=== PATIENT | female | born 1955 | race Caucasian/White ===

== ENCOUNTER 2021-02-28 12:42 | Inpatient (IN) | payer MEDICARE, BC ==
--- NOTE | 2021-02-28 13:29 | ED ---
SOB HPI - General Chief Complaint: Shortness of Breath Stated Complaint: SHAYNA, fever Time Seen by Provider: 02/28/21 13:02 Source: patient Mode of arrival: ambulatory Limitations: no limitations - History of Present Illness Initial Comments: Patient is a 66-year-old female with past medical history of TIA, recent diagnosis of vasculitis who presents to the emergency department with reported shortness of breath and cough. Patient states that she has been under the care of a snowmobile mechanic in [place] for vasculitis. Had a biopsy and was placed on prednisone and dapsone. She has been taking medications as directed and is tapering down her dose of prednisone. As of 4 days ago the patient began having cough and congestion. She did berry picker Mucinex however it is not helping her symptoms. She is vaccinated against Covid in May and June of this year. Denies any close contacts. Does admit to chest wall pain from coughing. No previous history of pulmonary or cardiac issues. No fevers. Patient does arrive and is febrile. Oxygenation is 88%. No other alleviating, precipitating or modifying factors - Related Data Home Medications Medication Instructions Recorded Confirmed Dapsone 100 mg PO BID 02/28/21 02/28/21 Esomeprazole Magnesium [NexIUM 20 mg PO DAILY 02/28/21 02/28/21 24Hr] Pseudoephedrine HCl [Sudafed 12 120 mg PO Q12HR PRN 02/28/21 02/28/21 Hour] guaiFENesin [Mucinex] 600 mg PO Q12H 02/28/21 02/28/21 predniSONE [Deltasone] See Taper PO BID 02/28/21 02/28/21 Allergies Allergy/AdvReac Type Severity Reaction Status Date / Time No Known Allergies Allergy Verified 02/28/21 14:14 Review of Systems ROS Statement: Those systems with pertinent positive or pertinent negative responses have been documented in the HPI. ROS Other: All systems not noted in ROS Statement are negative. Past Medical History Past Medical History: CVA/TIA Additional Past Medical History / Comment(s): RECENT HX OF + OCCULT TEST PER PCP. ALSO HAD AN ABNORMAL PAP WHICH SHOWED VAGINAL POLYP-HAD D & C. CVA RT CEREBELLUM REGION 2000, vasculitis History of Any Multi-Drug Resistant Organisms: None Reported Past Surgical History: Cholecystectomy, Heart Catheterization, Joint Replac ement, Orthopedic Surgery Additional Past Surgical History / Comment(s): D & C WITH VAGINAL POLYPECTOMY. CRYOTHERAPY. RT KNEE SCOPE. L. SHOULDER SURGERY. BILAT TKA Past Anesthesia/Blood Transfusion Reactions: Motion Sickness, Postoperative Nausea & Vomiting (PONV) Additional Past Anesthesia/Blood Transfusion Reaction / Comment(s): HAD TOTAL BLOOD TRANSFUSION AFTER DELIVERY OF BABY , DEVELOPED INFECTION AND WAS HEMORRHAGING AND WENT INTO SHOCK AT HOME. WAS IN ICU FOR 1 WEEK Past Psychological History: No Psychological Hx Reported Smoking Status: Never smoker Past Alcohol Use History: None Reported Past Drug Use History: None Reported - Past Family History Sister(s) Family Medical History: Cancer Father Family Medical History: Myocardial Infarction (NM) Additional Family Medical History / Comment(s): from Heart Attack Mother Family Medical History: Dementia, Myocardial Infarction (NM) Additional Family Medical History / Comment(s): from Heart Attack General Exam Limitations: no limitations General appearance: alert, in no apparent distress Head exam: Present: atraumatic, normocephalic, normal inspection Eye exam: Present: normal appearance, PERRL, EOMI. Absent: scleral icterus, conjunctival injection, periorbital swelling ENT exam: Present: normal exam, mucous membranes moist Neck exam: Present: normal inspection. Absent: tenderness, meningismus, l ymphadenopathy Respiratory exam: Present: normal lung sounds bilaterally, other (Tachypnea). Absent: respiratory distress, wheezes, rales, rhonchi, stridor Cardiovascular Exam: Present: normal rhythm, tachycardia, normal heart sounds. Absent: systolic murmur, diastolic murmur, rubs, gallop, clicks GI/Abdominal exam: Present: soft, normal bowel sounds. Absent: distended, tenderness, guarding, rebound, rigid Extremities exam: Present: normal inspection, full ROM, normal capillary refill. Absent: tenderness, pedal edema, joint swelling, calf tenderness Back exam: Present: normal inspection Neurological exam: Present: alert, oriented X3, CN II-XII intact Psychiatric exam: Present: normal affect, normal mood Skin exam: Present: warm, dry, intact, normal color. Absent: rash Course Vital Signs 02/28/21 02/28/21 02/28/21 12:52 14:00 14:33 Temperature 101.1 F H 98.7 F Pulse Rate 103 H 89 Respiratory 18 21 Rate Blood Pressure 118/66 133/78 O2 Sat by Pulse 88 L 92 L Oximetry 02/28/21 02/28/21 02/28/21 15:00 16:00 17:00 Temperature Pulse Rate 92 100 90 Respiratory 21 15 18 Rate Blood Pressure 140/77 133/73 123/72 O2 Sat by Pulse 92 L 93 L Oximetry 02/28/21 18:00 Temperature 98.9 F Pulse Rate 89 Respiratory 22 Rate Blood Pressure 104/73 O2 Sat by Pulse 93 L Oximetry Medical Decision Making - Medical Decision Making Upon arrival patient is placed in room 6. She is febrile, tachycardic and hypoxic. She does require 6 L oxygen to maintain saturations are 92%. She is given a dose of Tylenol for fever control. Labs were conducted and reviewed. D-dimer slightly elevated at 0.76. Sodium low at 129. Covid is detected. The patient was given a liter bolus of normal saline. Due to her hypoxia recom mended admission. Spoke with Dr. Sinha who agreed to admit the patient. Pulm will be consulted - Lab Data Result diagrams: 03/15/21 07:28 03/15/21 07:28 Lab Results 02/28/21 02/28/21 02/28/21 Range/Units 13:39 13:39 13:45 WBC 12.5 H (3.8-10.6) k/uL RBC 4.43 (3.80-5.40) m/uL Hgb 14.2 (11.4-16.0) gm/dL Hct 41.8 (34.0-46.0) % MCV 94.3 (80.0-100.0) fL MCH 32.0 (25.0-35.0) pg MCHC 33.9 (31.0-37.0) g/dL RDW 12.5 (11.5-15.5) % Plt Count 188 (150-450) k/uL MPV 6.6 Neutrophils % 93 % Lymphocytes % 3 % Monocytes % 3 % Eosinophils % 0 % Basophils % 0 % Neutrophils # 11.6 H (1.3-7.7) k/uL Lymphocytes # 0.4 L (1.0-4.8) k/uL Monocytes # 0.4 (0-1.0) k/uL Eosinophils # 0.0 (0-0.7) k/uL Basophils # 0.0 (0-0.2) k/uL PT (9.0-12.0) sec INR (<1.2) APTT (22.0-30.0) sec D-Dimer (<0.60) mg/L FEU Sodium (137-145) mmol/L Potassium (3.5-5.1) mmol/L Chloride (98-107) mmol/L Carbon Dioxide (22-30) mmol/L Anion Gap mmol/L BUN (7-17) mg/dL Creatinine (0.52-1.04) mg/dL Est GFR (CKD-EPI)AfAm (>60 ml/min/1.73 sqM) Est GFR (CKD-EPI)NonAf (>60 ml/min/1.73 sqM) Glucose (74-99) mg/dL Plasma Lactic Acid Jose Alfredo (0.7-2.0) mmol/L Calcium (8.4-10.2) mg/dL Total Bilirubin (0.2-1.3) mg/dL AST (14-36) U/L ALT (4-34) U/L Alkaline Phosphatase (38-126) U/L Troponin I (0.000-0.034) ng/mL NT-Pro-B Natriuret Pep pg/mL Total Protein (6.3-8.2) g/dL Albumin (3.5-5.0) g/dL Urine Color Yellow Urine Appearance Clear (Clear) Urine pH 5.5 (5.0-8.0) Ur Specific [place] 1.027 (1.001-1.035) Urine Protein Trace H (Negative) Urine Glucose (UA) 1+ H (Negative) Urine Ketones Negative (Negative) Urine Blood Moderate H (Negative) Urine Nitrite Negative (Negative) Urine Bilirubin Negative (Negative) Urine Urobilinogen <2.0 (<2.0) mg/dL Ur Leukocyte Esterase Negative (Negative) Urine RBC 4 (0-5) /hpf Urine WBC 4 (0-5) /hpf Ur Squamous Epith Cells 1 (0-4) /hpf Urine Mucus Moderate H (None) /hpf Coronavirus (PCR) Detected A (Not Detectd) 02/28/21 02/28/21 02/28/21 Range/Units 13:45 13:45 13:45 WBC (3.8-10.6) k/uL RBC (3.80-5.40) m/uL Hgb (11.4-16.0) gm/dL Hct (34.0-46.0) % MCV (80.0-100.0) fL MCH (25.0-35.0) pg MCHC (31.0-37.0) g/dL RDW (11.5-15.5) % Plt Count (150-450) k/uL MPV Neutrophils % % Lymphocytes % % Monocytes % % Eosinophils % % Basophils % % Neutrophils # (1.3-7.7) k/uL Lymphocytes # (1.0-4.8) k/uL Monocytes # (0-1.0) k/uL Eosinophils # (0-0.7) k/uL Basophils # (0-0.2) k/uL PT 10.2 (9.0-12.0) sec INR 0.9 (<1.2) APTT 21.5 L (22.0-30.0) sec D-Dimer 0.76 H (<0.60) mg/L FEU Sodium 129 L (137-145) mmol/L Potassium 4.1 (3.5-5.1) mmol/L Chloride 98 (98-107) mmol/L Carbon Dioxide 25 (22-30) mmol/L Anion Gap 6 mmol/L BUN 16 (7-17) mg/dL Creatinine 0.72 (0.52-1.04) mg/dL Est GFR (CKD-EPI)AfAm >90 (>60 ml/min/1.73 sqM) Est GFR (CKD-EPI)NonAf 87 (>60 ml/min/1.73 sqM) Glucose 128 H (74-99) mg/dL Plasma Lactic Acid Jose Alfredo 1.3 (0.7-2.0) mmol/L Calcium 8.6 (8.4-10.2) mg/dL Total Bilirubin 1.1 (0.2-1.3) mg/dL AST 34 (14-36) U/L ALT 61 H (4-34) U/L Alkaline Phosphatase 63 (38-126) U/L Troponin I (0.000-0.034) ng/mL NT-Pro-B Natriuret Pep pg/mL Total Protein 6.4 (6.3-8.2) g/dL Albumin 3.2 L (3.5-5.0) g/dL Urine Color Urine Appearance (Clear) Urine pH (5.0-8.0) Ur Specific [place] (1.001-1.035) Urine Protein (Negative) Urine Glucose (UA) (Negative) Urine Ketones (Negative) Urine Blood (Negative) Urine Nitrite (Negative) Urine Bilirubin (Negative) Urine Urobilinogen (<2.0) mg/dL Ur Leukocyte Esterase (Negative) Urine RBC (0-5) /hpf Urine WBC (0-5) /hpf Ur Squamous Epith Cells (0-4) /hpf Urine Mucus (None) /hpf Coronavirus (PCR) (Not Detectd) 02/28/21 02/28/21 Range/Units 13:45 13:45 WBC (3.8-10.6) k/uL RBC (3.80-5.40) m/uL Hgb (11.4-16.0) gm/dL Hct (34.0-46.0) % MCV (80.0-100.0) fL MCH (25.0-35.0) pg MCHC (31.0-37.0) g/dL RDW (11.5-15.5) % Plt Count (150-450) k/uL MPV Neutrophils % % Lymphocytes % % Monocytes % % Eosinophils % % Basophils % % Neutrophils # (1.3-7.7) k/uL Lymphocytes # (1.0-4.8) k/uL Monocytes # (0-1.0) k/uL Eosinophils # (0-0.7) k/uL Basophils # (0-0.2) k/uL PT (9.0-12.0) sec INR (<1.2) APTT (22.0-30.0) sec D-Dimer (<0.60) mg/L FEU Sodium (137-145) mmol/L Potassium (3.5-5.1) mmol/L Chloride (98-107) mmol/L Carbon Dioxide (22-30) mmol/L Anion Gap mmol/L BUN (7-17) mg/dL Creatinine (0.52-1.04) mg/dL Est GFR (CKD-EPI)AfAm (>60 ml/min/1.73 sqM) Est GFR (CKD-EPI)NonAf (>60 ml/min/1.73 sqM) Glucose (74-99) mg/dL Plasma Lactic Acid Jose Alfredo (0.7-2.0) mmol/L Calcium (8.4-10.2) mg/dL Total Bilirubin (0.2-1.3) mg/dL AST (14-36) U/L ALT (4-34) U/L Alkaline Phosphatase (38-126) U/L Troponin I <0.012 (0.000-0.034) ng/mL NT-Pro-B Natriuret Pep 70 pg/mL Total Protein (6.3-8.2) g/dL Albumin (3.5-5.0) g/dL Urine Color Urine Appearance (Clear) Urine pH (5.0-8.0) Ur Specific [place] (1.001-1.035) Urine Protein (Negative) Urine Glucose (UA) (Negative) Urine Ketones (Negative) Urine Blood (Negative) Urine Nitrite (Negative) Urine Bilirubin (Negative) Urine Urobilinogen (<2.0) mg/dL Ur Leukocyte Esterase (Negative) Urine RBC (0-5) /hpf Urine WBC (0-5) /hpf Ur Squamous Epith Cells (0-4) /hpf Urine Mucus (None) /hpf Coronavirus (PCR) (Not Detectd) - EKG Data EKG Comments: EKG demonstrates a sinus tachycardia with a ventricular rate of 101. FL interval 128. QRS 72. QTC of 412. No acute ST segment elevations or depressions Disposition Clinical Impression: Hypoxia, COVID, Hyponatremia Disposition: ADMITTED IP TO THIS HOSP Condition: Serious Is patient prescribed a controlled substance at d/c from ED?: No Decision to Admit Reason: Admit from EC Decision Date: 02/28/21 Decision Time: 15:41
[2021-02-28] MEDS ORDERED: ACETAMINOPHEN TAB 500 MG TAB PO STA (13:36)
[2021-02-28] MEDS ORDERED: SODIUM CHLORIDE 0.9% 1,000 ML IV ONE (13:37)
[2021-02-28 14:07] LABS: Basophils % (A) 0 %; Eosinophils % (A) 0 %; HCT 41.8 % (34.0-46.0); HGB 14.2 gm/dL (11.4-16.0); Lymphocytes # (A) 0.4 k/uL (1.0-4.8); Lymphocytes % (A) 3 %; MCHC 33.9 g/dL (31.0-37.0); MCV 94.3 fL (80.0-100.0); Mean Platelet Volume 6.6; Monocytes # (A) 0.4 k/uL (0-1.0); Monocytes % (A) 3 %; Neutrophils # (A) 11.6 k/uL (1.3-7.7); Neutrophils % (A) 93 %; Platelet Count 188 k/uL (150-450); RBC 4.43 m/uL (3.80-5.40); RDW 12.5 % (11.5-15.5); WBC 12.5 k/uL (3.8-10.6)
[2021-02-28 14:15] LABS: ALT 61 U/L (4-34); AST 34 U/L (14-36); African American GFR (CKD) >90 (>60 ml/min/1.73 sqM); Albumin 3.2 g/dL (3.5-5.0); Alkaline Phosphatase 63 U/L (38-126); Anion Gap 6 mmol/L; Blood Urea Nitrogen 16 mg/dL (7-17); Calcium 8.6 mg/dL (8.4-10.2); Carbon Dioxide 25 mmol/L (22-30); Chloride 98 mmol/L (98-107); Glucose 128 mg/dL (74-99); Non-African American GFR(CKD) 87 (>60 ml/min/1.73 sqM); Potassium 4.1 mmol/L (3.5-5.1); Sodium 129 mmol/L (137-145); Total Bilirubin 1.1 mg/dL (0.2-1.3); Total Protein 6.4 g/dL (6.3-8.2)
--- NOTE | 2021-02-28 14:30 | XR ---
EXAMINATION TYPE: XR chest 1V portable DATE OF EXAM: 02/28/2021 COMPARISON: NONE HISTORY: Shortness of breath TECHNIQUE: Single frontal view of the chest is obtained. FINDINGS: Airspace disease is present likely in the left lower lobe. Lung volumes are low, right hem idiaphragm is elevated, patient is rotated. No evident pneumothorax. Interstitium mildly increased. N o definite pleural effusion. Cardiac mediastinal silhouette within normal limits. IMPRESSION: Correlate for pneumonia, expiratory rotated exam. Mild interstitial prominence suspected in the right upper lobe. Follow-up PA and lateral chest x-ray recommended.
[2021-02-28 14:45] LABS: INR 0.9 (<1.2); Partial Thromboplastin Time 21.5 sec (22.0-30.0); Prothrombin Time 10.2 sec (9.0-12.0)
[2021-02-28] MEDS ORDERED: IBUPROFEN 400 MG TAB PO PRN (15:42)
[2021-02-28] MEDS ORDERED: ACETAMINOPHEN TAB 325 MG TAB PO PRN (15:42)
[2021-02-28] MEDS ORDERED: NALOXONE 0.4 MG/ML 1 ML VIAL IV PRN ×2 (15:42→16:44)
--- NOTE | 2021-02-28 16:43 | P.CNPUL ---
History of Present Illness Consult date: 02/28/21 Reason for consult: dyspnea, pneumonia History of present illness: this is a pleasant 66-year-old female patient who was brought into the emergency department today because of increased shortness of breath and dizziness and weakness and cough. Her condition is getting progressively getting worse approximately a week ago. Note that the patient came in and she tested positive for COVID 19 by PCR. Meanwhile,This is a patient was ordered to receive the vaccination and she has taken 2 shots of Moderna in in May and June 2020. She has not taken it was safe shock.. Note that during the course of the past 6 weeks, the patient developed a rash which was a nonpalpable purpuric patches involving the lower extremities. 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 Based on this, the patient was started on steroids. Initially she was given 10 mg of prednisone and beginning of still January 2021. Later on, she was increased up to 60 mg of prednisone and subsequent she was dropped down to 40 mg and recently she was down to 20 mg. At the same time, she was started on dapsone. Her leukocytoclastic lesions and the purpura improved significantly in the lower extremities and there were almost recovering. Meanwhile, the patient got infected with Covid19. No nausea. No vomiting. No abdominal pain. No altered mentation. 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 She is a nonsmoker. No lung disease. No history of any cardiac disease. Review of Systems Constitutional: Reports fatigue, Reports fever, Denies chills Eyes: denies as per HPI, denies blurred vision, denies bulging eye, denies decreased vision, denies diplopia, denies discharge, denies dry eye, denies irritation, denies itching, denies pain, denies photophobia, denies loss of peripheral vision, denies loss of vision, denies tunnel vision/blind spots Ears: deny: decreased hearing, ear discharge, earache, tinnitus Ears, nose, mouth and throat: Reports as per HPI Breasts: absent: as per HPI, change in shape, gynecomastia, masses, nipple discharge, pain, skin changes, swelling Cardiovascular: Reports decreased exercise tolerance, Reports dyspnea on exertion Respiratory: Reports cough, Reports dyspnea Gastrointestinal: Reports as per HPI Genitourinary: Reports as per HPI Menstruation: Reports as per HPI Musculoskeletal: Reports as per HPI Musculoskeletal: absent: ankle pain, ankle stiffness, ankle swelling Integumentary: Reports as per HPI, Reports pruritus, Reports rash Neurological: Reports as per HPI Psychiatric: Reports as per HPI Endocrine: Reports as per HPI Hematologic/Lymphatic: Reports as per HPI Allergic/Immunologic: Reports as per HPI Past Medical History Past Medical History: CVA/TIA Additional Past Medical History / Comment(s): RECENT HX OF + OCCULT TEST PER PCP. ALSO HAD AN ABNORMAL PAP WHICH SHOWED VAGINAL POLYP-HAD D & C. CVA RT CEREBELLUM REGION 2000, vasculitis History of Any Multi-Drug Resistant Organisms: None Reported Past Surgical History: Cholecystectomy, Heart Catheterization, Joint Replacement, Orthopedic Surgery Additional Past Surgical History / Comment(s): D & C WITH VAGINAL POLYPECTOMY. CRYOTHERAPY. RT KNEE SCOPE. L. SHOULDER SURGERY. BILAT TKA Past Anesthesia/Blood Transfusion Reactions: Motion Sickness, Postoperative Nausea & Vomiting (PONV) Additional Past Anesthesia/Blood Transfusion Reaction / Comment(s): HAD TOTAL BLOOD TRANSFUSION AFTER DELIVERY OF BABY , DEVELOPED INFECTION AND WAS HEMORRHAGING AND WENT INTO SHOCK AT HOME. WAS IN ICU FOR 1 WEEK Past Psychological History: No Psychological Hx Reported Smoking Status: Never smoker Past Alcohol Use History: None Reported Past Drug Use History: None Reported - Past Family History Sister(s) Family Medical History: Cancer Medications and Allergies Home Medications Medication Instructions Recorded Confirmed Type Dapsone 100 mg PO BID 02/28/21 02/28/21 History Esomeprazole Magnesium [NexIUM 20 mg PO DAILY 02/28/21 02/28/21 History 24Hr] Pseudoephedrine HCl [Sudafed 12 120 mg PO Q12HR PRN 02/28/21 02/28/21 History Hour] guaiFENesin [Mucinex] 600 mg PO Q12H 02/28/21 02/28/21 History predniSONE [Deltasone] See Taper PO BID 02/28/21 02/28/21 History Allergies Allergy/AdvReac Type Severity Reaction Status Date / Time No Known Allergies Allergy Verified 02/28/21 14:14 Physical Exam Vitals: Vital Signs Temp Pulse Resp BP Pulse Ox 02/28/21 15:00 92 21 140/77 92 L 02/28/21 14:33 98.7 F 02/28/21 14:00 89 21 133/78 92 L 02/28/21 12:52 101.1 F H 103 H 18 118/66 88 L Intake and Output 02/28/21 02/28/21 02/28/21 06:59 14:59 22:59 Other: Weight 106.594 kg Gen. appearance the patient is calm and comfortable and her breathing is nonlabored and currently she is on 6 L of oxygen by nasal cannula Head exam was generally normal. There was no scleral icterus or corneal arcus. M ucous membranes were moist. Neck was supple and without jugular venous distension, thyromegaly, or carotid bruits. Carotids were easily palpable bilaterally. There was no adenopathy. Lungs sounds are diminished in the patient's crackles in the mid and lower lung mckenna bilaterally Cardiac exam revealed the PMI to be normally situated and sized. The rhythm was regular and no extrasystoles were noted during several minutes of auscultation. The first and second heart sounds were normal and physiologic splitting of the second heart sound was noted. There were no murmurs, rubs, clicks, or gallops. Abdominal exam revealed normal bowel sounds. The abdomen was soft, non-tender, and without masses, organomegaly, or appreciable enlargement of the abdominal aorta. Examination of the extremities revealed easily palpable radial, femoral and pedal pulses. There was no cyanosis, clubbing or edema. Skin the patient has purpuric rash involving lower eczematous bilaterally. This is related to vasculitis. Neurologically, the patient is awake and alert and the patient does not have any focal neurological deficit. Cranial nerves are essentially intact. Results - Laboratory Findings CBC and BMP: 02/28/21 13:45 02/28/21 13:45 PT/INR, D-dimer PT 10.2 sec (9.0-12.0) 02/28/21 13:45 INR 0.9 (<1.2) 02/28/21 13:45 D-Dimer 0.76 mg/L FEU (<0.60) H 02/28/21 13:45 Abnormal lab findings: Abnormal Labs 02/28/21 02/28/21 02/28/21 13:39 13:45 13:45 WBC 12.5 H Neutrophils # 11.6 H Lymphocytes # 0.4 L APTT 21.5 L D-Dimer 0.76 H Sodium Glucose ALT Albumin Coronavirus (PCR) Detected A 02/28/21 13:45 WBC Neutrophils # Lymphocytes # APTT D-Dimer Sodium 129 L Glucose 128 H ALT 61 H Albumin 3.2 L Coronavirus (PCR) - Diagnostic Findings Chest x-ray: image reviewed Assessment and Plan Plan: 1 acute COVID 19 related pneumonia with bilateral pulmonary infiltrates and secondary hypoxic respiratory failure. The patient is a vaccinated individual and she took her medicines are in a vaccination back in May and June 2020. She has no clear exposure. She has been symptomatic for less than a week. She presented worsening shortness of breath and hypoxemia and the patient is currently on 6 L of oxygen by nasal cannula. 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 and the vicente carreno remains on a combination of prednisone and dapsone on outpatient basis and she was seeing significant improvement in his skin lesions 4 history of cerebellar CVA 5 history of abnormal Pap smear 6 osteoarthritis Plan Admit this patient to the hospital and titrate the oxygen flow to maintain a saturation above 90%, currently on 6 L Stop the prednisone and put the patient on Decadron 6 mg IV every 12 hours May continue dapsone that she was taking for leukocytoclastic vasculitis and the patient will be kept on 200 mg by mouth daily Will initiate Remdesivir per protocol We'll make sure pharmacy identifies any interaction between the different drugs that she is taking special that she is going to be continued on dapsone Lovenox 40 mg subcu for DVT prophylaxis Check pro calcitonin level Check LDH CRP and D dimers Monitor skin lesions Check ELIANA, p-ANCA, c-ANCA The patient was admitted to the hospital. Chest x-ray was reviewed. We'll continue to follow her progress.
[2021-02-28] MEDS: PANTOPRAZOLE 40 MG/10 ML VIAL IVP SCH (17:07)
[2021-02-28] MEDS: ENOXAPARIN 40 MG/0.4 ML SYRINGE SQ SCH (17:07)
[2021-02-28] MEDS ORDERED: REMDESIVIR 200 MG in SODIUM CHLORIDE 0.9% 250 ML IVPB ONE (18:00)
[2021-02-28 18:07] LABS: C Reactive Protein 21.9 mg/dL (<1.0)
[2021-02-28] MEDS: guaiFENesin 600 MG TABLET.ER PO SCH (18:30)
[2021-02-28] MEDS: DEXAMETHASONE SOD PHOSPHATE 10 MG/ML 1 ML VIAL IVP SCH (21:00)
[2021-02-28] MEDS ORDERED: methylPREDNISolone SOD SUCCI 40 MG/ML 1 ML VIAL IV SCH (21:00)
[2021-02-28] MEDS: DAPSONE 25 MG TAB PO SCH ×2 (21:00→21:03)
[2021-02-28 21:46] LABS: Appearance,Urine Clear (Clear); Bilirubin,Urine Negative (Negative); Blood,Urine Moderate (Negative); Color,Urine Yellow; Glucose,Urine (UA) 1+ (Negative); Ketones,Urine Negative (Negative); Leukocyte Esterase,Urine Negative (Negative); Mucus,Urine Moderate /hpf; Nitrite,Urine Negative (Negative); PH, Urine 5.5 (5.0-8.0); Protein,Urine Trace (Negative); RBC,Urine 4 /hpf (0-5); Specific Gravity,Urine 1.027 (1.001-1.035); Squamous Epithelial Cell,Urine 1 /hpf (0-4); Urobilinogen,Urine <2.0 mg/dL (<2.0); WBC,Urine 4 /hpf (0-5)
[2021-03-01] MEDS: ALBUTEROL HFA INHALER INHALATION PRN ×2 (07:25→20:46)
[2021-03-01] MEDS ORDERED: PANTOPRAZOLE 40 MG TABLET PO SCH (07:30)
[2021-03-01] MEDS: DAPSONE 25 MG TAB PO SCH ×2 (08:01→20:46)
[2021-03-01] MEDS: DEXAMETHASONE SOD PHOSPHATE 10 MG/ML 1 ML VIAL IVP SCH ×2 (08:01→20:46)
[2021-03-01] MEDS: PANTOPRAZOLE 40 MG/10 ML VIAL IVP SCH (08:01)
[2021-03-01] MEDS: guaiFENesin 600 MG TABLET.ER PO SCH ×2 (08:02→17:01)
[2021-03-01 09:52] LABS: African American GFR (CKD) >90 (>60 ml/min/1.73 sqM); Anion Gap 6 mmol/L; Basophils % (A) 0 %; Blood Urea Nitrogen 14 mg/dL (7-17); Calcium 8.7 mg/dL (8.4-10.2); Carbon Dioxide 26 mmol/L (22-30); Chloride 103 mmol/L (98-107); Eosinophils % (A) 0 %; Glucose 127 mg/dL (74-99); HCT 38.8 % (34.0-46.0); HGB 13.1 gm/dL (11.4-16.0); Lymphocytes # (A) 0.3 k/uL (1.0-4.8); Lymphocytes % (A) 3 %; MCH 31.9 pg (25.0-35.0); MCHC 33.9 g/dL (31.0-37.0); Mean Platelet Volume 6.9; Monocytes # (A) 0.2 k/uL (0-1.0); Monocytes % (A) 2 %; Neutrophils # (A) 9.6 k/uL (1.3-7.7); Neutrophils % (A) 94 %; Non-African American GFR(CKD) >90 (>60 ml/min/1.73 sqM); Platelet Count 174 k/uL (150-450); Potassium 4.9 mmol/L (3.5-5.1); RBC 4.13 m/uL (3.80-5.40); RDW 13.1 % (11.5-15.5); Sodium 135 mmol/L (137-145); WBC 10.3 k/uL (3.8-10.6)
--- NOTE | 2021-03-01 10:17 | P.HPIM ---
History of Present Illness H&P Date: 02/28/21 Chief Complaint: sob 66-year-old female with past medical history of TIA, recent diagnosis of leukocytoclastic vasculitis causing skin rash who [facility] with worsening shortness of breath and cough over the past 3-4 days. Patient states that she has been under the care of a manager appointment in [place] for vasculitis. She first had skin rash in January, had skin biopsy which showed leukocytoclastic vasculitis. After that she was placed on prednisone and dapsone. She initially took 60 mg of prednisone but currently she is on only 40 mg. Patient states that she's been coughing up dark clots and purulent phlegm. Also had pleuritic chest pain. She was vaccinated against Covid in May of this year. Has not received booster shot yet. Denies any sick contacts. No previous history of pulmonary or cardiac issues. No fevers. In the emergency department she had a fever of 101, O2 saturations were in the 80s, she is currently requiring 6 L of oxygen to keep her sats above 90. EKG showed sinus tachycardia. Chest x-ray showed left lower lobe infiltrate. Labs were significant for WBC 12.5, lymphocytes LOW, d-dimer 0.75, sodium 129. Rashard carreno was admitted to medicine for further evaluation and management. Review of Systems Complete review of system performed, pertinent positives per HPI , otherwise negative Past Medical History Past Medical History: CVA/TIA Additional Past Medical History / Comment(s): RECENT HX OF + OCCULT TEST PER PCP. ALSO HAD AN ABNORMAL PAP WHICH SHOWED VAGINAL POLYP-HAD D & C. CVA RT CEREBELLUM REGION 2000, vasculitis History of Any Multi-Drug Resistant Organisms: None Reported Past Surgical History: Cholecystectomy, Heart Catheterization, Joint Replacement, Orthopedic Surgery Additional Past Surgical History / Comment(s): D & C WITH VAGINAL POLYPECTOMY. CRYOTHERAPY. RT KNEE SCOPE. L. SHOULDER SURGERY. BILAT TKA Past Anesthesia/Blood Transfusion Reactions: Motion Sickness, Postoperative Nausea & Vomiting (PONV) Additional Past Anesthesia/Blood Transfusion Reaction / Comment(s): HAD TOTAL BLOOD TRANSFUSION AFTER DELIVERY OF BABY , DEVELOPED INFECTION AND WAS HEMORRHAGING AND WENT INTO SHOCK AT HOME. WAS IN ICU FOR 1 WEEK Past Psychological History: No Psychological Hx Reported Smoking Status: Never smoker Past Alcohol Use History: None Reported Past Drug Use History: None Reported - Past Family History Sister(s) Family Medical History: Cancer Father Family Medical History: Myocardial Infarction ([place]) Additional Family Medical History / Comment(s): from Heart Attack Mother Family Medical History: Dementia, Myocardial Infarction ([place]) Additional Family Medical History / Comment(s): from Heart Attack Medications and Allergies Home Medications Medication Instructions Recorded Confirmed Type Dapsone 100 mg PO BID 02/28/21 02/28/21 History Esomeprazole Magnesium [NexIUM 20 mg PO DAILY 02/28/21 02/28/21 History 24Hr] Pseudoephedrine HCl [Sudafed 12 120 mg PO Q12HR PRN 02/28/21 02/28/21 History Hour] guaiFENesin [Mucinex] 600 mg PO Q12H 02/28/21 02/28/21 History predniSONE [Deltasone] See Taper PO BID 02/28/21 02/28/21 History Allergies Allergy/AdvReac Type Severity Reaction Status Date / Time No Known Allergies Allergy Verified 02/28/21 14:14 Physical Exam Vitals: Vital Signs Temp Pulse Resp BP Pulse Ox 02/28/21 15:00 92 21 140/77 92 L 02/28/21 14:33 98.7 F 02/28/21 14:00 89 21 133/78 92 L 02/28/21 12:52 101.1 F H 103 H 18 118/66 88 L Intake and Output 02/28/21 02/28/21 02/28/21 06:59 14:59 22:59 Other: Weight 106.594 kg Constitutional: No acute distress, conversant, pleasant Eyes:Anicteric sclerae, moist conjunctiva, no lid-lag, PERRLA, ENMT: Oropharynx clear, no erythema, exudates Neck: Supple, FROM, no masses, or JVD, No carotid bruits, No thyromegaly Lungs: Clear to auscultation, Clear to percussion, Normal respiratory effort, no accessory muscle use Cardiovascular: Heart regular in rate and rhythm, No murmurs, gallops, or rubs, No peripheral edema Abdominal: Soft, Nontender, no guarding, rebound or rigidity, Normoactive bowel sounds, No hepatomegaly, No splenomegaly, No palpable mass Skin: Normal temperature, tone, texture, turgor, no induration, No subcutaneous nodules, No rash, lesions, No ulcers Extremities: No digital cyanosis, No clubbing, Pedal pulses intact and symmetrical, Radial pulses intact and symmetrical, No calf tenderness Psychiatric: Alert and oriented to person, place and time, appropriate affect, intact judgement Neuro: Muscles Strength 5/5 in all 4 extremities, Sensation to light touch grossly present throughout, Cranial nerves II-XII grossly intact, no focal sensory deficits Results CBC & Chem 7: 03/01/21 06:59 03/01/21 06:59 Labs: Abnormal Lab Results - Last 24 Hours (Table) 02/28/21 02/28/21 02/28/21 Range/Units 13:39 13:45 13:45 WBC 12.5 H (3.8-10.6) k/uL Neutrophils # 11.6 H (1.3-7.7) k/uL Lymphocytes # 0.4 L (1.0-4.8) k/uL APTT 21.5 L (22.0-30.0) sec D-Dimer 0.76 H (<0.60) mg/L FEU Sodium (137-145) mmol/L Glucose (74-99) mg/dL ALT (4-34) U/L Albumin (3.5-5.0) g/dL Coronavirus (PCR) Detected A (Not Detectd) 02/28/21 Range/Units 13:45 WBC (3.8-10.6) k/uL Neutrophils # (1.3-7.7) k/uL Lymphocytes # (1.0-4.8) k/uL APTT (22.0-30.0) sec D-Dimer (<0.60) mg/L FEU Sodium 129 L (137-145) mmol/L Glucose 128 H (74-99) mg/dL ALT 61 H (4-34) U/L Albumin 3.2 L (3.5-5.0) g/dL Coronavirus (PCR) (Not Detectd) Assessment and Plan Plan: Acute hypoxemic respiratory failure secondary to COVID-19 pneumonia O2 supplement to keep saturation above 92%, she is currently on 6 L Start remdisivir Start Decadron 6 mg IV twice a day. Pulmonary consultation History of leukocytoclastic vasculitis Continue dapsone Chronic Osteoarthritis Stable DVT prophylaxis Lovenox subcu Admit to inpatient, expected length of stay more than 2 minutes
[2021-03-01 14:14] LABS: C-ANCA <1:20 Titer (<1:20)
--- NOTE | 2021-03-01 14:40 | P.PN ---
Subjective Progress Note Date: 03/01/21 Principal diagnosis: sob Patient symptomatically feeling much better however she continues to require 6 L of oxygen. No significant shortness of breath or chest pain currently. No fevers or chills. Objective - Vital Signs Vital signs: Vital Signs Temp 98.2 F 03/01/21 09:32 Pulse 85 03/01/21 09:32 Resp 18 03/01/21 09:32 BP 153/73 03/01/21 09:32 Pulse Ox 92 L 03/01/21 09:32 Intake & Output 02/28/21 03/01/21 03/01/21 18:59 06:59 18:59 Weight 106.594 kg 106.594 kg Other: Voiding Method Toilet Toilet # Voids 2 - Exam Constitutional: No acute distress, conversant, pleasant Eyes:Anicteric sclerae, moist conjunctiva, no lid-lag, PERRLA, ENMT: Oropharynx clear, no erythema, exudates Neck: Supple, FROM, no masses, or JVD, No carotid bruits, No thyromegaly Lungs: Clear to auscultation, Clear to percussion, Normal respiratory effort, no accessory muscle use Cardiovascular: Heart regular in rate and rhythm, No murmurs, gallops, or rubs, No peripheral edema Abdominal: Soft, Nontender, no guarding, rebound or rigidity, Normoactive bowel sounds, No hepatomegaly, No splenomegaly, No palpable mass Skin: Normal temperature, tone, texture, turgor, no induration, No subcutaneous nodules, No rash, lesions, No ulcers Extremities: No digital cyanosis, No clubbing, Pedal pulses intact and symmetrical, Radial pulses intact and symmetrical, No calf tenderness Psychiatric: Alert and oriented to person, place and time, appropriate affect, intact judgement Neuro: Muscles Strength 5/5 in all 4 extremities, Sensation to light touch grossly present throughout, Cranial nerves II-XII grossly intact, no focal sensory deficits - Labs CBC & Chem 7: 03/01/21 06:59 03/01/21 06:59 Labs: Abnormal Lab Results - Last 24 Hours (Table) 02/28/21 02/28/21 02/28/21 Range/Units 13:39 13:45 17:19 Neutrophils # (1.3-7.7) k/uL Lymphocytes # (1.0-4.8) k/uL APTT 21.5 L (22.0-30.0) sec D-Dimer 0.76 H 0.66 H (<0.60) mg/L FEU Sodium (137-145) mmol/L Glucose (74-99) mg/dL Lactate Dehydrogenase (313-618) U/L C-Reactive Protein (<1.0) mg/dL Procalcitonin (0.02-0.09) ng/mL Urine Protein Trace H (Negative) Urine Glucose (UA) 1+ H (Negative) Urine Blood Moderate H (Negative) Urine Mucus Moderate H (None) /hpf 02/28/21 02/28/21 03/01/21 Range/Units 17:19 17:19 06:59 Neutrophils # 9.6 H (1.3-7.7) k/uL Lymphocytes # 0.3 L (1.0-4.8) k/uL APTT (22.0-30.0) sec D-Dimer (<0.60) mg/L FEU Sodium (137-145) mmol/L Glucose (74-99) mg/dL Lactate Dehydrogenase 637 H (313-618) U/L C-Reactive Protein 21.9 H (<1.0) mg/dL Procalcitonin 0.16 H (0.02-0.09) ng/mL Urine Protein (Negative) Urine Glucose (UA) (Negative) Urine Blood (Negative) Urine Mucus (None) /hpf 03/01/21 Range/Units 06:59 Neutrophils # (1.3-7.7) k/uL Lymphocytes # (1.0-4.8) k/uL APTT (22.0-30.0) sec D-Dimer (<0.60) mg/L FEU Sodium 135 L (137-145) mmol/L Glucose 127 H (74-99) mg/dL Lactate Dehydrogenase (313-618) U/L C-Reactive Protein (<1.0) mg/dL Procalcitonin (0.02-0.09) ng/mL Urine Protein (Negative) Urine Glucose (UA) (Negative) Urine Blood (Negative) Urine Mucus (None) /hpf Assessment and Plan Plan: Acute hypoxemic respiratory failure secondary to COVID-19 pneumonia O2 supplement to keep saturation above 92%, she is currently on 6 L Continue remdisivir Continue Decadron 6 mg IV twice a day. Pulmonary following History of leukocytoclastic vasculitis Continue dapsone Chronic Osteoarthritis Stable DVT prophylaxis Lovenox subcu
--- NOTE | 2021-03-01 15:46 | P.PN ---
Subjective Progress Note Date: 03/01/21 this is a pleasant 66-year-old female patient who was brought into the emergency department today because of increased shortness of breath and dizziness and weakness and cough. Her condition is getting progressively getting worse approximately a week ago. Note that the patient came in and she tested positive for COVID 19 by PCR. Meanwhile,This is a patient was ordered to receive the vaccination and she has taken 2 shots of Moderna in in May and June 2020. She has not taken it was safe shock.. Note that during the course of the past 6 weeks, the patient developed a rash which was a nonpalpable purpuric patches involving the lower extremities. 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 Based on this, the patient was started on steroids. Initially she was given 10 mg of prednisone and beginning of still January 2021. Later on, she was increased up to 60 mg of prednisone and subsequent she was dropped down to 40 mg and recently she was down to 20 mg. At the same time, she was started on dapsone. Her leukocytoclastic lesions and the purpura improved significantly in the lower extremities and there were almost recovering. Meanwhile, the patient got infected with Covid19. No nausea. No vomiting. No abdominal pain. No altered mentation. 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 She is a nonsmoker. No lung disease. No history of any cardiac disease. On today's evaluation of 03/01/2021, the patient is feeling better. She is less short of breath compared to yesterday. For now, have the patient on a combination of treatment including Decadron 6 mg IV every 12 hours and she is also on Remdesivir day #2. She is also on dapsone that she takes for her le ukocytoclastic vasculitis. No significant worsening of her rash. She is walking around the room. She was on 6 L of oxygen by nasal cannula and currently she is on 6 L fill. The blood work shows a white cell count of 10.3 with hemoglobin 15.1. Her d-dimer is at 0.66. Rest of the blood work shows an LDH level of 637, CRP of 21, LFTs are normal, electrolytes are normal, UA is normal, pro calcitonin level is at 0.16 which is essentially low at this point in time. No new complaints otherwise for now. Tolerating her diet. Objective - Vital Signs Vital signs: Vital Signs Temp 98.5 F 03/01/21 13:03 Pulse 92 03/01/21 13:03 Resp 18 03/01/21 13:03 BP 118/68 03/01/21 13:03 Pulse Ox 90 L 03/01/21 13:03 Intake & Output 02/28/21 03/01/21 03/01/21 18:59 06:59 18:59 Weight 106.594 kg 106.594 kg Other: Voiding Method Toilet Toilet # Voids 2 - Exam Gen. appearance the patient is calm and comfortable and her breathing is nonlabored and currently she is on 6 L of oxygen by nasal cannula Head exam was generally normal. There was no scleral icterus or corneal arcus. Mucous membranes were moist. Neck was supple and without jugular venous distension, thyromegaly, or carotid bruits. Carotids were easily palpable bilaterally. There was no adenopathy. Lungs sounds are diminished in the patient's crackles in the mid and lower lung mckenna bilaterally Cardiac exam revealed the PMI to be normally situated and sized. The rhythm was regular and no extrasystoles were noted during several minutes of auscultation. The first and second heart sounds were normal and physiologic splitting of the second heart sound was noted. There were no murmurs, rubs, clicks, or gallops. Abdominal exam revealed normal bowel sounds. The abdomen was soft, non-tender, and without masses, organomegaly, or appreciable enlargement of the abdominal aorta. Examination of the extremities revealed easily palpable radial, femoral and pedal pulses. There was no cyanosis, clubbing or edema. Skin the patient has purpuric rash involving lower eczematous bilaterally. This is related to vasculitis. Neurologically, the patient is awake and alert and the patient does not have any focal neurological deficit. Cranial nerves are essentially intact. - Labs CBC & Chem 7: 03/01/21 06:59 03/01/21 06:59 Labs: Abnormal Lab Results - Last 24 Hours (Table) 02/28/21 02/28/21 02/28/21 Range/Units 13:39 17:19 17:19 Neutrophils # (1.3-7.7) k/uL Lymphocytes # (1.0-4.8) k/uL D-Dimer 0.66 H (<0.60) mg/L FEU Sodium (137-145) mmol/L Glucose (74-99) mg/dL Lactate Dehydrogenase 637 H (313-618) U/L C-Reactive Protein 21.9 H (<1.0) mg/dL Procalcitonin (0.02-0.09) ng/mL Urine Protein Trace H (Negative) Urine Glucose (UA) 1+ H (Negative) Urine Blood Moderate H (Negative) Urine Mucus Moderate H (None) /hpf 02/28/21 03/01/21 03/01/21 Range/Units 17:19 06:59 06:59 Neutrophils # 9.6 H (1.3-7.7) k/uL Lymphocytes # 0.3 L (1.0-4.8) k/uL D-Dimer (<0.60) mg/L FEU Sodium 135 L (137-145) mmol/L Glucose 127 H (74-99) mg/dL Lactate Dehydrogenase (313-618) U/L C-Reactive Protein (<1.0) mg/dL Procalcitonin 0.16 H (0.02-0.09) ng/mL Urine Protein (Negative) Urine Glucose (UA) (Negative) Urine Blood (Negative) Urine Mucus (None) /hpf Assessment and Plan Plan: 1 acute COVID 19 related pneumonia with bilateral pulmonary infiltrates and secondary hypoxic respiratory failure. The patient is a vaccinated individual and she took her medicines are in a vaccination back in May and June 2020. She has no clear exposure. She has been symptomatic for less than a week. She presented worsening shortness of breath and hypoxemia and the patient is currently on 6 L of oxygen by nasal cannula. 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 and the patient remains on a combination of prednisone and dapsone on outpatient basis and she was seeing significant improvement in his skin lesions 4 history of cerebellar CVA 5 history of abnormal Pap smear 6 osteoarthritis Plan Condition is stable for now and the patient continues to be a 6l by nasal cannula Continue Decadron 6 mg IV every 12 hours Provide the patient incentive spirometer May continue dapsone that she was taking for leukocytoclastic vasculitis and the patient will be kept on 200 mg by mouth daily Remdesivir per protocol and the patient is on day #2 of treatment We'll make sure pharmacy identifies any interaction between the different drugs that she is taking special that she is going to be continued on dapsone Lovenox 40 mg subcu for DVT prophylaxis Check pro calcitonin level, levels are low Check LDH CRP and D dimers, levels are low Monitor skin lesions Check ELIANA, p-ANCA, c-ANCA, pending We'll continue to follow her progress.
[2021-03-01] MEDS: REMDESIVIR 100 MG in SODIUM CHLORIDE 0.9% 250 ML IVPB SCH (17:01)
[2021-03-01] MEDS: ENOXAPARIN 40 MG/0.4 ML SYRINGE SQ SCH (17:01)
[2021-03-02] MEDS: guaiFENesin 600 MG TABLET.ER PO SCH ×2 (06:08→17:19)
[2021-03-02] MEDS: DAPSONE 25 MG TAB PO SCH ×2 (07:53→21:46)
[2021-03-02] MEDS: PANTOPRAZOLE 40 MG TABLET PO SCH (07:53)
[2021-03-02] MEDS: DEXAMETHASONE SOD PHOSPHATE 10 MG/ML 1 ML VIAL IVP SCH ×2 (07:54→21:46)
[2021-03-02] MEDS: ALBUTEROL HFA INHALER INHALATION PRN ×2 (08:57→16:37)
[2021-03-02 09:44] LABS: African American GFR (CKD) >90 (>60 ml/min/1.73 sqM); Anion Gap 8 mmol/L; Blood Urea Nitrogen 20 mg/dL (7-17); Calcium 8.8 mg/dL (8.4-10.2); Carbon Dioxide 24 mmol/L (22-30); Chloride 105 mmol/L (98-107); Glucose 176 mg/dL (74-99); Magnesium 2.2 mg/dL (1.6-2.3); Non-African American GFR(CKD) 89 (>60 ml/min/1.73 sqM); Phosphorus 4.4 mg/dL (2.5-4.5); Potassium 4.1 mmol/L (3.5-5.1); Sodium 137 mmol/L (137-145)
--- NOTE | 2021-03-02 13:06 | P.PN ---
Subjective Progress Note Date: 03/02/21 Principal diagnosis: sob Oxygen requirements went up last night to 15 L from 6. She is not feeling short of breath. No cough or pain. She had a bad night's sleep due to oxygen requirement going higher. No fevers or chills. Objective - Vital Signs Vital signs: Vital Signs Temp 97.8 F 03/02/21 10:00 Pulse 77 03/02/21 10:00 Resp 23 03/02/21 10:00 BP 111/71 03/02/21 10:00 Pulse Ox 90 L 03/02/21 10:00 Intake & Output 03/01/21 03/02/21 03/02/21 18:59 06:59 18:59 Intake Total 1000 Balance 1000 Intake: Oral 1000 Other: Voiding Method Toilet Toilet # Voids 1 - Exam Constitutional: No acute distress, conversant, pleasant Eyes:Anicteric sclerae, moist conjunctiva, no lid-lag, PERRLA, ENMT: Oropharynx clear, no erythema, exudates Neck: Supple, FROM, no masses, or JVD, No carotid bruits, No thyromegaly Lungs: Clear to auscultation, Clear to percussion, Normal respiratory effort, no accessory muscle use Cardiovascular: Heart regular in rate and rhythm, No murmurs, gallops, or rubs, No peripheral edema Abdominal: Soft, Nontender, no guarding, rebound or rigidity, Normoactive bowel sounds, No hepatomegaly, No splenomegaly, No palpable mass Skin: Normal temperature, tone, texture, turgor, no induration, No subcutaneous nodules, No rash, lesions, No ulcers Extremities: No digital cyanosis, No clubbing, Pedal pulses intact and symmetrical, Radial pulses intact and symmetrical, No calf tenderness Psychiatric: Alert and oriented to person, place and time, appropriate affect, intact judgement Neuro: Muscles Strength 5/5 in all 4 extremities, Sensation to light touch grossly present throughout, Cranial nerves II-XII grossly intact, no focal sensory deficits - Labs CBC & Chem 7: 03/01/21 06:59 03/02/21 08:44 Labs: Abnormal Lab Results - Last 24 Hours (Table) 03/02/21 Range/Units 08:44 BUN 20 H (7-17) mg/dL Glucose 176 H (74-99) mg/dL Assessment and Plan Plan: Acute hypoxemic respiratory failure secondary to COVID-19 pneumonia O2 supplement to keep saturation above 92%, she is currently on 15 L HFNC Continue remdisivir Continue Decadron 6 mg IV twice a day. Pulmonary following History of leukocytoclastic vasculitis Continue dapsone Chronic Osteoarthritis Stable DVT prophylaxis Lovenox subcu
--- NOTE | 2021-03-02 15:03 | P.PN ---
Subjective Progress Note Date: 03/02/21 this is a pleasant 66-year-old female patient who was brought into the emergency department today because of increased shortness of breath and dizziness and weakness and cough. Her condition is getting progressively getting worse approximately a week ago. Note that the patient came in and she tested positive for COVID 19 by PCR. Meanwhile,This is a patient was ordered to receive the vaccination and she has taken 2 shots of Moderna in in May and June 2020. She has not taken it was safe shock.. Note that during the course of the past 6 weeks, the patient developed a rash which was a nonpalpable purpuric patches involving the lower extremities. 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 Based on this, the patient was started on steroids. Initially she was given 10 mg of prednisone and beginning of still January 2021. Later on, she was increased up to 60 mg of prednisone and subsequent she was dropped down to 40 mg and recently she was down to 20 mg. At the same time, she was started on dapsone. Her leukocytoclastic lesions and the purpura improved significantly in the lower extremities and there were almost recovering. Meanwhile, the patient got infected with Covid19. No nausea. No vomiting. No abdominal pain. No altered mentation. 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 She is a nonsmoker. No lung disease. No history of any cardiac disease. On today's evaluation of 03/01/2021, the patient is feeling better. She is less short of breath compared to yesterday. For now, have the patient on a combination of treatment including Decadron 6 mg IV every 12 hours and she is also on Remdesivir day #2. She is also on dapsone that she takes for her le ukocytoclastic vasculitis. No significant worsening of her rash. She is walking around the room. She was on 6 L of oxygen by nasal cannula and currently she is on 6 L fill. The blood work shows a white cell count of 10.3 with hemoglobin 15.1. Her d-dimer is at 0.66. Rest of the blood work shows an LDH level of 637, CRP of 21, LFTs are normal, electrolytes are normal, UA is normal, pro calcitonin level is at 0.16 which is essentially low at this point in time. No new complaints otherwise for now. Tolerating her diet. on 03/02/2021, the patient is being seen for a follow-up. As mentioned earlier, the patient was Hospital as for: 90 related pneumonia. 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 For that reason, I put the patient on high-dose Decadron 6 mg every 12 hours and she is currently on of the severe day #3. She received a dose today. D-dimer is at 0.66. Inflammatory markers from earlier showed a LDH level of 637 with a CRP of 21.9. Her pro-calcitonin level was 0.16. Nevertheless, this patient had some decompensation in her oxygenation and currently still 15 L of oxygen by nasal cannula. Her current pulse ox is around 90%. She feels well and she denies having any further worsening of shortness of breath. No altered mentation. No other complaints otherwise for now. Blood work was reviewed. Electrolytes all within normal limits. normal renal function. Blood sugar is slightly elevated because of the use of Decadron. Objective - Vital Signs Vital signs: Vital Signs Temp 97.8 F 03/02/21 10:00 Pulse 77 03/02/21 10:00 Resp 23 03/02/21 10:00 BP 111/71 03/02/21 10:00 Pulse Ox 90 L 03/02/21 10:00 Intake & Output 03/01/21 03/02/21 03/02/21 18:59 06:59 18:59 Intake Total 1000 Balance 1000 Intake: Oral 1000 Other: Voiding Method Toilet Toilet # Voids 1 - Exam Gen. appearance the patient is calm and comfortable and her breathing is nonlabored and currently she is on 15 L of oxygen by nasal cannula Head exam was generally normal. There was no scleral icterus or corneal arcus. Mucous membranes were moist. Neck was supple and without jugular venous distension, thyromegaly, or carotid bruits. Carotids were easily palpable bilaterally. There was no adenopathy. Lungs sounds are diminished in the patient's crackles in the mid and lower lung mckenna bilaterally Cardiac exam revealed the PMI to be normally situated and sized. The rhythm was regular and no extrasystoles were noted during several minutes of auscultation. The first and second heart sounds were normal and physiologic splitting of the second heart sound was noted. There were no murmurs, rubs, clicks, or gallops. Abdominal exam revealed normal bowel sounds. The abdomen was soft, non-tender, and without masses, organomegaly, or appreciable enlargement of the abdominal aorta. Examination of the extremities revealed easily palpable radial, femoral and pedal pulses. There was no cyanosis, clubbing or edema. Skin the patient has purpuric rash involving lower eczematous bilaterally. This is related to vasculitis. Neurologically, the patient is awake and alert and the patient does not have any focal neurological deficit. Cranial nerves are essentially intact. - Labs CBC & Chem 7: 03/01/21 06:59 03/02/21 08:44 Labs: Abnormal Lab Results - Last 24 Hours (Table) 03/02/21 Range/Units 08:44 BUN 20 H (7-17) mg/dL Glucose 176 H (74-99) mg/dL Assessment and Plan Plan: 1 acute COVID 19 related pneumonia with bilateral pulmonary infiltrates and secondary hypoxic respiratory failure. The patient is a vaccinated individual and she took her medicines are in a vaccination back in May and June 2020. She has no clear exposure. She has been symptomatic for less than a week. She presented worsening shortness of breath and hypoxemia and the patient is currently on as of oxygen by nasal cannula. The patient was earlier on 6 L and she decompensated and she is currently up to 15 L. Current pulse ox 90% patient wasn't very closely. Monitor markers of mildly elevated only. She also is on a combination of high-dose Decadron and Remdesivir day #3. She remains on Lovenox. 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 The patient implementing markers in a.m. Continue high-dose Decadron 6 mg IV every 12 hours Condition is stable for now and the patient continues to be a 15 by nasal cannula Continue Decadron 6 mg IV every 12 hours Provide the patient incentive spirometer May continue dapsone that she was taking for leukocytoclastic vasculitis and the patient will be kept on 200 mg by mouth daily Remdesivir per protocol and the patient is on day #3 of treatment Lovenox 40 mg subcu for DVT prophylaxis Check pro calcitonin level, levels are low Check LDH CRP and D dimers, levels are low Monitor skin lesions Check ELIANA, p-ANCA, c-ANCA, are negative We'll continue to follow her progress.
[2021-03-02] MEDS: REMDESIVIR 100 MG in SODIUM CHLORIDE 0.9% 250 ML IVPB SCH (17:19)
[2021-03-02] MEDS: ENOXAPARIN 40 MG/0.4 ML SYRINGE SQ SCH (17:19)
[2021-03-02] MEDS: ACETAMINOPHEN TAB 325 MG TAB PO PRN (21:50)
[2021-03-03] MEDS: guaiFENesin 600 MG TABLET.ER PO SCH ×2 (06:01→16:54)
[2021-03-03] MEDS: PANTOPRAZOLE 40 MG TABLET PO SCH (08:45)
[2021-03-03] MEDS: DAPSONE 25 MG TAB PO SCH ×2 (08:45→21:42)
[2021-03-03] MEDS: DEXAMETHASONE SOD PHOSPHATE 10 MG/ML 1 ML VIAL IVP SCH ×2 (08:45→21:42)
[2021-03-03] MEDS: ALBUTEROL HFA INHALER INHALATION PRN (09:40)
--- NOTE | 2021-03-03 13:57 | P.PN ---
Subjective Progress Note Date: 03/03/21 this is a pleasant 66-year-old female patient who was brought into the emergency department today because of increased shortness of breath and dizziness and weakness and cough. Her condition is getting progressively getting worse approximately a week ago. Note that the patient came in and she tested positive for COVID 19 by PCR. Meanwhile,This is a patient was ordered to receive the vaccination and she has taken 2 shots of Moderna in in May and June 2020. She has not taken it was safe shock.. Note that during the course of the past 6 weeks, the patient developed a rash which was a nonpalpable purpuric patches involving the lower extremities. 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 Based on this, the patient was started on steroids. Initially she was given 10 mg of prednisone and beginning of still January 2021. Later on, she was increased up to 60 mg of prednisone and subsequent she was dropped down to 40 mg and recently she was down to 20 mg. At the same time, she was started on dapsone. Her leukocytoclastic lesions and the purpura improved significantly in the lower extremities and there were almost recovering. Meanwhile, the patient got infected with Covid19. No nausea. No vomiting. No abdominal pain. No altered mentation. 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 She is a nonsmoker. No lung disease. No history of any cardiac disease. On today's evaluation of 03/01/2021, the patient is feeling better. She is less short of breath compared to yesterday. For now, have the patient on a combination of treatment including Decadron 6 mg IV every 12 hours and she is also on Remdesivir day #2. She is also on dapsone that she takes for her le ukocytoclastic vasculitis. No significant worsening of her rash. She is walking around the room. She was on 6 L of oxygen by nasal cannula and currently she is on 6 L fill. The blood work shows a white cell count of 10.3 with hemoglobin 15.1. Her d-dimer is at 0.66. Rest of the blood work shows an LDH level of 637, CRP of 21, LFTs are normal, electrolytes are normal, UA is normal, pro calcitonin level is at 0.16 which is essentially low at this point in time. No new complaints otherwise for now. Tolerating her diet. on 03/02/2021, the patient is being seen for a follow-up. As mentioned earlier, the patient was Hospital as for: 90 related pneumonia. 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 For that reason, I put the patient on high-dose Decadron 6 mg every 12 hours and she is currently on of the severe day #3. She received a dose today. D-dimer is at 0.66. Inflammatory markers from earlier showed a LDH level of 637 with a CRP of 21.9. Her pro-calcitonin level was 0.16. Nevertheless, this patient had some decompensation in her oxygenation and currently still 15 L of oxygen by nasal cannula. Her current pulse ox is around 90%. She feels well and she denies having any further worsening of shortness of breath. No altered mentation. No other complaints otherwise for now. Blood work was reviewed. Electrolytes all within normal limits. normal renal function. Blood sugar is slightly elevated because of the use of Decadron. 03/03/2021, the patient is still on oxygen and she is on 15 L. Essentially the same as yesterday. No worsening shortness of breath. She does have a cough. She is dry cough. No significant sputum production. No chest pain. No pleurisy. No hemoptysis. The patient remains on Decadron 6 mg IV every 12 hours. The patient is also on Lovenox 40 mg subcu for DVT prophylaxis. The patient was advised to 10.3 from 2 days ago. On today's labs, the electrodes are all stable and within normal limits. Note that her LDH level was 637, CRP, Pro-Calcitonin Level Was 0.16.she has also noticed some improvement in the leukocytoclastic vasculitic lesions in her lower extremities bilaterally. There is a positive response to Decadron. Objective - Vital Signs Vital signs: Vital Signs Temp 97.7 F 03/03/21 09:03 Pulse 82 03/03/21 09:03 Resp 18 03/03/21 09:03 BP 121/72 03/03/21 09:03 Pulse Ox 89 L 03/03/21 09:03 Intake & Output 03/02/21 03/03/21 03/03/21 18:59 06:59 18:59 Intake Total 250 Balance 250 Intake: Intake, IV Titration 250 Amount Remdesivir 100 mg In 250 Sodium Chloride 0.9% 250 ml @ 250 mls/hr IVPB Q24H [facility] Rx#:[id number] Other: Voiding Method Toilet # Voids 2 3 - Exam Gen. appearance the patient is calm and comfortable and her breathing is nonlabored and currently she is on 15 L of oxygen by nasal cannula Head exam was generally normal. There was no scleral icterus or corneal arcus. Mucous membranes were moist. Neck was supple and without jugular venous distension, thyromegaly, or carotid bruits. Carotids were easily palpable bilaterally. There was no adenopathy. Lungs sounds are diminished in the patient's crackles in the mid and lower lung mckenna bilaterally Cardiac exam revealed the PMI to be normally situated and sized. The rhythm was regular and no extrasystoles were noted during several minutes of auscultation. The first and second heart sounds were normal and physiologic splitting of the second heart sound was noted. There were no murmurs, rubs, clicks, or gallops. Abdominal exam revealed normal bowel sounds. The abdomen was soft, non-tender, and without masses, organomegaly, or appreciable enlargement of the abdominal aorta. Examination of the extremities revealed easily palpable radial, femoral and pedal pulses. There was no cyanosis, clubbing or edema. Skin the patient has purpuric rash involving lower eczematous bilaterally. This is related to vasculitis. Neurologically, the patient is awake and alert and the patient does not have any focal neurological deficit. Cranial nerves are essentially intact. - Labs CBC & Chem 7: 03/01/21 06:59 03/02/21 08:44 Assessment and Plan Plan: 1 acute COVID 19 related pneumonia with bilateral pulmonary infiltrates and secondary hypoxic respiratory failure. The patient is a vaccinated individual and she took her medicines are in a vaccination back in May and June 2020. She has no clear exposure. She has been symptomatic for less than a week. She presented worsening shortness of breath and hypoxemia and the patient is currently on as of oxygen by nasal cannula. The patient is currently up to 15 L. Current pulse ox 90% patient wasn't very closely. Monitor markers of mildly elevated only. She also is on a combination of high-dose Decadron and Rem desivir day #4. She remains on Lovenox. condition is stable compared to yesterday. 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 and the patient remains on a combination of prednisone and dapsone on outpatient basis and she was seeing significant improvement in his skin lesions 4 history of cerebellar CVA 5 history of abnormal Pap smear 6 osteoarthritis Plan the patient's condition is stable and the patient is currently on 15 L of oxygen by nasal cannula and this is essentially unchanged compared to yesterday Continue Decadron at the same dose of 63 g IV every 12 hours and continue Remdesivir day #4 May continue dapsone that she was taking for leukocytoclastic vasculitis and the patient will be kept on 200 mg by mouth daily Remdesivir per protocol and the patient is on day #4 of treatment Lovenox 40 mg subcu for DVT prophylaxis Check pro calcitonin level, levels are low Check LDH CRP and D dimers, levels are low Monitor skin lesions Check ELIANA, p-ANCA, c-ANCA, are negative We'll continue to follow her progress.
--- NOTE | 2021-03-03 14:09 | P.PN ---
Subjective Progress Note Date: 03/03/21 Patient seen and examined at bedside. Patient continues to be on high flow oxygen. Denies chest pain, fever, or chills. Patient has a persistent cough. Patient does not have any concerns despite her shortness of breath. Objective - Vital Signs Vital signs: Vital Signs Temp 97.7 F 03/03/21 09:03 Pulse 82 03/03/21 09:03 Resp 18 03/03/21 09:03 BP 121/72 03/03/21 09:03 Pulse Ox 89 L 03/03/21 09:03 Intake & Output 03/02/21 03/03/21 03/03/21 18:59 06:59 18:59 Intake Total 250 Balance 250 Intake: Intake, IV Titration 250 Amount Remdesivir 100 mg In 250 Sodium Chloride 0.9% 250 ml @ 250 mls/hr IVPB Q24H [facility] Rx#:[id number] Other: Voiding Method Toilet # Voids 2 3 - Exam General: [non toxic], [no distress], [appears at stated age] Derm: [warm], [dry] Head: [atraumatic], [normocephalic], [symmetric] Eyes: [EOMI], [no lid lag], [anicteric sclera] Mouth: [no lip lesion], [mucus membranes moist] Cardiovascular: [S1S2 reg], [no murmur], [positive posterior tibial pulse bilateral], Lungs: [CTA bilateral], [no rhonchi, no rales] , [no accessory muscle use] Abdominal: [soft], [ nontender to palpation], [no guarding], [no appreciable organomegaly] Ext: [no gross muscle atrophy], [no edema], [no contractures] Neuro: [ CN II-XI grossly intact], [no focal neuro deficits] Psych: [Alert], [oriented], [appropriate affect] - Labs CBC & Chem 7: 03/01/21 06:59 03/02/21 08:44 Assessment and Plan Assessment: Acute hypoxemic respiratory failure secondary to COVID-19 pneumonia O2 supplement to keep saturation above 92%, she is currently on 15 L HFNC Continue remdisivir Continue Decadron 6 mg IV twice a day. Pulmonary following History of leukocytoclastic vasculitis Continue dapsone Chronic Osteoarthritis Stable DVT prophylaxis Lovenox subcu
[2021-03-03] MEDS: REMDESIVIR 100 MG in SODIUM CHLORIDE 0.9% 250 ML IVPB SCH (16:53)
[2021-03-03] MEDS: ENOXAPARIN 40 MG/0.4 ML SYRINGE SQ SCH (16:53)
[2021-03-04] MEDS: guaiFENesin 600 MG TABLET.ER PO SCH ×2 (05:45→17:21)
[2021-03-04] MEDS: DEXAMETHASONE SOD PHOSPHATE 10 MG/ML 1 ML VIAL IVP SCH ×2 (07:53→21:35)
[2021-03-04] MEDS: PANTOPRAZOLE 40 MG TABLET PO SCH (07:53)
[2021-03-04] MEDS: DAPSONE 25 MG TAB PO SCH ×2 (07:53→21:36)
--- NOTE | 2021-03-04 08:16 | XR ---
EXAMINATION TYPE: XR chest 1V DATE OF EXAM: 03/04/2021 COMPARISON: 02/28/2021 INDICATION: Atypical pneumonia TECHNIQUE: Single frontal view of the chest is obtained. FINDINGS: The heart size is normal. The pulmonary vasculature is normal. Patchy infiltrates are present bilaterally. Findings are nonspecific but worsening over the interval. Correlate for atypical pneumonia. IMPRESSION: 1. Worsening patchy bilateral lung infiltrates compatible with atypical pneumonia. Continued follow-u p is recommended.
[2021-03-04 09:50] LABS: Basophils % (A) 0 %; Eosinophils % (A) 0 %; HCT 41.4 % (34.0-46.0); Lymphocytes # (A) 0.5 k/uL (1.0-4.8); Lymphocytes % (A) 6 %; MCH 31.8 pg (25.0-35.0); MCHC 33.7 g/dL (31.0-37.0); MCV 94.4 fL (80.0-100.0); Mean Platelet Volume 6.8; Monocytes # (A) 0.3 k/uL (0-1.0); Monocytes % (A) 3 %; Neutrophils # (A) 8.6 k/uL (1.3-7.7); Neutrophils % (A) 91 %; Platelet Count 272 k/uL (150-450); RBC 4.39 m/uL (3.80-5.40); RDW 13.3 % (11.5-15.5); WBC 9.4 k/uL (3.8-10.6)
[2021-03-04] MEDS: ALBUTEROL HFA INHALER INHALATION PRN ×3 (09:53→19:58)
[2021-03-04 10:12] LABS: AST 39 U/L (14-36); African American GFR (CKD) >90 (>60 ml/min/1.73 sqM); Albumin 3.1 g/dL (3.5-5.0); Alkaline Phosphatase 62 U/L (38-126); Anion Gap 8 mmol/L; Blood Urea Nitrogen 20 mg/dL (7-17); Calcium 8.6 mg/dL (8.4-10.2); Carbon Dioxide 25 mmol/L (22-30); Chloride 102 mmol/L (98-107); Globulin 3.2 g/dL; Glucose 152 mg/dL (74-99); LDH 1102 U/L (313-618); Non-African American GFR(CKD) 81 (>60 ml/min/1.73 sqM); Potassium 3.7 mmol/L (3.5-5.1); Sodium 135 mmol/L (137-145); Total Protein 6.3 g/dL (6.3-8.2)
[2021-03-04 10:15] LABS: ALT 49 U/L (4-34)
--- NOTE | 2021-03-04 12:06 | P.PN ---
Subjective Progress Note Date: 03/04/21 this is a pleasant 66-year-old female patient who was brought into the emergency department today because of increased shortness of breath and dizziness and weakness and cough. Her condition is getting progressively getting worse approximately a week ago. Note that the patient came in and she tested positive for COVID 19 by PCR. Meanwhile,This is a patient was ordered to receive the vaccination and she has taken 2 shots of Moderna in in May and June 2020. She has not taken it was safe shock.. Note that during the course of the past 6 weeks, the patient developed a rash which was a nonpalpable purpuric patches involving the lower extremities. 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 Based on this, the patient was started on steroids. Initially she was given 10 mg of prednisone and beginning of still January 2021. Later on, she was increased up to 60 mg of prednisone and subsequent she was dropped down to 40 mg and recently she was down to 20 mg. At the same time, she was started on dapsone. Her leukocytoclastic lesions and the purpura improved significantly in the lower extremities and there were almost recovering. Meanwhile, the patient got infected with Covid19. No nausea. No vomiting. No abdominal pain. No altered mentation. 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 She is a nonsmoker. No lung disease. No history of any cardiac disease. On today's evaluation of 03/01/2021, the patient is feeling better. She is less short of breath compared to yesterday. For now, have the patient on a combination of treatment including Decadron 6 mg IV every 12 hours and she is also on Remdesivir day #2. She is also on dapsone that she takes for her le ukocytoclastic vasculitis. No significant worsening of her rash. She is walking around the room. She was on 6 L of oxygen by nasal cannula and currently she is on 6 L fill. The blood work shows a white cell count of 10.3 with hemoglobin 15.1. Her d-dimer is at 0.66. Rest of the blood work shows an LDH level of 637, CRP of 21, LFTs are normal, electrolytes are normal, UA is normal, pro calcitonin level is at 0.16 which is essentially low at this point in time. No new complaints otherwise for now. Tolerating her diet. on 03/02/2021, the patient is being seen for a follow-up. As mentioned earlier, the patient was Hospital as for: 90 related pneumonia. 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 For that reason, I put the patient on high-dose Decadron 6 mg every 12 hours and she is currently on of the severe day #3. She received a dose today. D-dimer is at 0.66. Inflammatory markers from earlier showed a LDH level of 637 with a CRP of 21.9. Her pro-calcitonin level was 0.16. Nevertheless, this patient had some decompensation in her oxygenation and currently still 15 L of oxygen by nasal cannula. Her current pulse ox is around 90%. She feels well and she denies having any further worsening of shortness of breath. No altered mentation. No other complaints otherwise for now. Blood work was reviewed. Electrolytes all within normal limits. normal renal function. Blood sugar is slightly elevated because of the use of Decadron. 03/03/2021, the patient is still on oxygen and she is on 15 L. Essentially the same as yesterday. No worsening shortness of breath. She does have a cough. She is dry cough. No significant sputum production. No chest pain. No pleurisy. No hemoptysis. The patient remains on Decadron 6 mg IV every 12 hours. The patient is also on Lovenox 40 mg subcu for DVT prophylaxis. The patient was advised to 10.3 from 2 days ago. On today's labs, the electrodes are all stable and within normal limits. Note that her LDH level was 637, CRP, Pro-Calcitonin Level Was 0.16.she has also noticed some improvement in the leukocytoclastic vasculitic lesions in her lower extremities bilaterally. There is a positive response to Decadron. On 03/04/2021, the patient remains on high flow oxygen at 15 L. The patient has had a repeat chest x-ray in the findings are essentially stable and the patient is stable bilateral pulmonary infiltrates perihilar extending to the lung peripheries. In terms of her oxygenation, it has been stable since yesterday. D-dimer is at 1.15, her LDH level is elevated at 1102 and a CRP level is down to 6 and as such we have a mixed picture on the inflammatory markers. The patient is currently on Decadron and she is receiving 6 mg IV every 12 hours. She is also on Remdesivir and she is completing day #5. She will complete her regimen today. She is also on anticoagulation with Lovenox 40 mg subcu every 24 hours. When he 1 Objective - Vital Signs Vital signs: Vital Signs Temp 97.4 F L 03/04/21 09:52 Pulse 77 03/04/21 09:52 Resp 18 03/04/21 09:52 BP 126/73 03/04/21 09:52 Pulse Ox 90 L 03/04/21 09:52 Intake & Output 03/03/21 03/04/21 03/04/21 18:59 06:59 18:59 Intake Total 500 250 Balance 500 250 Intake: Intake, IV Titration 500 250 Amount Remdesivir 100 mg In 500 250 Sodium Chloride 0.9% 250 ml @ 250 mls/hr IVPB Q24H [facility] Rx#:[id number] Other: # Voids 3 - Exam Gen. appearance the patient is calm and comfortable and her breathing is nonlabored and currently she is on 15 L of oxygen by nasal cannula Head exam was generally normal. There was no scleral icterus or corneal arcus. Mucous membranes were moist. Neck was supple and without jugular venous distension, thyromegaly, or carotid bruits. Carotids were easily palpable bilaterally. There was no adenopathy. Lungs sounds are diminished in the patient's crackles in the mid and lower lung mckenna bilaterally Cardiac exam revealed the PMI to be normally situated and sized. The rhythm was regular and no extrasystoles were noted during several minutes of auscultation. The first and second heart sounds were normal and physiologic splitting of the second heart sound was noted. There were no murmurs, rubs, clicks, or gallops. Abdominal exam revealed normal bowel sounds. The abdomen was soft, non-tender, and without masses, organomegaly, or appreciable enlargement of the abdominal aorta. Examination of the extremities revealed easily palpable radial, femoral and pedal pulses. There was no cyanosis, clubbing or edema. Skin the patient has purpuric rash involving lower eczematous bilaterally. This is related to vasculitis. Neurologically, the patient is awake and alert and the patient does not have any focal neurological deficit. Cranial nerves are essentially intact. - Labs CBC & Chem 7: 03/04/21 08:59 03/04/21 08:59 Labs: Abnormal Lab Results - Last 24 Hours (Table) 03/04/21 03/04/21 03/04/21 Range/Units 08:59 08:59 08:59 Neutrophils # 8.6 H (1.3-7.7) k/uL Lymphocytes # 0.5 L (1.0-4.8) k/uL D-Dimer 1.15 H (<0.60) mg/L FEU Sodium 135 L (137-145) mmol/L BUN 20 H (7-17) mg/dL Glucose 152 H (74-99) mg/dL AST 39 H (14-36) U/L ALT 49 H (4-34) U/L Lactate Dehydrogenase 1102 H (313-618) U/L C-Reactive Protein 6.0 H (<1.0) mg/dL Albumin 3.1 L (3.5-5.0) g/dL Assessment and Plan Plan: 1 acute COVID 19 related pneumonia with bilateral pulmonary infiltrates and secondary hypoxic respiratory failure. The patient is a vaccinated individual and she took her medicines are in a vaccination back in May and June 2020. She has no clear exposure. She has been symptomatic for less than a week. She presented worsening shortness of breath and hypoxemia and the patient is currently on as of oxygen by nasal cannula. The patient is currently up to 15 L. over the past 24 hours, she has been kept on 15 L nasal cannula. He is being monitored very closely. Chest x-ray findings are stable.. Monitor markers of mildly elevated only. She also is on a combination of high-dose Decadron and Remdesivir day #5. She remains on Lovenox. condition is stable compared to yesterday. 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 and the patient remains on a combination of prednisone and dapsone on outpatient basis and she was seeing significant improvement in his skin lesions 4 history of cerebellar CVA 5 history of abnormal Pap smear 6 osteoarthritis Plan But oxygenation and chest x-ray findings Slightly elevated LDH with diminishing CRP, a mixed picture Keep the patient on oxygen at 15 L of oxygen by nasal cannula and this is essentially unchanged compared to yesterday Continue Decadron at the same dose of 63 g IV every 12 hours and continue Remdesivir day #5 May continue dapsone that she was taking for leukocytoclastic vasculitis and the patient will be kept on 200 mg by mouth daily Lovenox 40 mg subcu for DVT prophylaxis Check pro calcitonin level, levels are low Check LDH CRP and D dimers, levels are low Monitor skin lesions Check ELIANA, p-ANCA, c-ANCA, are negative We'll continue to follow her progress.
--- NOTE | 2021-03-04 14:12 | P.PN ---
Subjective Patient seen and examined. Patient sitting up in chair comfortably. Patient continues to be on high flow oxygen. Denies chest pain, fever, or chills. Patient has a persistent cough. Patient does not have any concerns despite her shortness of breath. Objective - Vital Signs Vital signs: Vital Signs Temp 97.4 F L 03/04/21 09:52 Pulse 77 03/04/21 09:52 Resp 18 03/04/21 09:52 BP 126/73 03/04/21 09:52 Pulse Ox 90 L 03/04/21 09:52 Intake & Output 03/03/21 03/04/21 03/04/21 18:59 06:59 18:59 Intake Total 500 250 Balance 500 250 Intake: Intake, IV Titration 500 250 Amount Remdesivir 100 mg In 500 250 Sodium Chloride 0.9% 250 ml @ 250 mls/hr IVPB Q24H [facility] Rx#:[id number] Other: # Voids 3 - Exam General: [non toxic], [no distress], [appears at stated age] Derm: [warm], [dry] Head: [atraumatic], [normocephalic], [symmetric] Eyes: [EOMI], [no lid lag], [anicteric sclera] Mouth: [no lip lesion], [mucus membranes moist] Cardiovascular: [S1S2 reg], [no murmur], [positive posterior tibial pulse bilateral], Lungs: [Diminished bilaterally], [no rhonchi, no rales] , [no accessory muscle use] Abdominal: [soft], [ nontender to palpation], [no guarding], [no appreciable organomegaly] Ext: [no gross muscle atrophy], [no edema], [no contractures] Neuro: [ CN II-XI grossly intact], [no focal neuro deficits] Psych: [Alert], [oriented], [appropriate affect] - Labs CBC & Chem 7: 03/04/21 08:59 03/04/21 08:59 Labs: Abnormal Lab Results - Last 24 Hours (Table) 03/04/21 03/04/21 03/04/21 Range/Units 08:59 08:59 08:59 Neutrophils # 8.6 H (1.3-7.7) k/uL Lymphocytes # 0.5 L (1.0-4.8) k/uL D-Dimer 1.15 H (<0.60) mg/L FEU Sodium 135 L (137-145) mmol/L BUN 20 H (7-17) mg/dL Glucose 152 H (74-99) mg/dL AST 39 H (14-36) U/L ALT 49 H (4-34) U/L Lactate Dehydrogenase 1102 H (313-618) U/L C-Reactive Protein 6.0 H (<1.0) mg/dL Albumin 3.1 L (3.5-5.0) g/dL Assessment and Plan Assessment: Acute hypoxemic respiratory failure secondary to COVID-19 pneumonia O2 supplement to keep saturation above 90%, she is currently on 15 L HFNC Continue remdisivir Continue Decadron 6 mg IV twice a day. Pulmonary following History of leukocytoclastic vasculitis Continue dapsone Chronic Osteoarthritis Stable DVT prophylaxis Lovenox subcu
[2021-03-04] MEDS: ENOXAPARIN 40 MG/0.4 ML SYRINGE SQ SCH (17:21)
[2021-03-04] MEDS: REMDESIVIR 100 MG in SODIUM CHLORIDE 0.9% 250 ML IVPB SCH (17:21)
[2021-03-05] MEDS: guaiFENesin 600 MG TABLET.ER PO SCH ×2 (05:32→18:07)
[2021-03-05] MEDS: DEXAMETHASONE SOD PHOSPHATE 10 MG/ML 1 ML VIAL IVP SCH ×2 (08:31→20:13)
[2021-03-05] MEDS: PANTOPRAZOLE 40 MG TABLET PO SCH (08:31)
[2021-03-05 08:56] LABS: ALT 49 U/L (4-34); AST 33 U/L (14-36); African American GFR (CKD) >90 (>60 ml/min/1.73 sqM); Albumin 2.9 g/dL (3.5-5.0); Alkaline Phosphatase 57 U/L (38-126); Anion Gap 5 mmol/L; Blood Urea Nitrogen 19 mg/dL (7-17); C Reactive Protein 4.5 mg/dL (<1.0); Calcium 8.5 mg/dL (8.4-10.2); Carbon Dioxide 29 mmol/L (22-30); Chloride 103 mmol/L (98-107); Glucose 152 mg/dL (74-99); LDH 1061 U/L (313-618); Non-African American GFR(CKD) 80 (>60 ml/min/1.73 sqM); Potassium 4.5 mmol/L (3.5-5.1); Sodium 137 mmol/L (137-145); Total Bilirubin 1.1 mg/dL (0.2-1.3); Total Protein 5.9 g/dL (6.3-8.2)
[2021-03-05] MEDS: ALBUTEROL HFA INHALER INHALATION PRN ×2 (09:32→21:12)
[2021-03-05 11:03] LABS: HCT 38.7 % (37.2-46.3); HGB 12.7 g/dL (12.0-15.0); MCH 31.1 pg (27.0-32.0); MCHC 32.8 g/dL (32.0-37.0); MCV 94.6 fL (80.0-97.0); Mean Platelet Volume 8.6 fL (9.5-12.2); Platelet Count 177 X 10*3/uL (140-440); RBC 4.09 X 10*6/uL (4.10-5.20); RDW 12.7 % (11.5-14.5); WBC 7.11 X 10*3/uL (4.50-10.00)
[2021-03-05] MEDS: DAPSONE 25 MG TAB PO SCH ×2 (11:22→20:13)
[2021-03-05 15:46] LABS: Basophils # (M) 0 X 10*3/uL (0.00-0.10); Eosinophils # (M) 0 X 10*3/uL (0.04-0.35); Lymphocytes # (M) 0.21 X 10*3/uL (0.90-5.00); Metamyelocytes % 1 % (0-0); Monocytes # (M) 0.14 X 10*3/uL (0.20-1.00); Myelocytes % 3 % (0-0); Neutrophils % (M) 90 %; Promyelocytes % 1 % (0-0)
--- NOTE | 2021-03-05 17:19 | P.PN ---
Subjective Progress Note Date: 03/05/21 Principal diagnosis: Dyspnea, hypoxia On 03/05/2021 patient is seen in follow-up on medical surgical floor. She is resting comfortably in bed, states she is breathing better, she still on high flow oxygen at 15 L, her pulse ox is 90%. Afebrile, hemodynamically she stable, no acute distress, yesterday his chest x-ray has been reviewed showing worsening patchy bilateral lung infiltrates compatible with atypical pneumonia. Today's labs have been reviewed, white blood cell count is 7.11, hemoglobin is 12.7, d- dimer was 0.9, improving, electrolytes are within normal limits B1 is 19 creatinine 0.77, LDH today is slightly improved and is down to 1061, and CRP is 4.5. Patient's c-ANCA and p-ANCA levels were within normal limits. Calcitonin level was negative at 0.16, currently continues on Decadron 6 mg twice daily, Lovenox 40 mg daily, and dapsone 100 mg twice daily. Objective - Vital Signs Vital signs: Vital Signs Temp 98.5 F 03/05/21 14:39 Pulse 82 03/05/21 14:39 Resp 18 03/05/21 14:39 BP 130/65 03/05/21 14:39 Pulse Ox 90 L 03/05/21 14:39 Intake & Output 03/04/21 03/05/21 03/05/21 18:59 06:59 18:59 Intake Total 250 Balance 250 Intake: Intake, IV Titration 250 Amount Remdesivir 100 mg In 250 Sodium Chloride 0.9% 250 ml @ 250 mls/hr IVPB Q24H [facility] Rx#:[id number] Other: Voiding Method Bedside Commode # Voids 2 3 - Exam GENERAL EXAM: Alert, very pleasant, 66-year-old white female, resting in bed, currently on 15 L of oxygen pulse ox of 90% comfortable in no apparent distress. HEAD: Normocephalic/atraumatic. EYES: Normal reaction of pupils, equal size. Conjunctiva pink, sclera white. NOSE: Clear with pink turbinates. THROAT: No erythema or exudates. NECK: No masses, no JVD, no thyroid enlargement, no adenopathy. CHEST: No chest wall deformity. Symmetrical expansion. LUNGS: Equal air entry with bibasilar crackles CVS: Regular rate and rhythm, normal S1 and S2, no gallops, no murmurs, no rubs ABDOMEN: Soft, nontender. No hepatosplenomegaly, normal bowel sounds, no guarding or rigidity. EXTREMITIES: No clubbing, no edema, no cyanosis, 2+ pulses and upper and lower extremities. MUSCULOSKELETAL: Muscle strength and tone normal. SPINE: No scoliosis or deformity SKIN: No rashes CENTRAL NERVOUS SYSTEM: Alert and oriented -3. No focal deficits, tone is normal in all 4 extremities. PSYCHIATRIC: Alert and oriented -3. Appropriate affect. Intact judgment and insight. - Labs CBC & Chem 7: 03/05/21 08:10 03/05/21 08:10 Labs: Abnormal Lab Results - Last 24 Hours (Table) 03/05/21 03/05/21 03/05/21 Range/Units 08:10 08:10 08:10 RBC 4.09 L (4.10-5.20) X 10*6/uL MPV 8.6 L (9.5-12.2) fL Absolute Nucleated RBC 0.02 H (0.00-0.00) X 10*3/uL Metamyelocytes % 1 H (0-0) % Myelocytes % 3 H (0-0) % Promyelocytes % 1 H (0-0) % Lymphocytes # (Manual) 0.21 L (0.90-5.00) X 10*3/uL Monocytes # (Manual) 0.14 L (0.20-1.00) X 10*3/uL Eosinophils # (Manual) 0 L (0.04-0.35) X 10*3/uL NRBC/100 WBC Diff 0.3 H (0.0-0.0) /100 WBCS D-Dimer 0.90 H (<0.60) mg/L FEU BUN 19 H (7-17) mg/dL Glucose 152 H (74-99) mg/dL ALT 49 H (4-34) U/L Lactate Dehydrogenase 1061 H (313-618) U/L C-Reactive Protein 4.5 H (<1.0) mg/dL Total Protein 5.9 L (6.3-8.2) g/dL Albumin 2.9 L (3.5-5.0) g/dL Assessment and Plan Plan: Assessment: #1. Acute COVID-19 related pneumonia with bilateral pulmonary infiltrates secondary dyspnea. Patient is vaccinated individual and completed her vaccination back in May and June 2020. Patient presented with less than a week with the symptoms, she has completed a course of Remdesivir, currently remains on Decadron 6 mg twice daily, and dapsone 100 mg twice daily #2. Acute hypoxic respiratory failure secondary to the above. #3. History of leukocytoclastic vasculitis, confirmed by skin biopsy and patient is on a combination of prednisone and dapsone on an outpatient basis and patient has been seen significant improvement in her skin lesions #4. History of cerebellar CVA #5. History of abnormal Pap smear #6. Osteoarthritis Plan: Continue current medical treatment Continue current dose Decadron, Lovenox Still continues to require high flow oxygen, but denies worsening dyspnea Today's labs have been noted, inflammatory markers slightly improved, pro- calcitonin level is negative p-ANCA and c-ANCa levels are negative We'll continue to follow her progress I performed a history & physical examination of the patient and discussed their management with my nurse practitioner, Adalgisa Esparza. I reviewed the nurse practitioner's note and agree with the documented findings and plan of care. Lung sounds are positive for bibasilar crackles throughout the lung mckenna. The findings and the impression was discussed with the patient. I attest to the documentation by the nurse practitioner. Time with Patient: Less than 30
--- NOTE | 2021-03-05 17:53 | P.PN ---
Subjective Progress Note Date: 03/05/21 Hospital course: Patient is a very pleasant 66-year-old femalewith a past medical history of TIA and vasculitis. She presented to the emergency department on 02/28/21 with a chief complaint of shortness of breath and cough. Patient was Found to be hypoxic 88% on room air, tachycardic with heart rate of 103 bpm, and febrile with elevated temp of 101.1F. .Covid 19 PCR resulted positive and patient was diagnosed with Covid 19 pneumonia. X-ray correlating with pneumonia. EKG revealed sinus tachycardia at 101 bpm with no noted T-wave or ST abnormalities. patient was admitted under our services with consultation to pulmonary. Physical exam: Patient seen and fully evaluated at the bedside this morning. She reports feeling slightly short of breath, but states her sinus congestion has cleared up and she is starting to breathe and feel a little better.she denies having any headache, lightheadedness, dizziness, chest pain, or palpitations, or experiencing any numbness/tingling/weakness in her extremities. Morning labs revealing slightly improving inflammatory markers with d-dimer 0.90, LDH 1061, and CRP of 4.5. Vital signs reviewed and stable. General: Nontoxic, no distress and appears stated age. Derm: Skin warm and dry, normal coloration for ethnicity. Head: Atraumatic, normocephalic and symmetric. Eyes: EOMs intact, no lid lag, and anicteric sclera Mouth: no lip lesions, mucus membranes moist Cardiovascular: regular rate and rhythm with normal S1S2, no murmur, positive posterior tibial pulses bilaterally, and cap refill < 2 seconds. Lungs: Respirations even, regular, and unlabored on 15 L high flow nasal cannula with SpO2 of 92%. Lungs with bilateral lower lobe crackles. No rhonchi, wheezes, or rales and no accessory muscle usage. Abdominal: soft, nontender to palpation, no guarding, no appreciable organomegaly Ext: ROM intact. No gross muscle atrophy, no edema, no contractures Neuro: Speech clear, face symmetrical and CN II-XII grossly intact with no noted focal neuro deficits Psych: Alert and oriented to person, place, time, and situation. Appropriate and pleasant affect. Assessment and Plan of Care: Acute respiratory failure with hypoxia secondary to COVID 19 pneumonia in vaccinated individual. -Oxygenation to be administered and titrated as needed to maintain SPO2 equal to or greater than 90% -Telemetry monitoring. -Continue trending inflammatory markers -Encourage Incentive Spirometry 10-15x hourly while awake -Steroids: Decadron 6 mg q 12 hours -Continue vitamin C, Vitamin D, and Zinc. -Pulmonology following, appreciate further recommendations. -DVT prophylaxis with Lovenox. -Strict Droplet plus Contact precautions -Pt completed course of Remdesivir History of leukocytoclastic vasculitis -Continue Dapsone 100 mg twice daily CODE STATUS: full code DVT prophylaxis: Lovenox Discussed with: patient and RN Anticipated discharge date: clinical course to determine Anticipated discharge place: home A total of 45 minutes was spent on the care of this complex patient more than 50% of the time was spent in counseling and care coordination. Objective - Vital Signs Vital signs: Vital Signs Temp 98.2 F 03/05/21 06:00 Pulse 74 03/05/21 06:00 Resp 20 03/05/21 06:00 BP 111/55 03/05/21 06:00 Pulse Ox 92 L 03/05/21 06:00 Intake & Output 03/04/21 03/05/21 03/05/21 18:59 06:59 18:59 Intake Total 250 Balance 250 Intake: Intake, IV Titration 250 Amount Remdesivir 100 mg In 250 Sodium Chloride 0.9% 250 ml @ 250 mls/hr IVPB Q24H [facility] Rx#:[id number] Other: # Voids 2 - Labs CBC & Chem 7: 03/05/21 08:10 03/05/21 08:10 Labs: Abnormal Lab Results - Last 24 Hours (Table) 03/04/21 03/04/21 03/04/21 Range/Units 08:59 08:59 08:59 Neutrophils # 8.6 H (1.3-7.7) k/uL Lymphocytes # 0.5 L (1.0-4.8) k/uL D-Dimer 1.15 H (<0.60) mg/L FEU Sodium 135 L (137-145) mmol/L BUN 20 H (7-17) mg/dL Glucose 152 H (74-99) mg/dL AST 39 H (14-36) U/L ALT 49 H (4-34) U/L Lactate Dehydrogenase 1102 H (313-618) U/L C-Reactive Protein 6.0 H (<1.0) mg/dL Albumin 3.1 L (3.5-5.0) g/dL
[2021-03-05] MEDS: FLUTICASONE 50MCG/SPRAY NASAL 16GM EA NOSTRIL PRN (18:07)
[2021-03-05] MEDS: ENOXAPARIN 40 MG/0.4 ML SYRINGE SQ SCH (18:07)
[2021-03-05] MEDS: ACETAMINOPHEN TAB 325 MG TAB PO PRN (20:12)
[2021-03-06] MEDS: guaiFENesin 600 MG TABLET.ER PO SCH ×2 (05:23→16:13)
[2021-03-06] MEDS: CHOLECALCIFEROL 25 MCG (1000 IU) TABLET PO SCH (08:01)
[2021-03-06] MEDS: ASCORBIC ACID 500 MG TAB PO SCH (08:01)
[2021-03-06] MEDS: DAPSONE 25 MG TAB PO SCH ×2 (08:01→20:34)
[2021-03-06] MEDS: DEXAMETHASONE SOD PHOSPHATE 10 MG/ML 1 ML VIAL IVP SCH ×2 (08:01→20:34)
[2021-03-06] MEDS: ZINC SULFATE 220 MG CAP PO SCH (08:01)
[2021-03-06] MEDS: PANTOPRAZOLE 40 MG TABLET PO SCH (08:01)
[2021-03-06] MEDS: ALBUTEROL HFA INHALER INHALATION PRN (09:18)
--- NOTE | 2021-03-06 10:55 | US ---
EXAMINATION TYPE: US venous doppler duplex LE DATE OF EXAM: 03/06/2021 9:35 AM COMPARISON: NONE CLINICAL HISTORY: elevated d-dimer. SIDE PERFORMED: Bilateral TECHNIQUE: The lower extremity deep venous system is examined utilizing real time linear array sonog breanne with graded compression, doppler sonography and color-flow sonography. VESSELS IMAGED: Common Femoral Vein Deep Femoral Vein Greater Saphenous Vein * Femoral Vein Popliteal Vein Small Saphenous Vein * Proximal Calf Veins (* superficial vessels) Right Leg: Negative for DVT Left Leg: Negative for DVT IMPRESSION: Grayscale, color doppler, spectral doppler imaging performed of the deep veins of the lo wer extremities. There is normal flow, compressibility, vascular waveforms.
--- NOTE | 2021-03-06 11:32 | P.PN ---
Subjective Progress Note Date: 03/06/21 Principal diagnosis: Dyspnea, hypoxia On 03/05/2021 patient is seen in follow-up on medical surgical floor. She is resting comfortably in bed, states she is breathing better, she still on high flow oxygen at 15 L, her pulse ox is 90%. Afebrile, hemodynamically she stable, no acute distress, yesterday his chest x-ray has been reviewed showing worsening patchy bilateral lung infiltrates compatible with atypical pneumonia. Today's labs have been reviewed, white blood cell count is 7.11, hemoglobin is 12.7, d- dimer was 0.9, improving, electrolytes are within normal limits B1 is 19 creatinine 0.77, LDH today is slightly improved and is down to 1061, and CRP is 4.5. Patient's c-ANCA and p-ANCA levels were within normal limits. Calcitonin level was negative at 0.16, currently continues on Decadron 6 mg twice daily, Lovenox 40 mg daily, and dapsone 100 mg twice daily. On 03/06/2021 patient seen in follow-up on medical surgical floor. Patient is awake and alert, she is up in the recliner, she states overall she is feeling much better, coughing less, her appetite is improving. She still requiring high flow oxygen at 15 L and her pulse ox ranges between 87-90%, she does desat with exertion. States she feels more energetic, she has been trying to stay active, she's had no fever or chills, vital signs have been stable. Today's labs are still pending, yesterday's d-dimer of 0.90, we will obtain lower extremity Dopplers, pro-calcitonin level was negative, her c-ANCA and p-ANCA titers were low, progesterone level was low, patient currently remains on Decadron 6 mg twice daily, she is on Mucinex, she is on albuterol inhaler, and she is on COVID-19 vitamins. Lovenox at 40 mg every 24 hours. Objective - Vital Signs Vital signs: Vital Signs Temp 97.6 F 03/06/21 10:00 Pulse 74 03/06/21 10:00 Resp 20 03/06/21 10:00 BP 102/64 03/06/21 10:00 Pulse Ox 90 L 03/06/21 10:00 Intake & Output 1103/06/21 03/06/21 18:59 06:59 18:59 Intake Total 140 Balance 140 Intake: Oral 140 Other: Voiding Method Bedside Commode Bedside Commode # Voids 3 2 2 - Exam GENERAL EXAM: Alert, very pleasant, 66-year-old white female, resting in bed, currently on 15 L of oxygen pulse ox of 90% comfortable in no apparent distress. HEAD: Normocephalic/atraumatic. EYES: Normal reaction of pupils, equal size. Conjunctiva pink, sclera white. NOSE: Clear with pink turbinates. THROAT: No erythema or exudates. NECK: No masses, no JVD, no thyroid enlargement, no adenopathy. CHEST: No chest wall deformity. Symmetrical expansion. LUNGS: Equal air entry with bibasilar crackles CVS: Regular rate and rhythm, normal S1 and S2, no gallops, no murmurs, no rubs ABDOMEN: Soft, nontender. No hepatosplenomegaly, normal bowel sounds, no guarding or rigidity. EXTREMITIES: No clubbing, no edema, no cyanosis, 2+ pulses and upper and lower extremities. MUSCULOSKELETAL: Muscle strength and tone normal. SPINE: No scoliosis or deformity SKIN: No rashes CENTRAL NERVOUS SYSTEM: Alert and oriented -3. No focal deficits, tone is normal in all 4 extremities. PSYCHIATRIC: Alert and oriented -3. Appropriate affect. Intact judgment and insight. - Labs CBC & Chem 7: 03/05/21 08:10 03/05/21 08:10 Labs: Abnormal Lab Results - Last 24 Hours (Table) 03/05/21 Range/Units 08:10 Metamyelocytes % 1 H (0-0) % Myelocytes % 3 H (0-0) % Promyelocytes % 1 H (0-0) % Lymphocytes # (Manual) 0.21 L (0.90-5.00) X 10*3/uL Monocytes # (Manual) 0.14 L (0.20-1.00) X 10*3/uL Eosinophils # (Manual) 0 L (0.04-0.35) X 10*3/uL Assessment and Plan Plan: Assessment: #1. Acute COVID-19 related pneumonia with bilateral pulmonary infiltrates secondary dyspnea. Patient is vaccinated individual and completed her vaccination back in May and June 2020. Patient presented with less than a week with the symptoms, she has completed a course of Remdesivir, currently remains on Decadron 6 mg twice daily, and dapsone 100 mg twice daily #2. Acute hypoxic respiratory failure secondary to the above. #3. History of leukocytoclastic vasculitis, confirmed by skin biopsy and patient is on a combination of prednisone and dapsone on an outpatient basis and patient has been seen significant improvement in her skin lesions #4. History of cerebellar CVA #5. History of abnormal Pap smear #6. Osteoarthritis Plan: Continue current medical treatment Continue current dose Decadron, patient is on 6 mg twice daily Continue dapsone, continue current dose Lovenox Still requiring high flow oxygen but clinically reports feeling better, breathing easier We'll obtain lower extremity Dopplers, may consider CTA chest to rule out possibility of PE Follow inflammatory markers and d-dimer tomorrow We'll continue to follow her progress I performed a history & physical examination of the patient and discussed their management with my nurse practitioner, Adalgisa Esparza. I reviewed the nurse practitioner's note and agree with the documented findings and plan of care. Lung sounds are positive for bibasilar crackles throughout the lung mckenna. The findings and the impression was discussed with the patient. I attest to the documentation by the nurse practitioner. Time with Patient: Less than 30
--- NOTE | 2021-03-06 13:44 | CT ---
EXAMINATION TYPE: CT chest angio for PE DATE OF EXAM: 03/06/2021 COMPARISON: None HISTORY: SOB, covid positive CT DLP: 633 mGycm Automated exposure control for dose reduction was used. CONTRAST: CT Chest for pulmonary embolism performed with with IV Contrast, patient injected with 100 mL of Isov ue 370. FINDINGS: LUNGS: Diffuse by lateral groundglass infiltrates. No pleural effusion or pneumothorax. MEDIASTINUM: There is satisfactory enhancement of the pulmonary artery and its branches, there is no CT evidence for pulmonary embolism. There are no greater than 1 cm hilar or mediastinal lymph nodes. No pericardial effusion is seen. OTHER: Hypertrophic and degenerative change of the spine. Surgical clips in the gallbladder fossa. IMPRESSION: 1. Diffuse bilateral groundglass infiltrate correlate for multifocal pneumonia or ARDS. 2. No diagnostic evidence of pulmonary embolus.
[2021-03-06 14:04] VITALS: BMI 43.0
[2021-03-06] MEDS: BARICITINIB 2 MG TABLET PO SCH (16:13)
[2021-03-06] MEDS: ENOXAPARIN 40 MG/0.4 ML SYRINGE SQ SCH (16:13)
[2021-03-06] MEDS: ACETAMINOPHEN TAB 325 MG TAB PO PRN (16:16)
--- NOTE | 2021-03-06 17:52 | P.PN ---
Subjective Progress Note Date: 03/06/21 Hospital course: Patient is a very pleasant 66-year-old femalewith a past medical history of TIA and vasculitis. She presented to the emergency department on 02/28/21 with a chief complaint of shortness of breath and cough. Patient was Found to be hypoxic 88% on room air, tachycardic with heart rate of 103 bpm, and febrile with elevated temp of 101.1F. .Covid 19 PCR resulted positive and patient was diagnosed with Covid 19 pneumonia. X-ray correlating with pneumonia. EKG revealed sinus tachycardia at 101 bpm with no noted T-wave or ST abnormalities. patient was admitted under our services with consultation to pulmonary. Patient being treated with high-dose oxygen, steroids, vitamin C, vitamin D, zinc, and completed course of Remdesivir. Chest CTA negative for PE but did reveal diffuse bilateral groundglass opacities correlating for multifocal pneumonia or ARDS. Dopplers bilateral lower extremities negative for DVT. Physical exam: Patient seen and fully evaluated at the bedside this morning. She is on 15 L high flow nasal cannula along with 15 L nonrebreather at time of assessment with SpO2 of 90%. Patient reports overall she is feeling better but has had increased oxygenation needs. Chest CTA negative for PE but did reveal diffuse bilateral groundglass opacities correlating for multifocal pneumonia or ARDS. Dopplers bilateral lower extremities negative for DVT. Inflammatory markers con tinue to show slight improvement with d-dimer 0.90, LDH 1061, and CRP of 4.5. Patient continues to deny having any headache, lightheadedness, dizziness, chest pain, palpitations, nausea, or experiencing any numbness/tingling/weakness in her extremities. Vital signs reviewed and stable. General: Nontoxic, no distress and appears stated age. Derm: Skin warm and dry, normal coloration for ethnicity. Head: Atraumatic, normocephalic and symmetric. Eyes: EOMs intact, no lid lag, and anicteric sclera Mouth: no lip lesions, mucus membranes moist Cardiovascular: regular rate and rhythm with normal S1S2, no murmur, positive posterior tibial pulses bilaterally, and cap refill < 2 seconds. Lungs: Respirations even, regular, and unlabored on 15 L high flow nasal cannula with SpO2 of 92%. Lungs with bilateral lower lobe crackles. No rhonchi, wheezes, or rales and no accessory muscle usage. Abdominal: soft, nontender to palpation, no guarding, no appreciable organomegaly Ext: ROM intact. No gross muscle atrophy, no edema, no contractures Neuro: Speech clear, face symmetrical and CN II-XII grossly intact with no noted focal neuro deficits Psych: Alert and oriented to person, place, time, and situation. Appropriate and pleasant affect. Assessment and Plan of Care: Acute respiratory failure with hypoxia secondary to COVID 19 pneumonia in vaccinated individual. -Oxygenation to be administered and titrated as needed to maintain SPO2 equal to or greater than 90% -Telemetry monitoring. -Continue trending inflammatory markers -Encourage Incentive Spirometry 10-15x hourly while awake -Steroids: Decadron 6 mg q 12 hours -Continue vitamin C, Vitamin D, and Zinc. -Pulmonology following, appreciate further recommendations. -DVT prophylaxis with Lovenox. -Strict Droplet plus Contact precautions -Pt completed course of Remdesivir History of leukocytoclastic vasculitis -Continue Dapsone 100 mg twice daily CODE STATUS: full code DVT prophylaxis: Lovenox Discussed with: patient and RN Anticipated discharge date: clinical course to determine Anticipated discharge place: home A total of 45 minutes was spent on the care of this complex patient more than 50% of the time was spent in counseling and care coordination. Objective - Vital Signs Vital signs: Vital Signs Temp 97.7 F 03/06/21 14:00 Pulse 76 03/06/21 14:00 Resp 20 03/06/21 14:00 BP 105/66 03/06/21 14:00 Pulse Ox 89 L 03/06/21 14:00 Intake & Output 03/05/21 03/06/21 03/06/21 18:59 06:59 18:59 Intake Total 140 Balance 140 Weight 106.594 kg Intake: Oral 140 Other: Voiding Method Bedside Commode Bedside Commode # Voids 3 2 2 - Labs CBC & Chem 7: 03/05/21 08:10 03/05/21 08:10
[2021-03-07] MEDS: guaiFENesin 600 MG TABLET.ER PO SCH ×2 (05:52→17:03)
[2021-03-07] MEDS: DEXAMETHASONE SOD PHOSPHATE 10 MG/ML 1 ML VIAL IVP SCH ×2 (07:59→21:09)
[2021-03-07] MEDS: PANTOPRAZOLE 40 MG TABLET PO SCH (08:36)
[2021-03-07] MEDS: ZINC SULFATE 220 MG CAP PO SCH (08:36)
[2021-03-07] MEDS: BARICITINIB 2 MG TABLET PO SCH (08:36)
[2021-03-07] MEDS: DAPSONE 25 MG TAB PO SCH ×2 (08:36→21:47)
[2021-03-07] MEDS: ASCORBIC ACID 500 MG TAB PO SCH (08:37)
[2021-03-07] MEDS: CHOLECALCIFEROL 25 MCG (1000 IU) TABLET PO SCH (08:37)
[2021-03-07] MEDS: ALBUTEROL HFA INHALER INHALATION PRN ×2 (08:47→16:34)
[2021-03-07 09:49] LABS: African American GFR (CKD) 87.8 (60.0-200.0); Anion Gap 11.1 mmol/L (4.00-12.00); Calcium 8.3 mg/dL (8.7-10.3); Carbon Dioxide 24.9 mmol/L (21.6-31.8); Non-African American GFR(CKD) 75.8 (60.0-200.0); Potassium 3.9 mmol/L (3.5-5.5)
--- NOTE | 2021-03-07 13:09 | P.PN ---
Subjective Progress Note Date: 03/07/21 Hospital course: Patient is a very pleasant 66-year-old femalewith a past medical history of TIA and vasculitis. She presented to the emergency department on 02/28/21 with a chief complaint of shortness of breath and cough. Patient was Found to be hypoxic 88% on room air, tachycardic with heart rate of 103 bpm, and febrile with elevated temp of 101.1F. .Covid 19 PCR resulted positive and patient was diagnosed with Covid 19 pneumonia. X-ray correlating with pneumonia. EKG revealed sinus tachycardia at 101 bpm with no noted T-wave or ST abnormalities. patient was admitted under our services with consultation to pulmonary. Patient being treated with high-dose oxygen, steroids, vitamin C, vitamin D, zinc, and completed course of Remdesivir. Chest CTA negative for PE but did reveal diffuse bilateral groundglass opacities correlating for multifocal pneumonia or ARDS. Dopplers bilateral lower extremities negative for DVT. Physical exam: Patient seen and fully evaluated at the bedside this morning. She remains on 15 L high flow nasal cannula along with 15 L nonrebreather at time of assessment with SpO2 of 90%. Patient reports that she is feeling better and feels much more energetic this morning. Morning labs reviewed. D-dimer 0.94. Patient remains on Decadron 6 mg IVP every 12 hours, vitamin C, vitamin D, and zinc. She continues to deny having any headache, lightheadedness, dizziness, chest pa in, palpitations, or experiencing any numbness/tingling/weakness in her extremities. Patient reports she has had a good appetite, denies any nausea or vomiting. Pt does report that she has been coughing up of excess phlegm today. Vital signs reviewed and stable. General: Nontoxic, no distress and appears stated age. Derm: Skin warm and dry, normal coloration for ethnicity. Head: Atraumatic, normocephalic and symmetric. Eyes: EOMs intact, no lid lag, and anicteric sclera Mouth: no lip lesions, mucus membranes moist Cardiovascular: regular rate and rhythm with normal S1S2, no murmur, positive posterior tibial pulses bilaterally, and cap refill < 2 seconds. Lungs: Respirations even, regular, and unlabored on 15 L high flow nasal cannula with SpO2 of 92%. Lungs with bilateral lower lobe crackles. No rhonchi, wheezes, or rales and no accessory muscle usage. Abdominal: soft, nontender to palpation, no guarding, no appreciable organomegaly Ext: ROM intact. No gross muscle atrophy, no edema, no contractures Neuro: Speech clear, face symmetrical and CN II-XII grossly intact with no noted focal neuro deficits Psych: Alert and oriented to person, place, time, and situation. Appropriate and pleasant affect. Assessment and Plan of Care: Acute respiratory failure with hypoxia secondary to COVID 19 pneumonia in vacc inated individual. -Oxygenation to be administered and titrated as needed to maintain SPO2 equal to or greater than 90% -Telemetry monitoring. -Continue trending inflammatory markers -Encourage Incentive Spirometry 10-15x hourly while awake -Steroids: Decadron 6 mg q 12 hours, day 8 of steroids -Continue vitamin C, Vitamin D, and Zinc. -Pulmonology following, appreciate further recommendations. -DVT prophylaxis with Lovenox. -Strict Droplet plus Contact precautions -Pt completed course of Remdesivir History of leukocytoclastic vasculitis -Continue Dapsone 100 mg twice daily CODE STATUS: full code DVT prophylaxis: Lovenox Discussed with: patient and RN Anticipated discharge date: clinical course to determine Anticipated discharge place: home A total of 45 minutes was spent on the care of this complex patient more than 50% of the time was spent in counseling and care coordination. Objective - Vital Signs Vital signs: Vital Signs Temp 97.5 F L 03/07/21 06:00 Pulse 66 03/07/21 06:00 Resp 20 03/07/21 06:00 BP 95/52 03/07/21 06:00 Pulse Ox 90 L 03/07/21 06:00 Intake & Output 03/06/21 03/07/21 03/07/21 18:59 06:59 18:59 Intake Total 160 Balance 160 Weight 106.594 kg Intake: Oral 160 Other: Voiding Method Toilet # Voids 3 2 # Bowel Movements 1 - Labs CBC & Chem 7: 03/05/21 08:10 03/07/21 06:30 Labs: Abnormal Lab Results - Last 24 Hours (Table) 03/07/21 Range/Units 06:30 D-Dimer 0.94 H (<0.60) mg/L FEU
[2021-03-07 13:11] LABS: C Reactive Protein 1.8 mg/dL (0.00-0.80)
--- NOTE | 2021-03-07 13:11 | P.PN ---
Subjective Progress Note Date: 03/07/21 Principal diagnosis: Dyspnea, hypoxia On 03/05/2021 patient is seen in follow-up on medical surgical floor. She is resting comfortably in bed, states she is breathing better, she still on high flow oxygen at 15 L, her pulse ox is 90%. Afebrile, hemodynamically she stable, no acute distress, yesterday his chest x-ray has been reviewed showing worsening patchy bilateral lung infiltrates compatible with atypical pneumonia. Today's labs have been reviewed, white blood cell count is 7.11, hemoglobin is 12.7, d- dimer was 0.9, improving, electrolytes are within normal limits B1 is 19 creatinine 0.77, LDH today is slightly improved and is down to 1061, and CRP is 4.5. Patient's c-ANCA and p-ANCA levels were within normal limits. Calcitonin level was negative at 0.16, currently continues on Decadron 6 mg twice daily, Lovenox 40 mg daily, and dapsone 100 mg twice daily. On 03/06/2021 patient seen in follow-up on medical surgical floor. Patient is awake and alert, she is up in the recliner, she states overall she is feeling much better, coughing less, her appetite is improving. She still requiring high flow oxygen at 15 L and her pulse ox ranges between 87-90%, she does desat with exertion. States she feels more energetic, she has been trying to stay active, she's had no fever or chills, vital signs have been stable. Today's labs are still pending, yesterday's d-dimer of 0.90, we will obtain lower extremity Dopplers, pro-calcitonin level was negative, her c-ANCA and p-ANCA titers were low, progesterone level was low, patient currently remains on Decadron 6 mg twice daily, she is on Mucinex, she is on albuterol inhaler, and she is on COVID-19 vitamins. Lovenox at 40 mg every 24 hours. On 03/07/2021 patient seen in follow-up on medical surgical floor. Today she is on 15 L per high flow nasal cannula, and 100% nonrebreather mask, her pulse ox is 90%. When she denies any worsening dyspnea, she is breathing quite comfortably, she's been active, get not to the bathroom, tolerating activity very well although she does desaturate with activity she does not feel dyspneic, no chest pain, lung sounds reveal bibasilar crackles, no rhonchi or wheezing, no fever or chills, vital signs have been stable. CTA chest showed no evidence of pulmonary embolism and lower extremity Dopplers were negative for DVT. Today's d-dimer is 0.94, electrolytes and renal profile within normal limits, pro- calcitonin level was negative at 0.05, inflammatory markers were improving on yesterday's labs. Follow up Labs are pending for today. Objective - Vital Signs Vital signs: Vital Signs Temp 97.8 F 03/07/21 10:00 Pulse 82 03/07/21 10:00 Resp 20 03/07/21 10:00 BP 105/65 03/07/21 10:00 Pulse Ox 90 L 03/07/21 10:00 Intake & Output 03/06/21 03/07/21 03/07/21 18:59 06:59 18:59 Intake Total 160 Balance 160 Weight 106.594 kg Intake: Oral 160 Other: Voiding Method Toilet # Voids 3 3 # Bowel Movements 1 - Exam GENERAL EXAM: Alert, very pleasant, 66-year-old white female, resting in bed, currently on 15 L of oxygen per high flow nasal cannula and 100% nonrebreather mask with pulse ox of 90% comfortable in no apparent distress. HEAD: Normocephalic/atraumatic. EYES: Normal reaction of pupils, equal size. Conjunctiva pink, sclera white. NOSE: Clear with pink turbinates. THROAT: No erythema or exudates. NECK: No masses, no JVD, no thyroid enlargement, no adenopathy. CHEST: No chest wall deformity. Symmetrical expansion. LUNGS: Equal air entry with bibasilar crackles CVS: Regular rate and rhythm, normal S1 and S2, no gallops, no murmurs, no rubs ABDOMEN: Soft, nontender. No hepatosplenomegaly, normal bowel sounds, no guarding or rigidity. EXTREMITIES: No clubbing, no edema, no cyanosis, 2+ pulses and upper and lower extremities. MUSCULOSKELETAL: Muscle strength and tone normal. SPINE: No scoliosis or deformity SKIN: No rashes CENTRAL NERVOUS SYSTEM: Alert and oriented -3. No focal deficits, tone is normal in all 4 extremities. PSYCHIATRIC: Alert and oriented -3. Appropriate affect. Intact judgment and insight. - Labs CBC & Chem 7: 03/05/21 08:10 03/07/21 06:30 Labs: Abnormal Lab Results - Last 24 Hours (Table) 03/07/21 03/07/21 Range/Units 06:30 06:30 D-Dimer 0.94 H (<0.60) mg/L FEU BUN/Creatinine Ratio 25.00 H (12.00-20.00) Ratio Glucose 127 H (70-110) mg/dL Calcium 8.3 L (8.7-10.3) mg/dL Assessment and Plan Plan: Assessment: #1. Acute COVID-19 related pneumonia with bilateral pulmonary infiltrates seco ndary dyspnea. Patient is vaccinated individual and completed her vaccination back in May and June 2020. Patient presented with less than a week with the symptoms, she has completed a course of Remdesivir, currently remains on Decadron 6 mg twice daily, and dapsone 100 mg twice daily. Started on Baricitinib on 03/06/2021 #2. Acute hypoxic respiratory failure secondary to the above, progressive, today on 15 l/min, and 100% NRB #3. History of leukocytoclastic vasculitis, confirmed by skin biopsy and patient is on a combination of prednisone and dapsone on an outpatient basis and patient has been seen significant improvement in her skin lesions #4. History of cerebellar CVA #5. History of abnormal Pap smear #6. Osteoarthritis Plan: Continue Baricitinib, today is day 2 of treatment Continue current medical treatment Continue current dose Decadron, patient is on 6 mg twice daily Continue dapsone, continue current dose Lovenox CTA chest negative for PE and lower extremities negative for DVT Obtain follow-up labs tomorrow, follow up inflammatory markers Continue to follow her clinical course I performed a history & physical examination of the patient and discussed their management with my nurse practitioner, Adalgisa Esparza. I reviewed the nurse practitioner's note and agree with the documented findings and plan of care. Lung sounds are positive for bibasilar crackles throughout the lung mckenna. The findings and the impression was discussed with the patient. I attest to the documentation by the nurse practitioner. Time with Patient: Less than 30
[2021-03-07] MEDS: ENOXAPARIN 40 MG/0.4 ML SYRINGE SQ SCH (17:03)
[2021-03-08] MEDS: guaiFENesin 600 MG TABLET.ER PO SCH ×2 (06:05→16:49)
[2021-03-08 07:52] LABS: ALT 68 U/L (4-34); AST 40 U/L (14-36); African American GFR (CKD) >90 (>60 ml/min/1.73 sqM); Alkaline Phosphatase 57 U/L (38-126); Anion Gap 5 mmol/L; Blood Urea Nitrogen 20 mg/dL (7-17); Calcium 8.6 mg/dL (8.4-10.2); Carbon Dioxide 25 mmol/L (22-30); Chloride 106 mmol/L (98-107); Glucose 123 mg/dL (74-99); Non-African American GFR(CKD) 89 (>60 ml/min/1.73 sqM); Sodium 136 mmol/L (137-145); Total Bilirubin 1.5 mg/dL (0.2-1.3)
[2021-03-08] MEDS: CHOLECALCIFEROL 25 MCG (1000 IU) TABLET PO SCH (07:52)
[2021-03-08] MEDS: DAPSONE 25 MG TAB PO SCH ×2 (07:52→21:43)
[2021-03-08] MEDS: ZINC SULFATE 220 MG CAP PO SCH (07:52)
[2021-03-08] MEDS: BARICITINIB 2 MG TABLET PO SCH (07:52)
[2021-03-08] MEDS: DEXAMETHASONE SOD PHOSPHATE 10 MG/ML 1 ML VIAL IVP SCH ×2 (07:53→21:44)
[2021-03-08] MEDS: ASCORBIC ACID 500 MG TAB PO SCH (07:53)
[2021-03-08] MEDS: PANTOPRAZOLE 40 MG TABLET PO SCH (07:53)
[2021-03-08] MEDS: ALBUTEROL HFA INHALER INHALATION PRN ×3 (09:24→21:17)
[2021-03-08 09:45] LABS: Basophils % (A) 0 %; Eosinophils % (A) 0 %; HCT 39.4 % (34.0-46.0); HGB 13.1 gm/dL (11.4-16.0); Lymphocytes # (A) 0.6 k/uL (1.0-4.8); Lymphocytes % (A) 8 %; MCH 31.6 pg (25.0-35.0); MCHC 33.2 g/dL (31.0-37.0); Mean Platelet Volume 7.4; Monocytes # (A) 0.2 k/uL (0-1.0); Monocytes % (A) 3 %; Neutrophils # (A) 6.9 k/uL (1.3-7.7); Neutrophils % (A) 89 %; Platelet Count 212 k/uL (150-450); RBC 4.15 m/uL (3.80-5.40); RDW 13.7 % (11.5-15.5); WBC 7.8 k/uL (3.8-10.6)
[2021-03-08 10:00] LABS: C Reactive Protein 1.7 mg/dL (<1.0)
[2021-03-08] MEDS ORDERED: SODIUM CHLORIDE 0.65% NASAL SPRAY 44 ML BTL NASAL PRN (10:35)
--- NOTE | 2021-03-08 13:59 | P.PN ---
Subjective Progress Note Date: 03/08/21 Principal diagnosis: Dyspnea, hypoxia On 03/05/2021 patient is seen in follow-up on medical surgical floor. She is resting comfortably in bed, states she is breathing better, she still on high flow oxygen at 15 L, her pulse ox is 90%. Afebrile, hemodynamically she stable, no acute distress, yesterday his chest x-ray has been reviewed showing worsening patchy bilateral lung infiltrates compatible with atypical pneumonia. Today's labs have been reviewed, white blood cell count is 7.11, hemoglobin is 12.7, d- dimer was 0.9, improving, electrolytes are within normal limits B1 is 19 creatinine 0.77, LDH today is slightly improved and is down to 1061, and CRP is 4.5. Patient's c-ANCA and p-ANCA levels were within normal limits. Calcitonin level was negative at 0.16, currently continues on Decadron 6 mg twice daily, Lovenox 40 mg daily, and dapsone 100 mg twice daily. On 03/06/2021 patient seen in follow-up on medical surgical floor. Patient is awake and alert, she is up in the recliner, she states overall she is feeling much better, coughing less, her appetite is improving. She still requiring high flow oxygen at 15 L and her pulse ox ranges between 87-90%, she does desat with exertion. States she feels more energetic, she has been trying to stay active, she's had no fever or chills, vital signs have been stable. Today's labs are still pending, yesterday's d-dimer of 0.90, we will obtain lower extremity Dopplers, pro-calcitonin level was negative, her c-ANCA and p-ANCA titers were low, progesterone level was low, patient currently remains on Decadron 6 mg twice daily, she is on Mucinex, she is on albuterol inhaler, and she is on COVID-19 vitamins. Lovenox at 40 mg every 24 hours. On 03/07/2021 patient seen in follow-up on medical surgical floor. Today she is on 15 L per high flow nasal cannula, and 100% nonrebreather mask, her pulse ox is 90%. When she denies any worsening dyspnea, she is breathing quite comfortably, she's been active, get not to the bathroom, tolerating activity very well although she does desaturate with activity she does not feel dyspneic, no chest pain, lung sounds reveal bibasilar crackles, no rhonchi or wheezing, no fever or chills, vital signs have been stable. CTA chest showed no evidence of pulmonary embolism and lower extremity Dopplers were negative for DVT. Today's d-dimer is 0.94, electrolytes and renal profile within normal limits, pro- calcitonin level was negative at 0.05, inflammatory markers were improving on yesterday's labs. Follow up Labs are pending for today. On 03/08/2021 patient seen in follow-up on medical surgical floor. She still on 15 L of oxygen per high flow nasal cannula, she is not wearing a nonrebreather mask most of the time, her pulse ox is 88-91%, clinically she states she is breathing quite comfortably, no dyspnea, no tachypnea, no use of accessory muscles of breathing, she is afebrile, hemodynamically she appears stable she has no specific complaints other than dryness of nasal passages. Mild cough, no phlegm production, appetite is fair, no nausea vomiting or diarrhea. Objective - Vital Signs Vital signs: Vital Signs Temp 97.8 F 03/08/21 10:00 Pulse 79 03/08/21 10:00 Resp 20 03/08/21 10:00 BP 162/66 03/08/21 10:00 Pulse Ox 88 L 03/08/21 10:00 Intake & Output 03/07/21 03/08/21 03/08/21 18:59 06:59 18:59 Intake Total 160 Balance 160 Intake: Oral 160 Other: Voiding Method Toilet # Voids 3 3 - Exam GENERAL EXAM: Alert, very pleasant, 66-year-old white female, resting in bed, currently on 15 L of oxygen per high flow nasal cannula 88-91% comfortable in no apparent distress. HEAD: Normocephalic/atraumatic. EYES: Normal reaction of pupils, equal size. Conjunctiva pink, sclera white. NOSE: Clear with pink turbinates. THROAT: No erythema or exudates. NECK: No masses, no JVD, no thyroid enlargement, no adenopathy. CHEST: No chest wall deformity. Symmetrical expansion. LUNGS: Equal air entry with bibasilar crackles CVS: Regular rate and rhythm, normal S1 and S2, no gallops, no murmurs, no rubs ABDOMEN: Soft, nontender. No hepatosplenomegaly, normal bowel sounds, no guarding or rigidity. EXTREMITIES: No clubbing, no edema, no cyanosis, 2+ pulses and upper and lower extremities. MUSCULOSKELETAL: Muscle strength and tone normal. SPINE: No scoliosis or deformity SKIN: No rashes CENTRAL NERVOUS SYSTEM: Alert and oriented -3. No focal deficits, tone is normal in all 4 extremities. PSYCHIATRIC: Alert and oriented -3. Appropriate affect. Intact judgment and insight. - Labs CBC & Chem 7: 03/08/21 06:57 03/08/21 06:57 Labs: Abnormal Lab Results - Last 24 Hours (Table) 03/08/21 03/08/21 03/08/21 Range/Units 06:57 06:57 06:57 Lymphocytes # 0.6 L (1.0-4.8) k/uL D-Dimer (<0.60) mg/L FEU Sodium 136 L (137-145) mmol/L BUN 20 H (7-17) mg/dL Glucose 123 H (74-99) mg/dL Total Bilirubin 1.5 H (0.2-1.3) mg/dL AST 40 H (14-36) U/L ALT 68 H (4-34) U/L Lactate Dehydrogenase 1386 H (313-618) U/L C-Reactive Protein 1.7 H (<1.0) mg/dL Total Protein 6.0 L (6.3-8.2) g/dL Albumin 3.0 L (3.5-5.0) g/dL 03/08/21 Range/Units 06:57 Lymphocytes # (1.0-4.8) k/uL D-Dimer 0.97 H (<0.60) mg/L FEU Sodium (137-145) mmol/L BUN (7-17) mg/dL Glucose (74-99) mg/dL Total Bilirubin (0.2-1.3) mg/dL AST (14-36) U/L ALT (4-34) U/L Lactate Dehydrogenase (313-618) U/L C-Reactive Protein (<1.0) mg/dL Total Protein (6.3-8.2) g/dL Albumin (3.5-5.0) g/dL Assessment and Plan Plan: Assessment: #1. Acute COVID-19 related pneumonia with bilateral pulmonary infiltrates secondary dyspnea. Patient is vaccinated individual and completed her vaccination back in May and June 2020. Patient presented with less than a week with the symptoms, she has completed a course of Remdesivir, currently remains on Decadron 6 mg twice daily, and dapsone 100 mg twice daily. Started on Baricitinib on 03/06/2021 #2. Acute hypoxic respiratory failure secondary to the above, progressive, today on 15 l/min, and 100% NRB #3. History of leukocytoclastic vasculitis, confirmed by skin biopsy and patient is on a combination of prednisone and dapsone on an outpatient basis and patient has been seen significant improvement in her skin lesions #4. History of cerebellar CVA #5. History of abnormal Pap smear #6. Osteoarthritis Plan: Continue Baricitinib, today is day 3 of treatment Continue current dose Decadron, patient is on 6 mg twice daily Continue dapsone, continue current dose Lovenox Breathing comfortably, denies any specific complaints We'll offer [place] spray for nasal congestion and dryness Continue following her clinical course, Follow-up inflammatory markers and d-dimer tomorrow I performed a history & physical examination of the patient and discussed their management with my nurse practitioner, Adalgisa Esparza. I reviewed the nurse practitioner's note and agree with the documented findings and plan of care. Lung sounds are positive for bibasilar crackles throughout the lung mckenna. The findings and the impression was discussed with the patient. I attest to the documentation by the nurse practitioner. Time with Patient: Less than 30
--- NOTE | 2021-03-08 15:00 | P.PN ---
Subjective Progress Note Date: 03/08/21 Hospital course: Patient is a very pleasant 66-year-old femalewith a past medical history of TIA and vasculitis. She presented to the emergency department on 02/28/21 with a chief complaint of shortness of breath and cough. Patient was Found to be hypoxic 88% on room air, tachycardic with heart rate of 103 bpm, and febrile with elevated temp of 101.1F. .Covid 19 PCR resulted positive and patient was diagnosed with Covid 19 pneumonia. X-ray correlating with pneumonia. EKG revealed sinus tachycardia at 101 bpm with no noted T-wave or ST abnormalities. patient was admitted under our services with consultation to pulmonary. Patient being treated with high-dose oxygen, steroids, vitamin C, vitamin D, zinc, and completed course of Remdesivir. Chest CTA negative for PE but did reveal diffuse bilateral groundglass opacities correlating for multifocal pneumonia or ARDS. Dopplers bilateral lower extremities negative for DVT. Physical exam: Patient seen and fully evaluated at the bedside this morning. She remains on 15 L high flow nasal cannula with SpO2 of 90%. Patient reports that she is "feeling great." Morning labs reviewed. d-dimer 0.97, total bili of 1.5, AST 40, ALP 68, LDH 1386, and CRP of 1.7. Patient remains on Decadron 6 mg IVP every 12 hours, vitamin C, vitamin D, and zinc. She states mild shortness of breath and productive cough but otherwise continues to deny having any headache, ligh theadedness, dizziness, chest pain, palpitations,abdominal pain, nausea, vomiting, or experiencing any numbness/tingling/weakness in her extremities. Vital signs reviewed and stable. General: Nontoxic, no distress and appears stated age. Derm: Skin warm and dry, normal coloration for ethnicity. Head: Atraumatic, normocephalic and symmetric. Eyes: EOMs intact, no lid lag, and anicteric sclera Mouth: no lip lesions, mucus membranes moist Cardiovascular: regular rate and rhythm with normal S1S2, no murmur, positive posterior tibial pulses bilaterally, and cap refill < 2 seconds. Lungs: Respirations even, regular, and unlabored on 15 L high flow nasal cannula with SpO2 of 92%. Lungs with bilateral lower lobe crackles. No rhonchi, wheezes, or rales and no accessory muscle usage. Abdominal: soft, nontender to palpation, no guarding, no appreciable organomegaly Ext: ROM intact. No gross muscle atrophy, no edema, no contractures Neuro: Speech clear, face symmetrical and CN II-XII grossly intact with no noted focal neuro deficits Psych: Alert and oriented to person, place, time, and situation. Appropriate and pleasant affect. Assessment and Plan of Care: Acute respiratory failure with hypoxia secondary to COVID 19 pneumonia in vaccinated individual. -Oxygenation to be administered and titrated as needed to maintain SPO2 equal to or greater than 90% -Telemetry monitoring. -Continue trending inflammatory markers -Encourage Incentive Spirometry 10-15x hourly while awake -Steroids: Decadron 6 mg q 12 hours, day 8 of steroids -Continue vitamin C, Vitamin D, and Zinc. -Pulmonology started patient on Baricitinib 03/06/21 -Pulmonology following, appreciate further recommendations. -DVT prophylaxis with Lovenox. -Strict Droplet plus Contact precautions -Pt completed course of Remdesivir History of leukocytoclastic vasculitis -Continue Dapsone 100 mg twice daily CODE STATUS: full code DVT prophylaxis: Lovenox Discussed with: patient and RN Anticipated discharge date: clinical course to determine Anticipated discharge place: home A total of 45 minutes was spent on the care of this complex patient more than 50% of the time was spent in counseling and care coordination. Objective - Vital Signs Vital signs: Vital Signs Temp 97.8 F 03/08/21 05:52 Pulse 74 03/08/21 05:52 Resp 17 03/08/21 05:52 BP 115/71 03/08/21 05:52 Pulse Ox 89 L 03/08/21 05:52 Intake & Output 03/07/21 03/08/21 03/08/21 18:59 06:59 18:59 Intake Total 160 Balance 160 Intake: Oral 160 Other: Voiding Method Toilet # Voids 3 3 - Labs CBC & Chem 7: 03/08/21 06:57 03/08/21 06:57 Labs: Abnormal Lab Results - Last 24 Hours (Table) 03/07/21 Range/Units 06:30 BUN/Creatinine Ratio 25.00 H (12.00-20.00) Ratio Glucose 127 H (70-110) mg/dL Calcium 8.3 L (8.7-10.3) mg/dL Lactate Dehydrogenase 481 H (120-246) U/L C-Reactive Protein 1.80 H (0.00-0.80) mg/dL
[2021-03-08] MEDS: ENOXAPARIN 40 MG/0.4 ML SYRINGE SQ SCH (16:49)
[2021-03-09] MEDS: guaiFENesin 600 MG TABLET.ER PO SCH ×2 (06:18→17:00)
[2021-03-09 06:47] LABS: Basophils % (A) 0 %; Eosinophils % (A) 0 %; HCT 38.2 % (34.0-46.0); HGB 12.6 gm/dL (11.4-16.0); Lymphocytes # (A) 0.5 k/uL (1.0-4.8); Lymphocytes % (A) 6 %; MCH 31.9 pg (25.0-35.0); MCV 96.8 fL (80.0-100.0); Mean Platelet Volume 6.9; Monocytes # (A) 0.2 k/uL (0-1.0); Monocytes % (A) 3 %; Neutrophils # (A) 8.2 k/uL (1.3-7.7); Neutrophils % (A) 91 %; Platelet Count 197 k/uL (150-450); RBC 3.95 m/uL (3.80-5.40); RDW 13.4 % (11.5-15.5)
[2021-03-09 07:06] LABS: Potassium 4.1 mmol/L (3.5-5.1)
[2021-03-09 07:07] LABS: ALT 71 U/L (4-34); AST 38 U/L (14-36); African American GFR (CKD) >90 (>60 ml/min/1.73 sqM); Alkaline Phosphatase 56 U/L (38-126); Anion Gap 3 mmol/L; Blood Urea Nitrogen 21 mg/dL (7-17); C Reactive Protein 1.3 mg/dL (<1.0); Calcium 8.4 mg/dL (8.4-10.2); Carbon Dioxide 26 mmol/L (22-30); Chloride 104 mmol/L (98-107); Globulin 2.9 g/dL; Glucose 139 mg/dL (74-99); LDH 1314 U/L (313-618); Non-African American GFR(CKD) >90 (>60 ml/min/1.73 sqM); Sodium 133 mmol/L (137-145); Total Bilirubin 1.4 mg/dL (0.2-1.3); Total Protein 5.9 g/dL (6.3-8.2)
[2021-03-09] MEDS: DAPSONE 25 MG TAB PO SCH ×2 (08:38→21:32)
[2021-03-09] MEDS: BARICITINIB 2 MG TABLET PO SCH (08:38)
[2021-03-09] MEDS: PANTOPRAZOLE 40 MG TABLET PO SCH (08:38)
[2021-03-09] MEDS: CHOLECALCIFEROL 25 MCG (1000 IU) TABLET PO SCH (08:38)
[2021-03-09] MEDS: ASCORBIC ACID 500 MG TAB PO SCH (08:38)
[2021-03-09] MEDS: ZINC SULFATE 220 MG CAP PO SCH (08:38)
[2021-03-09] MEDS: ALBUTEROL HFA INHALER INHALATION PRN ×3 (08:51→15:48)
[2021-03-09] MEDS: DEXAMETHASONE SOD PHOSPHATE 10 MG/ML 1 ML VIAL IVP SCH ×2 (09:37→21:33)
--- NOTE | 2021-03-09 12:34 | P.PN ---
Subjective Progress Note Date: 03/09/21 Principal diagnosis: Dyspnea, hypoxia On 03/05/2021 patient is seen in follow-up on medical surgical floor. She is resting comfortably in bed, states she is breathing better, she still on high flow oxygen at 15 L, her pulse ox is 90%. Afebrile, hemodynamically she stable, no acute distress, yesterday his chest x-ray has been reviewed showing worsening patchy bilateral lung infiltrates compatible with atypical pneumonia. Today's labs have been reviewed, white blood cell count is 7.11, hemoglobin is 12.7, d- dimer was 0.9, improving, electrolytes are within normal limits B1 is 19 creatinine 0.77, LDH today is slightly improved and is down to 1061, and CRP is 4.5. Patient's c-ANCA and p-ANCA levels were within normal limits. Calcitonin level was negative at 0.16, currently continues on Decadron 6 mg twice daily, Lovenox 40 mg daily, and dapsone 100 mg twice daily. On 03/06/2021 patient seen in follow-up on medical surgical floor. Patient is awake and alert, she is up in the recliner, she states overall she is feeling much better, coughing less, her appetite is improving. She still requiring high flow oxygen at 15 L and her pulse ox ranges between 87-90%, she does desat with exertion. States she feels more energetic, she has been trying to stay active, she's had no fever or chills, vital signs have been stable. Today's labs are still pending, yesterday's d-dimer of 0.90, we will obtain lower extremity Dopplers, pro-calcitonin level was negative, her c-ANCA and p-ANCA titers were low, progesterone level was low, patient currently remains on Decadron 6 mg twice daily, she is on Mucinex, she is on albuterol inhaler, and she is on COVID-19 vitamins. Lovenox at 40 mg every 24 hours. On 03/07/2021 patient seen in follow-up on medical surgical floor. Today she is on 15 L per high flow nasal cannula, and 100% nonrebreather mask, her pulse ox is 90%. When she denies any worsening dyspnea, she is breathing quite comfortably, she's been active, get not to the bathroom, tolerating activity very well although she does desaturate with activity she does not feel dyspneic, no chest pain, lung sounds reveal bibasilar crackles, no rhonchi or wheezing, no fever or chills, vital signs have been stable. CTA chest showed no evidence of pulmonary embolism and lower extremity Dopplers were negative for DVT. Today's d-dimer is 0.94, electrolytes and renal profile within normal limits, pro- calcitonin level was negative at 0.05, inflammatory markers were improving on yesterday's labs. Follow up Labs are pending for today. On 03/08/2021 patient seen in follow-up on medical surgical floor. She still on 15 L of oxygen per high flow nasal cannula, she is not wearing a nonrebreather mask most of the time, her pulse ox is 88-91%, clinically she states she is breathing quite comfortably, no dyspnea, no tachypnea, no use of accessory muscles of breathing, she is afebrile, hemodynamically she appears stable she has no specific complaints other than dryness of nasal passages. Mild cough, no phlegm production, appetite is fair, no nausea vomiting or diarrhea. On 03/09/2021 patient seen in follow-up on medical surgical floor. She continues on 15 L per high flow nasal cannula and 100% nonrebreather mask, and her pulse ox is around 92%, she does desat with exertion, tolerates activity very well, no tachypnea, no use of accessory muscles of breathing, she is breathing comfortably, she is currently sitting up in the recliner, in no acute distress, lung sounds reveal bibasilar crackles, no rhonchi or wheezing, no complaint of chest pain, she's been afebrile overnight, she's had no acute events. She is tolerating oral intake. No nausea vomiting or diarrhea, she continues on Decadron, Baricitinib, COVID 19 vitamins, and Lovenox 40 SQ daily Objective - Vital Signs Vital signs: Vital Signs Temp 98.4 F 03/09/21 09:26 Pulse 79 03/09/21 09:26 Resp 17 03/09/21 09:26 BP 145/63 03/09/21 09:26 Pulse Ox 92 L 03/09/21 09:26 Intake & Output 11/18/21 11/19/21 11/19/21 18:59 06:59 18:59 Intake Total 240 Balance 240 Intake: Oral 240 Other: Voiding Method Toilet # Voids 3 2 - Exam GENERAL EXAM: Alert, very pleasant, 66-year-old white female, resting in bed, currently on 15 L of oxygen per high flow nasal cannula and 100% non-rebreather with 92% comfortable in no apparent distress. HEAD: Normocephalic/atraumatic. EYES: Normal reaction of pupils, equal size. Conjunctiva pink, sclera white. NOSE: Clear with pink turbinates. THROAT: No erythema or exudates. NECK: No masses, no JVD, no thyroid enlargement, no adenopathy. CHEST: No chest wall deformity. Symmetrical expansion. LUNGS: Equal air entry with bibasilar crackles CVS: Regular rate and rhythm, normal S1 and S2, no gallops, no murmurs, no rubs ABDOMEN: Soft, nontender. No hepatosplenomegaly, normal bowel sounds, no guarding or rigidity. EXTREMITIES: No clubbing, no edema, no cyanosis, 2+ pulses and upper and lower extremities. MUSCULOSKELETAL: Muscle strength and tone normal. SPINE: No scoliosis or deformity SKIN: No rashes CENTRAL NERVOUS SYSTEM: Alert and oriented -3. No focal deficits, tone is norm al in all 4 extremities. PSYCHIATRIC: Alert and oriented -3. Appropriate affect. Intact judgment and insight. - Labs CBC & Chem 7: 03/09/21 06:06 03/09/21 06:06 Labs: Abnormal Lab Results - Last 24 Hours (Table) 03/09/21 03/09/21 03/09/21 Range/Units 06:06 06:06 06:06 Neutrophils # 8.2 H (1.3-7.7) k/uL Lymphocytes # 0.5 L (1.0-4.8) k/uL D-Dimer 1.22 H (<0.60) mg/L FEU Sodium 133 L (137-145) mmol/L BUN 21 H (7-17) mg/dL Glucose 139 H (74-99) mg/dL Total Bilirubin 1.4 H (0.2-1.3) mg/dL AST 38 H (14-36) U/L ALT 71 H (4-34) U/L Lactate Dehydrogenase 1314 H (313-618) U/L C-Reactive Protein 1.3 H (<1.0) mg/dL Total Protein 5.9 L (6.3-8.2) g/dL Albumin 3.0 L (3.5-5.0) g/dL Assessment and Plan Plan: Assessment: #1. Acute COVID-19 related pneumonia with bilateral pulmonary infiltrates secondary dyspnea. Patient is vaccinated individual and completed her vaccination back in May and June 2020. Patient presented with less than a week with the symptoms, she has completed a course of Remdesivir, currently remains on Decadron 6 mg twice daily, and dapsone 100 mg twice daily. Started on Baricitinib on 03/06/2021 #2. Acute hypoxic respiratory failure secondary to the above, progressive, today on 15 l/min, and 100% NRB #3. History of leukocytoclastic vasculitis, confirmed by skin biopsy and patient is on a combination of prednisone and dapsone on an outpatient basis and patient has been seen significant improvement in her skin lesions #4. History of cerebellar CVA #5. History of abnormal Pap smear #6. Osteoarthritis Plan: Continue Baricitinib, today is day 4 of treatment Continue Decadron, patient is on 6 mg twice daily Continue dapsone, continue current dose Lovenox Still requiring high concentration of oxygen, however tolerates it very well, Continue following her clinical course, Follow-up inflammatory markers and d-dimer reviewed and seem to have trended up I performed a history & physical examination of the patient and discussed their management with my nurse practitioner, Adalgisa Esparza. I reviewed the nurse practitioner's note and agree with the documented findings and plan of care. Lung sounds are positive for bibasilar crackles throughout the lung mckenna. The findings and the impression was discussed with the patient. I attest to the documentation by the nurse practitioner. Time with Patient: Less than 30
--- NOTE | 2021-03-09 13:32 | P.PN ---
Subjective Progress Note Date: 03/09/21 Hospital course: Patient is a very pleasant 66-year-old femalewith a past medical history of TIA and vasculitis. She presented to the emergency department on 02/28/21 with a chief complaint of shortness of breath and cough. Patient was Found to be hypoxic 88% on room air, tachycardic with heart rate of 103 bpm, and febrile with elevated temp of 101.1F. .Covid 19 PCR resulted positive and patient was diagnosed with Covid 19 pneumonia. X-ray correlating with pneumonia. EKG revealed sinus tachycardia at 101 bpm with no noted T-wave or ST abnormalities. patient was admitted under our services with consultation to pulmonary. Patient being treated with high-dose oxygen, steroids, vitamin C, vitamin D, zinc, and completed course of Remdesivir. Chest CTA negative for PE but did reveal diffuse bilateral groundglass opacities correlating for multifocal pneumonia or ARDS. Dopplers bilateral lower extremities negative for DVT. Physical exam: Patient seen and fully evaluated at the bedside this morning. She remains on 15 L high flow nasal cannula along with 15 L NRB mask with SpO2 of 92%. She is currently sitting up in a recliner and states she is much more comfortable sitting there than she was in the bed. She continues to have mild shortness of breath worsening with exertion along with productive cough. She otherwise denies having any other complaints or concerns at this time including chills, diaphoresis, headache, lightheadedness, dizziness, chest pain, palpitations, nausea, vomiting, or experiencing any numbness/tingling/weakness in her extremities. Morning labs reviewed, patient with mild hyponatremia with sodium of 133 and stable liver profile with total bili of 1.4, AST of 38, and ALT of 71. Inflammatory markers show d-dimer of 1.22, LDH of 1314, and CRP of 1.3. Vital signs reviewed and stable. General: Nontoxic, no distress and appears stated age. Derm: Skin warm and dry, normal coloration for ethnicity. Head: Atraumatic, normocephalic and symmetric. Eyes: EOMs intact, no lid lag, and anicteric sclera Mouth: no lip lesions, mucus membranes moist Cardiovascular: regular rate and rhythm with normal S1S2, no murmur, positive posterior tibial pulses bilaterally, and cap refill < 2 seconds. Lungs: Respirations even, regular, and unlabored on 15 L high flow nasal cannula with SpO2 of 92%. Lungs with bilateral lower lobe crackles. No rhonchi, wheezes, or rales and no accessory muscle usage. Abdominal: soft, nontender to palpation, no guarding, no appreciable organo megaly Ext: ROM intact. No gross muscle atrophy, no edema, no contractures Neuro: Speech clear, face symmetrical and CN II-XII grossly intact with no noted focal neuro deficits Psych: Alert and oriented to person, place, time, and situation. Appropriate and pleasant affect. Assessment and Plan of Care: Acute respiratory failure with hypoxia secondary to COVID 19 pneumonia in vaccinated individual. -Oxygenation to be administered and titrated as needed to maintain SPO2 equal to or greater than 90% -Telemetry monitoring. -Continue trending inflammatory markers -Encourage Incentive Spirometry 10-15x hourly while awake -Steroids: Decadron 6 mg q 12 hours, day 9 of steroids -Continue vitamin C, Vitamin D, and Zinc. -Started patient on Baricitinib 03/06/21 -Pulmonology following, appreciate further recommendations. -DVT prophylaxis with Lovenox. -Strict Droplet plus Contact precautions -Pt completed course of Remdesivir History of leukocytoclastic vasculitis -Continue Dapsone 100 mg twice daily CODE STATUS: Full code DVT prophylaxis: Lovenox Discussed with: Patient and RN Anticipated discharge date: Clinical course to determine Anticipated discharge place: Home A total of 45 minutes was spent on the care of this complex patient more than 50% of the time was spent in counseling and care coordination. Objective - Vital Signs Vital signs: Vital Signs Temp 98.4 F 03/09/21 09:26 Pulse 79 03/09/21 09:26 Resp 17 03/09/21 09:26 BP 145/63 03/09/21 09:26 Pulse Ox 92 L 03/09/21 09:26 Intake & Output 03/08/21 03/09/21 03/09/21 18:59 06:59 18:59 Intake Total 240 Balance 240 Intake: Oral 240 Other: Voiding Method Toilet # Voids 3 2 - Labs CBC & Chem 7: 03/09/21 06:06 03/09/21 06:06 Labs: Abnormal Lab Results - Last 24 Hours (Table) 03/08/21 03/09/21 03/09/21 Range/Units 06:57 06:06 06:06 Neutrophils # 8.2 H (1.3-7.7) k/uL Lymphocytes # 0.5 L (1.0-4.8) k/uL D-Dimer (<0.60) mg/L FEU Sodium 133 L (137-145) mmol/L BUN 21 H (7-17) mg/dL Glucose 139 H (74-99) mg/dL Total Bilirubin 1.4 H (0.2-1.3) mg/dL AST 38 H (14-36) U/L ALT 71 H (4-34) U/L Lactate Dehydrogenase 1386 H 1314 H (313-618) U/L C-Reactive Protein 1.7 H 1.3 H (<1.0) mg/dL Total Protein 5.9 L (6.3-8.2) g/dL Albumin 3.0 L (3.5-5.0) g/dL 03/09/21 Range/Units 06:06 Neutrophils # (1.3-7.7) k/uL Lymphocytes # (1.0-4.8) k/uL D-Dimer 1.22 H (<0.60) mg/L FEU Sodium (137-145) mmol/L BUN (7-17) mg/dL Glucose (74-99) mg/dL Total Bilirubin (0.2-1.3) mg/dL AST (14-36) U/L ALT (4-34) U/L Lactate Dehydrogenase (313-618) U/L C-Reactive Protein (<1.0) mg/dL Total Protein (6.3-8.2) g/dL Albumin (3.5-5.0) g/dL
[2021-03-09] MEDS: ENOXAPARIN 40 MG/0.4 ML SYRINGE SQ SCH (17:00)
[2021-03-10] MEDS: guaiFENesin 600 MG TABLET.ER PO SCH ×2 (06:06→16:47)
[2021-03-10] MEDS: ALBUTEROL HFA INHALER INHALATION PRN ×3 (07:29→19:34)
[2021-03-10] MEDS: PANTOPRAZOLE 40 MG TABLET PO SCH (08:41)
[2021-03-10] MEDS: BARICITINIB 2 MG TABLET PO SCH (08:41)
[2021-03-10] MEDS: DAPSONE 25 MG TAB PO SCH ×2 (08:42→23:04)
[2021-03-10] MEDS: ASCORBIC ACID 500 MG TAB PO SCH (08:42)
[2021-03-10] MEDS: ZINC SULFATE 220 MG CAP PO SCH (08:42)
[2021-03-10] MEDS: DEXAMETHASONE SOD PHOSPHATE 10 MG/ML 1 ML VIAL IVP SCH ×2 (08:42→22:36)
[2021-03-10] MEDS: CHOLECALCIFEROL 25 MCG (1000 IU) TABLET PO SCH (08:42)
[2021-03-10 09:54] LABS: HCT 37.6 % (34.0-46.0); HGB 12.5 gm/dL (11.4-16.0); MCHC 33.1 g/dL (31.0-37.0); MCV 96.7 fL (80.0-100.0); Mean Platelet Volume 6.8; Platelet Count 199 k/uL (150-450); RBC 3.89 m/uL (3.80-5.40); RDW 13.5 % (11.5-15.5); WBC 10.6 k/uL (3.8-10.6)
[2021-03-10 10:24] LABS: ALT 69 U/L (4-34); AST 34 U/L (14-36); African American GFR (CKD) >90 (>60 ml/min/1.73 sqM); Albumin 3.1 g/dL (3.5-5.0); Albumin/Globulin Ratio 1.1; Alkaline Phosphatase 50 U/L (38-126); Anion Gap 3 mmol/L; Blood Urea Nitrogen 19 mg/dL (7-17); C Reactive Protein 0.7 mg/dL (<1.0); Calcium 8.4 mg/dL (8.4-10.2); Carbon Dioxide 28 mmol/L (22-30); Chloride 103 mmol/L (98-107); Globulin 2.8 g/dL; Glucose 135 mg/dL (74-99); LDH 1221 U/L (313-618); Magnesium 2.2 mg/dL (1.6-2.3); Non-African American GFR(CKD) 81 (>60 ml/min/1.73 sqM); Potassium 4.1 mmol/L (3.5-5.1); Sodium 134 mmol/L (137-145); Total Bilirubin 1.3 mg/dL (0.2-1.3); Total Protein 5.9 g/dL (6.3-8.2)
--- NOTE | 2021-03-10 13:24 | P.PN ---
Subjective Progress Note Date: 03/10/21 Principal diagnosis: COVID-19 pneumonia On 03/05/2021 patient is seen in follow-up on medical surgical floor. She is resting comfortably in bed, states she is breathing better, she still on high flow oxygen at 15 L, her pulse ox is 90%. Afebrile, hemodynamically she stable, no acute distress, yesterday his chest x-ray has been reviewed showing worsening patchy bilateral lung infiltrates compatible with atypical pneumonia. Today's labs have been reviewed, white blood cell count is 7.11, hemoglobin is 12.7, d- dimer was 0.9, improving, electrolytes are within normal limits B1 is 19 creatinine 0.77, LDH today is slightly improved and is down to 1061, and CRP is 4.5. Patient's c-ANCA and p-ANCA levels were within normal limits. Calcitonin level was negative at 0.16, currently continues on Decadron 6 mg twice daily, Lovenox 40 mg daily, and dapsone 100 mg twice daily. On 03/06/2021 patient seen in follow-up on medical surgical floor. Patient is awake and alert, she is up in the recliner, she states overall she is feeling much better, coughing less, her appetite is improving. She still requiring high flow oxygen at 15 L and her pulse ox ranges between 87-90%, she does desat with exertion. States she feels more energetic, she has been trying to stay active, she's had no fever or chills, vital signs have been stable. Today's labs are still pending, yesterday's d-dimer of 0.90, we will obtain lower extremity Dopplers, pro-calcitonin level was negative, her c-ANCA and p-ANCA titers were low, progesterone level was low, patient currently remains on Decadron 6 mg twice daily, she is on Mucinex, she is on albuterol inhaler, and she is on COVID-19 vitamins. Lovenox at 40 mg every 24 hours. On 03/07/2021 patient seen in follow-up on medical surgical floor. Today she is on 15 L per high flow nasal cannula, and 100% nonrebreather mask, her pulse ox is 90%. When she denies any worsening dyspnea, she is breathing quite comfortably, she's been active, get not to the bathroom, tolerating activity very well although she does desaturate with activity she does not feel dyspneic, no chest pain, lung sounds reveal bibasilar crackles, no rhonchi or wheezing, no fever or chills, vital signs have been stable. CTA chest showed no evidence of pulmonary embolism and lower extremity Dopplers were negative for DVT. Today's d-dimer is 0.94, electrolytes and renal profile within normal limits, pro- calcitonin level was negative at 0.05, inflammatory markers were improving on yesterday's labs. Follow up Labs are pending for today. On 03/08/2021 patient seen in follow-up on medical surgical floor. She still on 15 L of oxygen per high flow nasal cannula, she is not wearing a nonrebreather mask most of the time, her pulse ox is 88-91%, clinically she states she is breathing quite comfortably, no dyspnea, no tachypnea, no use of accessory muscles of breathing, she is afebrile, hemodynamically she appears stable she has no specific complaints other than dryness of nasal passages. Mild cough, no phlegm production, appetite is fair, no nausea vomiting or diarrhea. On 03/09/2021 patient seen in follow-up on medical surgical floor. She continues on 15 L per high flow nasal cannula and 100% nonrebreather mask, and her pulse ox is around 92%, she does desat with exertion, tolerates activity very well, no tachypnea, no use of accessory muscles of breathing, she is breathing comfortably, she is currently sitting up in the recliner, in no acute distress, lung sounds reveal bibasilar crackles, no rhonchi or wheezing, no complaint of chest pain, she's been afebrile overnight, she's had no acute events. She is tolerating oral intake. No nausea vomiting or diarrhea, she continues on Decadron, Baricitinib, COVID 19 vitamins, and Lovenox 40 SQ daily The patient is seen today 03/10/2021 in follow-up on the regular medical floor. She is currently sitting up in a chair at the bedside. Awake and alert in no acute distress. Still requiring 15 L high flow nasal cannula as a nonrebreather mask. O2 saturations in the 90s. No worsening shortness of breath, cough or congestion. She's been slow to progress. White count 10.6. Hemoglobin 12.5. D-dimer 1.12. Sodium 134. Potassium 4.1. Creatinine 0.76. LDH 1221. C- reactive protein 0.7. She remains on Baricitinib, Decadron, Lovenox, vitamin supplements. Objective - Vital Signs Vital signs: Vital Signs Temp 97.5 F L 03/10/21 10:00 Pulse 79 03/10/21 10:00 Resp 22 03/10/21 10:00 BP 130/82 03/10/21 10:00 Pulse Ox 92 L 03/10/21 10:00 Intake & Output 03/09/21 03/10/21 03/10/21 18:59 06:59 18:59 Intake Total 480 960 Balance 480 960 Intake: Oral 480 960 Other: Voiding Method Toilet Toilet # Voids 1 - Exam GENERAL EXAM: Alert, pleasant 66-year-old female patient and 15 L high flow nasal cannula plus a nonrebreather mask, comfortable in no apparent distress. HEAD: Normocephalic. EYES: Normal reaction of pupils, equal size. NOSE: Clear with pink turbinates. THROAT: No erythema or exudates. NECK: No masses, no JVD. CHEST: No chest wall deformity. LUNGS: Equal air entry with crackles in the bilateral bases. CVS: S1 and S2 normal with no audible murmur, regular rhythm. ABDOMEN: No hepatosplenomegaly, normal bowel sounds, no guarding or rigidity. SPINE: No scoliosis or deformity SKIN: No rashes CENTRAL NERVOUS SYSTEM: No focal deficits, tone is normal in all 4 extremities. EXTREMITIES: There is no peripheral edema. No clubbing, no cyanosis. Peripheral pulses are intact. - Labs CBC & Chem 7: 03/10/21 09:43 03/10/21 09:43 Labs: Abnormal Lab Results - Last 24 Hours (Table) 03/10/21 03/10/21 Range/Units 09:43 09:43 D-Dimer 1.12 H (<0.60) mg/L FEU Sodium 134 L (137-145) mmol/L BUN 19 H (7-17) mg/dL Glucose 135 H (74-99) mg/dL ALT 69 H (4-34) U/L Lactate Dehydrogenase 1221 H (313-618) U/L Total Protein 5.9 L (6.3-8.2) g/dL Albumin 3.1 L (3.5-5.0) g/dL Assessment and Plan Assessment: 1 Acute COVID-19 related pneumonia with bilateral pulmonary infiltrates secondary dyspnea. Patient is vaccinated individual and completed her vaccinat ion back in May and June 2020. Patient presented with less than a week with the symptoms, she has completed a course of Remdesivir, currently remains on Decadron 6 mg twice daily, and dapsone 100 mg twice daily. Started on Baricitinib on 03/06/2021 2 Acute hypoxic respiratory failure secondary to the above, progressive, today on 15 l/min, and 100% NRB 3 History of leukocytoclastic vasculitis, confirmed by skin biopsy and patient is on a combination of prednisone and dapsone on an outpatient basis and patient has been seen significant improvement in her skin lesions 4 History of cerebellar CVA 5 History of abnormal Pap smear 6 Osteoarthritis 7 Obesity Plan: The patient was seen and evaluated by Dr. Rowe Continue to titrate the FiO2 as tolerated On Baricitinib, Lovenox, Decadron Completed Remdesivir Increase her activity as tolerated Chest x-ray in the a.m. We will continue to follow I, the cosigning physician, performed a history & physical examination of the patient. Lungs sounds with scattered rhonchi bilaterally. Maintaining good O2 saturations in the 90s on 15 L high flow nasal cannula plus a nonrebreather mask. I discussed the assessment and plan of care with my nurse practitioner, Windy Miguel. I attest to the above note as dictated by her.
--- NOTE | 2021-03-10 14:07 | P.PN ---
Subjective Progress Note Date: 03/10/21 Hospital course: Patient is a very pleasant 66-year-old femalewith a past medical history of TIA and vasculitis. She presented to the emergency department on 02/28/21 with a chief complaint of shortness of breath and cough. Patient was Found to be hypoxic 88% on room air, tachycardic with heart rate of 103 bpm, and febrile with elevated temp of 101.1F. .Covid 19 PCR resulted positive and patient was diagnosed with Covid 19 pneumonia. X-ray correlating with pneumonia. EKG revealed sinus tachycardia at 101 bpm with no noted T-wave or ST abnormalities. patient was admitted under our services with consultation to pulmonary. Patient being treated with high-dose oxygen, steroids, vitamin C, vitamin D, zinc, and completed course of Remdesivir. Chest CTA negative for PE but did reveal diffuse bilateral groundglass opacities correlating for multifocal pneumonia or ARDS. Dopplers bilateral lower extremities negative for DVT. Physical exam: Patient seen and fully evaluated at the bedside this morning. She remains on 15 L high flow nasal cannula along with 15 L NRB mask with SpO2 of 90%. Upon examination, patient lying prone in bed. She reports that she continues to feel "pretty good". Patient states that she continues to have just mild shortness of breath with exertion along with a productive cough that has been unchanged. She denies having any headache, lightheadedness, dizziness, chest pain, pal pitations, or experiencing any numbness/tingling/weakness in her extremities. Patient reports that she continues to have a good appetite and continues to feel energetic. Morning labs reviewed. Inflammatory markers slowly declining with d-dimer of 1.12, LDH of 1221, and CRP of 0.7. Vital signs reviewed and stable. General: Nontoxic, no distress and appears stated age. Derm: Skin warm and dry, normal coloration for ethnicity. Head: Atraumatic, normocephalic and symmetric. Eyes: EOMs intact, no lid lag, and anicteric sclera Mouth: no lip lesions, mucus membranes moist Cardiovascular: regular rate and rhythm with normal S1S2, no murmur, positive posterior tibial pulses bilaterally, and cap refill < 2 seconds. Lungs: Respirations even, regular, and unlabored on 15 L high flow nasal cannula with SpO2 of 92%. Lungs with bilateral lower lobe crackles. No rhonchi, wheezes, or rales and no accessory muscle usage. No conversational dyspnea noted. Abdominal: soft, nontender to palpation, no guarding, no appreciable organomegaly Ext: ROM intact. No gross muscle atrophy, no edema, no contractures Neuro: Speech clear, face symmetrical and CN II-XII grossly intact with no noted focal neuro deficits Psych: Alert and oriented to person, place, time, and situation. Appropriate and pleasant affect. Assessment and Plan of Care: Acute respiratory failure with hypoxia secondary to COVID 19 pneumonia in vaccinated individual. -Oxygenation to be administered and titrated as needed to maintain SPO2 equal to or greater than 90% -Telemetry monitoring. -Continue trending inflammatory markers -Encourage Incentive Spirometry 10-15x hourly while awake -Steroids: Decadron 6 mg q 12 hours, day 9 of steroids -Continue vitamin C, Vitamin D, and Zinc. -Started patient on Baricitinib 03/06/21, day 5 of 14 -Pulmonology following, appreciate further recommendations. -DVT prophylaxis with Lovenox. -Strict Droplet plus Contact precautions -Pt completed course of Remdesivir History of leukocytoclastic vasculitis -Continue Dapsone 100 mg twice daily CODE STATUS: Full code DVT prophylaxis: Lovenox Discussed with: Patient and RN Anticipated discharge date: Clinical course to determine Anticipated discharge place: Home A total of 45 minutes was spent on the care of this complex patient more than 50% of the time was spent in counseling and care coordination. Objective - Vital Signs Vital signs: Vital Signs Temp 96.4 F L 03/10/21 06:00 Pulse 74 03/10/21 06:00 Resp 17 03/10/21 02:20 BP 119/75 03/10/21 06:00 Pulse Ox 90 L 03/10/21 06:00 Intake & Output 03/09/21 03/10/21 03/10/21 18:59 06:59 18:59 Intake Total 480 960 Balance 480 960 Intake: Oral 480 960 Other: Voiding Method Toilet # Voids 1 - Labs CBC & Chem 7: 03/10/21 09:43 03/10/21 09:43
[2021-03-10] MEDS: ENOXAPARIN 40 MG/0.4 ML SYRINGE SQ SCH (16:47)
[2021-03-11 05:55] LABS: Basophils % (A) 0 %; Eosinophils # (A) 0.1 k/uL (0-0.7); Eosinophils % (A) 1 %; HCT 37.1 % (34.0-46.0); HGB 12.3 gm/dL (11.4-16.0); Lymphocytes # (A) 0.4 k/uL (1.0-4.8); Lymphocytes % (A) 4 %; MCH 32.3 pg (25.0-35.0); MCHC 33.1 g/dL (31.0-37.0); MCV 97.8 fL (80.0-100.0); Monocytes # (A) 0.2 k/uL (0-1.0); Monocytes % (A) 2 %; Neutrophils # (A) 10.2 k/uL (1.3-7.7); Neutrophils % (A) 93 %; Platelet Count 207 k/uL (150-450); RBC 3.79 m/uL (3.80-5.40)
[2021-03-11 06:15] LABS: ALT 77 U/L (4-34); AST 36 U/L (14-36); African American GFR (CKD) >90 (>60 ml/min/1.73 sqM); Albumin 3.1 g/dL (3.5-5.0); Albumin/Globulin Ratio 1.1; Alkaline Phosphatase 54 U/L (38-126); Anion Gap 4 mmol/L; Blood Urea Nitrogen 21 mg/dL (7-17); C Reactive Protein 0.8 mg/dL (<1.0); Calcium 8.5 mg/dL (8.4-10.2); Carbon Dioxide 25 mmol/L (22-30); Chloride 105 mmol/L (98-107); Globulin 2.9 g/dL; Glucose 139 mg/dL (74-99); LDH 1415 U/L (313-618); Non-African American GFR(CKD) 88 (>60 ml/min/1.73 sqM); Sodium 134 mmol/L (137-145); Total Bilirubin 1.3 mg/dL (0.2-1.3)
[2021-03-11] MEDS: guaiFENesin 600 MG TABLET.ER PO SCH ×2 (06:21→17:35)
[2021-03-11] MEDS: ALBUTEROL HFA INHALER INHALATION PRN ×3 (07:10→19:13)
[2021-03-11] MEDS: DEXAMETHASONE SOD PHOSPHATE 10 MG/ML 1 ML VIAL IVP SCH ×2 (08:17→21:51)
[2021-03-11] MEDS: ASCORBIC ACID 500 MG TAB PO SCH (09:17)
[2021-03-11] MEDS: ZINC SULFATE 220 MG CAP PO SCH (09:18)
[2021-03-11] MEDS: PANTOPRAZOLE 40 MG TABLET PO SCH (09:18)
[2021-03-11] MEDS: CHOLECALCIFEROL 25 MCG (1000 IU) TABLET PO SCH (09:18)
[2021-03-11] MEDS: BARICITINIB 2 MG TABLET PO SCH (09:18)
[2021-03-11] MEDS: DAPSONE 25 MG TAB PO SCH ×2 (09:21→21:53)
--- NOTE | 2021-03-11 13:53 | P.PN ---
<Marquez Sam - Last Filed: 03/11/21 13:39> Subjective Progress Note Date: 03/11/21 Hospital course: Patient is a very pleasant 66-year-old femalewith a past medical history of TIA and vasculitis. She presented to the emergency department on 02/28/21 with a chief complaint of shortness of breath and cough. Patient was Found to be hypoxic 88% on room air, tachycardic with heart rate of 103 bpm, and febrile with elevated temp of 101.1F. .Covid 19 PCR resulted positive and patient was diagnosed with Covid 19 pneumonia. X-ray correlating with pneumonia. EKG revealed sinus tachycardia at 101 bpm with no noted T-wave or ST abnormalities. patient was admitted under our services with consultation to pulmonary. Patient being treated with high-dose oxygen, steroids, vitamin C, vitamin D, zinc, and completed course of Remdesivir. Chest CTA negative for PE but did reveal diffuse bilateral groundglass opacities correlating for multifocal pneumonia or ARDS. Dopplers bilateral lower extremities negative for DVT. Physical exam: Patient seen and fully evaluated at the bedside this morning. At time of assessment pt sitting upright in chair on 15 L high flow nasal cannula with SPO2 89-90%. Pt reports that she has been lying prone in bed as much as possible. She continues to report feeling well with complaints of shortness of breath with exertion and states slight improvement in her productive cough. She continues to deny having any headache, lightheadedness, dizziness, chest pain, or palpitations. Morning labs reveal d-dimer 1.27, LDH 1415, and CRP of 0.8. Patient to continue treatment with Baricitinib, Decadron, vitamin C, vitamin D, zinc, and DVT prophylaxis with Lovenox. Vital signs reviewed and stable. General: Nontoxic, no distress and appears stated age. Derm: Skin warm and dry, normal coloration for ethnicity. Head: Atraumatic, normocephalic and symmetric. Eyes: EOMs intact, no lid lag, and anicteric sclera Mouth: no lip lesions, mucus membranes moist Cardiovascular: regular rate and rhythm with normal S1S2, no murmur, positive posterior tibial pulses bilaterally, and cap refill < 2 seconds. Lungs: Respirations even, regular, and unlabored on 15 L high flow nasal cannula with SpO2 of 90%. Lungs with bilateral lower lobe crackles. No rhonchi, wheezes, or rales and no accessory muscle usage. No conversational dyspnea noted. Abdominal: soft, nontender to palpation, no guarding, no appreciable organomegaly Ext: ROM intact. No gross muscle atrophy, no edema, no contractures Neuro: Speech clear, face symmetrical and CN II-XII grossly intact with no noted focal neuro deficits Psych: Alert and oriented to person, place, time, and situation. Appropriate and pleasant affect. Assessment and Plan of Care: Acute respiratory failure with hypoxia secondary to COVID 19 pneumonia in vaccinated individual. -Oxygenation to be administered and titrated as needed to maintain SPO2 equal to or greater than 90% -Telemetry monitoring. -Continue trending inflammatory markers -Encourage Incentive Spirometry 10-15x hourly while awake -Steroids: Decadron 6 mg q 12 hours, day 10 of steroids -Continue vitamin C, Vitamin D, and Zinc. -Started patient on Baricitinib 03/06/21, day 6 of 14 -Pulmonology following, appreciate further recommendations. -DVT prophylaxis with Lovenox. -Strict Droplet plus Contact precautions -Pt completed course of Remdesivir History of leukocytoclastic vasculitis -Continue Dapsone 100 mg twice daily and continue to follow up outpatient with vascular surgery upon discharge. CODE STATUS: Full code DVT prophylaxis: Lovenox Discussed with: Patient and RN Anticipated discharge date: Clinical course to determine Anticipated discharge place: Home A total of 45 minutes was spent on the care of this complex patient more than 50% of the time was spent in counseling and care coordination. Objective - Vital Signs Vital signs: Vital Signs Temp 98.2 F 03/11/21 05:48 Pulse 75 03/11/21 05:48 Resp 17 03/11/21 01:34 BP 165/71 03/11/21 05:48 Pulse Ox 92 L 03/11/21 05:48 Intake & Output 03/10/21 03/11/21 03/11/21 18:59 06:59 18:59 Intake Total 500 980 Balance 500 980 Intake: Oral 500 980 Other: Voiding Method Toilet Toilet # Voids 1 - Labs CBC & Chem 7: 03/11/21 05:39 03/11/21 05:39 Labs: Abnormal Lab Results - Last 24 Hours (Table) 03/10/21 03/10/21 03/11/21 Range/Units 09:43 09:43 05:39 WBC 11.0 H (3.8-10.6) k/uL RBC 3.79 L (3.80-5.40) m/uL Neutrophils # 10.2 H (1.3-7.7) k/uL Lymphocytes # 0.4 L (1.0-4.8) k/uL D-Dimer 1.12 H (<0.60) mg/L FEU Sodium 134 L (137-145) mmol/L BUN 19 H (7-17) mg/dL Glucose 135 H (74-99) mg/dL ALT 69 H (4-34) U/L Lactate Dehydrogenase 1221 H (313-618) U/L Total Protein 5.9 L (6.3-8.2) g/dL Albumin 3.1 L (3.5-5.0) g/dL 03/11/21 03/11/21 Range/Units 05:39 05:39 WBC (3.8-10.6) k/uL RBC (3.80-5.40) m/uL Neutrophils # (1.3-7.7) k/uL Lymphocytes # (1.0-4.8) k/uL D-Dimer 1.27 H (<0.60) mg/L FEU Sodium 134 L (137-145) mmol/L BUN 21 H (7-17) mg/dL Glucose 139 H (74-99) mg/dL ALT 77 H (4-34) U/L Lactate Dehydrogenase 1415 H (313-618) U/L Total Protein 6.0 L (6.3-8.2) g/dL Albumin 3.1 L (3.5-5.0) g/dL <Freya Best - Last Filed: 03/11/21 17:58> Subjective I reviewed the documentation as provided by the JOANN above, who is the original author of this note. I agree with the documented assessment and plan, with the following changes: None Objective - Vital Signs Vital signs: Vital Signs Temp 98.1 F 03/11/21 14:00 Pulse 83 03/11/21 14:00 Resp 18 03/11/21 14:00 BP 103/65 03/11/21 14:00 Pulse Ox 91 L 03/11/21 14:00 Intake & Output 03/10/21 03/11/21 03/11/21 18:59 06:59 18:59 Intake Total 500 980 Balance 500 980 Intake: Oral 500 980 Other: Voiding Method Toilet Toilet Toilet # Voids 1 - Labs CBC & Chem 7: 03/11/21 05:39 03/11/21 05:39 Labs: Abnormal Lab Results - Last 24 Hours (Table) 03/11/21 03/11/21 03/11/21 Range/Units 05:39 05:39 05:39 WBC 11.0 H (3.8-10.6) k/uL RBC 3.79 L (3.80-5.40) m/uL Neutrophils # 10.2 H (1.3-7.7) k/uL Lymphocytes # 0.4 L (1.0-4.8) k/uL D-Dimer 1.27 H (<0.60) mg/L FEU Sodium 134 L (137-145) mmol/L BUN 21 H (7-17) mg/dL Glucose 139 H (74-99) mg/dL ALT 77 H (4-34) U/L Lactate Dehydrogenase 1415 H (313-618) U/L Total Protein 6.0 L (6.3-8.2) g/dL Albumin 3.1 L (3.5-5.0) g/dL
--- NOTE | 2021-03-11 15:18 | P.PN ---
Subjective Progress Note Date: 03/11/21 Principal diagnosis: COVID-19 pneumonia On 03/05/2021 patient is seen in follow-up on medical surgical floor. She is resting comfortably in bed, states she is breathing better, she still on high flow oxygen at 15 L, her pulse ox is 90%. Afebrile, hemodynamically she stable, no acute distress, yesterday his chest x-ray has been reviewed showing worsening patchy bilateral lung infiltrates compatible with atypical pneumonia. Today's labs have been reviewed, white blood cell count is 7.11, hemoglobin is 12.7, d- dimer was 0.9, improving, electrolytes are within normal limits B1 is 19 creatinine 0.77, LDH today is slightly improved and is down to 1061, and CRP is 4.5. Patient's c-ANCA and p-ANCA levels were within normal limits. Calcitonin level was negative at 0.16, currently continues on Decadron 6 mg twice daily, Lovenox 40 mg daily, and dapsone 100 mg twice daily. On 03/06/2021 patient seen in follow-up on medical surgical floor. Patient is awake and alert, she is up in the recliner, she states overall she is feeling much better, coughing less, her appetite is improving. She still requiring high flow oxygen at 15 L and her pulse ox ranges between 87-90%, she does desat with exertion. States she feels more energetic, she has been trying to stay active, she's had no fever or chills, vital signs have been stable. Today's labs are still pending, yesterday's d-dimer of 0.90, we will obtain lower extremity Dopplers, pro-calcitonin level was negative, her c-ANCA and p-ANCA titers were low, progesterone level was low, patient currently remains on Decadron 6 mg twice daily, she is on Mucinex, she is on albuterol inhaler, and she is on COVID-19 vitamins. Lovenox at 40 mg every 24 hours. On 03/07/2021 patient seen in follow-up on medical surgical floor. Today she is on 15 L per high flow nasal cannula, and 100% nonrebreather mask, her pulse ox is 90%. When she denies any worsening dyspnea, she is breathing quite comfortably, she's been active, get not to the bathroom, tolerating activity very well although she does desaturate with activity she does not feel dyspneic, no chest pain, lung sounds reveal bibasilar crackles, no rhonchi or wheezing, no fever or chills, vital signs have been stable. CTA chest showed no evidence of pulmonary embolism and lower extremity Dopplers were negative for DVT. Today's d-dimer is 0.94, electrolytes and renal profile within normal limits, pro- calcitonin level was negative at 0.05, inflammatory markers were improving on yesterday's labs. Follow up Labs are pending for today. On 03/08/2021 patient seen in follow-up on medical surgical floor. She still on 15 L of oxygen per high flow nasal cannula, she is not wearing a nonrebreather mask most of the time, her pulse ox is 88-91%, clinically she states she is breathing quite comfortably, no dyspnea, no tachypnea, no use of accessory muscles of breathing, she is afebrile, hemodynamically she appears stable she has no specific complaints other than dryness of nasal passages. Mild cough, no phlegm production, appetite is fair, no nausea vomiting or diarrhea. On 03/09/2021 patient seen in follow-up on medical surgical floor. She continues on 15 L per high flow nasal cannula and 100% nonrebreather mask, and her pulse ox is around 92%, she does desat with exertion, tolerates activity very well, no tachypnea, no use of accessory muscles of breathing, she is breathing comfortably, she is currently sitting up in the recliner, in no acute distress, lung sounds reveal bibasilar crackles, no rhonchi or wheezing, no complaint of chest pain, she's been afebrile overnight, she's had no acute events. She is tolerating oral intake. No nausea vomiting or diarrhea, she continues on Decadron, Baricitinib, COVID 19 vitamins, and Lovenox 40 SQ daily The patient is seen today 03/10/2021 in follow-up on the regular medical floor. She is currently sitting up in a chair at the bedside. Awake and alert in no acute distress. Still requiring 15 L high flow nasal cannula as a nonrebreather mask. O2 saturations in the 90s. No worsening shortness of breath, cough or congestion. She's been slow to progress. White count 10.6. Hemoglobin 12.5. D-dimer 1.12. Sodium 134. Potassium 4.1. Creatinine 0.76. LDH 1221. C- reactive protein 0.7. She remains on Baricitinib, Decadron, Lovenox, vitamin supplements. The patient is seen today 03/11/2021 in follow-up on the regular medical floor. Currently sitting up in a chair at the bedside. Awake and alert in no acute distress. She is still requiring 15 L high flow nasal cannula plus a nonrebreather mask. Without the masseter O2 saturations at 85%. She is doing about the same today compared to yesterday. No worse but not much improvement. White count 11.0. Hemoglobin 12.3. Lymphocytes 0.4. D-dimer 1.27. Sodium 134. Potassium 4.0. Creatinine 0.71. LDH 1415. C-reactive protein 0.8. She is continuing on Baricitinib, Decadron, Lovenox, vitamin supplements. Objective - Vital Signs Vital signs: Vital Signs Temp 98.3 F 03/11/21 10:00 Pulse 74 03/11/21 10:00 Resp 20 03/11/21 10:00 BP 104/67 03/11/21 10:00 Pulse Ox 92 L 03/11/21 10:00 Intake & Output 03/10/21 03/11/21 03/11/21 18:59 06:59 18:59 Intake Total 500 980 Balance 500 980 Intake: Oral 500 980 Other: Voiding Method Toilet Toilet Toilet # Voids 1 - Exam GENERAL EXAM: Alert, pleasant 66-year-old female patient and 15 L high flow nasal cannula plus a nonrebreather mask, comfortable in no apparent distress. HEAD: Normocephalic. EYES: Normal reaction of pupils, equal size. NOSE: Clear with pink turbinates. THROAT: No erythema or exudates. NECK: No masses, no JVD. CHEST: No chest wall deformity. LUNGS: Equal air entry with crackles in the bilateral bases. CVS: S1 and S2 normal with no audible murmur, regular rhythm. ABDOMEN: No hepatosplenomegaly, normal bowel sounds, no guarding or rigidity. SPINE: No scoliosis or deformity SKIN: No rashes CENTRAL NERVOUS SYSTEM: No focal deficits, tone is normal in all 4 extremities. EXTREMITIES: There is no peripheral edema. No clubbing, no cyanosis. Peripheral pulses are intact. - Labs CBC & Chem 7: 03/11/21 05:39 03/11/21 05:39 Labs: Abnormal Lab Results - Last 24 Hours (Table) 03/11/21 03/11/21 03/11/21 Range/Units 05:39 05:39 05:39 WBC 11.0 H (3.8-10.6) k/uL RBC 3.79 L (3.80-5.40) m/uL Neutrophils # 10.2 H (1.3-7.7) k/uL Lymphocytes # 0.4 L (1.0-4.8) k/uL D-Dimer 1.27 H (<0.60) mg/L FEU Sodium 134 L (137-145) mmol/L BUN 21 H (7-17) mg/dL Glucose 139 H (74-99) mg/dL ALT 77 H (4-34) U/L Lactate Dehydrogenase 1415 H (313-618) U/L Total Protein 6.0 L (6.3-8.2) g/dL Albumin 3.1 L (3.5-5.0) g/dL Assessment and Plan Assessment: 1 Acute COVID-19 related pneumonia with bilateral pulmonary infiltrates secondary dyspnea. Patient is vaccinated individual and completed her vaccination back in May and June 2020. Patient presented with less than a week with the symptoms, she has completed a course of Remdesivir, currently remains on Decadron 6 mg twice daily, and dapsone 100 mg twice daily. Started on Baricitinib on 03/06/2021 2 Acute hypoxic respiratory failure secondary to the above, progressive, today on 15 l/min, and 100% NRB 3 History of leukocytoclastic vasculitis, confirmed by skin biopsy and patient is on a combination of prednisone and dapsone on an outpatient basis and patient has been seen significant improvement in her skin lesions 4 History of cerebellar CVA 5 History of abnormal Pap smear 6 Osteoarthritis 7 Obesity Plan: The patient was seen and evaluated by Dr. Rowe Continued on 15 L high flow nasal cannula plus a nonrebreather mask Continue to titrate the FiO2 as tolerated On Baricitinib, Lovenox, Decadron Completed Remdesivir Increase her activity as tolerated Chest x-ray, inflammatory markers in the a.m. We will continue to follow I, the cosigning physician, performed a history & physical examination of the patient. Lungs sounds with scattered rhonchi bilaterally. Maintaining good O2 saturations in the 90s on 15 L high flow nasal cannula plus a nonrebreather mask. I discussed the assessment and plan of care with my nurse practitioner, Windy Miguel. I attest to the above note as dictated by her.
[2021-03-11] MEDS: ENOXAPARIN 40 MG/0.4 ML SYRINGE SQ SCH (17:35)
[2021-03-12] MEDS: guaiFENesin 600 MG TABLET.ER PO SCH ×2 (06:10→17:05)
[2021-03-12] MEDS ORDERED: CALCIUM CARBONATE 500 MG CHEWABLE PO PRN (06:20)
[2021-03-12] MEDS: CHOLECALCIFEROL 25 MCG (1000 IU) TABLET PO SCH (08:06)
[2021-03-12] MEDS: PANTOPRAZOLE 40 MG TABLET PO SCH (08:06)
[2021-03-12] MEDS: ASCORBIC ACID 500 MG TAB PO SCH (08:07)
[2021-03-12] MEDS: ZINC SULFATE 220 MG CAP PO SCH (08:07)
[2021-03-12] MEDS: DEXAMETHASONE SOD PHOSPHATE 10 MG/ML 1 ML VIAL IVP SCH ×2 (08:07→20:30)
[2021-03-12] MEDS: BARICITINIB 2 MG TABLET PO SCH (08:07)
[2021-03-12] MEDS: DAPSONE 25 MG TAB PO SCH ×2 (08:08→20:30)
[2021-03-12] MEDS: ALBUTEROL HFA INHALER INHALATION PRN ×2 (09:13→21:05)
[2021-03-12 10:51] LABS: Basophils % (A) 0 %; Eosinophils % (A) 0 %; HCT 35.2 % (34.0-46.0); HGB 11.6 gm/dL (11.4-16.0); Lymphocytes # (A) 0.3 k/uL (1.0-4.8); Lymphocytes % (A) 3 %; MCH 32.3 pg (25.0-35.0); MCHC 33.1 g/dL (31.0-37.0); MCV 97.8 fL (80.0-100.0); Mean Platelet Volume 7.1; Monocytes # (A) 0.3 k/uL (0-1.0); Monocytes % (A) 3 %; Neutrophils # (A) 10.1 k/uL (1.3-7.7); Neutrophils % (A) 93 %; Platelet Count 210 k/uL (150-450); RDW 14.4 % (11.5-15.5); WBC 10.8 k/uL (3.8-10.6)
[2021-03-12 11:15] LABS: ALT 65 U/L (4-34); AST 30 U/L (14-36); African American GFR (CKD) >90 (>60 ml/min/1.73 sqM); Albumin 3.1 g/dL (3.5-5.0); Albumin/Globulin Ratio 1.1; Alkaline Phosphatase 52 U/L (38-126); Anion Gap 5 mmol/L; Blood Urea Nitrogen 19 mg/dL (7-17); C Reactive Protein 1.7 mg/dL (<1.0); Calcium 8.6 mg/dL (8.4-10.2); Carbon Dioxide 27 mmol/L (22-30); Chloride 104 mmol/L (98-107); Globulin 2.7 g/dL; Glucose 162 mg/dL (74-99); LDH 1430 U/L (313-618); Non-African American GFR(CKD) 79 (>60 ml/min/1.73 sqM); Potassium 3.8 mmol/L (3.5-5.1); Sodium 136 mmol/L (137-145); Total Bilirubin 1.2 mg/dL (0.2-1.3); Total Protein 5.8 g/dL (6.3-8.2)
--- NOTE | 2021-03-12 12:50 | P.PN ---
<Marquez Sam - Last Filed: 03/12/21 12:39> Subjective Progress Note Date: 03/12/21 Hospital course: Patient is a very pleasant 66-year-old femalewith a past medical history of TIA and vasculitis. She presented to the emergency department on 02/28/21 with a chief complaint of shortness of breath and cough. Patient was Found to be hypoxic 88% on room air, tachycardic with heart rate of 103 bpm, and febrile with elevated temp of 101.1F. .Covid 19 PCR resulted positive and patient was diagnosed with Covid 19 pneumonia. X-ray correlating with pneumonia. EKG revealed sinus tachycardia at 101 bpm with no noted T-wave or ST abnormalities. patient was admitted under our services with consultation to pulmonary. Patient being treated with high-dose oxygen, steroids, vitamin C, vitamin D, zinc, and completed course of Remdesivir. Chest CTA negative for PE but did reveal diffuse bilateral groundglass opacities correlating for multifocal pneumonia or ARDS. Dopplers bilateral lower extremities negative for DVT. Physical exam: Patient seen and fully evaluated at the bedside this morning. Pt again sitting upright in chair on 15 L high flow nasal cannula with SPO2 88-90%. She states she had to put mask back on last night because she was having significant drops in her pulse ox down to 82% despite lying prone in bed. She reports however this morning she was able to take the mask back off and only use 15L HFNC to keep her oxygen saturations up. Pt states that she continues to feel "pretty good". Continues to report mild shortness of breath only with exertion and a productive cough. She denies shortness of breath at rest, experiencing any lightheadedness dizziness, chest pain, palpitations, or having any numbness/ting ling/weakness/swelling in her extremities. Inflammatory markers d-dimer of 1.00, LDH of 1430, and CRP of 1.7. Patient to continue treatment with Baricitinib, Decadron, vitamin C, vitamin D, zinc, and DVT prophylaxis with Lovenox. Vital signs reviewed and stable. General: Nontoxic, no distress and appears stated age. Derm: Skin warm and dry, normal coloration for ethnicity. Head: Atraumatic, normocephalic and symmetric. Eyes: EOMs intact, no lid lag, and anicteric sclera Mouth: no lip lesions, mucus membranes moist Cardiovascular: regular rate and rhythm with normal S1S2, no murmur, positive posterior tibial pulses bilaterally, and cap refill < 2 seconds. Lungs: Respirations even, regular, and unlabored on 15 L high flow nasal cannula with SpO2 of 90%. Lungs with bilateral lower lobe crackles. No rhonchi, wheezes, or rales and no accessory muscle usage. No conversational dyspnea noted. Abdominal: soft, nontender to palpation, no guarding, no appreciable organomegaly Ext: ROM intact. No gross muscle atrophy, no edema, no contractures Neuro: Speech clear, face symmetrical and CN II-XII grossly intact with no noted focal neuro deficits Psych: Alert and oriented to person, place, time, and situation. Appropriate and pleasant affect. Assessment and Plan of Care: Acute respiratory failure with hypoxia secondary to COVID 19 pneumonia in vaccinated individual. -Oxygenation to be administered and titrated as needed to maintain SPO2 equal to or greater than 90% -Telemetry monitoring. -Continue trending inflammatory markers -Encourage Incentive Spirometry 10-15x hourly while awake -Steroids: Decadron 6 mg q 12 hours, day 11 of steroids -Continue vitamin C, Vitamin D, and Zinc. -Started patient on Baricitinib 03/06/21, day 7 of 14 -Pulmonology following, appreciate further recommendations. -DVT prophylaxis with Lovenox. -Strict Droplet plus Contact precautions -Pt completed course of Remdesivir History of leukocytoclastic vasculitis -Continue Dapsone 100 mg twice daily and continue to follow up outpatient with vascular surgery upon discharge. CODE STATUS: Full code DVT prophylaxis: Lovenox Discussed with: Patient and RN Anticipated discharge date: Clinical course to determine Anticipated discharge place: Home A total of 45 minutes was spent on the care of this complex patient more than 50% of the time was spent in counseling and care coordination. Objective - Vital Signs Vital signs: Vital Signs Temp 98.5 F 03/12/21 10:00 Pulse 80 03/12/21 10:00 Resp 20 03/12/21 10:00 BP 120/74 03/12/21 10:00 Pulse Ox 91 L 03/12/21 10:00 Intake & Output 03/11/21 03/12/21 03/12/21 18:59 06:59 18:59 Intake Total 960 Balance 960 Intake: Oral 960 Other: Voiding Method Toilet Toilet # Voids 1 - Labs CBC & Chem 7: 03/12/21 10:23 03/12/21 10:23 Labs: Abnormal Lab Results - Last 24 Hours (Table) 03/12/21 03/12/21 03/12/21 Range/Units 10:23 10:23 10:23 WBC 10.8 H (3.8-10.6) k/uL RBC 3.60 L (3.80-5.40) m/uL Neutrophils # 10.1 H (1.3-7.7) k/uL Lymphocytes # 0.3 L (1.0-4.8) k/uL D-Dimer 1.00 H (<0.60) mg/L FEU Sodium 136 L (137-145) mmol/L BUN 19 H (7-17) mg/dL Glucose 162 H (74-99) mg/dL ALT 65 H (4-34) U/L Lactate Dehydrogenase 1430 H (313-618) U/L C-Reactive Protein 1.7 H (<1.0) mg/dL Total Protein 5.8 L (6.3-8.2) g/dL Albumin 3.1 L (3.5-5.0) g/dL <Ferya Best - Last Filed: 03/12/21 13:55> Subjective I reviewed the documentation as provided by the JOANN above, who is the original author of this note. I agree with the documented assessment and plan, with the following changes: None Objective - Vital Signs Vital signs: Vital Signs Temp 98.5 F 03/12/21 10:00 Pulse 80 03/12/21 10:00 Resp 20 03/12/21 10:00 BP 120/74 03/12/21 10:00 Pulse Ox 91 L 03/12/21 10:00 Intake & Output 03/11/21 03/12/21 03/12/21 18:59 06:59 18:59 Intake Total 960 Balance 960 Intake: Oral 960 Other: Voiding Method Toilet Toilet # Voids 1 - Labs CBC & Chem 7: 03/12/21 10:23 03/12/21 10:23 Labs: Abnormal Lab Results - Last 24 Hours (Table) 03/12/21 03/12/21 03/12/21 Range/Units 10:23 10:23 10:23 WBC 10.8 H (3.8-10.6) k/uL RBC 3.60 L (3.80-5.40) m/uL Neutrophils # 10.1 H (1.3-7.7) k/uL Lymphocytes # 0.3 L (1.0-4.8) k/uL D-Dimer 1.00 H (<0.60) mg/L FEU Sodium 136 L (137-145) mmol/L BUN 19 H (7-17) mg/dL Glucose 162 H (74-99) mg/dL ALT 65 H (4-34) U/L Lactate Dehydrogenase 1430 H (313-618) U/L C-Reactive Protein 1.7 H (<1.0) mg/dL Total Protein 5.8 L (6.3-8.2) g/dL Albumin 3.1 L (3.5-5.0) g/dL
--- NOTE | 2021-03-12 13:53 | P.PN ---
Subjective Progress Note Date: 03/12/21 Principal diagnosis: Dyspnea, hypoxia On 03/05/2021 patient is seen in follow-up on medical surgical floor. She is resting comfortably in bed, states she is breathing better, she still on high flow oxygen at 15 L, her pulse ox is 90%. Afebrile, hemodynamically she stable, no acute distress, yesterday his chest x-ray has been reviewed showing worsening patchy bilateral lung infiltrates compatible with atypical pneumonia. Today's labs have been reviewed, white blood cell count is 7.11, hemoglobin is 12.7, d- dimer was 0.9, improving, electrolytes are within normal limits B1 is 19 creatinine 0.77, LDH today is slightly improved and is down to 1061, and CRP is 4.5. Patient's c-ANCA and p-ANCA levels were within normal limits. Calcitonin level was negative at 0.16, currently continues on Decadron 6 mg twice daily, Lovenox 40 mg daily, and dapsone 100 mg twice daily. On 03/06/2021 patient seen in follow-up on medical surgical floor. Patient is awake and alert, she is up in the recliner, she states overall she is feeling much better, coughing less, her appetite is improving. She still requiring high flow oxygen at 15 L and her pulse ox ranges between 87-90%, she does desat with exertion. States she feels more energetic, she has been trying to stay active, she's had no fever or chills, vital signs have been stable. Today's labs are still pending, yesterday's d-dimer of 0.90, we will obtain lower extremity Dopplers, pro-calcitonin level was negative, her c-ANCA and p-ANCA titers were low, progesterone level was low, patient currently remains on Decadron 6 mg twice daily, she is on Mucinex, she is on albuterol inhaler, and she is on COVID-19 vitamins. Lovenox at 40 mg every 24 hours. On 03/07/2021 patient seen in follow-up on medical surgical floor. Today she is on 15 L per high flow nasal cannula, and 100% nonrebreather mask, her pulse ox is 90%. When she denies any worsening dyspnea, she is breathing quite comfortably, she's been active, get not to the bathroom, tolerating activity very well although she does desaturate with activity she does not feel dyspneic, no chest pain, lung sounds reveal bibasilar crackles, no rhonchi or wheezing, no fever or chills, vital signs have been stable. CTA chest showed no evidence of pulmonary embolism and lower extremity Dopplers were negative for DVT. Today's d-dimer is 0.94, electrolytes and renal profile within normal limits, pro- calcitonin level was negative at 0.05, inflammatory markers were improving on yesterday's labs. Follow up Labs are pending for today. On 03/08/2021 patient seen in follow-up on medical surgical floor. She still on 15 L of oxygen per high flow nasal cannula, she is not wearing a nonrebreather mask most of the time, her pulse ox is 88-91%, clinically she states she is breathing quite comfortably, no dyspnea, no tachypnea, no use of accessory muscles of breathing, she is afebrile, hemodynamically she appears stable she has no specific complaints other than dryness of nasal passages. Mild cough, no phlegm production, appetite is fair, no nausea vomiting or diarrhea. On 03/09/2021 patient seen in follow-up on medical surgical floor. She continues on 15 L per high flow nasal cannula and 100% nonrebreather mask, and her pulse ox is around 92%, she does desat with exertion, tolerates activity very well, no tachypnea, no use of accessory muscles of breathing, she is breathing comfortably, she is currently sitting up in the recliner, in no acute distress, lung sounds reveal bibasilar crackles, no rhonchi or wheezing, no complaint of chest pain, she's been afebrile overnight, she's had no acute events. She is tolerating oral intake. No nausea vomiting or diarrhea, she continues on Decadron, Baricitinib, COVID 19 vitamins, and Lovenox 40 SQ daily On 03/12/2001 patient seen in follow-up on medical surgical floor, she sits up in a recliner, in no acute distress, she is currently just wearing the 15 L per high flow nasal cannula, her pulse ox is 90%, occasionally she has to apply the nonrebreather mask, however she only used it once last night. She is breathing comfortably, she denies any worsening dyspnea, she remains on Baricitinib, and Decadron 6 blood gram twice daily, she is on Lovenox and multivitamins, today's labs have been reviewed, her white blood cell count is 10.8, hemoglobin is 11.6, d-dimer is slightly improved and is down to 1, electrolytes and renal profile are unremarkable, her LDH has increased and is up to 1430, and CRP is 1.7. She denies any specific complaints, she is awake and alert, oriented 3, lung sounds are clear to auscultation, no rales auscultated. She had no fever or chills, no chest discomfort. Objective - Vital Signs Vital signs: Vital Signs Temp 98.5 F 03/12/21 10:00 Pulse 80 03/12/21 10:00 Resp 20 03/12/21 10:00 BP 120/74 03/12/21 10:00 Pulse Ox 91 L 03/12/21 10:00 Intake & Output 03/11/21 03/12/21 03/12/21 18:59 06:59 18:59 Intake Total 960 Balance 960 Intake: Oral 960 Other: Voiding Method Toilet Toilet # Voids 1 - Exam GENERAL EXAM: Alert, very pleasant, 66-year-old white female, resting in bed, currently on 15 L of oxygen per high flow nasal cannula and with a pulse ox of 90% comfortable in no apparent distress. HEAD: Normocephalic/atraumatic. EYES: Normal reaction of pupils, equal size. Conjunctiva pink, sclera white. NOSE: Clear with pink turbinates. THROAT: No erythema or exudates. NECK: No masses, no JVD, no thyroid enlargement, no adenopathy. CHEST: No chest wall deformity. Symmetrical expansion. LUNGS: Equal air entry with bibasilar crackles CVS: Regular rate and rhythm, normal S1 and S2, no gallops, no murmurs, no rubs ABDOMEN: Soft, nontender. No hepatosplenomegaly, normal bowel sounds, no guarding or rigidity. EXTREMITIES: No clubbing, no edema, no cyanosis, 2+ pulses and upper and lower extremities. MUSCULOSKELETAL: Muscle strength and tone normal. SPINE: No scoliosis or deformity SKIN: No rashes CENTRAL NERVOUS SYSTEM: Alert and oriented -3. No focal deficits, tone is normal in all 4 extremities. PSYCHIATRIC: Alert and oriented -3. Appropriate affect. Intact judgment and insight. - Labs CBC & Chem 7: 03/12/21 10:23 03/12/21 10:23 Labs: Abnormal Lab Results - Last 24 Hours (Table) 03/12/21 03/12/21 03/12/21 Range/Units 10:23 10:23 10:23 WBC 10.8 H (3.8-10.6) k/uL RBC 3.60 L (3.80-5.40) m/uL Neutrophils # 10.1 H (1.3-7.7) k/uL Lymphocytes # 0.3 L (1.0-4.8) k/uL D-Dimer 1.00 H (<0.60) mg/L FEU Sodium 136 L (137-145) mmol/L BUN 19 H (7-17) mg/dL Glucose 162 H (74-99) mg/dL ALT 65 H (4-34) U/L Lactate Dehydrogenase 1430 H (313-618) U/L C-Reactive Protein 1.7 H (<1.0) mg/dL Total Protein 5.8 L (6.3-8.2) g/dL Albumin 3.1 L (3.5-5.0) g/dL Assessment and Plan Plan: Assessment: #1. Acute COVID-19 related pneumonia with bilateral pulmonary infiltrates secondary dyspnea. Patient is vaccinated individual and completed her vaccination back in May and June 2020. Patient presented with less than a week with the symptoms, she has completed a course of Remdesivir, currently remains on Decadron 6 mg twice daily, and dapsone 100 mg twice daily. Started on Baricitinib on 03/06/2021 #2. Acute hypoxic respiratory failure secondary to the above, progressive, today on 15 l/min, and 100% NRB #3. History of leukocytoclastic vasculitis, confirmed by skin biopsy and patient is on a combination of prednisone and dapsone on an outpatient basis and patient has been seen significant improvement in her skin lesions #4. History of cerebellar CVA #5. History of abnormal Pap smear #6. Osteoarthritis Plan: Patient is on 15 L high flow most of the time, not requiring additional nonrebreather mask very often Breathing fairly comfortable, Vital signs are stable Continue Baricitinib, today is day 7 of treatment Continue Decadron, patient is on 6 mg twice daily Continue dapsone, continue current dose Lovenox Follow-up chest x-ray tomorrow, Obtain follow-up inflammatory markers d-dimer Will continue to follow I performed a history & physical examination of the patient and discussed their management with my nurse practitioner, Adalgisa Esparza. I reviewed the nurse practitioner's note and agree with the documented findings and plan of care. Lung sounds are positive for bibasilar crackles throughout the lung mckenna. The findings and the impression was discussed with the patient. I attest to the documentation by the nurse practitioner. Time with Patient: Less than 30
[2021-03-12] MEDS: ENOXAPARIN 40 MG/0.4 ML SYRINGE SQ SCH (17:05)
[2021-03-13] MEDS: guaiFENesin 600 MG TABLET.ER PO SCH ×2 (05:16→17:05)
--- NOTE | 2021-03-13 07:56 | XR ---
EXAMINATION TYPE: XR chest 1V portable DATE OF EXAM: 03/13/2021 CLINICAL HISTORY: Difficulty breathing and COVID progress study. TECHNIQUE: Single AP portable upright view of the chest is obtained. COMPARISON: Chest x-ray from 9 days earlier and older studies. Chest CT 7 days ago. FINDINGS: Persistent left mid to lower lung focal opacity with additional right mid to lung opacitie s. Cardiac silhouette size stable and upper limits of normal. Osseous structures remain intact. IMPRESSION: Bilateral multifocal mid to lower lung opacities consistent with covid-19 infection, no s ignificant change from most recent x-ray.
[2021-03-13] MEDS: BARICITINIB 2 MG TABLET PO SCH (08:00)
[2021-03-13] MEDS: CHOLECALCIFEROL 25 MCG (1000 IU) TABLET PO SCH (08:00)
[2021-03-13] MEDS: ZINC SULFATE 220 MG CAP PO SCH (08:00)
[2021-03-13] MEDS: ASCORBIC ACID 500 MG TAB PO SCH (08:00)
[2021-03-13] MEDS: PANTOPRAZOLE 40 MG TABLET PO SCH (08:00)
[2021-03-13] MEDS: DEXAMETHASONE SOD PHOSPHATE 10 MG/ML 1 ML VIAL IVP SCH ×2 (08:00→21:44)
[2021-03-13] MEDS: DAPSONE 25 MG TAB PO SCH ×2 (08:01→21:44)
[2021-03-13] MEDS: ALBUTEROL HFA INHALER INHALATION PRN ×3 (08:33→22:00)
[2021-03-13 09:56] LABS: C Reactive Protein 1.1 mg/dL (0.00-0.80)
--- NOTE | 2021-03-13 14:42 | P.PN ---
Subjective Progress Note Date: 03/13/21 No new complaints. Breathing comfortably on oxygen. Inflammatory markers improving. Objective - Vital Signs Vital signs: Vital Signs Temp 97.9 F 03/13/21 10:00 Pulse 83 03/13/21 10:00 Resp 20 03/13/21 10:00 BP 101/58 03/13/21 10:00 Pulse Ox 90 L 03/13/21 10:00 Intake & Output 03/12/21 03/13/21 03/13/21 18:59 06:59 18:59 Intake Total 480 240 Balance 480 240 Intake: Oral 480 240 Other: Voiding Method Toilet Toilet # Voids 1 2 # Bowel Movements 0 - Exam Gen: awake, alert HEENT: normocephalic, atraumatic, good hearing acuity, moist mucous membranes Resp: good air exchange, breathing comfortably with no accessory muscle use CVS: good distal perfusion x 4, GI: soft, NTTP, ND : no SPT, no CVAT, meza catheter not present MSK: no pitting edema, no clubbing Neuro: non-focal, moving all extremities Psych: cooperative, euthymic mood - Labs CBC & Chem 7: 03/12/21 10:23 03/12/21 10:23 Labs: Abnormal Lab Results - Last 24 Hours (Table) 03/13/21 03/13/21 Range/Units 05:55 05:55 D-Dimer 0.98 H (<0.60) mg/L FEU Lactate Dehydrogenase 532 H (120-246) U/L C-Reactive Protein 1.10 H (0.00-0.80) mg/dL Assessment and Plan Assessment: Acute respiratory failure with hypoxia secondary to COVID 19 pneumonia in vaccinated individual. -Oxygenation to be administered and titrated as needed to maintain SPO2 equal to or greater than 90% -Telemetry monitoring. -Continue trending inflammatory markers -Encourage Incentive Spirometry 10-15x hourly while awake -Steroids: Decadron 6 mg q 12 hours, day 12 of steroids -Continue vitamin C, Vitamin D, and Zinc. -Started patient on Baricitinib 03/06/21, day8 of 14 -Pulmonology following, appreciate further recommendations. -DVT prophylaxis with Lovenox. -Strict Droplet plus Contact precautions -Pt completed course of Remdesivir History of leukocytoclastic vasculitis -Continue Dapsone 100 mg twice daily and continue to follow up outpatient with vascular surgery upon discharge. CODE STATUS: Full code DVT prophylaxis: Lovenox Anticipated discharge date: Clinical course to determine
--- NOTE | 2021-03-13 15:57 | P.PN ---
Subjective Progress Note Date: 03/13/21 Principal diagnosis: Dyspnea, hypoxia On 03/05/2021 patient is seen in follow-up on medical surgical floor. She is resting comfortably in bed, states she is breathing better, she still on high flow oxygen at 15 L, her pulse ox is 90%. Afebrile, hemodynamically she stable, no acute distress, yesterday his chest x-ray has been reviewed showing worsening patchy bilateral lung infiltrates compatible with atypical pneumonia. Today's labs have been reviewed, white blood cell count is 7.11, hemoglobin is 12.7, d- dimer was 0.9, improving, electrolytes are within normal limits B1 is 19 creatinine 0.77, LDH today is slightly improved and is down to 1061, and CRP is 4.5. Patient's c-ANCA and p-ANCA levels were within normal limits. Calcitonin level was negative at 0.16, currently continues on Decadron 6 mg twice daily, Lovenox 40 mg daily, and dapsone 100 mg twice daily. On 03/06/2021 patient seen in follow-up on medical surgical floor. Patient is awake and alert, she is up in the recliner, she states overall she is feeling much better, coughing less, her appetite is improving. She still requiring high flow oxygen at 15 L and her pulse ox ranges between 87-90%, she does desat with exertion. States she feels more energetic, she has been trying to stay active, she's had no fever or chills, vital signs have been stable. Today's labs are still pending, yesterday's d-dimer of 0.90, we will obtain lower extremity Dopplers, pro-calcitonin level was negative, her c-ANCA and p-ANCA titers were low, progesterone level was low, patient currently remains on Decadron 6 mg twice daily, she is on Mucinex, she is on albuterol inhaler, and she is on COVID-19 vitamins. Lovenox at 40 mg every 24 hours. On 03/07/2021 patient seen in follow-up on medical surgical floor. Today she is on 15 L per high flow nasal cannula, and 100% nonrebreather mask, her pulse ox is 90%. When she denies any worsening dyspnea, she is breathing quite comfortably, she's been active, get not to the bathroom, tolerating activity very well although she does desaturate with activity she does not feel dyspneic, no chest pain, lung sounds reveal bibasilar crackles, no rhonchi or wheezing, no fever or chills, vital signs have been stable. CTA chest showed no evidence of pulmonary embolism and lower extremity Dopplers were negative for DVT. Today's d-dimer is 0.94, electrolytes and renal profile within normal limits, pro- calcitonin level was negative at 0.05, inflammatory markers were improving on yesterday's labs. Follow up Labs are pending for today. On 03/08/2021 patient seen in follow-up on medical surgical floor. She still on 15 L of oxygen per high flow nasal cannula, she is not wearing a nonrebreather mask most of the time, her pulse ox is 88-91%, clinically she states she is breathing quite comfortably, no dyspnea, no tachypnea, no use of accessory muscles of breathing, she is afebrile, hemodynamically she appears stable she has no specific complaints other than dryness of nasal passages. Mild cough, no phlegm production, appetite is fair, no nausea vomiting or diarrhea. On 03/09/2021 patient seen in follow-up on medical surgical floor. She continues on 15 L per high flow nasal cannula and 100% nonrebreather mask, and her pulse ox is around 92%, she does desat with exertion, tolerates activity very well, no tachypnea, no use of accessory muscles of breathing, she is breathing comfortably, she is currently sitting up in the recliner, in no acute distress, lung sounds reveal bibasilar crackles, no rhonchi or wheezing, no complaint of chest pain, she's been afebrile overnight, she's had no acute events. She is tolerating oral intake. No nausea vomiting or diarrhea, she continues on Decadron, Baricitinib, COVID 19 vitamins, and Lovenox 40 SQ daily On 03/12/2001 patient seen in follow-up on medical surgical floor, she sits up in a recliner, in no acute distress, she is currently just wearing the 15 L per high flow nasal cannula, her pulse ox is 90%, occasionally she has to apply the nonrebreather mask, however she only used it once last night. She is breathing comfortably, she denies any worsening dyspnea, she remains on Baricitinib, and Decadron 6 blood gram twice daily, she is on Lovenox and multivitamins, today's labs have been reviewed, her white blood cell count is 10.8, hemoglobin is 11.6, d-dimer is slightly improved and is down to 1, electrolytes and renal profile are unremarkable, her LDH has increased and is up to 1430, and CRP is 1.7. She denies any specific complaints, she is awake and alert, oriented 3, lung sounds are clear to auscultation, no rales auscultated. She had no fever or chills, no chest discomfort. On 03/13/2021 patient seen in follow-up on medical surgical floor, currently on 15 L high flow nasal cannula, intermittently she has been requiring nonrebreather mask as well for episodes of desaturation and increased shortness of breath. At rest she seems fairly comfortable, does not appear to be in any acute distress, she is afebrile, hemodynamically she is stable. Chest x-ray showing bilateral multifocal mid to lower lung opacities. No significant change. Today's labs have been reviewed, d-dimer is improving and is down to 0.98, LDH is improving and is down to 532, CRP is 1.1. In terms of therapy patient remains on decadron 6 mf twice daily, Baricitinib, multivitamins, she is on prophylactic Lovenox. Tolerating oral intake, no nausea vomiting or diarrhea. Objective - Vital Signs Vital signs: Vital Signs Temp 98.0 F 03/13/21 14:00 Pulse 86 03/13/21 14:00 Resp 20 03/13/21 14:00 BP 102/66 03/13/21 14:00 Pulse Ox 91 L 03/13/21 14:00 Intake & Output 03/12/21 03/13/21 03/13/21 18:59 06:59 18:59 Intake Total 480 240 Balance 480 240 Intake: Oral 480 240 Other: Voiding Method Toilet Toilet # Voids 1 2 # Bowel Movements 0 - Exam GENERAL EXAM: Alert, very pleasant, 66-year-old white female, resting in bed, currently on 15 L of oxygen per high flow nasal cannula and with a pulse ox of 90% comfortable in no apparent distress. HEAD: Normocephalic/atraumatic. EYES: Normal reaction of pupils, equal size. Conjunctiva pink, sclera white. NOSE: Clear with pink turbinates. THROAT: No erythema or exudates. NECK: No masses, no JVD, no thyroid enlargement, no adenopathy. CHEST: No chest wall deformity. Symmetrical expansion. LUNGS: Equal air entry with bibasilar crackles CVS: Regular rate and rhythm, normal S1 and S2, no gallops, no murmurs, no rubs ABDOMEN: Soft, nontender. No hepatosplenomegaly, normal bowel sounds, no guarding or rigidity. EXTREMITIES: No clubbing, no edema, no cyanosis, 2+ pulses and upper and lower extremities. MUSCULOSKELETAL: Muscle strength and tone normal. SPINE: No scoliosis or deformity SKIN: No rashes CENTRAL NERVOUS SYSTEM: Alert and oriented -3. No focal deficits, tone is normal in all 4 extremities. PSYCHIATRIC: Alert and oriented -3. Appropriate affect. Intact judgment and insight. - Labs CBC & Chem 7: 03/12/21 10:23 03/12/21 10:23 Labs: Abnormal Lab Results - Last 24 Hours (Table) 03/13/21 03/13/21 Range/Units 05:55 05:55 D-Dimer 0.98 H (<0.60) mg/L FEU Lactate Dehydrogenase 532 H (120-246) U/L C-Reactive Protein 1.10 H (0.00-0.80) mg/dL Assessment and Plan Plan: Assessment: #1. Acute COVID-19 related pneumonia with bilateral pulmonary infiltrates secondary dyspnea. Patient is vaccinated individual and completed her vaccination back in May and June 2020. Patient presented with less than a week with the symptoms, she has completed a course of Remdesivir, currently remains on Decadron 6 mg twice daily, and dapsone 100 mg twice daily. Started on Baricitinib on 03/06/2021 #2. Acute hypoxic respiratory failure secondary to the above, progressive, today on 15 l/min, and 100% NRB #3. History of leukocytoclastic vasculitis, confirmed by skin biopsy and patient is on a combination of prednisone and dapsone on an outpatient basis and patient has been seen significant improvement in her skin lesions #4. History of cerebellar CVA #5. History of abnormal Pap smear #6. Osteoarthritis Plan: Remains on high concentration oxygen Breathing fairly comfortable, Vital signs are stable Continue Baricitinib, today is day 8 of treatment Continue current dose Decadron, continue prophylactic Lovenox Patient is tolerating ambulation, Increase activity as tolerated Attempt to wean FiO2 to maintain O2 saturations at 90% Once FiO2 is down to 5 L and less, may consider discharge home I performed a history & physical examination of the patient and discussed their management with my nurse practitioner, Adalgisa Esparza. I reviewed the nurse practitioner's note and agree with the documented findings and plan of care. Lung sounds are positive for bibasilar crackles throughout the lung mckenna. The findings and the impression was discussed with the patient. I attest to the documentation by the nurse practitioner. Time with Patient: Less than 30
[2021-03-13] MEDS: ENOXAPARIN 40 MG/0.4 ML SYRINGE SQ SCH (17:05)
[2021-03-13] MEDS: ACETAMINOPHEN TAB 325 MG TAB PO PRN (17:10)
[2021-03-14] MEDS: guaiFENesin 600 MG TABLET.ER PO SCH ×2 (05:44→18:22)
[2021-03-14] MEDS: ALBUTEROL HFA INHALER INHALATION PRN ×4 (07:19→21:31)
[2021-03-14] MEDS: CHOLECALCIFEROL 25 MCG (1000 IU) TABLET PO SCH (08:48)
[2021-03-14] MEDS: DAPSONE 25 MG TAB PO SCH ×2 (08:48→19:50)
[2021-03-14] MEDS: DEXAMETHASONE SOD PHOSPHATE 10 MG/ML 1 ML VIAL IVP SCH ×2 (08:48→19:50)
[2021-03-14] MEDS: ZINC SULFATE 220 MG CAP PO SCH (08:48)
[2021-03-14] MEDS: PANTOPRAZOLE 40 MG TABLET PO SCH (08:48)
[2021-03-14] MEDS: BARICITINIB 2 MG TABLET PO SCH (08:48)
[2021-03-14] MEDS: ASCORBIC ACID 500 MG TAB PO SCH (08:48)
--- NOTE | 2021-03-14 13:22 | P.PN ---
Subjective Progress Note Date: 03/14/21 No new complaints. Breathing comfortably on oxygen. Inflammatory markers improving. Patient reports improvement in breathing today. Objective - Vital Signs Vital signs: Vital Signs Temp 97.5 F L 03/14/21 10:00 Pulse 84 03/14/21 10:00 Resp 20 03/14/21 10:00 BP 101/53 03/14/21 10:00 Pulse Ox 91 L 03/14/21 10:00 Intake & Output 03/13/21 03/14/21 03/14/21 18:59 06:59 18:59 Intake Total 160 Balance 160 Intake: Oral 160 Other: Voiding Method Toilet Toilet Toilet # Voids 1 - Exam Gen: awake, alert HEENT: normocephalic, atraumatic, good hearing acuity, moist mucous membranes Resp: good air exchange, breathing comfortably with no accessory muscle use CVS: good distal perfusion x 4, GI: soft, NTTP, ND : no SPT, no CVAT, meza catheter not present MSK: no pitting edema, no clubbing Neuro: non-focal, moving all extremities Psych: cooperative, euthymic mood - Labs CBC & Chem 7: 03/12/21 10:23 03/12/21 10:23 Assessment and Plan Assessment: Acute respiratory failure with hypoxia secondary to COVID 19 pneumonia in vaccinated individual. -Oxygenation to be administered and titrated as needed to maintain SPO2 equal to or greater than 90% -Telemetry monitoring. -Continue trending inflammatory markers -Encourage Incentive Spirometry 10-15x hourly while awake -Steroids: Decadron 6 mg q 12 hours, day 13 of steroids -Continue vitamin C, Vitamin D, and Zinc. -Started patient on Baricitinib 03/06/21, day 9 of 14 -Pulmonology following, appreciate further recommendations. -DVT prophylaxis with Lovenox. -Strict Droplet plus Contact precautions -Pt completed course of Remdesivir History of leukocytoclastic vasculitis -Continue Dapsone 100 mg twice daily and continue to follow up outpatient with vascular surgery upon discharge. CODE STATUS: Full code DVT prophylaxis: Lovenox Anticipated discharge date: Clinical course to determine
--- NOTE | 2021-03-14 15:59 | P.PN ---
Subjective Progress Note Date: 03/14/21 Principal diagnosis: COVID-19 pneumonia On 03/05/2021 patient is seen in follow-up on medical surgical floor. She is resting comfortably in bed, states she is breathing better, she still on high flow oxygen at 15 L, her pulse ox is 90%. Afebrile, hemodynamically she stable, no acute distress, yesterday his chest x-ray has been reviewed showing worsening patchy bilateral lung infiltrates compatible with atypical pneumonia. Today's labs have been reviewed, white blood cell count is 7.11, hemoglobin is 12.7, d- dimer was 0.9, improving, electrolytes are within normal limits B1 is 19 creatinine 0.77, LDH today is slightly improved and is down to 1061, and CRP is 4.5. Patient's c-ANCA and p-ANCA levels were within normal limits. Calcitonin level was negative at 0.16, currently continues on Decadron 6 mg twice daily, Lovenox 40 mg daily, and dapsone 100 mg twice daily. On 03/06/2021 patient seen in follow-up on medical surgical floor. Patient is awake and alert, she is up in the recliner, she states overall she is feeling much better, coughing less, her appetite is improving. She still requiring high flow oxygen at 15 L and her pulse ox ranges between 87-90%, she does desat with exertion. States she feels more energetic, she has been trying to stay active, she's had no fever or chills, vital signs have been stable. Today's labs are still pending, yesterday's d-dimer of 0.90, we will obtain lower extremity Dopplers, pro-calcitonin level was negative, her c-ANCA and p-ANCA titers were low, progesterone level was low, patient currently remains on Decadron 6 mg twice daily, she is on Mucinex, she is on albuterol inhaler, and she is on COVID-19 vitamins. Lovenox at 40 mg every 24 hours. On 03/07/2021 patient seen in follow-up on medical surgical floor. Today she is on 15 L per high flow nasal cannula, and 100% nonrebreather mask, her pulse ox is 90%. When she denies any worsening dyspnea, she is breathing quite comfortably, she's been active, get not to the bathroom, tolerating activity very well although she does desaturate with activity she does not feel dyspneic, no chest pain, lung sounds reveal bibasilar crackles, no rhonchi or wheezing, no fever or chills, vital signs have been stable. CTA chest showed no evidence of pulmonary embolism and lower extremity Dopplers were negative for DVT. Today's d-dimer is 0.94, electrolytes and renal profile within normal limits, pro- calcitonin level was negative at 0.05, inflammatory markers were improving on yesterday's labs. Follow up Labs are pending for today. On 03/08/2021 patient seen in follow-up on medical surgical floor. She still on 15 L of oxygen per high flow nasal cannula, she is not wearing a nonrebreather mask most of the time, her pulse ox is 88-91%, clinically she states she is breathing quite comfortably, no dyspnea, no tachypnea, no use of accessory muscles of breathing, she is afebrile, hemodynamically she appears stable she has no specific complaints other than dryness of nasal passages. Mild cough, no phlegm production, appetite is fair, no nausea vomiting or diarrhea. On 03/09/2021 patient seen in follow-up on medical surgical floor. She continues on 15 L per high flow nasal cannula and 100% nonrebreather mask, and her pulse ox is around 92%, she does desat with exertion, tolerates activity very well, no tachypnea, no use of accessory muscles of breathing, she is breathing comfortably, she is currently sitting up in the recliner, in no acute distress, lung sounds reveal bibasilar crackles, no rhonchi or wheezing, no complaint of chest pain, she's been afebrile overnight, she's had no acute events. She is tolerating oral intake. No nausea vomiting or diarrhea, she continues on Decadron, Baricitinib, COVID 19 vitamins, and Lovenox 40 SQ daily The patient is seen today 03/10/2021 in follow-up on the regular medical floor. She is currently sitting up in a chair at the bedside. Awake and alert in no acute distress. Still requiring 15 L high flow nasal cannula as a nonrebreather mask. O2 saturations in the 90s. No worsening shortness of breath, cough or congestion. She's been slow to progress. White count 10.6. Hemoglobin 12.5. D-dimer 1.12. Sodium 134. Potassium 4.1. Creatinine 0.76. LDH 1221. C- reactive protein 0.7. She remains on Baricitinib, Decadron, Lovenox, vitamin supplements. The patient is seen today 03/11/2021 in follow-up on the regular medical floor. Currently sitting up in a chair at the bedside. Awake and alert in no acute distress. She is still requiring 15 L high flow nasal cannula plus a nonrebreather mask. Without the masseter O2 saturations at 85%. She is doing about the same today compared to yesterday. No worse but not much improvement. White count 11.0. Hemoglobin 12.3. Lymphocytes 0.4. D-dimer 1.27. Sodium 134. Potassium 4.0. Creatinine 0.71. LDH 1415. C-reactive protein 0.8. She is continuing on Baricitinib, Decadron, Lovenox, vitamin supplements. The patient is seen today 03/14/2021 in follow-up on the regular medical floor. She is currently sitting up in a chair at the bedside. Awake and alert in no acute distress. She remains on 15 L high flow nasal cannula. Occasionally she needs a nonrebreather mask as well. She is breathing a bit easier today compared to yesterday. He is afebrile. Hemodynamically stable. She remains on Baricitinib, Decadron, Lovenox, vitamin supplements. Objective - Vital Signs Vital signs: Vital Signs Temp 97.7 F 03/14/21 14:00 Pulse 77 03/14/21 14:00 Resp 22 03/14/21 14:00 BP 103/65 03/14/21 14:00 Pulse Ox 89 L 03/14/21 14:00 Intake & Output 03/13/21 03/14/21 03/14/21 18:59 06:59 18:59 Intake Total 160 Balance 160 Intake: Oral 160 Other: Voiding Method Toilet Toilet Toilet # Voids 1 - Exam GENERAL EXAM: Alert, pleasant 66-year-old female patient and 15 L high flow nasal cannula plus a nonrebreather mask, comfortable in no apparent distress. HEAD: Normocephalic. EYES: Normal reaction of pupils, equal size. NOSE: Clear with pink turbinates. THROAT: No erythema or exudates. NECK: No masses, no JVD. CHEST: No chest wall deformity. LUNGS: Equal air entry with crackles in the bilateral bases. CVS: S1 and S2 normal with no audible murmur, regular rhythm. ABDOMEN: No hepatosplenomegaly, normal bowel sounds, no guarding or rigidity. SPINE: No scoliosis or deformity SKIN: No rashes CENTRAL NERVOUS SYSTEM: No focal deficits, tone is normal in all 4 extremities. EXTREMITIES: There is no peripheral edema. No clubbing, no cyanosis. Peripher al pulses are intact. - Labs CBC & Chem 7: 03/12/21 10:23 03/12/21 10:23 Assessment and Plan Assessment: 1 Acute COVID-19 related pneumonia with bilateral pulmonary infiltrates secondary dyspnea. Patient is vaccinated individual and completed her vaccination back in May and June 2020. Patient presented with less than a week with the symptoms, she has completed a course of Remdesivir, currently remains on Decadron 6 mg twice daily, and dapsone 100 mg twice daily. Started on Baricitinib on 03/06/2021 2 Acute hypoxic respiratory failure secondary to the above, progressive, today on 15 l/min, and 100% NRB 3 History of leukocytoclastic vasculitis, confirmed by skin biopsy and patient is on a combination of prednisone and dapsone on an outpatient basis and patient has been seen significant improvement in her skin lesions 4 History of cerebellar CVA 5 History of abnormal Pap smear 6 Osteoarthritis 7 Obesity Plan: The patient was seen and evaluated by Dr. Blandon Continued on 15 L high flow nasal cannula plus a nonrebreather mask Continue to titrate the FiO2 as tolerated On Baricitinib, Lovenox, Decadron, vitamin supplement Completed Remdesivir Increase her activity as tolerated We will continue to follow I, the cosigning physician, performed a history & physical examination of the patient. Lungs sounds with scattered rhonchi bilaterally. Maintaining good O2 saturations in the 90s on 15 L high flow nasal cannula plus a nonrebreather mask. I discussed the assessment and plan of care with my nurse practitioner, Windy Miguel. I attest to the above note as dictated by her.
[2021-03-14] MEDS: ENOXAPARIN 40 MG/0.4 ML SYRINGE SQ SCH (18:22)
[2021-03-15] MEDS: guaiFENesin 600 MG TABLET.ER PO SCH ×2 (05:38→17:11)
[2021-03-15 08:11] LABS: Basophils % (A) 0 %; Eosinophils % (A) 0 %; HCT 30.4 % (34.0-46.0); HGB 10.1 gm/dL (11.4-16.0); Lymphocytes # (A) 0.7 k/uL (1.0-4.8); Lymphocytes % (A) 9 %; MCH 32.5 pg (25.0-35.0); MCHC 33.2 g/dL (31.0-37.0); MCV 97.9 fL (80.0-100.0); Macrocytosis Slight; Mean Platelet Volume 6.9; Monocytes # (A) 0.3 k/uL (0-1.0); Monocytes % (A) 4 %; Neutrophils # (A) 6.4 k/uL (1.3-7.7); Neutrophils % (A) 86 %; Platelet Count 243 k/uL (150-450); Poikilocytosis Slight; RDW 15.9 % (11.5-15.5); WBC 7.4 k/uL (3.8-10.6)
[2021-03-15] MEDS: ALBUTEROL HFA INHALER INHALATION PRN ×2 (08:22→12:21)
[2021-03-15] MEDS: DAPSONE 25 MG TAB PO SCH ×2 (08:24→21:21)
[2021-03-15] MEDS: CHOLECALCIFEROL 25 MCG (1000 IU) TABLET PO SCH (08:24)
[2021-03-15] MEDS: ZINC SULFATE 220 MG CAP PO SCH (08:24)
[2021-03-15] MEDS: ASCORBIC ACID 500 MG TAB PO SCH (08:24)
[2021-03-15] MEDS: BARICITINIB 2 MG TABLET PO SCH (08:24)
[2021-03-15] MEDS: PANTOPRAZOLE 40 MG TABLET PO SCH (08:24)
[2021-03-15] MEDS: DEXAMETHASONE SOD PHOSPHATE 10 MG/ML 1 ML VIAL IVP SCH ×2 (08:25→20:59)
[2021-03-15 08:31] LABS: ALT 69 U/L (4-34); AST 32 U/L (14-36); African American GFR (CKD) >90 (>60 ml/min/1.73 sqM); Albumin 2.8 g/dL (3.5-5.0); Albumin/Globulin Ratio 1.1; Alkaline Phosphatase 43 U/L (38-126); Anion Gap 2 mmol/L; Blood Urea Nitrogen 20 mg/dL (7-17); Calcium 8.2 mg/dL (8.4-10.2); Carbon Dioxide 28 mmol/L (22-30); Chloride 104 mmol/L (98-107); Globulin 2.6 g/dL; Glucose 89 mg/dL (74-99); Non-African American GFR(CKD) >90 (>60 ml/min/1.73 sqM); Potassium 3.8 mmol/L (3.5-5.1); Sodium 134 mmol/L (137-145); Total Bilirubin 1.4 mg/dL (0.2-1.3); Total Protein 5.4 g/dL (6.3-8.2)
[2021-03-15 11:20] LABS: C Reactive Protein 0.6 mg/dL (0.00-0.80); Magnesium 2.2 mg/dL (1.5-2.4)
--- NOTE | 2021-03-15 12:10 | P.PN ---
Subjective Progress Note Date: 03/15/21 No new complaints. Breathing comfortably on oxygen, 15L HFNC/15L NRB; patient is self-proning often. Inflammatory markers improving. Patient reports stable breathing from yesterday. Objective - Vital Signs Vital signs: Vital Signs Temp 98.5 F 03/15/21 10:00 Pulse 97 03/15/21 10:00 Resp 18 03/15/21 10:00 BP 127/71 03/15/21 10:00 Pulse Ox 85 L 03/15/21 10:00 Intake & Output 03/14/21 03/15/21 03/15/21 18:59 06:59 18:59 Other: Voiding Method Toilet # Voids 2 2 # Bowel Movements 1 - Exam Gen: awake, alert HEENT: normocephalic, atraumatic, good hearing acuity, moist mucous membranes Resp: good air exchange, breathing comfortably with no accessory muscle use CVS: good distal perfusion x 4, GI: soft, NTTP, ND : no SPT, no CVAT, meza catheter not present MSK: no pitting edema, no clubbing Neuro: non-focal, moving all extremities Psych: cooperative, euthymic mood - Labs CBC & Chem 7: 03/15/21 07:28 03/15/21 07:28 Labs: Abnormal Lab Results - Last 24 Hours (Table) 03/15/21 03/15/21 03/15/21 Range/Units 07:28 07:28 07:28 RBC 3.10 L (3.80-5.40) m/uL Hgb 10.1 L (11.4-16.0) gm/dL Hct 30.4 L (34.0-46.0) % RDW 15.9 H (11.5-15.5) % Lymphocytes # 0.7 L (1.0-4.8) k/uL D-Dimer 0.90 H (<0.60) mg/L FEU Sodium (137-145) mmol/L BUN (7-17) mg/dL Calcium (8.4-10.2) mg/dL Total Bilirubin (0.2-1.3) mg/dL ALT (4-34) U/L Lactate Dehydrogenase 535 H (120-246) U/L Total Protein (6.3-8.2) g/dL Albumin (3.5-5.0) g/dL 03/15/21 Range/Units 07:28 RBC (3.80-5.40) m/uL Hgb (11.4-16.0) gm/dL Hct (34.0-46.0) % RDW (11.5-15.5) % Lymphocytes # (1.0-4.8) k/uL D-Dimer (<0.60) mg/L FEU Sodium 134 L (137-145) mmol/L BUN 20 H (7-17) mg/dL Calcium 8.2 L (8.4-10.2) mg/dL Total Bilirubin 1.4 H (0.2-1.3) mg/dL ALT 69 H (4-34) U/L Lactate Dehydrogenase (120-246) U/L Total Protein 5.4 L (6.3-8.2) g/dL Albumin 2.8 L (3.5-5.0) g/dL Assessment and Plan Assessment: Acute respiratory failure with hypoxia secondary to COVID 19 pneumonia in vaccinated individual. -Oxygenation to be administered and titrated as needed to maintain SPO2 equal to or greater than 90% -Telemetry monitoring. -Continue trending inflammatory markers -Encourage Incentive Spirometry 10-15x hourly while awake -Steroids: Decadron 6 mg q 12 hours, day 14 of steroids -Continue vitamin C, Vitamin D, and Zinc. -Started patient on Baricitinib 03/06/21, day 10 of 14 -Pulmonology following, appreciate further recommendations. -DVT prophylaxis with Lovenox. -Strict Droplet plus Contact precautions -Pt completed course of Remdesivir History of leukocytoclastic vasculitis -Continue Dapsone 100 mg twice daily and continue to follow up outpatient with vascular surgery upon discharge. CODE STATUS: Full code DVT prophylaxis: Lovenox Anticipated discharge date: Clinical course to determine
--- NOTE | 2021-03-15 15:10 | P.PN ---
Subjective Progress Note Date: 03/15/21 Principal diagnosis: COVID-19 pneumonia On 03/05/2021 patient is seen in follow-up on medical surgical floor. She is resting comfortably in bed, states she is breathing better, she still on high flow oxygen at 15 L, her pulse ox is 90%. Afebrile, hemodynamically she stable, no acute distress, yesterday his chest x-ray has been reviewed showing worsening patchy bilateral lung infiltrates compatible with atypical pneumonia. Today's labs have been reviewed, white blood cell count is 7.11, hemoglobin is 12.7, d- dimer was 0.9, improving, electrolytes are within normal limits B1 is 19 creatinine 0.77, LDH today is slightly improved and is down to 1061, and CRP is 4.5. Patient's c-ANCA and p-ANCA levels were within normal limits. Calcitonin level was negative at 0.16, currently continues on Decadron 6 mg twice daily, Lovenox 40 mg daily, and dapsone 100 mg twice daily. On 03/06/2021 patient seen in follow-up on medical surgical floor. Patient is awake and alert, she is up in the recliner, she states overall she is feeling much better, coughing less, her appetite is improving. She still requiring high flow oxygen at 15 L and her pulse ox ranges between 87-90%, she does desat with exertion. States she feels more energetic, she has been trying to stay active, she's had no fever or chills, vital signs have been stable. Today's labs are still pending, yesterday's d-dimer of 0.90, we will obtain lower extremity Dopplers, pro-calcitonin level was negative, her c-ANCA and p-ANCA titers were low, progesterone level was low, patient currently remains on Decadron 6 mg twice daily, she is on Mucinex, she is on albuterol inhaler, and she is on COVID-19 vitamins. Lovenox at 40 mg every 24 hours. On 03/07/2021 patient seen in follow-up on medical surgical floor. Today she is on 15 L per high flow nasal cannula, and 100% nonrebreather mask, her pulse ox is 90%. When she denies any worsening dyspnea, she is breathing quite comfortably, she's been active, get not to the bathroom, tolerating activity very well although she does desaturate with activity she does not feel dyspneic, no chest pain, lung sounds reveal bibasilar crackles, no rhonchi or wheezing, no fever or chills, vital signs have been stable. CTA chest showed no evidence of pulmonary embolism and lower extremity Dopplers were negative for DVT. Today's d-dimer is 0.94, electrolytes and renal profile within normal limits, pro- calcitonin level was negative at 0.05, inflammatory markers were improving on yesterday's labs. Follow up Labs are pending for today. On 03/08/2021 patient seen in follow-up on medical surgical floor. She still on 15 L of oxygen per high flow nasal cannula, she is not wearing a nonrebreather mask most of the time, her pulse ox is 88-91%, clinically she states she is breathing quite comfortably, no dyspnea, no tachypnea, no use of accessory muscles of breathing, she is afebrile, hemodynamically she appears stable she has no specific complaints other than dryness of nasal passages. Mild cough, no phlegm production, appetite is fair, no nausea vomiting or diarrhea. On 03/09/2021 patient seen in follow-up on medical surgical floor. She continues on 15 L per high flow nasal cannula and 100% nonrebreather mask, and her pulse ox is around 92%, she does desat with exertion, tolerates activity very well, no tachypnea, no use of accessory muscles of breathing, she is breathing comfortably, she is currently sitting up in the recliner, in no acute distress, lung sounds reveal bibasilar crackles, no rhonchi or wheezing, no complaint of chest pain, she's been afebrile overnight, she's had no acute events. She is tolerating oral intake. No nausea vomiting or diarrhea, she continues on Decadron, Baricitinib, COVID 19 vitamins, and Lovenox 40 SQ daily The patient is seen today 03/10/2021 in follow-up on the regular medical floor. She is currently sitting up in a chair at the bedside. Awake and alert in no acute distress. Still requiring 15 L high flow nasal cannula as a nonrebreather mask. O2 saturations in the 90s. No worsening shortness of breath, cough or congestion. She's been slow to progress. White count 10.6. Hemoglobin 12.5. D-dimer 1.12. Sodium 134. Potassium 4.1. Creatinine 0.76. LDH 1221. C- reactive protein 0.7. She remains on Baricitinib, Decadron, Lovenox, vitamin supplements. The patient is seen today 03/11/2021 in follow-up on the regular medical floor. Currently sitting up in a chair at the bedside. Awake and alert in no acute distress. She is still requiring 15 L high flow nasal cannula plus a nonrebreather mask. Without the masseter O2 saturations at 85%. She is doing about the same today compared to yesterday. No worse but not much improvement. White count 11.0. Hemoglobin 12.3. Lymphocytes 0.4. D-dimer 1.27. Sodium 134. Potassium 4.0. Creatinine 0.71. LDH 1415. C-reactive protein 0.8. She is continuing on Baricitinib, Decadron, Lovenox, vitamin supplements. The patient is seen today 03/14/2021 in follow-up on the regular medical floor. She is currently sitting up in a chair at the bedside. Awake and alert in no acute distress. She remains on 15 L high flow nasal cannula. Occasionally she needs a nonrebreather mask as well. She is breathing a bit easier today compared to yesterday. He is afebrile. Hemodynamically stable. She remains on Baricitinib, Decadron, Lovenox, vitamin supplements. The patient is seen today 03/15/2021 in follow-up on the regular medical floor. Awake and alert in no acute distress. She is sitting up in a chair at the bedside. She is still requiring 15 L high flow nasal cannula. She is maintaining O2 saturations in the mid 80s. Occasionally using a nonrebreather mask as well. White count 7.4. Hemoglobin 10.1. D-dimer 0.9. Sodium 134. Potassium 3.8. LDH 535. C-reactive protein 0.6. She remains on Baricitinib, Decadron, Lovenox, vitamin supplements. Objective - Vital Signs Vital signs: Vital Signs Temp 97.9 F 03/15/21 14:00 Pulse 94 03/15/21 14:00 Resp 20 03/15/21 14:00 BP 104/67 03/15/21 14:00 Pulse Ox 86 L 03/15/21 14:00 Intake & Output 03/14/21 03/15/21 03/15/21 18:59 06:59 18:59 Other: Voiding Method Toilet # Voids 2 2 # Bowel Movements 1 - Exam GENERAL EXAM: Alert, pleasant 66-year-old female patient and 15 L high flow nasal cannula plus a nonrebreather mask, comfortable in no apparent distress. HEAD: Normocephalic. EYES: Normal reaction of pupils, equal size. NOSE: Clear with pink turbinates. THROAT: No erythema or exudates. NECK: No masses, no JVD. CHEST: No chest wall deformity. LUNGS: Equal air entry with crackles in the bilateral bases. CVS: S1 and S2 normal with no audible murmur, regular rhythm. ABDOMEN: No hepatosplenomegaly, normal bowel sounds, no guarding or rigidity. SPINE: No scoliosis or deformity SKIN: No rashes CENTRAL NERVOUS SYSTEM: No focal deficits, tone is normal in all 4 extremities. EXTREMITIES: There is no peripheral edema. No clubbing, no cyanosis. Peripheral pulses are intact. - Labs CBC & Chem 7: 03/15/21 07:28 03/15/21 07:28 Labs: Abnormal Lab Results - Last 24 Hours (Table) 03/15/21 03/15/21 03/15/21 Range/Units 07:28 07:28 07:28 RBC 3.10 L (3.80-5.40) m/uL Hgb 10.1 L (11.4-16.0) gm/dL Hct 30.4 L (34.0-46.0) % RDW 15.9 H (11.5-15.5) % Lymphocytes # 0.7 L (1.0-4.8) k/uL D-Dimer 0.90 H (<0.60) mg/L FEU Sodium (137-145) mmol/L BUN (7-17) mg/dL Calcium (8.4-10.2) mg/dL Total Bilirubin (0.2-1.3) mg/dL ALT (4-34) U/L Lactate Dehydrogenase 535 H (120-246) U/L Total Protein (6.3-8.2) g/dL Albumin (3.5-5.0) g/dL 11/25/21 Range/Units 07:28 RBC (3.80-5.40) m/uL Hgb (11.4-16.0) gm/dL Hct (34.0-46.0) % RDW (11.5-15.5) % Lymphocytes # (1.0-4.8) k/uL D-Dimer (<0.60) mg/L FEU Sodium 134 L (137-145) mmol/L BUN 20 H (7-17) mg/dL Calcium 8.2 L (8.4-10.2) mg/dL Total Bilirubin 1.4 H (0.2-1.3) mg/dL ALT 69 H (4-34) U/L Lactate Dehydrogenase (120-246) U/L Total Protein 5.4 L (6.3-8.2) g/dL Albumin 2.8 L (3.5-5.0) g/dL Assessment and Plan Assessment: 1 Acute COVID-19 related pneumonia with bilateral pulmonary infiltrates secondary dyspnea. Patient is vaccinated individual and completed her vacci nation back in May and June 2020. Patient presented with less than a week with the symptoms, she has completed a course of Remdesivir, currently remains on Decadron 6 mg twice daily, and dapsone 100 mg twice daily. Started on Baricitinib on 03/06/2021 2 Acute hypoxic respiratory failure secondary to the above, progressive, today on 15 l/min, and 100% NRB 3 History of leukocytoclastic vasculitis, confirmed by skin biopsy and patient is on a combination of prednisone and dapsone on an outpatient basis and patient has been seen significant improvement in her skin lesions 4 History of cerebellar CVA 5 History of abnormal Pap smear 6 Osteoarthritis 7 Obesity Plan: The patient was seen and evaluated by Dr. Blandon She has been slow to progress On 15 L high flow nasal cannula plus a nonrebreather mask Continue to titrate the FiO2 as tolerated On Baricitinib, Lovenox, Decadron, vitamin supplement Completed Remdesivir Increase her activity as tolerated We will continue to follow I, the cosigning physician, performed a history & physical examination of the p atient. Lungs sounds with scattered rhonchi bilaterally. Maintaining good O2 saturations in the 90s on 15 L high flow nasal cannula plus a nonrebreather mask. I discussed the assessment and plan of care with my nurse practitioner, Windy Miguel. I attest to the above note as dictated by her.
[2021-03-15] MEDS: ENOXAPARIN 40 MG/0.4 ML SYRINGE SQ SCH (17:11)
[2021-03-16] MEDS: guaiFENesin 600 MG TABLET.ER PO SCH ×2 (05:15→17:19)
[2021-03-16 06:53] LABS: ALT 68 U/L (4-34); AST 28 U/L (14-36); African American GFR (CKD) >90 (>60 ml/min/1.73 sqM); Albumin 2.8 g/dL (3.5-5.0); Alkaline Phosphatase 50 U/L (38-126); Anion Gap 1 mmol/L; Blood Urea Nitrogen 19 mg/dL (7-17); Calcium 8.4 mg/dL (8.4-10.2); Carbon Dioxide 28 mmol/L (22-30); Chloride 106 mmol/L (98-107); Globulin 2.7 g/dL; Glucose 130 mg/dL (74-99); Non-African American GFR(CKD) 89 (>60 ml/min/1.73 sqM); Potassium 3.9 mmol/L (3.5-5.1); Sodium 135 mmol/L (137-145); Total Bilirubin 1.4 mg/dL (0.2-1.3); Total Protein 5.5 g/dL (6.3-8.2)
[2021-03-16 07:18] LABS: Anisocytosis Slight; HCT 30.3 % (34.0-46.0); HGB 9.9 gm/dL (11.4-16.0); MCH 32.2 pg (25.0-35.0); MCHC 32.6 g/dL (31.0-37.0); MCV 98.9 fL (80.0-100.0); Macrocytosis Slight; Mean Platelet Volume 7.2; Platelet Count 245 k/uL (150-450); Poikilocytosis Slight; RBC 3.06 m/uL (3.80-5.40); RDW 16.4 % (11.5-15.5); WBC 7.3 k/uL (3.8-10.6)
[2021-03-16] MEDS: DEXAMETHASONE SOD PHOSPHATE 10 MG/ML 1 ML VIAL IVP SCH ×2 (09:13→20:05)
[2021-03-16] MEDS: ASCORBIC ACID 500 MG TAB PO SCH (09:14)
[2021-03-16] MEDS: ZINC SULFATE 220 MG CAP PO SCH (09:14)
[2021-03-16] MEDS: CHOLECALCIFEROL 25 MCG (1000 IU) TABLET PO SCH (09:14)
[2021-03-16] MEDS: BARICITINIB 2 MG TABLET PO SCH (09:14)
[2021-03-16] MEDS: PANTOPRAZOLE 40 MG TABLET PO SCH (09:14)
[2021-03-16] MEDS: DAPSONE 25 MG TAB PO SCH ×2 (09:15→20:07)
[2021-03-16] MEDS: ACETAMINOPHEN TAB 325 MG TAB PO PRN (09:58)
--- NOTE | 2021-03-16 11:08 | P.PN ---
Subjective Progress Note Date: 03/16/21 No new complaints. Breathing comfortably on oxygen, sitting in chair comfortably, good appetite. 90% on 15L HFNC/15L NRB; patient is self-proning often. Inflammatory markers improved yesterday. Patient reports stable breathing from yesterday. Objective - Vital Signs Vital signs: Vital Signs Temp 98.2 F 03/16/21 10:02 Pulse 71 03/16/21 10:02 Resp 18 03/16/21 10:02 BP 117/66 03/16/21 10:02 Pulse Ox 90 L 03/16/21 10:02 Intake & Output 03/15/21 03/16/21 03/16/21 18:59 06:59 18:59 Other: Voiding Method Toilet Toilet # Voids 2 3 # Bowel Movements 1 - Exam Gen: awake, alert HEENT: normocephalic, atraumatic, good hearing acuity, moist mucous membranes Resp: good air exchange, breathing comfortably with no accessory muscle use CVS: good distal perfusion x 4, GI: soft, NTTP, ND : no SPT, no CVAT, meza catheter not present MSK: no pitting edema, no clubbing Neuro: non-focal, moving all extremities Psych: cooperative, euthymic mood - Labs CBC & Chem 7: 03/16/21 06:11 03/16/21 06:11 Labs: Abnormal Lab Results - Last 24 Hours (Table) 03/15/21 03/16/21 03/16/21 Range/Units 07:28 06:11 06:11 RBC 3.06 L (3.80-5.40) m/uL Hgb 9.9 L (11.4-16.0) gm/dL Hct 30.3 L (34.0-46.0) % RDW 16.4 H (11.5-15.5) % Sodium 135 L (137-145) mmol/L BUN 19 H (7-17) mg/dL Glucose 130 H (74-99) mg/dL Total Bilirubin 1.4 H (0.2-1.3) mg/dL ALT 68 H (4-34) U/L Lactate Dehydrogenase 535 H (120-246) U/L Total Protein 5.5 L (6.3-8.2) g/dL Albumin 2.8 L (3.5-5.0) g/dL Assessment and Plan Assessment: Acute respiratory failure with hypoxia secondary to COVID 19 pneumonia in vaccinated individual. -Oxygenation to be administered and titrated as needed to maintain SPO2 equal to or greater than 90% -Telemetry monitoring. -Continue trending inflammatory markers -Encourage Incentive Spirometry 10-15x hourly while awake -Steroids: Decadron 6 mg q 12 hours, day 15 of steroids -Continue vitamin C, Vitamin D, and Zinc. -Started patient on Baricitinib 03/06/21, day 11 of 14 -Pulmonology following, appreciate further recommendations. -DVT prophylaxis with Lovenox. -Strict Droplet plus Contact precautions -Pt completed course of Remdesivir History of leukocytoclastic vasculitis -Continue Dapsone 100 mg twice daily and continue to follow up outpatient with vascular surgery upon discharge. CODE STATUS: Full code DVT prophylaxis: Lovenox Anticipated discharge date: Clinical course to determine
[2021-03-16 11:18] LABS: Band Neutrophils % 4 %; Lymphocytes # (M) 0.66 k/uL (1.0-4.8); Monocytes # (M) 0.22 k/uL (0-1.0); Neutrophils % (M) 84 %; Nucleated Red Blood Cells 0 /100 WBC (0-0); Total Cells Counted 100
[2021-03-16 11:20] LABS: Polychromasia Present
[2021-03-16] MEDS: ALBUTEROL HFA INHALER INHALATION PRN ×2 (12:08→19:19)
[2021-03-16] MEDS: ENOXAPARIN 40 MG/0.4 ML SYRINGE SQ SCH (17:19)
--- NOTE | 2021-03-16 19:03 | P.PN ---
Subjective Progress Note Date: 03/16/21 Principal diagnosis: COVID-19 pneumonia On 03/05/2021 patient is seen in follow-up on medical surgical floor. She is resting comfortably in bed, states she is breathing better, she still on high flow oxygen at 15 L, her pulse ox is 90%. Afebrile, hemodynamically she stable, no acute distress, yesterday his chest x-ray has been reviewed showing worsening patchy bilateral lung infiltrates compatible with atypical pneumonia. Today's labs have been reviewed, white blood cell count is 7.11, hemoglobin is 12.7, d- dimer was 0.9, improving, electrolytes are within normal limits B1 is 19 creatinine 0.77, LDH today is slightly improved and is down to 1061, and CRP is 4.5. Patient's c-ANCA and p-ANCA levels were within normal limits. Calcitonin level was negative at 0.16, currently continues on Decadron 6 mg twice daily, Lovenox 40 mg daily, and dapsone 100 mg twice daily. On 03/06/2021 patient seen in follow-up on medical surgical floor. Patient is awake and alert, she is up in the recliner, she states overall she is feeling much better, coughing less, her appetite is improving. She still requiring high flow oxygen at 15 L and her pulse ox ranges between 87-90%, she does desat with exertion. States she feels more energetic, she has been trying to stay active, she's had no fever or chills, vital signs have been stable. Today's labs are still pending, yesterday's d-dimer of 0.90, we will obtain lower extremity Dopplers, pro-calcitonin level was negative, her c-ANCA and p-ANCA titers were low, progesterone level was low, patient currently remains on Decadron 6 mg twice daily, she is on Mucinex, she is on albuterol inhaler, and she is on COVID-19 vitamins. Lovenox at 40 mg every 24 hours. On 03/07/2021 patient seen in follow-up on medical surgical floor. Today she is on 15 L per high flow nasal cannula, and 100% nonrebreather mask, her pulse ox is 90%. When she denies any worsening dyspnea, she is breathing quite comfortably, she's been active, get not to the bathroom, tolerating activity very well although she does desaturate with activity she does not feel dyspneic, no chest pain, lung sounds reveal bibasilar crackles, no rhonchi or wheezing, no fever or chills, vital signs have been stable. CTA chest showed no evidence of pulmonary embolism and lower extremity Dopplers were negative for DVT. Today's d-dimer is 0.94, electrolytes and renal profile within normal limits, pro- calcitonin level was negative at 0.05, inflammatory markers were improving on yesterday's labs. Follow up Labs are pending for today. On 03/08/2021 patient seen in follow-up on medical surgical floor. She still on 15 L of oxygen per high flow nasal cannula, she is not wearing a nonrebreather mask most of the time, her pulse ox is 88-91%, clinically she states she is breathing quite comfortably, no dyspnea, no tachypnea, no use of accessory muscles of breathing, she is afebrile, hemodynamically she appears stable she has no specific complaints other than dryness of nasal passages. Mild cough, no phlegm production, appetite is fair, no nausea vomiting or diarrhea. On 03/09/2021 patient seen in follow-up on medical surgical floor. She continues on 15 L per high flow nasal cannula and 100% nonrebreather mask, and her pulse ox is around 92%, she does desat with exertion, tolerates activity very well, no tachypnea, no use of accessory muscles of breathing, she is breathing comfortably, she is currently sitting up in the recliner, in no acute distress, lung sounds reveal bibasilar crackles, no rhonchi or wheezing, no complaint of chest pain, she's been afebrile overnight, she's had no acute events. She is tolerating oral intake. No nausea vomiting or diarrhea, she continues on Decadron, Baricitinib, COVID 19 vitamins, and Lovenox 40 SQ daily The patient is seen today 03/10/2021 in follow-up on the regular medical floor. She is currently sitting up in a chair at the bedside. Awake and alert in no acute distress. Still requiring 15 L high flow nasal cannula as a nonrebreather mask. O2 saturations in the 90s. No worsening shortness of breath, cough or congestion. She's been slow to progress. White count 10.6. Hemoglobin 12.5. D-dimer 1.12. Sodium 134. Potassium 4.1. Creatinine 0.76. LDH 1221. C- reactive protein 0.7. She remains on Baricitinib, Decadron, Lovenox, vitamin supplements. The patient is seen today 03/11/2021 in follow-up on the regular medical floor. Currently sitting up in a chair at the bedside. Awake and alert in no acute distress. She is still requiring 15 L high flow nasal cannula plus a nonrebreather mask. Without the masseter O2 saturations at 85%. She is doing about the same today compared to yesterday. No worse but not much improvement. White count 11.0. Hemoglobin 12.3. Lymphocytes 0.4. D-dimer 1.27. Sodium 134. Potassium 4.0. Creatinine 0.71. LDH 1415. C-reactive protein 0.8. She is continuing on Baricitinib, Decadron, Lovenox, vitamin supplements. The patient is seen today 03/14/2021 in follow-up on the regular medical floor. She is currently sitting up in a chair at the bedside. Awake and alert in no acute distress. She remains on 15 L high flow nasal cannula. Occasionally she needs a nonrebreather mask as well. She is breathing a bit easier today compared to yesterday. He is afebrile. Hemodynamically stable. She remains on Baricitinib, Decadron, Lovenox, vitamin supplements. The patient is seen today 03/15/2021 in follow-up on the regular medical floor. Awake and alert in no acute distress. She is sitting up in a chair at the bedside. She is still requiring 15 L high flow nasal cannula. She is maintaining O2 saturations in the mid 80s. Occasionally using a nonrebreather mask as well. White count 7.4. Hemoglobin 10.1. D-dimer 0.9. Sodium 134. Potassium 3.8. LDH 535. C-reactive protein 0.6. She remains on Baricitinib, Decadron, Lovenox, vitamin supplements. The patient is seen today 03/16/2021 in follow-up on the regular medical floor. She is sitting up in a chair at the bedside. Awake and alert in no acute dist ress. She is maintaining good O2 saturations in the 90s on 15 L high flow nasal cannula as a partial rebreather mask. She was tested on room air and was 83%. She did have issues with nosebleed earlier this morning and was just on the nonrebreather for a while. She denies any worsening shortness of breath, cough or congestion. She has been slow to progress. White count 7.3. Hemoglobin 9.9. Lymphocytes 0.66. Sodium 135. Potassium 3.9. Creatinine 0.70. She is continued on Decadron, Lovenox, vitamin supplements. She is also on Baricitinib. Objective - Vital Signs Vital signs: Vital Signs Temp 97.9 F 03/16/21 17:03 Pulse 83 03/16/21 17:03 Resp 18 03/16/21 17:03 BP 105/64 03/16/21 17:03 Pulse Ox 90 L 03/16/21 17:03 Intake & Output 03/15/21 03/16/21 03/16/21 18:59 06:59 18:59 Intake Total 540 Balance 540 Intake: Oral 540 Other: Voiding Method Toilet Toilet # Voids 2 3 2 # Bowel Movements 1 - Exam GENERAL EXAM: Alert, pleasant 66-year-old female patient and 15 L high flow nasal cannula plus a partial rebreather mask, comfortable in no apparent distress. HEAD: Normocephalic. EYES: Normal reaction of pupils, equal size. NOSE: Clear with pink turbinates. THROAT: No erythema or exudates. NECK: No masses, no JVD. CHEST: No chest wall deformity. LUNGS: Equal air entry with crackles in the bilateral bases. CVS: S1 and S2 normal with no audible murmur, regular rhythm. ABDOMEN: No hepatosplenomegaly, normal bowel sounds, no guarding or rigidity. SPINE: No scoliosis or deformity SKIN: No rashes CENTRAL NERVOUS SYSTEM: No focal deficits, tone is normal in all 4 extremities. EXTREMITIES: There is no peripheral edema. No clubbing, no cyanosis. Peripheral pulses are intact. - Labs CBC & Chem 7: 03/16/21 06:11 03/16/21 06:11 Labs: Abnormal Lab Results - Last 24 Hours (Table) 03/16/21 03/16/21 Range/Units 06:11 06:11 RBC 3.06 L (3.80-5.40) m/uL Hgb 9.9 L (11.4-16.0) gm/dL Hct 30.3 L (34.0-46.0) % RDW 16.4 H (11.5-15.5) % Lymphocytes # (Manual) 0.66 L (1.0-4.8) k/uL Sodium 135 L (137-145) mmol/L BUN 19 H (7-17) mg/dL Glucose 130 H (74-99) mg/dL Total Bilirubin 1.4 H (0.2-1.3) mg/dL ALT 68 H (4-34) U/L Total Protein 5.5 L (6.3-8.2) g/dL Albumin 2.8 L (3.5-5.0) g/dL Assessment and Plan Assessment: 1 Acute COVID-19 related pneumonia with bilateral pulmonary infiltrates secondary dyspnea. Patient is vaccinated individual and completed her vaccination back in May and June 2020. Patient presented with less than a week with the symptoms, she has completed a course of Remdesivir, currently remains on Decadron 6 mg twice daily. Started on Baricitinib on 03/06/2021 2 Acute hypoxic respiratory failure secondary to the above, progressive, today on 15 l/min, and 100% NRB 3 History of leukocytoclastic vasculitis, confirmed by skin biopsy and patient is on a combination of prednisone and dapsone on an outpatient basis and patient has been seen significant improvement in her skin lesions 4 History of cerebellar CVA 5 History of abnormal Pap smear 6 Osteoarthritis 7 Obesity Plan: The patient was seen and evaluated by Dr. Blandon Continue to titrate the FiO2 as tolerated On Baricitinib, Lovenox, Decadron, vitamin supplement We will continue to follow I, the cosigning physician, performed a history & physical examination of the patient. Lungs sounds with scattered rhonchi bilaterally. Maintaining good O2 saturations in the 90s on 15 L high flow nasal cannula plus a partial rebreather mask. I discussed the assessment and plan of care with my nurse practitioner, Windy Miguel. I attest to the above note as dictated by her.
[2021-03-17] MEDS: guaiFENesin 600 MG TABLET.ER PO SCH ×2 (06:16→17:43)
[2021-03-17] MEDS: DEXAMETHASONE SOD PHOSPHATE 10 MG/ML 1 ML VIAL IVP SCH ×2 (08:19→20:10)
[2021-03-17] MEDS: ZINC SULFATE 220 MG CAP PO SCH (08:20)
[2021-03-17] MEDS: PANTOPRAZOLE 40 MG TABLET PO SCH (08:20)
[2021-03-17] MEDS: CHOLECALCIFEROL 25 MCG (1000 IU) TABLET PO SCH (08:20)
[2021-03-17] MEDS: DAPSONE 25 MG TAB PO SCH ×2 (08:20→20:12)
[2021-03-17] MEDS: BARICITINIB 2 MG TABLET PO SCH (08:20)
--- NOTE | 2021-03-17 08:20 | XR ---
EXAMINATION TYPE: XR chest 1V portable DATE OF EXAM: 03/17/2021 CLINICAL HISTORY: Difficulty breathing progress study. TECHNIQUE: Single AP portable upright view of the chest is obtained. COMPARISON: Chest x-ray from 4 days earlier and older studies. FINDINGS: Persistent left mid to lower lung focal opacity with additional right mid to lower lung mu ltifocal opacities. Cardiac silhouette size stable and within normal limits. Osseous structures remai n intact. Overlying EKG leads redemonstrated. IMPRESSION: Bilateral multifocal mid to lower lung opacities consistent with covid-19 infection, no s ignificant change from most recent x-ray.
[2021-03-17] MEDS: ASCORBIC ACID 500 MG TAB PO SCH (08:21)
[2021-03-17] MEDS: ALBUTEROL HFA INHALER INHALATION PRN ×2 (08:40→11:40)
[2021-03-17 08:45] LABS: Anisocytosis Slight; HCT 29.5 % (34.0-46.0); HGB 10.2 gm/dL (11.4-16.0); MCHC 34.7 g/dL (31.0-37.0); MCV 95.2 fL (80.0-100.0); Macrocytosis Slight; Platelet Count 250 k/uL (150-450); Poikilocytosis Slight; RDW 17.1 % (11.5-15.5)
[2021-03-17 08:56] LABS: ALT 65 U/L (4-34); AST 31 U/L (14-36); African American GFR (CKD) >90 (>60 ml/min/1.73 sqM); Albumin/Globulin Ratio 1.2; Alkaline Phosphatase 50 U/L (38-126); Anion Gap 4 mmol/L; Blood Urea Nitrogen 21 mg/dL (7-17); Calcium 8.6 mg/dL (8.4-10.2); Carbon Dioxide 28 mmol/L (22-30); Chloride 105 mmol/L (98-107); Globulin 2.6 g/dL; Glucose 148 mg/dL (74-99); Non-African American GFR(CKD) >90 (>60 ml/min/1.73 sqM); Potassium 3.7 mmol/L (3.5-5.1); Sodium 137 mmol/L (137-145); Total Bilirubin 1.6 mg/dL (0.2-1.3); Total Protein 5.6 g/dL (6.3-8.2)
[2021-03-17 11:15] LABS: Band Neutrophils % 3 %; Lymphocytes # (M) 0.38 k/uL (1.0-4.8); Metamyelocytes # (M) 0.15 k/uL (0); Metamyelocytes % 2 %; Monocytes # (M) 0.15 k/uL (0-1.0); Myelocytes # (M) 0.08 k/uL (0); Myelocytes % 1 %; Neutrophils % (M) 88 %; Nucleated Red Blood Cells 3 /100 WBC (0-0); Total Cells Counted 200; WBC 7.6 k/uL (3.8-10.6)
[2021-03-17 11:16] LABS: Hypersegmented Neutrophils Present
[2021-03-17 11:17] LABS: Polychromasia Present
--- NOTE | 2021-03-17 11:37 | P.PN ---
Subjective Progress Note Date: 03/17/21 No new complaints. Breathing comfortably on oxygen, ambulating about the room with no dyspnea on exertion. 90% on 15L HFNC/15L NRB; patient is self-proning often. Patient reports stable breathing from yesterday, planning on taking a shower and then self pronating afterwards. Objective - Vital Signs Vital signs: Vital Signs Temp 98.1 F 03/17/21 10:02 Pulse 93 03/17/21 10:02 Resp 18 03/17/21 10:02 BP 122/78 03/17/21 10:02 Pulse Ox 90 L 03/17/21 10:02 Intake & Output 03/16/21 03/17/21 03/17/21 18:59 06:59 18:59 Intake Total 540 Balance 540 Intake: Oral 540 Other: Voiding Method Toilet Toilet Toilet # Voids 2 2 # Bowel Movements 1 - Exam Gen: awake, alert HEENT: normocephalic, atraumatic, good hearing acuity, moist mucous membranes Resp: good air exchange, breathing comfortably with no accessory muscle use CVS: good distal perfusion x 4, GI: soft, NTTP, ND : no SPT, no CVAT, meza catheter not present MSK: no pitting edema, no clubbing Neuro: non-focal, moving all extremities Psych: cooperative, euthymic mood - Labs CBC & Chem 7: 03/17/21 08:15 03/17/21 08:15 Labs: Abnormal Lab Results - Last 24 Hours (Table) 03/17/21 03/17/21 Range/Units 08:15 08:15 RBC 3.10 L (3.80-5.40) m/uL Hgb 10.2 L (11.4-16.0) gm/dL Hct 29.5 L (34.0-46.0) % RDW 17.1 H (11.5-15.5) % Lymphocytes # (Manual) 0.38 L (1.0-4.8) k/uL Metamyelocytes # (Man) 0.15 H (0) k/uL Myelocytes # (Manual) 0.08 H (0) k/uL Nucleated RBCs 3 H (0-0) /100 WBC BUN 21 H (7-17) mg/dL Glucose 148 H (74-99) mg/dL Total Bilirubin 1.6 H (0.2-1.3) mg/dL ALT 65 H (4-34) U/L Total Protein 5.6 L (6.3-8.2) g/dL Albumin 3.0 L (3.5-5.0) g/dL Assessment and Plan Assessment: Acute respiratory failure with hypoxia secondary to COVID 19 pneumonia in vaccinated individual. -Oxygenation to be administered and titrated as needed to maintain SPO2 equal to or greater than 90% -Telemetry monitoring. -Continue trending inflammatory markers -Encourage Incentive Spirometry 10-15x hourly while awake -Steroids: Decadron 6 mg q 12 hours, day 16 of steroids -Continue vitamin C, Vitamin D, and Zinc. -Started patient on Baricitinib 03/06/21, day 12 of 14 -Pulmonology following, appreciate further recommendations. -DVT prophylaxis with Lovenox. -Strict Droplet plus Contact precautions -Pt completed course of Remdesivir History of leukocytoclastic vasculitis -Continue Dapsone 100 mg twice daily and continue to follow up outpatient with vascular surgery upon discharge. CODE STATUS: Full code DVT prophylaxis: Lovenox Anticipated discharge date: Clinical course to determine
[2021-03-17] MEDS: ENOXAPARIN 40 MG/0.4 ML SYRINGE SQ SCH (17:43)
--- NOTE | 2021-03-17 17:50 | P.PN ---
Subjective Progress Note Date: 03/17/21 Principal diagnosis: Dyspnea, hypoxia On 03/05/2021 patient is seen in follow-up on medical surgical floor. She is resting comfortably in bed, states she is breathing better, she still on high flow oxygen at 15 L, her pulse ox is 90%. Afebrile, hemodynamically she stable, no acute distress, yesterday his chest x-ray has been reviewed showing worsening patchy bilateral lung infiltrates compatible with atypical pneumonia. Today's labs have been reviewed, white blood cell count is 7.11, hemoglobin is 12.7, d- dimer was 0.9, improving, electrolytes are within normal limits B1 is 19 creatinine 0.77, LDH today is slightly improved and is down to 1061, and CRP is 4.5. Patient's c-ANCA and p-ANCA levels were within normal limits. Calcitonin level was negative at 0.16, currently continues on Decadron 6 mg twice daily, Lovenox 40 mg daily, and dapsone 100 mg twice daily. On 03/06/2021 patient seen in follow-up on medical surgical floor. Patient is awake and alert, she is up in the recliner, she states overall she is feeling much better, coughing less, her appetite is improving. She still requiring high flow oxygen at 15 L and her pulse ox ranges between 87-90%, she does desat with exertion. States she feels more energetic, she has been trying to stay active, she's had no fever or chills, vital signs have been stable. Today's labs are still pending, yesterday's d-dimer of 0.90, we will obtain lower extremity Dopplers, pro-calcitonin level was negative, her c-ANCA and p-ANCA titers were low, progesterone level was low, patient currently remains on Decadron 6 mg twice daily, she is on Mucinex, she is on albuterol inhaler, and she is on COVID-19 vitamins. Lovenox at 40 mg every 24 hours. On 03/07/2021 patient seen in follow-up on medical surgical floor. Today she is on 15 L per high flow nasal cannula, and 100% nonrebreather mask, her pulse ox is 90%. When she denies any worsening dyspnea, she is breathing quite comfortably, she's been active, get not to the bathroom, tolerating activity very well although she does desaturate with activity she does not feel dyspneic, no chest pain, lung sounds reveal bibasilar crackles, no rhonchi or wheezing, no fever or chills, vital signs have been stable. CTA chest showed no evidence of pulmonary embolism and lower extremity Dopplers were negative for DVT. Today's d-dimer is 0.94, electrolytes and renal profile within normal limits, pro- calcitonin level was negative at 0.05, inflammatory markers were improving on yesterday's labs. Follow up Labs are pending for today. On 03/08/2021 patient seen in follow-up on medical surgical floor. She still on 15 L of oxygen per high flow nasal cannula, she is not wearing a nonrebreather mask most of the time, her pulse ox is 88-91%, clinically she states she is breathing quite comfortably, no dyspnea, no tachypnea, no use of accessory muscles of breathing, she is afebrile, hemodynamically she appears stable she has no specific complaints other than dryness of nasal passages. Mild cough, no phlegm production, appetite is fair, no nausea vomiting or diarrhea. On 03/09/2021 patient seen in follow-up on medical surgical floor. She continues on 15 L per high flow nasal cannula and 100% nonrebreather mask, and her pulse ox is around 92%, she does desat with exertion, tolerates activity very well, no tachypnea, no use of accessory muscles of breathing, she is breathing comfortably, she is currently sitting up in the recliner, in no acute distress, lung sounds reveal bibasilar crackles, no rhonchi or wheezing, no complaint of chest pain, she's been afebrile overnight, she's had no acute events. She is tolerating oral intake. No nausea vomiting or diarrhea, she continues on Decadron, Baricitinib, COVID 19 vitamins, and Lovenox 40 SQ daily On 03/12/2001 patient seen in follow-up on medical surgical floor, she sits up in a recliner, in no acute distress, she is currently just wearing the 15 L per high flow nasal cannula, her pulse ox is 90%, occasionally she has to apply the nonrebreather mask, however she only used it once last night. She is breathing comfortably, she denies any worsening dyspnea, she remains on Baricitinib, and Decadron 6 blood gram twice daily, she is on Lovenox and multivitamins, today's labs have been reviewed, her white blood cell count is 10.8, hemoglobin is 11.6, d-dimer is slightly improved and is down to 1, electrolytes and renal profile are unremarkable, her LDH has increased and is up to 1430, and CRP is 1.7. She denies any specific complaints, she is awake and alert, oriented 3, lung sounds are clear to auscultation, no rales auscultated. She had no fever or chills, no chest discomfort. On 03/13/2021 patient seen in follow-up on medical surgical floor, currently on 15 L high flow nasal cannula, intermittently she has been requiring nonrebreather mask as well for episodes of desaturation and increased shortness of breath. At rest she seems fairly comfortable, does not appear to be in any acute distress, she is afebrile, hemodynamically she is stable. Chest x-ray showing bilateral multifocal mid to lower lung opacities. No significant change. Today's labs have been reviewed, d-dimer is improving and is down to 0.98, LDH is improving and is down to 532, CRP is 1.1. In terms of therapy patient remains on decadron 6 mf twice daily, Baricitinib, multivitamins, she is on prophylactic Lovenox. Tolerating oral intake, no nausea vomiting or diarrhea. On 03/17/2021 patient no follow-up on medical surgical floor. She is sitting up in the recliner, in no acute distress, she is on 15 L of oxygen pulse ox is 90%, yesterday she had a nosebleed and that she was mostly wearing a nonrebreather mask, today the nosebleed had stopped, and she is back on high flow nasal cannula, with no recurrence of nose bleeding, she is awake and alert, oriented 3, no worsening dyspnea, she has been pronating herself twice a day, tolerating it well. She continues on Baricitinib, she continues on Decadron 6 mg every 12 hours, and Lovenox 40 mg daily. Objective - Vital Signs Vital signs: Vital Signs Temp 98.3 F 03/17/21 15:08 Pulse 85 03/17/21 15:08 Resp 17 03/17/21 15:08 BP 105/67 11/27/21 15:08 Pulse Ox 90 L 03/17/21 15:08 Intake & Output 03/16/21 03/17/21 03/17/21 18:59 06:59 18:59 Intake Total 540 Balance 540 Intake: Oral 540 Other: Voiding Method Toilet Toilet Toilet # Voids 2 2 # Bowel Movements 1 - Exam GENERAL EXAM: Alert, very pleasant, 66-year-old white female, resting in bed, currently on 15 L of oxygen per high flow nasal cannula and with a pulse ox of 90% comfortable in no apparent distress. HEAD: Normocephalic/atraumatic. EYES: Normal reaction of pupils, equal size. Conjunctiva pink, sclera white. NOSE: Clear with pink turbinates. THROAT: No erythema or exudates. NECK: No masses, no JVD, no thyroid enlargement, no adenopathy. CHEST: No chest wall deformity. Symmetrical expansion. LUNGS: Equal air entry with bibasilar crackles CVS: Regular rate and rhythm, normal S1 and S2, no gallops, no murmurs, no rubs ABDOMEN: Soft, nontender. No hepatosplenomegaly, normal bowel sounds, no g uarding or rigidity. EXTREMITIES: No clubbing, no edema, no cyanosis, 2+ pulses and upper and lower extremities. MUSCULOSKELETAL: Muscle strength and tone normal. SPINE: No scoliosis or deformity SKIN: No rashes CENTRAL NERVOUS SYSTEM: Alert and oriented -3. No focal deficits, tone is normal in all 4 extremities. PSYCHIATRIC: Alert and oriented -3. Appropriate affect. Intact judgment and insight. - Labs CBC & Chem 7: 03/17/21 08:15 03/17/21 08:15 Labs: Abnormal Lab Results - Last 24 Hours (Table) 03/17/21 03/17/21 Range/Units 08:15 08:15 RBC 3.10 L (3.80-5.40) m/uL Hgb 10.2 L (11.4-16.0) gm/dL Hct 29.5 L (34.0-46.0) % RDW 17.1 H (11.5-15.5) % Lymphocytes # (Manual) 0.38 L (1.0-4.8) k/uL Metamyelocytes # (Man) 0.15 H (0) k/uL Myelocytes # (Manual) 0.08 H (0) k/uL Nucleated RBCs 3 H (0-0) /100 WBC BUN 21 H (7-17) mg/dL Glucose 148 H (74-99) mg/dL Total Bilirubin 1.6 H (0.2-1.3) mg/dL ALT 65 H (4-34) U/L Total Protein 5.6 L (6.3-8.2) g/dL Albumin 3.0 L (3.5-5.0) g/dL Assessment and Plan Plan: Assessment: #1. Acute COVID-19 related pneumonia with bilateral pulmonary infiltrates secondary dyspnea. Patient is vaccinated individual and completed her vaccination back in May and June 2020. Patient presented with less than a week with the symptoms, she has completed a course of Remdesivir, currently remains on Decadron 6 mg twice daily, and dapsone 100 mg twice daily. Started on Baricitinib on 03/06/2021 #2. Acute hypoxic respiratory failure secondary to the above, progressive, today on 15 l/min, and 100% NRB #3. History of leukocytoclastic vasculitis, confirmed by skin biopsy and patient is on a combination of prednisone and dapsone on an outpatient basis and patient has been seen significant improvement in her skin lesions #4. History of cerebellar CVA #5. History of abnormal Pap smear #6. Osteoarthritis #7. Nosebleed, related to high concentration oxygen, prophylactic Lovenox, resolved Plan: Remains on high concentration oxygen Breathing fairly comfortable, No recurrence of nosebleed Patient is back on high flow nasal cannula Vital signs are stable Encourage the patient to prone, which she is doing twice daily Encouraged to use a incentive spirometer Continue Baricitinib, Continue current dose Decadron, continue prophylactic Lovenox Attempt to wean FiO2 to maintain O2 saturations at 90% Once FiO2 is down to 5 L and less, may consider discharge home I performed a history & physical examination of the patient and discussed their management with my nurse practitioner, Adalgisa Espazra. I reviewed the nurse practitioner's note and agree with the documented findings and plan of care. Lung sounds are positive for bibasilar crackles throughout the lung mckenna. The findings and the impression was discussed with the patient. I attest to the documentation by the nurse practitioner. Time with Patient: Less than 30
[2021-03-18] MEDS: guaiFENesin 600 MG TABLET.ER PO SCH ×2 (05:51→17:21)
[2021-03-18 08:04] LABS: Anisocytosis Slight; HCT 29.2 % (34.0-46.0); HGB 9.9 gm/dL (11.4-16.0); MCH 32.8 pg (25.0-35.0); MCV 96.2 fL (80.0-100.0); Macrocytosis Slight; Platelet Count 247 k/uL (150-450); Poikilocytosis Slight; RBC 3.03 m/uL (3.80-5.40); RDW 17.8 % (11.5-15.5)
[2021-03-18 08:12] LABS: ALT 70 U/L (4-34); AST 30 U/L (14-36); African American GFR (CKD) >90 (>60 ml/min/1.73 sqM); Albumin/Globulin Ratio 1.2; Alkaline Phosphatase 47 U/L (38-126); Anion Gap 1 mmol/L; Bilirubin,Unconjugated 1.4 mg/dL (0.0-1.1); Blood Urea Nitrogen 22 mg/dL (7-17); Calcium 8.5 mg/dL (8.4-10.2); Carbon Dioxide 31 mmol/L (22-30); Chloride 104 mmol/L (98-107); Globulin 2.6 g/dL; Glucose 116 mg/dL (74-99); LDH 1586 U/L (313-618); Magnesium 2.1 mg/dL (1.6-2.3); Non-African American GFR(CKD) 85 (>60 ml/min/1.73 sqM); Potassium 4.3 mmol/L (3.5-5.1); Sodium 136 mmol/L (137-145); Total Bilirubin 1.7 mg/dL (0.2-1.3); Total Protein 5.6 g/dL (6.3-8.2)
[2021-03-18] MEDS: ZINC SULFATE 220 MG CAP PO SCH (08:17)
[2021-03-18] MEDS: CHOLECALCIFEROL 25 MCG (1000 IU) TABLET PO SCH (08:17)
[2021-03-18] MEDS: ASCORBIC ACID 500 MG TAB PO SCH (08:17)
[2021-03-18] MEDS: PANTOPRAZOLE 40 MG TABLET PO SCH (08:17)
[2021-03-18] MEDS: DAPSONE 25 MG TAB PO SCH ×2 (08:18→20:27)
[2021-03-18] MEDS: BARICITINIB 2 MG TABLET PO SCH (08:18)
[2021-03-18] MEDS: DEXAMETHASONE SOD PHOSPHATE 10 MG/ML 1 ML VIAL IVP SCH (08:19)
[2021-03-18 08:37] LABS: C Reactive Protein <0.5 mg/dL (<1.0)
[2021-03-18] MEDS: ALBUTEROL HFA INHALER INHALATION PRN ×2 (08:51→12:20)
[2021-03-18 09:10] LABS: Band Neutrophils % 1 %; Lymphocytes # (M) 0.94 k/uL (1.0-4.8); Metamyelocytes # (M) 0.08 k/uL (0); Metamyelocytes % 1 %; Monocytes # (M) 0.39 k/uL (0-1.0); Neutrophils % (M) 82 %; Nucleated Red Blood Cells 3 /100 WBC (0-0); Total Cells Counted 200; WBC 7.8 k/uL (3.8-10.6)
[2021-03-18 09:11] LABS: Polychromasia Present
--- NOTE | 2021-03-18 13:41 | P.PN ---
Subjective Progress Note Date: 03/18/21 Pts LDH is worse today, but CRP improved. Pt was downtitrated oxygen requirement overnight. No complaints. Objective - Vital Signs Vital signs: Vital Signs Temp 98.2 F 03/18/21 10:02 Pulse 73 03/18/21 10:02 Resp 17 03/18/21 10:02 BP 109/69 03/18/21 10:02 Pulse Ox 90 L 03/18/21 10:02 Intake & Output 03/17/21 03/18/21 03/18/21 18:59 06:59 18:59 Intake Total 540 Balance 540 Intake: Oral 540 Other: Voiding Method Toilet Toilet # Voids 2 1 # Bowel Movements 1 1 - Exam Gen: awake, alert HEENT: normocephalic, atraumatic, good hearing acuity, moist mucous membranes Resp: good air exchange, breathing comfortably with no accessory muscle use CVS: good distal perfusion x 4, GI: soft, NTTP, ND : no SPT, no CVAT, meza catheter not present MSK: no pitting edema, no clubbing Neuro: non-focal, moving all extremities Psych: cooperative, euthymic mood - Labs CBC & Chem 7: 03/18/21 07:25 03/18/21 07:25 Labs: Abnormal Lab Results - Last 24 Hours (Table) 03/18/21 03/18/21 03/18/21 Range/Units 07:25 07:25 07:25 RBC 3.03 L (3.80-5.40) m/uL Hgb 9.9 L (11.4-16.0) gm/dL Hct 29.2 L (34.0-46.0) % RDW 17.8 H (11.5-15.5) % Lymphocytes # (Manual) 0.94 L (1.0-4.8) k/uL Metamyelocytes # (Man) 0.08 H (0) k/uL Nucleated RBCs 3 H (0-0) /100 WBC D-Dimer 0.90 H (<0.60) mg/L FEU Sodium 136 L (137-145) mmol/L Carbon Dioxide 31 H (22-30) mmol/L BUN 22 H (7-17) mg/dL Glucose 116 H (74-99) mg/dL Total Bilirubin 1.7 H (0.2-1.3) mg/dL Unconjugated Bilirubin 1.4 H (0.0-1.1) mg/dL ALT 70 H (4-34) U/L Lactate Dehydrogenase 1586 H (313-618) U/L Total Protein 5.6 L (6.3-8.2) g/dL Albumin 3.0 L (3.5-5.0) g/dL Assessment and Plan Assessment: Acute respiratory failure with hypoxia secondary to COVID 19 pneumonia in vaccinated individual. -Oxygenation to be administered and titrated as needed to maintain SPO2 equal to or greater than 90% -Telemetry monitoring. -Continue trending inflammatory markers -Encourage Incentive Spirometry 10-15x hourly while awake -Steroids: Decadron 6 mg q 12 hours, day 17 of steroids -Continue vitamin C, Vitamin D, and Zinc. -Started patient on Baricitinib 03/06/21, day 13 of 14 -Pulmonology following, appreciate further recommendations. -DVT prophylaxis with Lovenox. -Strict Droplet plus Contact precautions -Pt completed course of Remdesivir History of leukocytoclastic vasculitis -Continue Dapsone 100 mg twice daily and continue to follow up outpatient with vascular surgery upon discharge. CODE STATUS: Full code DVT prophylaxis: Lovenox Anticipated discharge date: Clinical course to determine
--- NOTE | 2021-03-18 17:07 | P.PN ---
Subjective Progress Note Date: 03/18/21 Principal diagnosis: COVID-19 pneumonia On 03/05/2021 patient is seen in follow-up on medical surgical floor. She is resting comfortably in bed, states she is breathing better, she still on high flow oxygen at 15 L, her pulse ox is 90%. Afebrile, hemodynamically she stable, no acute distress, yesterday his chest x-ray has been reviewed showing worsening patchy bilateral lung infiltrates compatible with atypical pneumonia. Today's labs have been reviewed, white blood cell count is 7.11, hemoglobin is 12.7, d- dimer was 0.9, improving, electrolytes are within normal limits B1 is 19 creatinine 0.77, LDH today is slightly improved and is down to 1061, and CRP is 4.5. Patient's c-ANCA and p-ANCA levels were within normal limits. Calcitonin level was negative at 0.16, currently continues on Decadron 6 mg twice daily, Lovenox 40 mg daily, and dapsone 100 mg twice daily. On 03/06/2021 patient seen in follow-up on medical surgical floor. Patient is awake and alert, she is up in the recliner, she states overall she is feeling much better, coughing less, her appetite is improving. She still requiring high flow oxygen at 15 L and her pulse ox ranges between 87-90%, she does desat with exertion. States she feels more energetic, she has been trying to stay active, she's had no fever or chills, vital signs have been stable. Today's labs are still pending, yesterday's d-dimer of 0.90, we will obtain lower extremity Dopplers, pro-calcitonin level was negative, her c-ANCA and p-ANCA titers were low, progesterone level was low, patient currently remains on Decadron 6 mg twice daily, she is on Mucinex, she is on albuterol inhaler, and she is on COVID-19 vitamins. Lovenox at 40 mg every 24 hours. On 03/07/2021 patient seen in follow-up on medical surgical floor. Today she is on 15 L per high flow nasal cannula, and 100% nonrebreather mask, her pulse ox is 90%. When she denies any worsening dyspnea, she is breathing quite comfortably, she's been active, get not to the bathroom, tolerating activity very well although she does desaturate with activity she does not feel dyspneic, no chest pain, lung sounds reveal bibasilar crackles, no rhonchi or wheezing, no fever or chills, vital signs have been stable. CTA chest showed no evidence of pulmonary embolism and lower extremity Dopplers were negative for DVT. Today's d-dimer is 0.94, electrolytes and renal profile within normal limits, pro- calcitonin level was negative at 0.05, inflammatory markers were improving on yesterday's labs. Follow up Labs are pending for today. On 03/08/2021 patient seen in follow-up on medical surgical floor. She still on 15 L of oxygen per high flow nasal cannula, she is not wearing a nonrebreather mask most of the time, her pulse ox is 88-91%, clinically she states she is breathing quite comfortably, no dyspnea, no tachypnea, no use of accessory muscles of breathing, she is afebrile, hemodynamically she appears stable she has no specific complaints other than dryness of nasal passages. Mild cough, no phlegm production, appetite is fair, no nausea vomiting or diarrhea. On 03/09/2021 patient seen in follow-up on medical surgical floor. She continues on 15 L per high flow nasal cannula and 100% nonrebreather mask, and her pulse ox is around 92%, she does desat with exertion, tolerates activity very well, no tachypnea, no use of accessory muscles of breathing, she is breathing comfortably, she is currently sitting up in the recliner, in no acute distress, lung sounds reveal bibasilar crackles, no rhonchi or wheezing, no complaint of chest pain, she's been afebrile overnight, she's had no acute events. She is tolerating oral intake. No nausea vomiting or diarrhea, she continues on Decadron, Baricitinib, COVID 19 vitamins, and Lovenox 40 SQ daily The patient is seen today 03/10/2021 in follow-up on the regular medical floor. She is currently sitting up in a chair at the bedside. Awake and alert in no acute distress. Still requiring 15 L high flow nasal cannula as a nonrebreather mask. O2 saturations in the 90s. No worsening shortness of breath, cough or congestion. She's been slow to progress. White count 10.6. Hemoglobin 12.5. D-dimer 1.12. Sodium 134. Potassium 4.1. Creatinine 0.76. LDH 1221. C- reactive protein 0.7. She remains on Baricitinib, Decadron, Lovenox, vitamin supplements. The patient is seen today 03/11/2021 in follow-up on the regular medical floor. Currently sitting up in a chair at the bedside. Awake and alert in no acute distress. She is still requiring 15 L high flow nasal cannula plus a nonrebreather mask. Without the masseter O2 saturations at 85%. She is doing about the same today compared to yesterday. No worse but not much improvement. White count 11.0. Hemoglobin 12.3. Lymphocytes 0.4. D-dimer 1.27. Sodium 134. Potassium 4.0. Creatinine 0.71. LDH 1415. C-reactive protein 0.8. She is continuing on Baricitinib, Decadron, Lovenox, vitamin supplements. The patient is seen today 03/14/2021 in follow-up on the regular medical floor. She is currently sitting up in a chair at the bedside. Awake and alert in no acute distress. She remains on 15 L high flow nasal cannula. Occasionally she needs a nonrebreather mask as well. She is breathing a bit easier today compared to yesterday. He is afebrile. Hemodynamically stable. She remains on Baricitinib, Decadron, Lovenox, vitamin supplements. The patient is seen today 03/15/2021 in follow-up on the regular medical floor. Awake and alert in no acute distress. She is sitting up in a chair at the bedside. She is still requiring 15 L high flow nasal cannula. She is maintaining O2 saturations in the mid 80s. Occasionally using a nonrebreather mask as well. White count 7.4. Hemoglobin 10.1. D-dimer 0.9. Sodium 134. Potassium 3.8. LDH 535. C-reactive protein 0.6. She remains on Baricitinib, Decadron, Lovenox, vitamin supplements. The patient is seen today 03/16/2021 in follow-up on the regular medical floor. She is sitting up in a chair at the bedside. Awake and alert in no acute dist ress. She is maintaining good O2 saturations in the 90s on 15 L high flow nasal cannula as a partial rebreather mask. She was tested on room air and was 83%. She did have issues with nosebleed earlier this morning and was just on the nonrebreather for a while. She denies any worsening shortness of breath, cough or congestion. She has been slow to progress. White count 7.3. Hemoglobin 9.9. Lymphocytes 0.66. Sodium 135. Potassium 3.9. Creatinine 0.70. She is continued on Decadron, Lovenox, vitamin supplements. She is also on Baricitinib. the patient is seen today 03/18/2021 in follow-up on the regular medical floor. She remains awake and alert in no acute distress. Sitting up in a chair at the bedside. She is down to 12 L high flow nasal cannula. She is feeling a bit better today. Feeling stronger. Less short of breath. The short of breath with exertion. white count 7.8.: 9.9. Lymphocytes 0.9. D-dimer 0.9. Sodium 136. Potassium 4.3. Creatinine 0.73. LDH 1586. She remains on Baricitinib, Decadron, Lovenox, vitamin supplements. Objective - Vital Signs Vital signs: Vital Signs Temp 98.2 F 03/18/21 14:32 Pulse 88 03/18/21 14:32 Resp 18 03/18/21 14:32 BP 113/71 03/18/21 14:32 Pulse Ox 90 L 03/18/21 14:32 Intake & Output 03/17/21 03/18/21 03/18/21 18:59 06:59 18:59 Intake Total 540 Balance 540 Intake: Oral 540 Other: Voiding Method Toilet Toilet # Voids 2 1 # Bowel Movements 1 1 - Exam GENERAL EXAM: Alert, pleasant 66-year-old female patient, up in a chair, on 12 L high flow nasal cannula, comfortable in no apparent distress. HEAD: Normocephalic. EYES: Normal reaction of pupils, equal size. NOSE: Clear with pink turbinates. THROAT: No erythema or exudates. NECK: No masses, no JVD. CHEST: No chest wall deformity. LUNGS: Equal air entry with crackles in the bilateral bases. CVS: S1 and S2 normal with no audible murmur, regular rhythm. ABDOMEN: No hepatosplenomegaly, normal bowel sounds, no guarding or rigidity. SPINE: No scoliosis or deformity SKIN: No rashes CENTRAL NERVOUS SYSTEM: No focal deficits, tone is normal in all 4 extremities. EXTREMITIES: There is no peripheral edema. No clubbing, no cyanosis. Peripheral pulses are intact. - Labs CBC & Chem 7: 03/18/21 07:25 03/18/21 07:25 Labs: Abnormal Lab Results - Last 24 Hours (Table) 03/18/21 03/18/21 03/18/21 Range/Units 07:25 07:25 07:25 RBC 3.03 L (3.80-5.40) m/uL Hgb 9.9 L (11.4-16.0) gm/dL Hct 29.2 L (34.0-46.0) % RDW 17.8 H (11.5-15.5) % Lymphocytes # (Manual) 0.94 L (1.0-4.8) k/uL Metamyelocytes # (Man) 0.08 H (0) k/uL Nucleated RBCs 3 H (0-0) /100 WBC D-Dimer 0.90 H (<0.60) mg/L FEU Sodium 136 L (137-145) mmol/L Carbon Dioxide 31 H (22-30) mmol/L BUN 22 H (7-17) mg/dL Glucose 116 H (74-99) mg/dL Total Bilirubin 1.7 H (0.2-1.3) mg/dL Unconjugated Bilirubin 1.4 H (0.0-1.1) mg/dL ALT 70 H (4-34) U/L Lactate Dehydrogenase 1586 H (313-618) U/L Total Protein 5.6 L (6.3-8.2) g/dL Albumin 3.0 L (3.5-5.0) g/dL Assessment and Plan Assessment: 1 Acute COVID-19 related pneumonia with bilateral pulmonary infiltrates secondary dyspnea. Patient is vaccinated individual and completed her vaccination back in May and June 2020. Patient presented with less than a week with the symptoms, she has completed a course of Remdesivir. Started on Baricitinib on 03/06/2021 2 Acute hypoxic respiratory failure secondary to the above, progressive, today on 15 l/min, and 100% NRB 3 History of leukocytoclastic vasculitis, confirmed by skin biopsy and patient is on a combination of prednisone and dapsone on an outpatient basis and patient has been seen significant improvement in her skin lesions 4 History of cerebellar CVA 5 History of abnormal Pap smear 6 Osteoarthritis 7 Obesity Plan: The patient was seen and evaluated by Dr. Blandon Down to 12 L high flow nasal cannula Continue to titrate the FiO2 as tolerated On Baricitinib, Lovenox, Decadron, vitamin supplement We will continue to follow I, the cosigning physician, performed a history & physical examination of the patient. Lungs sounds with scattered rhonchi bilaterally. Maintaining good O2 saturations in the 90s on 12 L high flow nasal cannula. I discussed the assessment and plan of care with my nurse practitioner, Windy Miguel. I attest to the above note as dictated by her.
[2021-03-18] MEDS: ENOXAPARIN 40 MG/0.4 ML SYRINGE SQ SCH (17:20)
[2021-03-19] MEDS: guaiFENesin 600 MG TABLET.ER PO SCH ×2 (05:51→17:21)
[2021-03-19 07:51] LABS: ALT 82 U/L (4-34); AST 41 U/L (14-36); African American GFR (CKD) 90 (>60 ml/min/1.73 sqM); Albumin/Globulin Ratio 1.2; Alkaline Phosphatase 52 U/L (38-126); Anion Gap 2 mmol/L; Bilirubin,Unconjugated 1.4 mg/dL (0.0-1.1); Blood Urea Nitrogen 27 mg/dL (7-17); Calcium 8.5 mg/dL (8.4-10.2); Carbon Dioxide 30 mmol/L (22-30); Chloride 106 mmol/L (98-107); Globulin 2.5 g/dL; Glucose 98 mg/dL (74-99); LDH 1698 U/L (313-618); Magnesium 2.2 mg/dL (1.6-2.3); Non-African American GFR(CKD) 78 (>60 ml/min/1.73 sqM); Potassium 3.8 mmol/L (3.5-5.1); Sodium 138 mmol/L (137-145); Total Bilirubin 1.7 mg/dL (0.2-1.3); Total Protein 5.5 g/dL (6.3-8.2)
[2021-03-19 08:01] LABS: Anisocytosis Slight; HCT 28.5 % (34.0-46.0); HGB 9.7 gm/dL (11.4-16.0); Hyperchromasia Slight; MCH 33.4 pg (25.0-35.0); MCV 98.2 fL (80.0-100.0); Macrocytosis Slight; Mean Platelet Volume 6.8; Platelet Count 254 k/uL (150-450); Poikilocytosis Moderate; RBC 2.91 m/uL (3.80-5.40); RDW 19.2 % (11.5-15.5)
[2021-03-19] MEDS: ASCORBIC ACID 500 MG TAB PO SCH (09:06)
[2021-03-19] MEDS: PANTOPRAZOLE 40 MG TABLET PO SCH (09:06)
[2021-03-19] MEDS: CHOLECALCIFEROL 25 MCG (1000 IU) TABLET PO SCH (09:06)
[2021-03-19] MEDS: DEXAMETHASONE SOD PHOSPHATE 10 MG/ML 1 ML VIAL IVP SCH (09:07)
[2021-03-19] MEDS: ZINC SULFATE 220 MG CAP PO SCH (09:07)
[2021-03-19 09:15] LABS: C Reactive Protein <0.5 mg/dL (<1.0)
[2021-03-19] MEDS: BARICITINIB 2 MG TABLET PO SCH (09:53)
[2021-03-19] MEDS: ALBUTEROL HFA INHALER INHALATION PRN (09:55)
[2021-03-19] MEDS: DAPSONE 25 MG TAB PO SCH ×2 (10:25→20:14)
[2021-03-19 10:55] LABS: Myelocytes % 1 %
[2021-03-19 11:17] LABS: Band Neutrophils % 1 %; Neutrophils % (M) 78 %; Nucleated Red Blood Cells 8 /100 WBC (0-0); Total Cells Counted 200
[2021-03-19 11:19] LABS: Polychromasia Present
[2021-03-19 11:45] LABS: Basophils # (M) 0.08 k/uL (0-0.2); Lymphocytes # (M) 1.44 k/uL (1.0-4.8); Monocytes # (M) 0.24 k/uL (0-1.0); Myelocytes # (M) 0.08 k/uL (0)
--- NOTE | 2021-03-19 14:21 | P.PN ---
Subjective Progress Note Date: 03/19/21 Principal diagnosis: Dyspnea, hypoxia On 03/05/2021 patient is seen in follow-up on medical surgical floor. She is resting comfortably in bed, states she is breathing better, she still on high flow oxygen at 15 L, her pulse ox is 90%. Afebrile, hemodynamically she stable, no acute distress, yesterday his chest x-ray has been reviewed showing worsening patchy bilateral lung infiltrates compatible with atypical pneumonia. Today's labs have been reviewed, white blood cell count is 7.11, hemoglobin is 12.7, d- dimer was 0.9, improving, electrolytes are within normal limits B1 is 19 creatinine 0.77, LDH today is slightly improved and is down to 1061, and CRP is 4.5. Patient's c-ANCA and p-ANCA levels were within normal limits. Calcitonin level was negative at 0.16, currently continues on Decadron 6 mg twice daily, Lovenox 40 mg daily, and dapsone 100 mg twice daily. On 03/06/2021 patient seen in follow-up on medical surgical floor. Patient is awake and alert, she is up in the recliner, she states overall she is feeling much better, coughing less, her appetite is improving. She still requiring high flow oxygen at 15 L and her pulse ox ranges between 87-90%, she does desat with exertion. States she feels more energetic, she has been trying to stay active, she's had no fever or chills, vital signs have been stable. Today's labs are still pending, yesterday's d-dimer of 0.90, we will obtain lower extremity Dopplers, pro-calcitonin level was negative, her c-ANCA and p-ANCA titers were low, progesterone level was low, patient currently remains on Decadron 6 mg twice daily, she is on Mucinex, she is on albuterol inhaler, and she is on COVID-19 vitamins. Lovenox at 40 mg every 24 hours. On 03/07/2021 patient seen in follow-up on medical surgical floor. Today she is on 15 L per high flow nasal cannula, and 100% nonrebreather mask, her pulse ox is 90%. When she denies any worsening dyspnea, she is breathing quite comfortably, she's been active, get not to the bathroom, tolerating activity very well although she does desaturate with activity she does not feel dyspneic, no chest pain, lung sounds reveal bibasilar crackles, no rhonchi or wheezing, no fever or chills, vital signs have been stable. CTA chest showed no evidence of pulmonary embolism and lower extremity Dopplers were negative for DVT. Today's d-dimer is 0.94, electrolytes and renal profile within normal limits, pro- calcitonin level was negative at 0.05, inflammatory markers were improving on yesterday's labs. Follow up Labs are pending for today. On 03/08/2021 patient seen in follow-up on medical surgical floor. She still on 15 L of oxygen per high flow nasal cannula, she is not wearing a nonrebreather mask most of the time, her pulse ox is 88-91%, clinically she states she is breathing quite comfortably, no dyspnea, no tachypnea, no use of accessory muscles of breathing, she is afebrile, hemodynamically she appears stable she has no specific complaints other than dryness of nasal passages. Mild cough, no phlegm production, appetite is fair, no nausea vomiting or diarrhea. On 03/09/2021 patient seen in follow-up on medical surgical floor. She continues on 15 L per high flow nasal cannula and 100% nonrebreather mask, and her pulse ox is around 92%, she does desat with exertion, tolerates activity very well, no tachypnea, no use of accessory muscles of breathing, she is breathing comfortably, she is currently sitting up in the recliner, in no acute distress, lung sounds reveal bibasilar crackles, no rhonchi or wheezing, no complaint of chest pain, she's been afebrile overnight, she's had no acute events. She is tolerating oral intake. No nausea vomiting or diarrhea, she continues on Decadron, Baricitinib, COVID 19 vitamins, and Lovenox 40 SQ daily On 03/12/2001 patient seen in follow-up on medical surgical floor, she sits up in a recliner, in no acute distress, she is currently just wearing the 15 L per high flow nasal cannula, her pulse ox is 90%, occasionally she has to apply the nonrebreather mask, however she only used it once last night. She is breathing comfortably, she denies any worsening dyspnea, she remains on Baricitinib, and Decadron 6 blood gram twice daily, she is on Lovenox and multivitamins, today's labs have been reviewed, her white blood cell count is 10.8, hemoglobin is 11.6, d-dimer is slightly improved and is down to 1, electrolytes and renal profile are unremarkable, her LDH has increased and is up to 1430, and CRP is 1.7. She denies any specific complaints, she is awake and alert, oriented 3, lung sounds are clear to auscultation, no rales auscultated. She had no fever or chills, no chest discomfort. On 03/13/2021 patient seen in follow-up on medical surgical floor, currently on 15 L high flow nasal cannula, intermittently she has been requiring nonrebreather mask as well for episodes of desaturation and increased shortness of breath. At rest she seems fairly comfortable, does not appear to be in any acute distress, she is afebrile, hemodynamically she is stable. Chest x-ray showing bilateral multifocal mid to lower lung opacities. No significant change. Today's labs have been reviewed, d-dimer is improving and is down to 0.98, LDH is improving and is down to 532, CRP is 1.1. In terms of therapy patient remains on decadron 6 mf twice daily, Baricitinib, multivitamins, she is on prophylactic Lovenox. Tolerating oral intake, no nausea vomiting or diarrhea. On 03/17/2021 patient no follow-up on medical surgical floor. She is sitting up in the recliner, in no acute distress, she is on 15 L of oxygen pulse ox is 90%, yesterday she had a nosebleed and that she was mostly wearing a nonrebreather mask, today the nosebleed had stopped, and she is back on high flow nasal cannula, with no recurrence of nose bleeding, she is awake and alert, oriented 3, no worsening dyspnea, she has been pronating herself twice a day, tolerating it well. She continues on Baricitinib, she continues on Decadron 6 mg every 12 hours, and Lovenox 40 mg daily. On 03/19/2021 patient seen in follow-up on medical surgical floor, she is currently down to 11 L per high flow nasal cannula, and she has not used nonrebreather mask to supplement her FiO2 needs, she is breathing very comfortably, her pulse ox is 89-90%, she desaturates with speaking and exertion however she is able to recover would rest, and does not appear to be any more dyspneic during those episodes. Occasional cough, no phlegm production, on today's exam her lung sounds are clear, no crackles were appreciated. No wheezing or rhonchi, no chest pain. Patient on Decadron, she has completed her course of Baricitinib, continues on Lovenox. Today's labs have been reviewed, white blood cell count is 8.0, hemoglobin is 9.7, d-dimer is stable at 0.98, electrolytes and renal profile were unremarkable, her LDH on today's labs is 1698, slightly increased from the previous value on yesterday's labs, CRP is less than 0.5. Objective - Vital Signs Vital signs: Vital Signs Temp 98.6 F 03/19/21 10:00 Pulse 80 03/19/21 10:00 Resp 22 03/19/21 10:00 BP 103/66 03/19/21 10:00 Pulse Ox 89 L 03/19/21 10:00 Intake & Output 03/18/21 03/19/21 03/19/21 18:59 06:59 18:59 Intake Total 540 Balance 540 Intake: Oral 540 Other: Voiding Method Toilet # Voids 2 2 1 - Exam GENERAL EXAM: Alert, very pleasant, 66-year-old white female, resting in bed, currently on 11 L of oxygen per high flow nasal cannula and with a pulse ox of 90% comfortable in no apparent distress. HEAD: Normocephalic/atraumatic. EYES: Normal reaction of pupils, equal size. Conjunctiva pink, sclera white. NOSE: Clear with pink turbinates. THROAT: No erythema or exudates. NECK: No masses, no JVD, no thyroid enlargement, no adenopathy. CHEST: No chest wall deformity. Symmetrical expansion. LUNGS: Equal air entry with bibasilar crackles CVS: Regular rate and rhythm, normal S1 and S2, no gallops, no murmurs, no rubs ABDOMEN: Soft, nontender. No hepatosplenomegaly, normal bowel sounds, no guarding or rigidity. EXTREMITIES: No clubbing, no edema, no cyanosis, 2+ pulses and upper and lower extremities. MUSCULOSKELETAL: Muscle strength and tone normal. SPINE: No scoliosis or deformity SKIN: No rashes CENTRAL NERVOUS SYSTEM: Alert and oriented -3. No focal deficits, tone is normal in all 4 extremities. PSYCHIATRIC: Alert and oriented -3. Appropriate affect. Intact judgment and insight. - Labs CBC & Chem 7: 03/19/21 07:09 03/19/21 07:09 Labs: Abnormal Lab Results - Last 24 Hours (Table) 03/19/21 03/19/21 03/19/21 Range/Units 07:09 07:09 07:09 RBC 2.91 L (3.80-5.40) m/uL Hgb 9.7 L (11.4-16.0) gm/dL Hct 28.5 L (34.0-46.0) % RDW 19.2 H (11.5-15.5) % Myelocytes # (Manual) 0.08 H (0) k/uL Nucleated RBCs 8 H (0-0) /100 WBC D-Dimer 0.98 H (<0.60) mg/L FEU BUN 27 H (7-17) mg/dL Total Bilirubin 1.7 H (0.2-1.3) mg/dL Unconjugated Bilirubin 1.4 H (0.0-1.1) mg/dL AST 41 H (14-36) U/L ALT 82 H (4-34) U/L Lactate Dehydrogenase 1698 H (313-618) U/L Total Protein 5.5 L (6.3-8.2) g/dL Albumin 3.0 L (3.5-5.0) g/dL Assessment and Plan Plan: Assessment: #1. Acute COVID-19 related pneumonia with bilateral pulmonary infiltrates secondary dyspnea. Patient is vaccinated individual and completed her vaccination back in May and June 2020. Patient presented with less than a week with the symptoms, she has completed a course of Remdesivir, currently remains on Decadron 6 mg twice daily, and dapsone 100 mg twice daily. Started on Baricitinib on 03/06/2021, completed on 03/19/2021 #2. Acute hypoxic respiratory failure secondary to the above, improving and patient is currently down to 11 L per high flow nasal cannula #3. History of leukocytoclastic vasculitis, confirmed by skin biopsy and patient is on a combination of prednisone and dapsone on an outpatient basis and patient has been seen significant improvement in her skin lesions #4. History of cerebellar CVA #5. History of abnormal Pap smear #6. Osteoarthritis #7. Nosebleed, related to high concentration oxygen, prophylactic Lovenox, resolved Plan: No worsening dyspnea, vital signs are stable, FiO2 is currently down to 11 L Completed Baricitinib continues on Decadron, prophylactic Lovenox Today's labs have been reviewed, LDH slightly blunted compared to yesterday, Overall clinically improving increase activity as tolerated discharge home once Fio2 is less than 5 l/min I performed a history & physical examination of the patient and discussed their management with my nurse practitioner, Adalgisa Esparza. I reviewed the nurse practitioner's note and agree with the documented findings and plan of care. Lung sounds are positive for bibasilar crackles throughout the lung mckenna. The findings and the impression was discussed with the patient. I attest to the documentation by the nurse practitioner. Time with Patient: Less than 30
[2021-03-19] MEDS: ENOXAPARIN 40 MG/0.4 ML SYRINGE SQ SCH (17:21)
--- NOTE | 2021-03-19 18:10 | P.PN ---
<Marquez Sam - Last Filed: 03/19/21 18:05> Subjective Progress Note Date: 03/19/21 Hospital course: Patient is a very pleasant 66-year-old femalewith a past medical history of TIA and vasculitis. She presented to the emergency department on 02/28/21 with a chief complaint of shortness of breath and cough. Patient was Found to be hypoxic 88% on room air, tachycardic with heart rate of 103 bpm, and febrile with elevated temp of 101.1F. .Covid 19 PCR resulted positive and patient was diagnosed with Covid 19 pneumonia. X-ray correlating with pneumonia. EKG revealed sinus tachycardia at 101 bpm with no noted T-wave or ST abnormalities. patient was admitted under our services with consultation to pulmonary. Patient being treated with high-dose oxygen, steroids, vitamin C, vitamin D, zinc, and completed course of Remdesivir. Chest CTA negative for PE but did reveal diffuse bilateral groundglass opacities correlating for multifocal pneumonia or ARDS. Dopplers bilateral lower extremities negative for DVT. Physical exam: Patient seen and fully evaluated at the bedside this morning. She was sitting up in chair at bedside. Currently on 12 L O2 via nasal cannula and maintaining SpO2 of 89-90% comfortably. Patient reports continued dyspnea with exertion but states she continues to have "a lot of energy" and when she does get out of breath she recovers quickly. Patient states that she has been using her incentive spirometer. She denies having any headache, lightheadedness, dizziness, chest pain, palpitations, or experiencing any numbness/tingling/weakness in her extremities. Inflammatory markers reveal LDH of 1698, CRP less than 0.5, and d-dimer of 0.98. Patient to continue treatment with Baricitinib, Decadron, vitamin C, vitamin D, zinc, and DVT prophylaxis with Lovenox. Vital signs reviewed and stable. General: Nontoxic, no distress and appears stated age. Derm: Skin warm and dry, normal coloration for ethnicity. Head: Atraumatic, normocephalic and symmetric. Eyes: EOMs intact, no lid lag, and anicteric sclera Mouth: no lip lesions, mucus membranes moist Cardiovascular: regular rate and rhythm with normal S1S2, no murmur, positive posterior tibial pulses bilaterally, and cap refill < 2 seconds. Lungs: Respirations even, regular, and unlabored on 15 L high flow nasal cannula with SpO2 of 90%. Lungs with bilateral lower lobe crackles. No rhonchi, wheezes, or rales and no accessory muscle usage. No conversational dyspnea noted. Abdominal: soft, nontender to palpation, no guarding, no appreciable organomegaly Ext: ROM intact. No gross muscle atrophy, no edema, no contractures Neuro: Speech clear, face symmetrical and CN II-XII grossly intact with no noted focal neuro deficits Psych: Alert and oriented to person, place, time, and situation. Appropriate and pleasant affect. Assessment and Plan of Care: Acute respiratory failure with hypoxia secondary to COVID 19 pneumonia in vaccinated individual. -Oxygenation to be administered and titrated as needed to maintain SPO2 equal to or greater than 90% -Telemetry monitoring. -Continue trending inflammatory markers -Encourage Incentive Spirometry 10-15x hourly while awake -Steroids: Decadron 6 mg daily -Continue vitamin C, Vitamin D, and Zinc. -Started patient on Baricitinib 03/06/21, today is day 14 -Pulmonology following, appreciate further recommendations. -DVT prophylaxis with Lovenox. -Strict Droplet plus Contact precautions -Pt completed course of Remdesivir History of leukocytoclastic vasculitis -Continue Dapsone 100 mg twice daily and continue to follow up outpatient with vascular surgery upon discharge. CODE STATUS: Full code DVT prophylaxis: Lovenox Discussed with: Patient and RN Anticipated discharge date: Clinical course to determine Anticipated discharge place: Home A total of 40 minutes was spent on the care of this complex patient more than 50% of the time was spent in counseling and care coordination. Objective - Vital Signs Vital signs: Vital Signs Temp 98.6 F 03/19/21 10:00 Pulse 80 03/19/21 10:00 Resp 22 03/19/21 10:00 BP 103/66 03/19/21 10:00 Pulse Ox 89 L 03/19/21 10:00 Intake & Output 03/18/21 03/19/21 03/19/21 18:59 06:59 18:59 Intake Total 540 Balance 540 Intake: Oral 540 Other: Voiding Method Toilet # Voids 2 2 1 - Labs CBC & Chem 7: 03/19/21 07:09 03/19/21 07:09 Labs: Abnormal Lab Results - Last 24 Hours (Table) 03/19/21 03/19/2121 Range/Units 07:09 07:09 07:09 RBC 2.91 L (3.80-5.40) m/uL Hgb 9.7 L (11.4-16.0) gm/dL Hct 28.5 L (34.0-46.0) % RDW 19.2 H (11.5-15.5) % D-Dimer 0.98 H (<0.60) mg/L FEU BUN 27 H (7-17) mg/dL Total Bilirubin 1.7 H (0.2-1.3) mg/dL Unconjugated Bilirubin 1.4 H (0.0-1.1) mg/dL AST 41 H (14-36) U/L ALT 82 H (4-34) U/L Lactate Dehydrogenase 1698 H (313-618) U/L Total Protein 5.5 L (6.3-8.2) g/dL Albumin 3.0 L (3.5-5.0) g/dL <Freya Best - Last Filed: 03/19/21 22:15> Subjective Progress Note Date: 03/19/21 I agree with the documented assessment and plan by our JOANN, Marquez Sam, as detailed in the note with the following changes: none. Objective - Vital Signs Vital signs: Vital Signs Temp 98.4 F 03/19/21 18:00 Pulse 101 H 03/19/21 20:00 Resp 20 03/19/21 20:00 BP 106/68 03/19/21 18:00 Pulse Ox 86 L 03/19/21 18:00 Intake & Output 03/19/21 03/19/21 03/20/21 06:59 18:59 06:59 Other: Voiding Method Toilet Toilet # Voids 2 1 1 - Labs CBC & Chem 7: 03/19/21 07:09 03/19/21 07:09 Labs: Abnormal Lab Results - Last 24 Hours (Table) 03/19/21 03/19/21 03/19/21 Range/Units 07:09 07:09 07:09 RBC 2.91 L (3.80-5.40) m/uL Hgb 9.7 L (11.4-16.0) gm/dL Hct 28.5 L (34.0-46.0) % RDW 19.2 H (11.5-15.5) % Myelocytes # (Manual) 0.08 H (0) k/uL Nucleated RBCs 8 H (0-0) /100 WBC D-Dimer 0.98 H (<0.60) mg/L FEU BUN 27 H (7-17) mg/dL Total Bilirubin 1.7 H (0.2-1.3) mg/dL Unconjugated Bilirubin 1.4 H (0.0-1.1) mg/dL AST 41 H (14-36) U/L ALT 82 H (4-34) U/L Lactate Dehydrogenase 1698 H (313-618) U/L Total Protein 5.5 L (6.3-8.2) g/dL Albumin 3.0 L (3.5-5.0) g/dL
[2021-03-20] MEDS: guaiFENesin 600 MG TABLET.ER PO SCH ×2 (05:19→17:07)
[2021-03-20] MEDS: DEXAMETHASONE SOD PHOSPHATE 10 MG/ML 1 ML VIAL IVP SCH (08:05)
[2021-03-20] MEDS: CHOLECALCIFEROL 25 MCG (1000 IU) TABLET PO SCH (08:05)
[2021-03-20] MEDS: PANTOPRAZOLE 40 MG TABLET PO SCH (08:05)
[2021-03-20] MEDS: ZINC SULFATE 220 MG CAP PO SCH (08:05)
[2021-03-20] MEDS: ASCORBIC ACID 500 MG TAB PO SCH (08:05)
[2021-03-20] MEDS: DAPSONE 25 MG TAB PO SCH ×2 (08:07→19:50)
[2021-03-20] MEDS: ALBUTEROL HFA INHALER INHALATION PRN (09:44)
--- NOTE | 2021-03-20 14:01 | P.PN ---
Subjective Progress Note Date: 03/20/21 Principal diagnosis: Dyspnea, hypoxia On 03/05/2021 patient is seen in follow-up on medical surgical floor. She is resting comfortably in bed, states she is breathing better, she still on high flow oxygen at 15 L, her pulse ox is 90%. Afebrile, hemodynamically she stable, no acute distress, yesterday his chest x-ray has been reviewed showing worsening patchy bilateral lung infiltrates compatible with atypical pneumonia. Today's labs have been reviewed, white blood cell count is 7.11, hemoglobin is 12.7, d- dimer was 0.9, improving, electrolytes are within normal limits B1 is 19 creatinine 0.77, LDH today is slightly improved and is down to 1061, and CRP is 4.5. Patient's c-ANCA and p-ANCA levels were within normal limits. Calcitonin level was negative at 0.16, currently continues on Decadron 6 mg twice daily, Lovenox 40 mg daily, and dapsone 100 mg twice daily. On 03/06/2021 patient seen in follow-up on medical surgical floor. Patient is awake and alert, she is up in the recliner, she states overall she is feeling much better, coughing less, her appetite is improving. She still requiring high flow oxygen at 15 L and her pulse ox ranges between 87-90%, she does desat with exertion. States she feels more energetic, she has been trying to stay active, she's had no fever or chills, vital signs have been stable. Today's labs are still pending, yesterday's d-dimer of 0.90, we will obtain lower extremity Dopplers, pro-calcitonin level was negative, her c-ANCA and p-ANCA titers were low, progesterone level was low, patient currently remains on Decadron 6 mg twice daily, she is on Mucinex, she is on albuterol inhaler, and she is on COVID-19 vitamins. Lovenox at 40 mg every 24 hours. On 03/07/2021 patient seen in follow-up on medical surgical floor. Today she is on 15 L per high flow nasal cannula, and 100% nonrebreather mask, her pulse ox is 90%. When she denies any worsening dyspnea, she is breathing quite comfortably, she's been active, get not to the bathroom, tolerating activity very well although she does desaturate with activity she does not feel dyspneic, no chest pain, lung sounds reveal bibasilar crackles, no rhonchi or wheezing, no fever or chills, vital signs have been stable. CTA chest showed no evidence of pulmonary embolism and lower extremity Dopplers were negative for DVT. Today's d-dimer is 0.94, electrolytes and renal profile within normal limits, pro- calcitonin level was negative at 0.05, inflammatory markers were improving on yesterday's labs. Follow up Labs are pending for today. On 03/08/2021 patient seen in follow-up on medical surgical floor. She still on 15 L of oxygen per high flow nasal cannula, she is not wearing a nonrebreather mask most of the time, her pulse ox is 88-91%, clinically she states she is breathing quite comfortably, no dyspnea, no tachypnea, no use of accessory muscles of breathing, she is afebrile, hemodynamically she appears stable she has no specific complaints other than dryness of nasal passages. Mild cough, no phlegm production, appetite is fair, no nausea vomiting or diarrhea. On 03/09/2021 patient seen in follow-up on medical surgical floor. She continues on 15 L per high flow nasal cannula and 100% nonrebreather mask, and her pulse ox is around 92%, she does desat with exertion, tolerates activity very well, no tachypnea, no use of accessory muscles of breathing, she is breathing comfortably, she is currently sitting up in the recliner, in no acute distress, lung sounds reveal bibasilar crackles, no rhonchi or wheezing, no complaint of chest pain, she's been afebrile overnight, she's had no acute events. She is tolerating oral intake. No nausea vomiting or diarrhea, she continues on Decadron, Baricitinib, COVID 19 vitamins, and Lovenox 40 SQ daily On 03/12/2001 patient seen in follow-up on medical surgical floor, she sits up in a recliner, in no acute distress, she is currently just wearing the 15 L per high flow nasal cannula, her pulse ox is 90%, occasionally she has to apply the nonrebreather mask, however she only used it once last night. She is breathing comfortably, she denies any worsening dyspnea, she remains on Baricitinib, and Decadron 6 blood gram twice daily, she is on Lovenox and multivitamins, today's labs have been reviewed, her white blood cell count is 10.8, hemoglobin is 11.6, d-dimer is slightly improved and is down to 1, electrolytes and renal profile are unremarkable, her LDH has increased and is up to 1430, and CRP is 1.7. She denies any specific complaints, she is awake and alert, oriented 3, lung sounds are clear to auscultation, no rales auscultated. She had no fever or chills, no chest discomfort. On 03/13/2021 patient seen in follow-up on medical surgical floor, currently on 15 L high flow nasal cannula, intermittently she has been requiring nonrebreather mask as well for episodes of desaturation and increased shortness of breath. At rest she seems fairly comfortable, does not appear to be in any acute distress, she is afebrile, hemodynamically she is stable. Chest x-ray showing bilateral multifocal mid to lower lung opacities. No significant change. Today's labs have been reviewed, d-dimer is improving and is down to 0.98, LDH is improving and is down to 532, CRP is 1.1. In terms of therapy patient remains on decadron 6 mf twice daily, Baricitinib, multivitamins, she is on prophylactic Lovenox. Tolerating oral intake, no nausea vomiting or diarrhea. On 03/17/2021 patient no follow-up on medical surgical floor. She is sitting up in the recliner, in no acute distress, she is on 15 L of oxygen pulse ox is 90%, yesterday she had a nosebleed and that she was mostly wearing a nonrebreather mask, today the nosebleed had stopped, and she is back on high flow nasal cannula, with no recurrence of nose bleeding, she is awake and alert, oriented 3, no worsening dyspnea, she has been pronating herself twice a day, tolerating it well. She continues on Baricitinib, she continues on Decadron 6 mg every 12 hours, and Lovenox 40 mg daily. On 03/19/2021 patient seen in follow-up on medical surgical floor, she is currently down to 11 L per high flow nasal cannula, and she has not used nonrebreather mask to supplement her FiO2 needs, she is breathing very comfortably, her pulse ox is 89-90%, she desaturates with speaking and exertion however she is able to recover would rest, and does not appear to be any more dyspneic during those episodes. Occasional cough, no phlegm production, on today's exam her lung sounds are clear, no crackles were appreciated. No wheezing or rhonchi, no chest pain. Patient on Decadron, she has completed her course of Baricitinib, continues on Lovenox. Today's labs have been reviewed, white blood cell count is 8.0, hemoglobin is 9.7, d-dimer is stable at 0.98, electrolytes and renal profile were unremarkable, her LDH on today's labs is 1698, slightly increased from the previous value on yesterday's labs, CRP is less than 0.5. On 03/20/2021 patient seen in follow-up on medical surgical floor. Currently down to 10 L of oxygen toxicity 90%, she's been afebrile, hemodynamically she is stable, she does get mildly short of breath with exertion, but tolerates activity well, she's been ambulating in the room and going into the bathroom, become slightly tachycardic, but denies any chest pain, no cough, lung sounds are clear. Nausea vomiting or diarrhea, no abdominal pain, patient is tolerating oral intake, her appetite is fair. She was retested for COVID-19 yesterday and was found to be negative. Objective - Vital Signs Vital signs: Vital Signs Temp 98.5 F 03/20/21 10:24 Pulse 79 03/20/21 10:24 Resp 18 03/20/21 10:24 BP 103/68 03/20/21 10:24 Pulse Ox 90 L 03/20/21 10:24 Intake & Output 03/19/21 03/20/21 03/20/21 18:59 06:59 18:59 Other: Voiding Method Toilet # Voids 1 1 2 - Exam GENERAL EXAM: Alert, very pleasant, 66-year-old white female, resting in bed, currently on 10 L of oxygen per high flow nasal cannula and with a pulse ox of 90% comfortable in no apparent distress. HEAD: Normocephalic/atraumatic. EYES: Normal reaction of pupils, equal size. Conjunctiva pink, sclera white. NOSE: Clear with pink turbinates. THROAT: No erythema or exudates. NECK: No masses, no JVD, no thyroid enlargement, no adenopathy. CHEST: No chest wall deformity. Symmetrical expansion. LUNGS: Equal air entry with bibasilar crackles CVS: Regular rate and rhythm, normal S1 and S2, no gallops, no murmurs, no rubs ABDOMEN: Soft, nontender. No hepatosplenomegaly, normal bowel sounds, no guarding or rigidity. EXTREMITIES: No clubbing, no edema, no cyanosis, 2+ pulses and upper and lower extremities. MUSCULOSKELETAL: Muscle strength and tone normal. SPINE: No scoliosis or deformity SKIN: No rashes CENTRAL NERVOUS SYSTEM: Alert and oriented -3. No focal deficits, tone is normal in all 4 extremities. PSYCHIATRIC: Alert and oriented -3. Appropriate affect. Intact judgment and insight. - Labs CBC & Chem 7: 03/19/21 07:09 03/19/21 07:09 Assessment and Plan Plan: Assessment: #1. Acute COVID-19 related pneumonia with bilateral pulmonary infiltrates secondary dyspnea. Patient is vaccinated individual and completed her vaccination back in May and June 2020. Patient presented with less than a week with the symptoms, she has completed a course of Remdesivir, currently remains on Decadron 6 mg twice daily, and dapsone 100 mg twice daily. Started on Baricitinib on 03/06/2021, completed on 03/19/2021 #2. Acute hypoxic respiratory failure secondary to the above, improving and patient is currently down to 11 L per high flow nasal cannula #3. History of leukocytoclastic vasculitis, confirmed by skin biopsy and patient is on a combination of prednisone and dapsone on an outpatient basis and patient has been seen significant improvement in her skin lesions #4. History of cerebellar CVA #5. History of abnormal Pap smear #6. Osteoarthritis #7. Nosebleed, related to high concentration oxygen, prophylactic Lovenox, resolved Plan: No worsening dyspnea, vital signs are stable, FiO2 is currently down to 10 L Completed Baricitinib continues on Decadron, prophylactic Lovenox Overall continues to clinically improving increase activity as tolerated Remove out of contact precautions, repeat COVID PCR negative May have visitors discharge home once Fio2 is less than 5 l/min I performed a history & physical examination of the patient and discussed their management with my nurse practitioner, Adalgisa Esparza. I reviewed the nurse practitioner's note and agree with the documented findings and plan of care. Lung sounds are positive for bibasilar crackles throughout the lung mckenna. The findings and the impression was discussed with the patient. I attest to the documentation by the nurse practitioner. Time with Patient: Less than 30
--- NOTE | 2021-03-20 16:31 | P.PN ---
<Marquez Sam - Last Filed: 03/20/21 15:47> Subjective Progress Note Date: 03/20/21 Hospital course: Patient is a very pleasant 66-year-old femalewith a past medical history of TIA and vasculitis. She presented to the emergency department on 02/28/21 with a chief complaint of shortness of breath and cough. Patient was Found to be hypoxic 88% on room air, tachycardic with heart rate of 103 bpm, and febrile with elevated temp of 101.1F. .Covid 19 PCR resulted positive and patient was diagnosed with Covid 19 pneumonia. X-ray correlating with pneumonia. EKG revealed sinus tachycardia at 101 bpm with no noted T-wave or ST abnormalities. patient was admitted under our services with consultation to pulmonary. Patient being treated with high-dose oxygen, steroids, vitamin C, vitamin D, zinc, and completed course of Remdesivir. Chest CTA negative for PE but did reveal diffuse bilateral groundglass opacities correlating for multifocal pneumonia or ARDS. Dopplers bilateral lower extremities negative for DVT. Physical exam: Patient seen and fully evaluated at the bedside this morning. She was sitting up in chair at bedside. She is down to 10 L O2 via nasal cannula this morning maintaining SpO2 between 89 and 91%. Patient reports feeling well this morning. She reports that she continues to feel full of energy and has been ambulating in her room without reports of difficulties. She states that she does become mildly short of breath if she overexerts herself, but states she is able to get up to restroom or walk to window without any difficulties. Patient continues to deny having any dizziness, lightheadedness, chest pain or palpitations, or experiencing any numbness/tingling/weakness in her extremities. She completed treatment of Baricitinib yesterday. Patient to continue treatment with Decadron, vitamin C, vitamin D, zinc, and DVT prophylaxis with Lovenox. Vital signs reviewed and stable. General: Nontoxic, no distress and appears stated age. Derm: Skin warm and dry, normal coloration for ethnicity. Head: Atraumatic, normocephalic and symmetric. Eyes: EOMs intact, no lid lag, and anicteric sclera Mouth: no lip lesions, mucus membranes moist Cardiovascular: regular rate and rhythm with normal S1S2, no murmur, positive posterior tibial pulses bilaterally, and cap refill < 2 seconds. Lungs: Respirations even, regular, and unlabored on 10 L high flow nasal cannula with SpO2 of 90%. Lungs with very soft bilateral lower lobe crackles. No rhonchi, wheezes, or rales and no accessory muscle usage. No conversational dyspnea noted. Abdominal: soft, nontender to palpation, no guarding, no appreciable organomegaly Ext: ROM intact. No gross muscle atrophy, no edema, no contractures Neuro: Speech clear, face symmetrical and CN II-XII grossly intact with no noted focal neuro deficits Psych: Alert and oriented to person, place, time, and situation. Appropriate and pleasant affect. Assessment and Plan of Care: Acute respiratory failure with hypoxia secondary to COVID 19 pneumonia in vaccinated individual. -Oxygenation to be administered and titrated as needed to maintain SPO2 equal to or greater than 90% -Telemetry monitoring. -Continue trending inflammatory markers -Encourage Incentive Spirometry 10-15x hourly while awake -Steroids: Decadron 6 mg daily -Continue vitamin C, Vitamin D, and Zinc. -Pulmonology following, appreciate further recommendations. -DVT prophylaxis with Lovenox. -Strict Droplet plus Contact precautions -Pt completed course of Remdesivir and Baricitinib History of leukocytoclastic vasculitis -Continue Dapsone 100 mg twice daily and continue to follow up outpatient with vascular surgery upon discharge. CODE STATUS: Full code DVT prophylaxis: Lovenox Discussed with: Patient and RN as well as pt's daughter Mary Ann via telephone. Anticipated discharge date: Clinical course to determine Anticipated discharge place: Home A total of 40 minutes was spent on the care of this complex patient more than 50% of the time was spent in counseling and care coordination. Objective - Vital Signs Vital signs: Vital Signs Temp 98.5 F 03/20/21 10:24 Pulse 79 03/20/21 10:24 Resp 18 03/20/21 10:24 BP 103/68 03/20/21 10:24 Pulse Ox 90 L 03/20/21 10:24 Intake & Output 03/19/21 03/20/21 03/20/21 18:59 06:59 18:59 Other: Voiding Method Toilet # Voids 1 1 2 - Labs CBC & Chem 7: 03/19/21 07:09 03/19/21 07:09 Labs: Abnormal Lab Results - Last 24 Hours (Table) 03/19/21 Range/Units 07:09 Myelocytes # (Manual) 0.08 H (0) k/uL Nucleated RBCs 8 H (0-0) /100 WBC <Freya Best - Last Filed: 03/20/21 18:40> Subjective I reviewed the documentation as provided by the JOANN above, who is the original author of this note. I agree with the documented assessment and plan, with the following changes: None Objective - Vital Signs Vital signs: Vital Signs Temp 98.2 F 03/20/21 18:38 Pulse 76 03/20/21 18:38 Resp 18 03/20/21 18:38 BP 105/66 03/20/21 18:38 Pulse Ox 89 L 03/20/21 18:38 Intake & Output 03/19/21 03/20/21 03/20/21 18:59 06:59 18:59 Weight 106.594 kg Other: Voiding Method Toilet # Voids 1 1 2 - Labs CBC & Chem 7: 03/19/21 07:09 03/19/21 07:09
[2021-03-20] MEDS: ENOXAPARIN 40 MG/0.4 ML SYRINGE SQ SCH (17:07)
[2021-03-21] MEDS: guaiFENesin 600 MG TABLET.ER PO SCH ×2 (05:26→17:05)
[2021-03-21] MEDS: CHOLECALCIFEROL 25 MCG (1000 IU) TABLET PO SCH (07:51)
[2021-03-21] MEDS: ASCORBIC ACID 500 MG TAB PO SCH (07:51)
[2021-03-21] MEDS: ZINC SULFATE 220 MG CAP PO SCH (07:51)
[2021-03-21] MEDS: PANTOPRAZOLE 40 MG TABLET PO SCH (07:51)
[2021-03-21] MEDS: DAPSONE 25 MG TAB PO SCH ×2 (07:52→20:27)
[2021-03-21] MEDS: DEXAMETHASONE SOD PHOSPHATE 10 MG/ML 1 ML VIAL IVP SCH (07:53)
[2021-03-21] MEDS: ALBUTEROL HFA INHALER INHALATION PRN ×3 (07:59→21:31)
[2021-03-21 11:58] LABS: African American GFR (CKD) 103.2 (60.0-200.0); Albumin 3.5 g/dL (3.8-4.9); Albumin/Globulin Ratio 1.94 (1.60-3.17); Anion Gap 11.8 mmol/L (10.00-18.00); BUN/Creat Ratio 30.29 Ratio (12.00-20.00); Blood Urea Nitrogen 21.2 mg/dL (9.0-27.0); C Reactive Protein 2.1 mg/dL (0.00-0.80); Calcium 8.5 mg/dL (8.7-10.3); Carbon Dioxide 26.2 mmol/L (20.0-27.5); Globulin 1.8 g/dL (1.6-3.3); Potassium 3.7 mmol/L (3.5-5.5); Total Bilirubin 1.4 mg/dL (0.30-1.20); Total Protein 5.3 g/dL (6.2-8.2)
[2021-03-21 13:37] LABS: Anisocytosis (M) 2+; Basophils # (A) 0.01 X 10*3/uL (0.00-0.10); Basophils % (A) 0.1 %; Eosinophils # (A) 0.02 X 10*3/uL (0.04-0.35); Eosinophils % (A) 0.3 %; HCT 26.3 % (37.2-46.3); HGB 8.1 g/dL (12.0-15.0); Lymphocytes # (A) 1.05 X 10*3/uL (0.90-5.00); Lymphocytes % (A) 13.3 %; MCH 32.7 pg (27.0-32.0); MCHC 30.8 g/dL (32.0-37.0); Mean Platelet Volume 9.3 fL (9.5-12.2); Monocytes # (A) 0.37 X 10*3/uL (0.20-1.00); Monocytes % (A) 4.7 %; Neutrophils # (A) 6.12 X 10*3/uL (1.80-7.70); Neutrophils % (A) 77.4 %; Platelet Count 207 X 10*3/uL (140-440); RBC 2.48 X 10*6/uL (4.10-5.20); RDW 22.1 % (11.5-14.5)
--- NOTE | 2021-03-21 14:45 | P.PN ---
Subjective Progress Note Date: 03/21/21 Principal diagnosis: Dyspnea, hypoxia On 03/05/2021 patient is seen in follow-up on medical surgical floor. She is resting comfortably in bed, states she is breathing better, she still on high flow oxygen at 15 L, her pulse ox is 90%. Afebrile, hemodynamically she stable, no acute distress, yesterday his chest x-ray has been reviewed showing worsening patchy bilateral lung infiltrates compatible with atypical pneumonia. Today's labs have been reviewed, white blood cell count is 7.11, hemoglobin is 12.7, d- dimer was 0.9, improving, electrolytes are within normal limits B1 is 19 creatinine 0.77, LDH today is slightly improved and is down to 1061, and CRP is 4.5. Patient's c-ANCA and p-ANCA levels were within normal limits. Calcitonin level was negative at 0.16, currently continues on Decadron 6 mg twice daily, Lovenox 40 mg daily, and dapsone 100 mg twice daily. On 03/06/2021 patient seen in follow-up on medical surgical floor. Patient is awake and alert, she is up in the recliner, she states overall she is feeling much better, coughing less, her appetite is improving. She still requiring high flow oxygen at 15 L and her pulse ox ranges between 87-90%, she does desat with exertion. States she feels more energetic, she has been trying to stay active, she's had no fever or chills, vital signs have been stable. Today's labs are still pending, yesterday's d-dimer of 0.90, we will obtain lower extremity Dopplers, pro-calcitonin level was negative, her c-ANCA and p-ANCA titers were low, progesterone level was low, patient currently remains on Decadron 6 mg twice daily, she is on Mucinex, she is on albuterol inhaler, and she is on COVID-19 vitamins. Lovenox at 40 mg every 24 hours. On 03/07/2021 patient seen in follow-up on medical surgical floor. Today she is on 15 L per high flow nasal cannula, and 100% nonrebreather mask, her pulse ox is 90%. When she denies any worsening dyspnea, she is breathing quite comfortably, she's been active, get not to the bathroom, tolerating activity very well although she does desaturate with activity she does not feel dyspneic, no chest pain, lung sounds reveal bibasilar crackles, no rhonchi or wheezing, no fever or chills, vital signs have been stable. CTA chest showed no evidence of pulmonary embolism and lower extremity Dopplers were negative for DVT. Today's d-dimer is 0.94, electrolytes and renal profile within normal limits, pro- calcitonin level was negative at 0.05, inflammatory markers were improving on yesterday's labs. Follow up Labs are pending for today. On 03/08/2021 patient seen in follow-up on medical surgical floor. She still on 15 L of oxygen per high flow nasal cannula, she is not wearing a nonrebreather mask most of the time, her pulse ox is 88-91%, clinically she states she is breathing quite comfortably, no dyspnea, no tachypnea, no use of accessory muscles of breathing, she is afebrile, hemodynamically she appears stable she has no specific complaints other than dryness of nasal passages. Mild cough, no phlegm production, appetite is fair, no nausea vomiting or diarrhea. On 03/09/2021 patient seen in follow-up on medical surgical floor. She continues on 15 L per high flow nasal cannula and 100% nonrebreather mask, and her pulse ox is around 92%, she does desat with exertion, tolerates activity very well, no tachypnea, no use of accessory muscles of breathing, she is breathing comfortably, she is currently sitting up in the recliner, in no acute distress, lung sounds reveal bibasilar crackles, no rhonchi or wheezing, no complaint of chest pain, she's been afebrile overnight, she's had no acute events. She is tolerating oral intake. No nausea vomiting or diarrhea, she continues on Decadron, Baricitinib, COVID 19 vitamins, and Lovenox 40 SQ daily On 03/12/2001 patient seen in follow-up on medical surgical floor, she sits up in a recliner, in no acute distress, she is currently just wearing the 15 L per high flow nasal cannula, her pulse ox is 90%, occasionally she has to apply the nonrebreather mask, however she only used it once last night. She is breathing comfortably, she denies any worsening dyspnea, she remains on Baricitinib, and Decadron 6 blood gram twice daily, she is on Lovenox and multivitamins, today's labs have been reviewed, her white blood cell count is 10.8, hemoglobin is 11.6, d-dimer is slightly improved and is down to 1, electrolytes and renal profile are unremarkable, her LDH has increased and is up to 1430, and CRP is 1.7. She denies any specific complaints, she is awake and alert, oriented 3, lung sounds are clear to auscultation, no rales auscultated. She had no fever or chills, no chest discomfort. On 03/13/2021 patient seen in follow-up on medical surgical floor, currently on 15 L high flow nasal cannula, intermittently she has been requiring nonrebreather mask as well for episodes of desaturation and increased shortness of breath. At rest she seems fairly comfortable, does not appear to be in any acute distress, she is afebrile, hemodynamically she is stable. Chest x-ray showing bilateral multifocal mid to lower lung opacities. No significant change. Today's labs have been reviewed, d-dimer is improving and is down to 0.98, LDH is improving and is down to 532, CRP is 1.1. In terms of therapy patient remains on decadron 6 mf twice daily, Baricitinib, multivitamins, she is on prophylactic Lovenox. Tolerating oral intake, no nausea vomiting or diarrhea. On 03/17/2021 patient no follow-up on medical surgical floor. She is sitting up in the recliner, in no acute distress, she is on 15 L of oxygen pulse ox is 90%, yesterday she had a nosebleed and that she was mostly wearing a nonrebreather mask, today the nosebleed had stopped, and she is back on high flow nasal cannula, with no recurrence of nose bleeding, she is awake and alert, oriented 3, no worsening dyspnea, she has been pronating herself twice a day, tolerating it well. She continues on Baricitinib, she continues on Decadron 6 mg every 12 hours, and Lovenox 40 mg daily. On 03/19/2021 patient seen in follow-up on medical surgical floor, she is currently down to 11 L per high flow nasal cannula, and she has not used nonrebreather mask to supplement her FiO2 needs, she is breathing very comfortably, her pulse ox is 89-90%, she desaturates with speaking and exertion however she is able to recover would rest, and does not appear to be any more dyspneic during those episodes. Occasional cough, no phlegm production, on today's exam her lung sounds are clear, no crackles were appreciated. No wheezing or rhonchi, no chest pain. Patient on Decadron, she has completed her course of Baricitinib, continues on Lovenox. Today's labs have been reviewed, white blood cell count is 8.0, hemoglobin is 9.7, d-dimer is stable at 0.98, electrolytes and renal profile were unremarkable, her LDH on today's labs is 1698, slightly increased from the previous value on yesterday's labs, CRP is less than 0.5. On 03/20/2021 patient seen in follow-up on medical surgical floor. Currently down to 10 L of oxygen toxicity 90%, she's been afebrile, hemodynamically she is stable, she does get mildly short of breath with exertion, but tolerates activity well, she's been ambulating in the room and going into the bathroom, become slightly tachycardic, but denies any chest pain, no cough, lung sounds are clear. Nausea vomiting or diarrhea, no abdominal pain, patient is tolerating oral intake, her appetite is fair. She was retested for COVID-19 yesterday and was found to be negative. Today's exam patient seen in follow-up on 03/21/2021. She is currently on a 10 L of oxygen and her pulse ox is 90%, she has completed her course of Baricitinib. Douglas on Decadron 6 mg daily, she is on COVID-19 vitamins vitamin C, vitamin D, and zinc. Clinically she looks stable, no worsening dyspnea, she does desaturate with conversation and with exertion although she remains asymptomatic during those times. Afebrile, hemodynamically stable. Today's labs have been reviewed, cell count is 7.9, hemoglobin is 8.1, d-dimer is 0.95, electrodes and renal profile are unremarkable, her inflammatory markers are improving and LDH is down to 673 and CRP is currently 2.1. No new chest x-ray today. Appetite is fair, no nausea vomiting diarrhea, no abdominal pain. Objective - Vital Signs Vital signs: Vital Signs Temp 98.9 F 03/21/21 14:23 Pulse 84 03/21/21 14:23 Resp 18 03/21/21 14:23 BP 127/70 03/21/21 14:23 Pulse Ox 90 L 03/21/21 14:23 Intake & Output 03/20/21 03/21/21 03/21/21 18:59 06:59 18:59 Weight 106.594 kg Other: Voiding Method Toilet Toilet # Voids 2 5 # Bowel Movements 3 - Exam GENERAL EXAM: Alert, very pleasant, 66-year-old white female, resting in bed, currently on 10 L of oxygen per high flow nasal cannula and with a pulse ox of 90% comfortable in no apparent distress. HEAD: Normocephalic/atraumatic. EYES: Normal reaction of pupils, equal size. Conjunctiva pink, sclera white. NOSE: Clear with pink turbinates. THROAT: No erythema or exudates. NECK: No masses, no JVD, no thyroid enlargement, no adenopathy. CHEST: No chest wall deformity. Symmetrical expansion. LUNGS: Equal air entry with bibasilar crackles CVS: Regular rate and rhythm, normal S1 and S2, no gallops, no murmurs, no rubs ABDOMEN: Soft, nontender. No hepatosplenomegaly, normal bowel sounds, no guarding or rigidity. EXTREMITIES: No clubbing, no edema, no cyanosis, 2+ pulses and upper and lower extremities. MUSCULOSKELETAL: Muscle strength and tone normal. SPINE: No scoliosis or deformity SKIN: No rashes CENTRAL NERVOUS SYSTEM: Alert and oriented -3. No focal deficits, tone is normal in all 4 extremities. PSYCHIATRIC: Alert and oriented -3. Appropriate affect. Intact judgment and insight. - Labs CBC & Chem 7: 03/21/21 06:25 03/21/21 06:25 Labs: Abnormal Lab Results - Last 24 Hours (Table) 03/21/21 03/21/21 03/21/21 Range/Units 06:25 06:25 06:25 RBC 2.48 L (4.10-5.20) X 10*6/uL Hgb 8.1 L (12.0-15.0) g/dL Hct 26.3 L (37.2-46.3) % MCV 106.0 H (80.0-97.0) fL MCH 32.7 H (27.0-32.0) pg MCHC 30.8 L (32.0-37.0) g/dL RDW 22.1 H (11.5-14.5) % MPV 9.3 L (9.5-12.2) fL Absolute Nucleated RBC 1.35 H (0.00-0.00) X 10*3/uL Immature Gran # 0.33 H (0.00-0.04) X 10*3/uL Eosinophils # 0.02 L (0.04-0.35) X 10*3/uL NRBC/100 WBC Diff 17.1 H (0.0-0.0) /100 WBCS D-Dimer 0.95 H (<0.60) mg/L FEU BUN/Creatinine Ratio 30.29 H (12.00-20.00) Ratio Calcium 8.5 L (8.7-10.3) mg/dL Total Bilirubin 1.40 H (0.30-1.20) mg/dL ALT 84 H (8-44) U/L Lactate Dehydrogenase 673 H (120-246) U/L C-Reactive Protein 2.10 H (0.00-0.80) mg/dL Total Protein 5.3 L (6.2-8.2) g/dL Albumin 3.5 L (3.8-4.9) g/dL Assessment and Plan Plan: Assessment: #1. Acute COVID-19 related pneumonia with bilateral pulmonary infiltrates secondary dyspnea. Patient is vaccinated individual and completed her vaccination back in May and June 2020. Patient presented with less than a week with the symptoms, she has completed a course of Remdesivir, currently remains on Decadron 6 mg twice daily, and dapsone 100 mg twice daily. Started on Baricitinib on 03/06/2021, completed on 03/19/2021 #2. Acute hypoxic respiratory failure secondary to the above, improving and patient is currently down to 11 L per high flow nasal cannula #3. History of leukocytoclastic vasculitis, confirmed by skin biopsy and patient is on a combination of prednisone and dapsone on an outpatient basis and patient has been seen significant improvement in her skin lesions #4. History of cerebellar CVA #5. History of abnormal Pap smear #6. Osteoarthritis #7. Nosebleed, related to high concentration oxygen, prophylactic Lovenox, resolved Plan: Clinically no change, still remains on 10 l/min No worsening dyspnea, vital signs are stable, Completed Baricitinib continues on Decadron, prophylactic Lovenox Overall continues to clinically improving increase activity as tolerated discharge home once Fio2 is less than 5 l/min I performed a history & physical examination of the patient and discussed their management with my nurse practitioner, Adalgisa Esparza. I reviewed the nurse practitioner's note and agree with the documented findings and plan of care. Lung sounds are positive for bibasilar crackles throughout the lung mckenna. The findings and the impression was discussed with the patient. I attest to the documentation by the nurse practitioner. Time with Patient: Less than 30
[2021-03-21] MEDS: ENOXAPARIN 40 MG/0.4 ML SYRINGE SQ SCH (17:05)
--- NOTE | 2021-03-21 18:26 | P.PN ---
Subjective Progress Note Date: 03/21/21 Hospital course: Patient is a very pleasant 66-year-old femalewith a past medical history of TIA and vasculitis. She presented to the emergency department on 02/28/21 with a chief complaint of shortness of breath and cough. Patient was Found to be hypoxic 88% on room air, tachycardic with heart rate of 103 bpm, and febrile with elevated temp of 101.1F. .Covid 19 PCR resulted positive and patient was diagnosed with Covid 19 pneumonia. X-ray correlating with pneumonia. EKG revealed sinus tachycardia at 101 bpm with no noted T-wave or ST abnormalities. patient was admitted under our services with consultation to pulmonary. Patient being treated with high-dose oxygen, steroids, vitamin C, vitamin D, zinc, and completed course of Remdesivir. Chest CTA negative for PE but did reveal diffuse bilateral groundglass opacities correlating for multifocal pneumonia or ARDS. Dopplers bilateral lower extremities negative for DVT. Physical exam: Patient seen and fully evaluated at the bedside this morning. She was again sitting up in chair at bedside. She remains on 10 L O2 via nasal cannula with oxygen saturations fluctuating between 87 and 90%. Patient remains positive and continues to report feeling full of energy. She states she continues to be able to get up to the restroom without difficulties. She denies any chest pain, palpitations, or experiencing numbness/tingling/weakness in her extremities. Patient to continue treatment with Decadron, vitamin C, vitamin D, zinc, and DVT prophylaxis with Lovenox. Morning labs revealed slight drop in hemoglobin down to 8.1 from previous 9.7, patient denies any noted leading or bruising we will continue to monitor. Inflammatory markers show d-dimer of 0.95, LDH is 673, and CRP of 2.10. Vital signs reviewed and stable. General: Nontoxic, no distress and appears stated age. Derm: Skin warm and dry, normal coloration for ethnicity. Head: Atraumatic, normocephalic and symmetric. Eyes: EOMs intact, no lid lag, and anicteric sclera Mouth: no lip lesions, mucus membranes moist Cardiovascular: regular rate and rhythm with normal S1S2, no murmur, positive posterior tibial pulses bilaterally, and cap refill < 2 seconds. Lungs: Respirations even, regular, and unlabored on 10 L high flow nasal cannula with SpO2 of 90%. Lungs with very soft bilateral lower lobe crackles. No rhonchi, wheezes, or rales and no accessory muscle usage. No conversational dyspnea noted. Abdominal: soft, nontender to palpation, no guarding, no appreciable organome juan Ext: ROM intact. No gross muscle atrophy, no edema, no contractures Neuro: Speech clear, face symmetrical and CN II-XII grossly intact with no noted focal neuro deficits Psych: Alert and oriented to person, place, time, and situation. Appropriate and pleasant affect. Assessment and Plan of Care: Acute respiratory failure with hypoxia secondary to COVID 19 pneumonia in vaccinated individual. -Oxygenation to be administered and titrated as needed to maintain SPO2 equal to or greater than 90% -Telemetry monitoring. -Continue trending inflammatory markers -Encourage Incentive Spirometry 10-15x hourly while awake -Steroids: Decadron 6 mg daily -Continue vitamin C, Vitamin D, and Zinc. -Pulmonology following, appreciate further recommendations. -DVT prophylaxis with Lovenox. -Strict Droplet plus Contact precautions -Pt completed course of Remdesivir and Baricitinib History of leukocytoclastic vasculitis -Continue Dapsone 100 mg twice daily and continue to follow up outpatient with vascular surgery upon discharge. CODE STATUS: Full code DVT prophylaxis: Lovenox Discussed with: Patient and RN Anticipated discharge date: Clinical course to determine Anticipated discharge place: Home A total of 40 minutes was spent on the care of this complex patient more than 50% of the time was spent in counseling and care coordination. Objective - Vital Signs Vital signs: Vital Signs Temp 98.2 F 03/21/21 05:30 Pulse 69 03/21/21 05:30 Resp 20 03/21/21 05:30 BP 104/66 03/21/21 05:30 Pulse Ox 86 L 03/21/21 07:59 Intake & Output 03/20/21 03/21/21 03/21/21 18:59 06:59 18:59 Weight 106.594 kg Other: Voiding Method Toilet # Voids 2 5 # Bowel Movements 3 - Labs CBC & Chem 7: 03/21/21 06:25 03/21/21 06:25 Labs: Abnormal Lab Results - Last 24 Hours (Table) 03/21/21 Range/Units 06:25 D-Dimer 0.95 H (<0.60) mg/L FEU
[2021-03-22] MEDS: guaiFENesin 600 MG TABLET.ER PO SCH ×2 (06:38→17:12)
[2021-03-22] MEDS: ASCORBIC ACID 500 MG TAB PO SCH (07:15)
[2021-03-22] MEDS: CHOLECALCIFEROL 25 MCG (1000 IU) TABLET PO SCH (07:16)
[2021-03-22] MEDS: ZINC SULFATE 220 MG CAP PO SCH (07:16)
[2021-03-22] MEDS: PANTOPRAZOLE 40 MG TABLET PO SCH (07:16)
[2021-03-22] MEDS: DAPSONE 25 MG TAB PO SCH ×2 (07:17→20:58)
[2021-03-22] MEDS: DEXAMETHASONE SOD PHOSPHATE 10 MG/ML 1 ML VIAL IVP SCH (07:18)
[2021-03-22] MEDS: ALBUTEROL HFA INHALER INHALATION PRN ×4 (07:20→21:17)
--- NOTE | 2021-03-22 13:24 | P.PN ---
Subjective Progress Note Date: 03/22/21 this is a pleasant 66-year-old female patient who was brought into the emergency department today because of increased shortness of breath and dizziness and weakness and cough. Her condition is getting progressively getting worse approximately a week ago. Note that the patient came in and she tested positive for COVID 19 by PCR. Meanwhile,This is a patient was ordered to receive the vaccination and she has taken 2 shots of Moderna in in May and June 2020. She has not taken booster.. Note that during the course of the past 6 weeks, the patient developed a rash which was a nonpalpable purpuric patches involving the lower extremities. 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 Based on this, the patient was started on steroids. Initially she was given 10 mg of prednisone and beginning of still January 2021. 03/22/2021, the patient's condition essentially stable. She remains on 10 L of oxygen by nasal cannula. Unable to wean her down further as the patient's current pulse ox is in order of 89-90%. She is afebrile. She is he modynamically stable. She continues to sit up on a recliner. Her white cell count from yesterday was at 7.9. Intermittent markers also noted. D-dimer is low at 0.9. Her LDH level has already dropped down to 6 obesity with a CRP level of 2.1. No nausea. No vomiting. No emesis. She remains on Decadron 6 mg IV every 24 hours. She is also on Lovenox for DVT prophylaxis. No signs of any fluid overload. The vasculitic patches and lower extremities have also recovered and the patient was being treated with systemic steroids. Objective - Vital Signs Vital signs: Vital Signs Temp 97.6 F 03/22/21 10:17 Pulse 89 03/22/21 10:17 Resp 24 03/22/21 10:17 BP 114/68 03/22/21 10:17 Pulse Ox 90 L 03/22/21 10:17 Intake & Output 03/21/21 03/22/21 03/22/21 18:59 06:59 18:59 Other: Voiding Method Toilet Toilet Toilet # Voids 3 - Exam Gen. appearance the patient is calm and comfortable and her breathing is nonlabored and currently she is on 10 L of oxygen by nasal cannula Head exam was generally normal. There was no scleral icterus or corneal arcus. Mucous membranes were moist. Neck was supple and without jugular venous distension, thyromegaly, or carotid bruits. Carotids were easily palpable bilaterally. There was no adenopathy. Lungs sounds are diminished in the patient's crackles in the mid and lower lung mckenna bilaterally Cardiac exam revealed the PMI to be normally situated and sized. The rhythm was regular and no extrasystoles were noted during several minutes of auscultation. The first and second heart sounds were normal and physiologic splitting of the second heart sound was noted. There were no murmurs, rubs, clicks, or gallops. Abdominal exam revealed normal bowel sounds. The abdomen was soft, non-tender, and without masses, organomegaly, or appreciable enlargement of the abdominal aorta. Examination of the extremities revealed easily palpable radial, femoral and pedal pulses. There was no cyanosis, clubbing or edema. Skin the patient has purpuric rash involving lower eczematous bilaterally. This is related to vasculitis. Neurologically, the patient is awake and alert and the patient does not have any focal neurological deficit. Cranial nerves are essentially intact. - Labs CBC & Chem 7: 03/21/21 06:25 03/21/21 06:25 Labs: Abnormal Lab Results - Last 24 Hours (Table) 03/21/21 Range/Units 06:25 RBC 2.48 L (4.10-5.20) X 10*6/uL Hgb 8.1 L (12.0-15.0) g/dL Hct 26.3 L (37.2-46.3) % MCV 106.0 H (80.0-97.0) fL MCH 32.7 H (27.0-32.0) pg MCHC 30.8 L (32.0-37.0) g/dL RDW 22.1 H (11.5-14.5) % MPV 9.3 L (9.5-12.2) fL Absolute Nucleated RBC 1.35 H (0.00-0.00) X 10*3/uL Immature Gran # 0.33 H (0.00-0.04) X 10*3/uL Eosinophils # 0.02 L (0.04-0.35) X 10*3/uL NRBC/100 WBC Diff 17.1 H (0.0-0.0) /100 WBCS Assessment and Plan Plan: 1 acute COVID 19 related pneumonia with bilateral pulmonary infiltrates and secondary hypoxic respiratory failure. The patient is a vaccinated individual and she took her medicines are in a vaccination back in May and June 2020. She has no clear exposure. She has been symptomatic for less than a week. She presented worsening shortness of breath and hypoxemia and the patient is currently on as of oxygen by nasal cannula. The patient is currently up to 10 L. the patient has completed her course of Baricitinib. The patient is currently on Decadron 6 mg IV every 24 hours. Unfortunately, unable to wean it down any further and she is pretty much set at 10 L about 2 by nasal cannula. Her inflammatory workup is improved. D-dimer is low. 2 acute hypoxic respiratory failure secondary to above currently on 10 L 3 history of leukocytoclastic vasculitis confirmed by skin biopsy and the patient remains on a combination of prednisone and dapsone on outpatient basis and she was seeing significant improvement in his skin lesions 4 history of cerebellar CVA 5 history of abnormal Pap smear 6 osteoarthritis Plan I'm recommending a repeat CT angiogram is on the limited recovered and the patient has had over the past several days. This will be important to monitor the progression of her COVID 19, look for any scarring in the same time rule out any pulmonary embolism. Monitor the oxygenation and wean her down accordingly Keep her on 10 L by nasal cannula Continue Lovenox for DVT prophylaxis We'll continue to follow her progress.
--- NOTE | 2021-03-22 14:38 | P.PN ---
Subjective Progress Note Date: 03/22/21 Hospital course: Patient is a very pleasant 66-year-old femalewith a past medical history of TIA and vasculitis. She presented to the emergency department on 02/28/21 with a chief complaint of shortness of breath and cough. Patient was Found to be hypoxic 88% on room air, tachycardic with heart rate of 103 bpm, and febrile with elevated temp of 101.1F. .Covid 19 PCR resulted positive and patient was diagnosed with Covid 19 pneumonia. X-ray correlating with pneumonia. EKG revealed sinus tachycardia at 101 bpm with no noted T-wave or ST abnormalities. patient was admitted under our services with consultation to pulmonary. Patient being treated with high-dose oxygen, steroids, vitamin C, vitamin D, zinc, and completed course of Remdesivir. Chest CTA negative for PE but did reveal diffuse bilateral groundglass opacities correlating for multifocal pneumonia or ARDS. Dopplers bilateral lower extremities negative for DVT. Physical exam: Patient seen and fully evaluated at the bedside this morning. She was again sitting up in chair at bedside. She remains on 10 L O2 via nasal cannula with oxygen saturations fluctuating between 90-92%. Patient reports she feels great today as she was able to get her hair washed yesterday and feels like a new woman and continues to deny having chest pain, palpitations, shortness of breath at rest or worsening dyspnea with exertion. Patient to continue treatment with Decadron, vitamin C, vitamin D, zinc, and DVT prophylaxis with Lovenox. Vital signs reviewed and stable. General: Nontoxic, no distress and appears stated age. Derm: Skin warm and dry, normal coloration for ethnicity. Head: Atraumatic, normocephalic and symmetric. Eyes: EOMs intact, no lid lag, and anicteric sclera Mouth: no lip lesions, mucus membranes moist Cardiovascular: regular rate and rhythm with normal S1S2, no murmur, positive posterior tibial pulses bilaterally, and cap refill < 2 seconds. Lungs: Respirations even, regular, and unlabored on 10 L high flow nasal cannula with SpO2 of 90%. Lungs with very soft bilateral lower lobe crackles. No rhonchi, wheezes, or rales and no accessory muscle usage. No conversational dyspnea noted. Abdominal: soft, nontender to palpation, no guarding, no appreciable organomegaly Ext: ROM intact. No gross muscle atrophy, no edema, no contractures Neuro: Speech clear, face symmetrical and CN II-XII grossly intact with no noted focal neuro deficits Psych: Alert and oriented to person, place, time, and situation. Appropriate and pleasant affect. Assessment and Plan of Care: Acute respiratory failure with hypoxia secondary to COVID 19 pneumonia in vaccinated individual. -Oxygenation to be administered and titrated as needed to maintain SPO2 equal to or greater than 90% -Telemetry monitoring. -Continue trending inflammatory markers -Encourage Incentive Spirometry 10-15x hourly while awake -Steroids: Decadron 6 mg daily -Continue vitamin C, Vitamin D, and Zinc. -Pulmonology following, appreciate further recommendations. -DVT prophylaxis with Lovenox. -Strict Droplet plus Contact precautions -Pt completed course of Remdesivir and Baricitinib History of leukocytoclastic vasculitis -Continue Dapsone 100 mg twice daily and continue to follow up outpatient with vascular surgery upon discharge. CODE STATUS: Full code DVT prophylaxis: Lovenox Discussed with: Patient and RN and called Pt's daughter, Mary Ann, at 14:32 pm with no answer. Anticipated discharge date: Clinical course to determine Anticipated discharge place: Home A total of 35 minutes was spent on the care of this complex patient more than 50% of the time was spent in counseling and care coordination. Objective - Vital Signs Vital signs: Vital Signs Temp 97.6 F 03/22/21 09:05 Pulse 89 03/22/21 09:05 Resp 24 03/22/21 09:05 BP 114/68 03/22/21 09:05 Pulse Ox 90 L 03/22/21 09:05 Intake & Output 03/21/21 03/22/21 03/22/21 18:59 06:59 18:59 Other: Voiding Method Toilet Toilet Toilet # Voids 3 - Labs CBC & Chem 7: 03/21/21 06:25 03/21/21 06:25 Labs: Abnormal Lab Results - Last 24 Hours (Table) 03/21/21 03/21/21 Range/Units 06:25 06:25 RBC 2.48 L (4.10-5.20) X 10*6/uL Hgb 8.1 L (12.0-15.0) g/dL Hct 26.3 L (37.2-46.3) % MCV 106.0 H (80.0-97.0) fL MCH 32.7 H (27.0-32.0) pg MCHC 30.8 L (32.0-37.0) g/dL RDW 22.1 H (11.5-14.5) % MPV 9.3 L (9.5-12.2) fL Absolute Nucleated RBC 1.35 H (0.00-0.00) X 10*3/uL Immature Gran # 0.33 H (0.00-0.04) X 10*3/uL Eosinophils # 0.02 L (0.04-0.35) X 10*3/uL NRBC/100 WBC Diff 17.1 H (0.0-0.0) /100 WBCS BUN/Creatinine Ratio 30.29 H (12.00-20.00) Ratio Calcium 8.5 L (8.7-10.3) mg/dL Total Bilirubin 1.40 H (0.30-1.20) mg/dL ALT 84 H (8-44) U/L Lactate Dehydrogenase 673 H (120-246) U/L C-Reactive Protein 2.10 H (0.00-0.80) mg/dL Total Protein 5.3 L (6.2-8.2) g/dL Albumin 3.5 L (3.8-4.9) g/dL
--- NOTE | 2021-03-22 15:50 | CT ---
EXAMINATION TYPE: CT angio chest DATE OF EXAM: 03/22/2021 COMPARISON: CTA chest March 06, 2021 HISTORY: Dyspnea. CT DLP: 527.6 mGycm. Automated Exposure Control for Dose Reduction was Utilized. CONTRAST: CTA scan of the thorax is performed with IV Contrast, patient injected with 100ml mL of Isovue 370, p ulmonary embolism protocol. MIP Images are created on CT scanner and reviewed. FINDINGS: LUNGS: Persistent bilateral multifocal groundglass opacities with areas of mild to moderate linear sc arring and/or atelectasis and more inferior organizing consolidations. No pleural effusion or pneumot horax seen bilaterally MEDIASTINUM: There is suboptimal bolus with heterogeneity and more dense contrast in the aorta versus pulmonary arteries but no convincing CT evidence for acute pulmonary embolism. No thoracic aortic an eurysm or dissection seen. There are no greater than 1 cm hilar or mediastinal lymph nodes. No car diomegaly or pericardial effusion is seen. OTHER: Cholecystectomy clips are redemonstrated. IMPRESSION: Suboptimal study without central pulmonary embolism. Persistent bilateral multifocal grou ndglass opacities and organizing consolidations consistent with covid-19 infection. Degree of involve ment likely slightly improved from March 06 study but there is likely new mild to moderate scatter ed fibrotic change present.
[2021-03-22] MEDS: ENOXAPARIN 40 MG/0.4 ML SYRINGE SQ SCH (17:12)
[2021-03-23] MEDS: guaiFENesin 600 MG TABLET.ER PO SCH ×2 (05:59→16:59)
[2021-03-23] MEDS: DEXAMETHASONE SOD PHOSPHATE 10 MG/ML 1 ML VIAL IVP SCH (07:52)
[2021-03-23] MEDS: ZINC SULFATE 220 MG CAP PO SCH (08:37)
[2021-03-23] MEDS: PANTOPRAZOLE 40 MG TABLET PO SCH (08:38)
[2021-03-23] MEDS: DAPSONE 25 MG TAB PO SCH ×2 (08:38→20:40)
[2021-03-23] MEDS: CHOLECALCIFEROL 25 MCG (1000 IU) TABLET PO SCH (08:38)
[2021-03-23] MEDS: ASCORBIC ACID 500 MG TAB PO SCH (08:38)
[2021-03-23] MEDS: ALBUTEROL HFA INHALER INHALATION PRN ×2 (08:52→12:25)
[2021-03-23 11:50] LABS: C Reactive Protein 3.1 mg/dL (0.00-0.80)
[2021-03-23 11:59] LABS: Acanthocytes 2+; Anisocytosis (M) 3+; HCT 26.3 % (37.2-46.3); HGB 7.9 g/dL (12.0-15.0); MCH 33.6 pg (27.0-32.0); MCV 111.9 fL (80.0-97.0); Macrocytosis (M) 2+; Mean Platelet Volume 10.8 fL (9.5-12.2); Microcytosis (M) 2+; Platelet Count 191 X 10*3/uL (140-440); RBC 2.35 X 10*6/uL (4.10-5.20); RDW 23.9 % (11.5-14.5); Schistocytes 2+; Sickle Cells 2+; WBC 7.62 X 10*3/uL (4.50-10.00)
[2021-03-23 12:25] LABS: African American GFR (CKD) 80.2 (60.0-200.0); Albumin 3.5 g/dL (3.8-4.9); Albumin/Globulin Ratio 1.87 (1.60-3.17); Anion Gap 15.2 mmol/L (10.00-18.00); BUN/Creat Ratio 24.83 Ratio (12.00-20.00); Blood Urea Nitrogen 21.4 mg/dL (9.0-27.0); Calcium 8.8 mg/dL (8.7-10.3); Carbon Dioxide 21.9 mmol/L (20.0-27.5); Globulin 1.9 g/dL (1.6-3.3); Non-African American GFR(CKD) 69.2 (60.0-200.0); Potassium 4.4 mmol/L (3.5-5.5); Total Bilirubin 1.4 mg/dL (0.30-1.20); Total Protein 5.3 g/dL (6.2-8.2)
--- NOTE | 2021-03-23 13:30 | P.PN ---
Subjective Progress Note Date: 03/23/21 this is a pleasant 66-year-old female patient who was brought into the emergency department today because of increased shortness of breath and dizziness and weakness and cough. Her condition is getting progressively getting worse approximately a week ago. Note that the patient came in and she tested positive for COVID 19 by PCR. Meanwhile,This is a patient was ordered to receive the vaccination and she has taken 2 shots of Moderna in in May and June 2020. She has not taken booster.. Note that during the course of the past 6 weeks, the patient developed a rash which was a nonpalpable purpuric patches involving the lower extremities. 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 Based on this, the patient was started on steroids. Initially she was given 10 mg of prednisone and beginning of still January 2021. 03/22/2021, the patient's condition essentially stable. She remains on 10 L of oxygen by nasal cannula. Unable to wean her down further as the patient's current pulse ox is in order of 89-90%. She is afebrile. She is he modynamically stable. She continues to sit up on a recliner. Her white cell count from yesterday was at 7.9. Intermittent markers also noted. D-dimer is low at 0.9. Her LDH level has already dropped down to 6 obesity with a CRP level of 2.1. No nausea. No vomiting. No emesis. She remains on Decadron 6 mg IV every 24 hours. She is also on Lovenox for DVT prophylaxis. No signs of any fluid overload. The vasculitic patches and lower extremities have also recovered and the patient was being treated with systemic steroids. 03/23/2021, I'm seeing the patient for a follow-up H she remains on [address] angiogram of the chest was done. It shows some improvement in the right lower infiltrates noted earlier at a time of her diagnosis COVID 19. No evidence of any pulmonary embolism. The study was suboptimal. Nevertheless, there was no filling defects in the major or main or primary and secondary pulmonary artery branches. The patient remains on Lovenox 40 mg subcu on a daily basis. The patient remains on Decadron 6 mg IV every 24 hours. Doing well. Sitting up in a chair. Family is at the bedside. White cell count is 7.6 with a hemoglobin of 7.9, and the patient had a d-dimer of 1.29, LDH level is at 894, CRP level is at 3.1, electrolytes are all within normal limits, glucose is 179. Repeat COVID 19 testing came back negative as mentioned earlier. Objective - Vital Signs Vital signs: Vital Signs Temp 98.2 F 03/23/21 07:29 Pulse 103 H 03/23/21 07:29 Resp 18 03/23/21 07:29 BP 123/77 03/23/21 07:29 Pulse Ox 90 L 03/23/21 07:29 Intake & Output 03/22/21 03/23/21 03/23/21 18:59 06:59 18:59 Other: Voiding Method Toilet Toilet # Voids 4 3 - Exam Gen. appearance the patient is calm and comfortable and her breathing is nonlabored and currently she is on 10 L of oxygen by nasal cannula Head exam was generally normal. There was no scleral icterus or corneal arcus. Mucous membranes were moist. Neck was supple and without jugular venous distension, thyromegaly, or carotid bruits. Carotids were easily palpable bilaterally. There was no adenopathy. Lungs sounds are diminished in the patient's crackles in the mid and lower lung mckenna bilaterally Cardiac exam revealed the PMI to be normally situated and sized. The rhythm was regular and no extrasystoles were noted during several minutes of auscultation. The first and second heart sounds were normal and physiologic splitting of the second heart sound was noted. There were no murmurs, rubs, clicks, or gallops. Abdominal exam revealed normal bowel sounds. The abdomen was soft, non-tender, and without masses, organomegaly, or appreciable enlargement of the abdominal aorta. Examination of the extremities revealed easily palpable radial, femoral and pedal pulses. There was no cyanosis, clubbing or edema. Skin the patient has purpuric rash involving lower eczematous bilaterally. This is related to vasculitis. Neurologically, the patient is awake and alert and the patient does not have any focal neurological deficit. Cranial nerves are essentially intact. - Labs CBC & Chem 7: 03/23/21 07:31 03/23/21 07:31 Labs: Abnormal Lab Results - Last 24 Hours (Table) 03/23/21 03/23/21 03/23/21 Range/Units 07:31 07:31 07:31 RBC 2.35 L (4.10-5.20) X 10*6/uL Hgb 7.9 L (12.0-15.0) g/dL Hct 26.3 L (37.2-46.3) % MCV 111.9 H (80.0-97.0) fL MCH 33.6 H (27.0-32.0) pg MCHC 30.0 L (32.0-37.0) g/dL RDW 23.9 H (11.5-14.5) % Absolute Nucleated RBC 2.16 H (0.00-0.00) X 10*3/uL NRBC/100 WBC Diff 28.3 H (0.0-0.0) /100 WBCS D-Dimer 1.29 H (<0.60) mg/L FEU BUN/Creatinine Ratio 24.83 H (12.00-20.00) Ratio Glucose 179 H (70-110) mg/dL Total Bilirubin 1.40 H (0.30-1.20) mg/dL AST 49 H (13-35) U/L ALT 81 H (8-44) U/L Lactate Dehydrogenase 893 H (120-246) U/L C-Reactive Protein 3.10 H (0.00-0.80) mg/dL Total Protein 5.3 L (6.2-8.2) g/dL Albumin 3.5 L (3.8-4.9) g/dL Assessment and Plan Plan: 1 acute COVID 19 related pneumonia with bilateral pulmonary infiltrates and secondary hypoxic respiratory failure. The patient is a vaccinated individual and she took her medicines are in a vaccination back in May and June 2020. She has no clear exposure. She has been symptomatic for less than a week. She presented worsening shortness of breath and hypoxemia and the patient is currently on as of oxygen by nasal cannula. The patient is currently up to 10 L. the patient has completed her course of Baricitinib. The patient is currently on Decadron 6 mg IV every 24 hours. Unfortunately, unable to wean it down any further and she is pretty much set at 10 L about 2 by nasal cannula. Her inflammatory workup is improved. D-dimer is low. 2 acute hypoxic respiratory failure secondary to above currently on 10 L 3 history of leukocytoclastic vasculitis confirmed by skin biopsy and the patient remains on a combination of prednisone and dapsone on outpatient basis and she was seeing significant improvement in his skin lesions 4 history of cerebellar CVA 5 history of abnormal Pap smear [address] angios have shows improvement in the COVID 19 and there was no evidence of any pulmonary embolism. Nevertheless, there was some ongoing inflammatory changes and scarring in lung bases bilaterally. Monitor the oxygenation and wean her down accordingly Keep her on 10 L by nasal cannula, child on a flow of 8 L and monitor the pulse ox Continue Lovenox for DVT prophylaxis Continue Decadron Continue using incentive spirometer We'll continue to follow her progress.
[2021-03-23] MEDS: ENOXAPARIN 40 MG/0.4 ML SYRINGE SQ SCH (16:59)
--- NOTE | 2021-03-23 17:04 | P.PN ---
Subjective Progress Note Date: 03/23/21 Hospital course: Patient is a very pleasant 66-year-old femalewith a past medical history of TIA and vasculitis. She presented to the emergency department on 02/28/21 with a chief complaint of shortness of breath and cough. Patient was Found to be hypoxic 88% on room air, tachycardic with heart rate of 103 bpm, and febrile with elevated temp of 101.1F. .Covid 19 PCR resulted positive and patient was diagnosed with Covid 19 pneumonia. X-ray correlating with pneumonia. EKG revealed sinus tachycardia at 101 bpm with no noted T-wave or ST abnormalities. patient was admitted under our services with consultation to pulmonary. Patient being treated with high-dose oxygen, steroids, vitamin C, vitamin D, zinc, and completed course of Remdesivir. Chest CTA negative for PE but did reveal diffuse bilateral groundglass opacities correlating for multifocal pneumonia or ARDS. Dopplers bilateral lower extremities negative for DVT. Physical exam: Patient seen and fully evaluated at the bedside this morning. Upon evaluation, patient was ambulating in room. She was significantly short of breath and desaturated down to 82% on 10 L O2 via nasal cannula. Patient did recover but it did take her approximately 15 minutes to maintain stable oxygen levels between 88 and 89%. Patient educated on importance of not overexerting herself, as she reported she was just straightening up her room. Patient continues to deny any other complaints including chest pain, palpitations, nausea, vomiting, or experiencing any numbness/tingling/weakness in her extremities. Patient does have bilateral lower extremity edema, appears to be dependent edema as patient has been sitting in chair, but will obtain bilateral lower extremity Dopplers, echocardiogram, and BNP with morning labs. Patient educated on elevating lower extremities as much as possible and SHIVANI hose in place. CTA chest completed yesterday showing no evidence for acute PE and persistent with bilateral multifocal groundglass opacities and organizing consolidations consistent with Covid 19 infection, reported degree of involvement likely slightly improved from March 06 study but there is new mild to moderate scattered fibrotic changes. Patient to continue treatment with Decadron, vitamin C, vitamin D, zinc, and DVT prophylaxis with Lovenox. Morning labs revealed normocytic normochromic anemia with hemoglobin of 7.9, patient denies any noted bleeding or dark colored stools. Significant decreased from initial labs however has been stable over th e past 3 days. Patient has developed bilateral lower extremity edema possibly worsening anemia due to diuresis from fluid overload, will obtain BNP with a.m. labs and continue to monitor hemoglobin closely. Vital signs reviewed and stable. General: Nontoxic, no distress and appears stated age. Derm: Skin warm and dry, normal coloration for ethnicity. Head: Atraumatic, normocephalic and symmetric. Eyes: EOMs intact, no lid lag, and anicteric sclera Mouth: no lip lesions, mucus membranes moist Cardiovascular: regular rate and rhythm with normal S1S2, no murmur, positive posterior tibial pulses bilaterally, and cap refill < 2 seconds. Lungs: Respirations even, regular, and unlabored on 10 L high flow nasal cannula with SpO2 of 90%. Lungs with very soft bilateral lower lobe crackles. No rhonchi, wheezes, or rales and no accessory muscle usage. Significant conversational dyspnea noted today however patient was ambulatory prior to assessment. Patient did recover after approximately 15 minutes. Abdominal: soft, nontender to palpation, no guarding, no appreciable organomegaly Ext: ROM intact. No gross muscle atrophy, 1-2+ edema, no contractures Neuro: Speech clear, face symmetrical and CN II-XII grossly intact with no noted focal neuro deficits Psych: Alert and oriented to person, place, time, and situation. Appropriate and pleasant affect. Assessment and Plan of Care: Acute respiratory failure with hypoxia secondary to COVID 19 pneumonia in vaccinated individual. -Oxygenation to be administered and titrated as needed to maintain SPO2 equal to or greater than 90% -Telemetry monitoring. -Continue trending inflammatory markers -Encourage Incentive Spirometry 10-15x hourly while awake -Steroids: Decadron 6 mg daily -Continue vitamin C, Vitamin D, and Zinc. -Pulmonology following, appreciate further recommendations. -DVT prophylaxis with Lovenox. -Strict Droplet plus Contact precautions -Pt completed course of Remdesivir and Baricitinib Worsening Acute Anemia, patient denies having dark colored stools or experiencing any other noted bleeding/bruising, possibly resulting from dilution due to fluid overload as patient has developed new lower extremity edema -BNP and close monitoring of hemoglobin with repeat a.m. labs -Fecal occult Bilateral lower extremity edema -BNP with a.m. labs -Echocardiogram -Bilateral lower extremity Dopplers -May consider administration of low-dose Lasix pending results, however patient does appear dry at this time. -SHIVANI hose and encourage elevation of lower extremities. History of leukocytoclastic vasculitis -Continue Dapsone 100 mg twice daily and continue to follow up outpatient with vascular surgery upon discharge. CODE STATUS: Full code DVT prophylaxis: Lovenox Discussed with: Patient and RN and Pt's daughter-Mary Ann Anticipated discharge date: Clinical course to determine Anticipated discharge place: Home A total of 50 minutes was spent on the care of this complex patient more than 50% of the time was spent in counseling and care coordination. Objective - Vital Signs Vital signs: Vital Signs Temp 98.2 F 03/23/21 07:29 Pulse 103 H 03/23/21 07:29 Resp 18 03/23/21 07:29 BP 123/77 03/23/21 07:29 Pulse Ox 90 L 03/23/21 07:29 Intake & Output 03/22/21 03/23/21 03/23/21 18:59 06:59 18:59 Other: Voiding Method Toilet Toilet # Voids 4 3 - Labs CBC & Chem 7: 03/23/21 07:31 03/23/21 07:31 Labs: Abnormal Lab Results - Last 24 Hours (Table) 03/23/21 Range/Units 07:31 D-Dimer 1.29 H (<0.60) mg/L FEU
--- NOTE | 2021-03-23 21:39 | US ---
EXAMINATION TYPE: US venous doppler duplex LE BI DATE OF EXAM: 03/23/2021 8:27 PM COMPARISON: US CLINICAL HISTORY: BLE edema, likely dependent edema r/o DVT. Elevating D Dimer per RN; prior COVID p atient and on blood thinner. SIDE PERFORMED: Bilateral TECHNIQUE: The lower extremity deep venous system is examined utilizing real time linear array sonog breanne with graded compression, doppler sonography and color-flow sonography. VESSELS IMAGED: Common Femoral Vein Deep Femoral Vein Greater Saphenous Vein * Femoral Vein Popliteal Vein Small Saphenous Vein * Proximal Calf Veins (* superficial vessels) Right Leg: Negative for DVT Left Leg: Negative for DVT IMPRESSION: No evidence of deep vein thrombosis in both legs.
[2021-03-24] MEDS: guaiFENesin 600 MG TABLET.ER PO SCH ×2 (05:27→17:27)
[2021-03-24] MEDS: ASCORBIC ACID 500 MG TAB PO SCH (08:57)
[2021-03-24] MEDS: DAPSONE 25 MG TAB PO SCH ×2 (08:57→21:52)
[2021-03-24] MEDS: ZINC SULFATE 220 MG CAP PO SCH (08:57)
[2021-03-24] MEDS: CHOLECALCIFEROL 25 MCG (1000 IU) TABLET PO SCH (08:58)
[2021-03-24] MEDS: PANTOPRAZOLE 40 MG TABLET PO SCH (08:58)
[2021-03-24] MEDS: ALBUTEROL HFA INHALER INHALATION PRN (09:14)
[2021-03-24] MEDS: DEXAMETHASONE SOD PHOSPHATE 10 MG/ML 1 ML VIAL IVP SCH (09:25)
[2021-03-24 11:30] LABS: Anisocytosis Moderate; HCT 23.9 % (34.0-46.0); Hyperchromasia Slight; MCH 35.4 pg (25.0-35.0); MCHC 33.1 g/dL (31.0-37.0); Macrocytosis Marked; Mean Platelet Volume 7.3; Platelet Count 230 k/uL (150-450); Poikilocytosis Marked; RBC 2.23 m/uL (3.80-5.40); RDW 23.9 % (11.5-15.5)
[2021-03-24 11:34] LABS: ALT 70 U/L (4-34); AST 41 U/L (14-36); African American GFR (CKD) >90 (>60 ml/min/1.73 sqM); Albumin/Globulin Ratio 1.2; Alkaline Phosphatase 58 U/L (38-126); Anion Gap 3 mmol/L; Blood Urea Nitrogen 23 mg/dL (7-17); C Reactive Protein 3.6 mg/dL (<1.0); Calcium 8.6 mg/dL (8.4-10.2); Carbon Dioxide 29 mmol/L (22-30); Chloride 103 mmol/L (98-107); Globulin 2.6 g/dL; Glucose 110 mg/dL (74-99); Magnesium 1.9 mg/dL (1.6-2.3); Non-African American GFR(CKD) >90 (>60 ml/min/1.73 sqM); Potassium 3.4 mmol/L (3.5-5.1); Sodium 135 mmol/L (137-145); Total Bilirubin 1.9 mg/dL (0.2-1.3); Total Protein 5.6 g/dL (6.3-8.2)
[2021-03-24 11:37] LABS: HGB 7.9 gm/dL (11.4-16.0)
[2021-03-24 11:38] LABS: MCV 107.1 fL (80.0-100.0)
[2021-03-24 12:10] LABS: LDH 2086 U/L (313-618)
--- NOTE | 2021-03-24 13:54 | ECHOF ---
Referral Reason:BLE edema MEASUREMENTS -------- HEIGHT: 157.5 cm WEIGHT: 106.6 kg BP: 127/74 RVIDd: 2.5 cm (< 3.3) IVSd: 1.4 cm (0.6 - 1.1) LVIDd: 3.0 cm (3.9 - 5.3) LVPWd: 1.4 cm (0.6 - 1.1) IVSs: 1.9 cm LVIDs: 2.0 cm LVPWs: 1.2 cm LAESV Index (A-L): 18.35 ml/m Ao Diam: 3.5 cm (2.0 - 3.7) AV Cusp: 2.0 cm (1.5 - 2.6) MV EXCURSION: 17.459 mm (> 18.000) MV EF SLOPE: 123 mm/s (70 - 150) EPSS: 0.4 cm MV E Earnest: 0.82 m/s MV DecT: 195 ms MV A Earnest: 1.03 m/s MV E/A Ratio: 0.80 RAP: 5.00 mmHg RVSP: 34.98 mmHg FINDINGS -------- This was a technically adequate study. The left ventricular size is normal. There is moderate concentric left ventricular hypertrophy. O verall left ventricular systolic function is normal with, an EF between 55 - 60 %. The right ventricle is normal in size. Normal LA size by volume 22+/-6 ml/m2. The right atrium was not well visualized. Interatrial and interventricular septum intact. There is no evidence of aortic regurgitation. There is no evidence of aortic stenosis. There is trace to mild mitral regurgitation. Mild tricuspid regurgitation present. There is no evidence of pulmonary hypertension. The right v entricular systolic pressure, as measured by Doppler, is 34.98mmHg. There is no pulmonic regurgitation present. The aortic root size is normal. IVC Not well visulized. There is no pericardial effusion. CONCLUSIONS -------- 1. The left ventricular size is normal. 2. There is moderate concentric left ventricular hypertrophy. 3. Overall left ventricular systolic function is normal with, an EF between 55 - 60 %. 4. There is trace to mild mitral regurgitation. 5. Mild tricuspid regurgitation present. MANAGER COMPENSATION: Kaycee Prince, [facility]
--- NOTE | 2021-03-24 14:00 | P.PN ---
Subjective Progress Note Date: 03/24/21 Hospital course: Patient is a very pleasant 66-year-old femalewith a past medical history of TIA and vasculitis. She presented to the emergency department on 02/28/21 with a chief complaint of shortness of breath and cough. Patient was Found to be hypoxic 88% on room air, tachycardic with heart rate of 103 bpm, and febrile with elevated temp of 101.1F. .Covid 19 PCR resulted positive and patient was diagnosed with Covid 19 pneumonia. X-ray correlating with pneumonia. EKG revealed sinus tachycardia at 101 bpm with no noted T-wave or ST abnormalities. patient was admitted under our services with consultation to pulmonary. Patient being treated with high-dose oxygen, steroids, vitamin C, vitamin D, zinc, and completed course of Remdesivir. Chest CTA negative for PE but did reveal diffuse bilateral groundglass opacities correlating for multifocal pneumonia or ARDS. Dopplers bilateral lower extremities negative for DVT. Physical exam: Patient seen and fully evaluated at the bedside this morning. Upon evaluation, patient was ambulating in room. She was significantly short of breath and desaturated down to 82% on 10 L O2 via nasal cannula. Patient did recover but it did take her approximately 15 minutes to maintain stable oxygen levels between 88 and 89%. Patient educated on importance of not overexerting herself, as she reported she was just straightening up her room. Patient continues to deny any other complaints including chest pain, palpitations, nausea, vomiting, or experiencing any numbness/tingling/weakness in her extremities. Patient does have bilateral lower extremity edema, appears to be dependent edema as patient has been sitting in chair, but will obtain bilateral lower extremity Dopplers, echocardiogram, and BNP with morning labs. Patient educated on elevating lower extremities as much as possible and SHIVANI hose in place. CTA chest completed yesterday showing no evidence for acute PE and persistent with bilateral multifocal groundglass opacities and organizing consolidations consistent with Covid 19 infection, reported degree of involvement likely slightly improved from March 06 study but there is new mild to moderate scattered fibrotic changes. Patient to continue treatment with Decadron, vitamin C, vitamin D, zinc, and DVT prophylaxis with Lovenox. Morning labs revealed normocytic normochromic anemia with hemoglobin of 7.9, patient denies any noted bleeding or dark colored stools. Significant decreased from initial labs however has been stable over th e past 3 days. Patient has developed bilateral lower extremity edema possibly worsening anemia due to diuresis from fluid overload, will obtain BNP with a.m. labs and continue to monitor hemoglobin closely. Vital signs reviewed and stable. General: Nontoxic, no distress and appears stated age. Derm: Skin warm and dry, normal coloration for ethnicity. Head: Atraumatic, normocephalic and symmetric. Eyes: EOMs intact, no lid lag, and anicteric sclera Mouth: no lip lesions, mucus membranes moist Cardiovascular: regular rate and rhythm with normal S1S2, no murmur, positive posterior tibial pulses bilaterally, and cap refill < 2 seconds. Lungs: Respirations even, regular, and unlabored on 10 L high flow nasal cannula with SpO2 of 90%. Lungs with very soft bilateral lower lobe crackles. No rhonchi, wheezes, or rales and no accessory muscle usage. Significant conversational dyspnea noted today however patient was ambulatory prior to assessment. Patient did recover after approximately 15 minutes. Abdominal: soft, nontender to palpation, no guarding, no appreciable organomegaly Ext: ROM intact. No gross muscle atrophy, 1-2+ edema, no contractures Neuro: Speech clear, face symmetrical and CN II-XII grossly intact with no noted focal neuro deficits Psych: Alert and oriented to person, place, time, and situation. Appropriate and pleasant affect. Assessment and Plan of Care: Acute respiratory failure with hypoxia secondary to COVID 19 pneumonia in vaccinated individual. -Oxygenation to be administered and titrated as needed to maintain SPO2 equal to or greater than 90% -Telemetry monitoring. -Continue trending inflammatory markers -Encourage Incentive Spirometry 10-15x hourly while awake -Steroids: Decadron 6 mg daily -Continue vitamin C, Vitamin D, and Zinc. -Pulmonology following, appreciate further recommendations. -DVT prophylaxis with Lovenox. -Strict Droplet plus Contact precautions -Pt completed course of Remdesivir and Baricitinib Worsening Acute Anemia, patient denies having dark colored stools or experiencing any other noted bleeding/bruising, possibly resulting from dilution due to fluid overload as patient has developed new lower extremity edema -BNP and close monitoring of hemoglobin with repeat a.m. labs -Fecal occult Bilateral lower extremity edema -BNP with a.m. labs -Echocardiogram revealing a normal ejection fraction of 55-60%, no evidence of pulmonary hypertension, and no significant valvular abnormalities. -Bilateral lower extremity Dopplers negative for DVT -Continue SHIVANI hose and elevation of extremities when not in use History of leukocytoclastic vasculitis -Continue Dapsone 100 mg twice daily and continue to follow up outpatient with vascular surgery upon discharge. CODE STATUS: Full code DVT prophylaxis: Lovenox Discussed with: Patient and RN and Pt's daughter-Mary Ann Anticipated discharge date: Clinical course to determine Anticipated discharge place: Home A total of 50 minutes was spent on the care of this complex patient more than 50% of the time was spent in counseling and care coordination. Objective - Vital Signs Vital signs: Vital Signs Temp 98.5 F 03/24/21 10:20 Pulse 88 03/24/21 10:20 Resp 17 03/24/21 10:20 BP 97/62 03/24/21 10:20 Pulse Ox 90 L 03/24/21 10:20 Intake & Output 03/23/21 03/24/21 03/24/21 18:59 06:59 18:59 Intake Total 180 Balance 180 Intake: Oral 180 Other: Voiding Method Toilet # Voids 3 - Labs CBC & Chem 7: 03/24/21 09:22 03/24/21 09:22 Labs: Abnormal Lab Results - Last 24 Hours (Table) 03/24/21 03/24/21 03/24/21 Range/Units 09:22 09:22 09:22 RBC 2.23 L (3.80-5.40) m/uL Hgb 7.9 L D (11.4-16.0) gm/dL Hct 23.9 L (34.0-46.0) % MCV 107.1 H D (80.0-100.0) fL MCH 35.4 H (25.0-35.0) pg RDW 23.9 H (11.5-15.5) % Macrocytosis Marked A D-Dimer 1.02 H (<0.60) mg/L FEU Sodium 135 L (137-145) mmol/L Potassium 3.4 L (3.5-5.1) mmol/L BUN 23 H (7-17) mg/dL Glucose 110 H (74-99) mg/dL Total Bilirubin 1.9 H (0.2-1.3) mg/dL AST 41 H (14-36) U/L ALT 70 H (4-34) U/L Lactate Dehydrogenase 2086 H (313-618) U/L C-Reactive Protein 3.6 H (<1.0) mg/dL Total Protein 5.6 L (6.3-8.2) g/dL Albumin 3.0 L (3.5-5.0) g/dL
--- NOTE | 2021-03-24 14:55 | P.PN ---
Subjective Progress Note Date: 03/24/21 Principal diagnosis: COVID-19 pneumonia On 03/05/2021 patient is seen in follow-up on medical surgical floor. She is resting comfortably in bed, states she is breathing better, she still on high flow oxygen at 15 L, her pulse ox is 90%. Afebrile, hemodynamically she stable, no acute distress, yesterday his chest x-ray has been reviewed showing worsening patchy bilateral lung infiltrates compatible with atypical pneumonia. Today's labs have been reviewed, white blood cell count is 7.11, hemoglobin is 12.7, d- dimer was 0.9, improving, electrolytes are within normal limits B1 is 19 creatinine 0.77, LDH today is slightly improved and is down to 1061, and CRP is 4.5. Patient's c-ANCA and p-ANCA levels were within normal limits. Calcitonin level was negative at 0.16, currently continues on Decadron 6 mg twice daily, Lovenox 40 mg daily, and dapsone 100 mg twice daily. On 03/06/2021 patient seen in follow-up on medical surgical floor. Patient is awake and alert, she is up in the recliner, she states overall she is feeling much better, coughing less, her appetite is improving. She still requiring high flow oxygen at 15 L and her pulse ox ranges between 87-90%, she does desat with exertion. States she feels more energetic, she has been trying to stay active, she's had no fever or chills, vital signs have been stable. Today's labs are still pending, yesterday's d-dimer of 0.90, we will obtain lower extremity Dopplers, pro-calcitonin level was negative, her c-ANCA and p-ANCA titers were low, progesterone level was low, patient currently remains on Decadron 6 mg twice daily, she is on Mucinex, she is on albuterol inhaler, and she is on COVID-19 vitamins. Lovenox at 40 mg every 24 hours. On 03/07/2021 patient seen in follow-up on medical surgical floor. Today she is on 15 L per high flow nasal cannula, and 100% nonrebreather mask, her pulse ox is 90%. When she denies any worsening dyspnea, she is breathing quite comfortably, she's been active, get not to the bathroom, tolerating activity very well although she does desaturate with activity she does not feel dyspneic, no chest pain, lung sounds reveal bibasilar crackles, no rhonchi or wheezing, no fever or chills, vital signs have been stable. CTA chest showed no evidence of pulmonary embolism and lower extremity Dopplers were negative for DVT. Today's d-dimer is 0.94, electrolytes and renal profile within normal limits, pro- calcitonin level was negative at 0.05, inflammatory markers were improving on yesterday's labs. Follow up Labs are pending for today. On 03/08/2021 patient seen in follow-up on medical surgical floor. She still on 15 L of oxygen per high flow nasal cannula, she is not wearing a nonrebreather mask most of the time, her pulse ox is 88-91%, clinically she states she is breathing quite comfortably, no dyspnea, no tachypnea, no use of accessory muscles of breathing, she is afebrile, hemodynamically she appears stable she has no specific complaints other than dryness of nasal passages. Mild cough, no phlegm production, appetite is fair, no nausea vomiting or diarrhea. On 03/09/2021 patient seen in follow-up on medical surgical floor. She continues on 15 L per high flow nasal cannula and 100% nonrebreather mask, and her pulse ox is around 92%, she does desat with exertion, tolerates activity very well, no tachypnea, no use of accessory muscles of breathing, she is breathing comfortably, she is currently sitting up in the recliner, in no acute distress, lung sounds reveal bibasilar crackles, no rhonchi or wheezing, no complaint of chest pain, she's been afebrile overnight, she's had no acute events. She is tolerating oral intake. No nausea vomiting or diarrhea, she continues on Decadron, Baricitinib, COVID 19 vitamins, and Lovenox 40 SQ daily The patient is seen today 03/10/2021 in follow-up on the regular medical floor. She is currently sitting up in a chair at the bedside. Awake and alert in no acute distress. Still requiring 15 L high flow nasal cannula as a nonrebreather mask. O2 saturations in the 90s. No worsening shortness of breath, cough or congestion. She's been slow to progress. White count 10.6. Hemoglobin 12.5. D-dimer 1.12. Sodium 134. Potassium 4.1. Creatinine 0.76. LDH 1221. C- reactive protein 0.7. She remains on Baricitinib, Decadron, Lovenox, vitamin supplements. The patient is seen today 03/11/2021 in follow-up on the regular medical floor. Currently sitting up in a chair at the bedside. Awake and alert in no acute distress. She is still requiring 15 L high flow nasal cannula plus a nonrebreather mask. Without the masseter O2 saturations at 85%. She is doing about the same today compared to yesterday. No worse but not much improvement. White count 11.0. Hemoglobin 12.3. Lymphocytes 0.4. D-dimer 1.27. Sodium 134. Potassium 4.0. Creatinine 0.71. LDH 1415. C-reactive protein 0.8. She is continuing on Baricitinib, Decadron, Lovenox, vitamin supplements. The patient is seen today 03/14/2021 in follow-up on the regular medical floor. She is currently sitting up in a chair at the bedside. Awake and alert in no acute distress. She remains on 15 L high flow nasal cannula. Occasionally she needs a nonrebreather mask as well. She is breathing a bit easier today compared to yesterday. He is afebrile. Hemodynamically stable. She remains on Baricitinib, Decadron, Lovenox, vitamin supplements. The patient is seen today 03/15/2021 in follow-up on the regular medical floor. Awake and alert in no acute distress. She is sitting up in a chair at the bedside. She is still requiring 15 L high flow nasal cannula. She is maintaining O2 saturations in the mid 80s. Occasionally using a nonrebreather mask as well. White count 7.4. Hemoglobin 10.1. D-dimer 0.9. Sodium 134. Potassium 3.8. LDH 535. C-reactive protein 0.6. She remains on Baricitinib, Decadron, Lovenox, vitamin supplements. The patient is seen today 03/16/2021 in follow-up on the regular medical floor. She is sitting up in a chair at the bedside. Awake and alert in no acute dist ress. She is maintaining good O2 saturations in the 90s on 15 L high flow nasal cannula as a partial rebreather mask. She was tested on room air and was 83%. She did have issues with nosebleed earlier this morning and was just on the nonrebreather for a while. She denies any worsening shortness of breath, cough or congestion. She has been slow to progress. White count 7.3. Hemoglobin 9.9. Lymphocytes 0.66. Sodium 135. Potassium 3.9. Creatinine 0.70. She is continued on Decadron, Lovenox, vitamin supplements. She is also on Baricitinib. the patient is seen today 03/18/2021 in follow-up on the regular medical floor. She remains awake and alert in no acute distress. Sitting up in a chair at the bedside. She is down to 12 L high flow nasal cannula. She is feeling a bit better today. Feeling stronger. Less short of breath. The short of breath with exertion. white count 7.8.: 9.9. Lymphocytes 0.9. D-dimer 0.9. Sodium 136. Potassium 4.3. Creatinine 0.73. LDH 1586. She remains on Baricitinib, Decadron, Lovenox, vitamin supplements. The patient is seen today 03/24/2021 in follow-up on the regular medical floor. She is currently resting quite comfortably in bed. Actually laying flat. She is still requiring 8 L high flow nasal cannula to maintain O2 saturation in the mid 80s to low 90s. She's afebrile. Hemodynamically stable. White count 9.0. Hemoglobin 7.9. D-dimer 1.02. Sodium 135. Potassium 3.4. Glucose 110. LDH 2086. C-reactive protein 3.6. She remains on Decadron, Lovenox, vitamin supplements. Completed Baricitinib. Objective - Vital Signs Vital signs: Vital Signs Temp 97.8 F 03/24/21 14:30 Pulse 92 03/24/21 14:30 Resp 17 03/24/21 14:30 BP 98/63 03/24/21 14:30 Pulse Ox 84 L 03/24/21 14:30 Intake & Output 03/23/21 03/24/21 03/24/21 18:59 06:59 18:59 Intake Total 180 Balance 180 Intake: Oral 180 Other: Voiding Method Toilet # Voids 3 - Exam GENERAL EXAM: Alert, pleasant 66-year-old female patient, up in a chair, on 8 L high flow nasal cannula, comfortable in no apparent distress. HEAD: Normocephalic. EYES: Normal reaction of pupils, equal size. NOSE: Clear with pink turbinates. THROAT: No erythema or exudates. NECK: No masses, no JVD. CHEST: No chest wall deformity. LUNGS: Equal air entry with crackles in the bilateral bases. CVS: S1 and S2 normal with no audible murmur, regular rhythm. ABDOMEN: No hepatosplenomegaly, normal bowel sounds, no guarding or rigidity. SPINE: No scoliosis or deformity SKIN: No rashes CENTRAL NERVOUS SYSTEM: No focal deficits, tone is normal in all 4 extremities. EXTREMITIES: There is no peripheral edema. No clubbing, no cyanosis. Peripheral pulses are intact. - Labs CBC & Chem 7: 03/24/21 09:22 03/24/21 09:22 Labs: Abnormal Lab Results - Last 24 Hours (Table) 03/24/21 03/24/21 03/24/21 Range/Units 09:22 09:22 09:22 RBC 2.23 L (3.80-5.40) m/uL Hgb 7.9 L D (11.4-16.0) gm/dL Hct 23.9 L (34.0-46.0) % MCV 107.1 H D (80.0-100.0) fL MCH 35.4 H (25.0-35.0) pg RDW 23.9 H (11.5-15.5) % Macrocytosis Marked A D-Dimer 1.02 H (<0.60) mg/L FEU Sodium 135 L (137-145) mmol/L Potassium 3.4 L (3.5-5.1) mmol/L BUN 23 H (7-17) mg/dL Glucose 110 H (74-99) mg/dL Total Bilirubin 1.9 H (0.2-1.3) mg/dL AST 41 H (14-36) U/L ALT 70 H (4-34) U/L Lactate Dehydrogenase 2086 H (313-618) U/L C-Reactive Protein 3.6 H (<1.0) mg/dL Total Protein 5.6 L (6.3-8.2) g/dL Albumin 3.0 L (3.5-5.0) g/dL Assessment and Plan Assessment: 1 Acute COVID-19 related pneumonia with bilateral pulmonary infiltrates secondary dyspnea. Patient is vaccinated individual and completed her vaccinati on back in May and June 2020. Patient presented with less than a week with the symptoms, she has completed a course of Remdesivir. Started on Baricitinib on 03/06/2021, course completed. Still requiring 8 L high flow nasal cannula. 2 Acute hypoxic respiratory failure secondary to the above, progressive, today on 8 l/min nasal cannula 3 History of leukocytoclastic vasculitis, confirmed by skin biopsy and patient is on a combination of prednisone and dapsone on an outpatient basis and patient has been seen significant improvement in her skin lesions 4 History of cerebellar CVA 5 History of abnormal Pap smear 6 Osteoarthritis 7 Obesity Plan: The patient was seen and evaluated Down to 8 L high flow nasal cannula Continue to titrate the FiO2 as tolerated On Lovenox, Decadron, vitamin supplement We will continue to follow
[2021-03-24] MEDS: ENOXAPARIN 40 MG/0.4 ML SYRINGE SQ SCH (17:27)
[2021-03-25] MEDS: guaiFENesin 600 MG TABLET.ER PO SCH ×2 (05:48→17:20)
[2021-03-25] MEDS: ALBUTEROL HFA INHALER INHALATION PRN (08:16)
[2021-03-25] MEDS: DAPSONE 25 MG TAB PO SCH (08:58)
[2021-03-25] MEDS: CHOLECALCIFEROL 25 MCG (1000 IU) TABLET PO SCH (08:59)
[2021-03-25] MEDS: ZINC SULFATE 220 MG CAP PO SCH (08:59)
[2021-03-25] MEDS: ASCORBIC ACID 500 MG TAB PO SCH (08:59)
[2021-03-25] MEDS: PANTOPRAZOLE 40 MG TABLET PO SCH (08:59)
[2021-03-25] MEDS: DEXAMETHASONE SOD PHOSPHATE 10 MG/ML 1 ML VIAL IVP SCH (09:42)
--- NOTE | 2021-03-25 14:27 | P.PN ---
Subjective Progress Note Date: 03/25/21 Hospital course: Patient is a very pleasant 66-year-old femalewith a past medical history of TIA and vasculitis. She presented to the emergency department on 02/28/21 with a chief complaint of shortness of breath and cough. Patient was Found to be hypoxic 88% on room air, tachycardic with heart rate of 103 bpm, and febrile with elevated temp of 101.1F. .Covid 19 PCR resulted positive and patient was diagnosed with Covid 19 pneumonia. X-ray correlating with pneumonia. EKG revealed sinus tachycardia at 101 bpm with no noted T-wave or ST abnormalities. patient was admitted under our services with consultation to pulmonary. Patient being treated with high-dose oxygen, steroids, vitamin C, vitamin D, zinc, Lovenox and completed course of Remdesivir and Baricitinib. Chest CTA negative for PE but did reveal diffuse bilateral groundglass opacities correlating for multifocal pneumonia or ARDS. Dopplers bilateral lower extremities negative for DVT. Echocardiogram showing 55-60% ejection fraction with no significant valvular abnormalities and no evidence of pulmonary hypertension. Repeat CTA completed 03/22/21 revealed persistent groundglass opacities and organizing consolidations consistent with Covid 19 infection with the degree of involvement slightly improved when compared to March [address] CT study but there is likely new mild to moderate scattered fibrotic changes present. Physical exam: Patient seen and fully evaluated at the bedside this morning. Patient appeared to be doing well this morning. She was sitting in chair on 8 L O2 via nasal cannula maintaining SpO2 at 91%. Patient talking with daughter on phone. Discussed with patient and patient's daughter over phone patient's progress at this time. She denies having any headache, lightheadedness, dizziness, chest pain, palpitations, or any other complaints at this time. Bilateral lower extremity edema slightly improved this morning. Patient does have feet elevated with SHIVANI hose in place. Patient is currently on day 25 of hospitalization. Patient completed course of Remdesivir and Baricitinib and continues to receive daily Decadron, vitamin C, vitamin D, zinc, and Lovenox. Vital signs reviewed and stable. General: Nontoxic, no distress and appears stated age. Derm: Skin warm and dry, normal coloration for ethnicity. Head: Atraumatic, normocephalic and symmetric. Eyes: EOMs intact, no lid lag, and anicteric sclera Mouth: no lip lesions, mucus membranes moist Cardiovascular: regular rate and rhythm with normal S1S2, no murmur, positive posterior tibial pulses bilaterally, and cap refill < 2 seconds. Lungs: Respirations even, regular, and unlabored on 10 L high flow nasal cannula with SpO2 of 90%. Lungs with very soft bilateral lower lobe crackles. No rhonchi, wheezes, or rales and no accessory muscle usage. Significant conversational dyspnea noted today however patient was ambulatory prior to assessment. Patient did recover after approximately 15 minutes. Abdominal: soft, nontender to palpation, no guarding, no appreciable organomegaly Ext: ROM intact. No gross muscle atrophy, 1-2+ edema, no contractures Neuro: Speech clear, face symmetrical and CN II-XII grossly intact with no noted focal neuro deficits Psych: Alert and oriented to person, place, time, and situation. Appropriate and pleasant affect. Assessment and Plan of Care: Acute respiratory failure with hypoxia secondary to COVID 19 pneumonia in vaccinated individual. -Oxygenation to be administered and titrated as needed to maintain SPO2 equal to or greater than 90% -Telemetry monitoring. -Continue trending inflammatory markers -Encourage Incentive Spirometry 10-15x hourly while awake -Steroids: Decadron 6 mg daily -Continue vitamin C, Vitamin D, and Zinc. -Pulmonology following, appreciate further recommendations. -DVT prophylaxis with Lovenox. -Strict Droplet plus Contact precautions -Pt completed course of Remdesivir and Baricitinib Macrocytic hyperchromic anemia -Folate and vitamin B-12 levels to be obtained -Continued close monitoring with repeat a.m. labs Bilateral lower extremity edema, dependent edema -BNP normal findings at 91 -Echocardiogram revealing a normal ejection fraction of 55-60%, no evidence of pulmonary hypertension, and no significant valvular abnormalities. -Bilateral lower extremity Dopplers negative for DVT -Continue SHIVANI hose and elevation of extremities when not in use History of leukocytoclastic vasculitis -Continue Dapsone 100 mg twice daily and continue to follow up outpatient with vascular surgery upon discharge. CODE STATUS: Full code DVT prophylaxis: Lovenox Discussed with: Patient and RN and Pt's daughterShari Anticipated discharge date: Clinical course to determine Anticipated discharge place: Home A total of 50 minutes was spent on the care of this complex patient more than 50% of the time was spent in counseling and care coordination. Objective - Vital Signs Vital signs: Vital Signs Temp 97.3 F L 03/25/21 08:55 Pulse 89 03/25/21 08:55 Resp 16 03/25/21 08:55 BP 106/69 03/25/21 08:55 Pulse Ox 91 L 03/25/21 08:55 Intake & Output 03/24/21 03/25/21 03/25/21 18:59 06:59 18:59 Intake Total 840 Balance 840 Intake: Oral 840 Other: # Voids 1 1 - Labs CBC & Chem 7: 03/24/21 09:22 03/24/21 09:22 Labs: Abnormal Lab Results - Last 24 Hours (Table) 03/24/21 03/24/21 03/24/21 Range/Units 09:22 09:22 09:22 RBC 2.23 L (3.80-5.40) m/uL Hgb 7.9 L D (11.4-16.0) gm/dL Hct 23.9 L (34.0-46.0) % MCV 107.1 H D (80.0-100.0) fL MCH 35.4 H (25.0-35.0) pg RDW 23.9 H (11.5-15.5) % Macrocytosis Marked A D-Dimer 1.02 H (<0.60) mg/L FEU Sodium 135 L (137-145) mmol/L Potassium 3.4 L (3.5-5.1) mmol/L BUN 23 H (7-17) mg/dL Glucose 110 H (74-99) mg/dL Total Bilirubin 1.9 H (0.2-1.3) mg/dL AST 41 H (14-36) U/L ALT 70 H (4-34) U/L Lactate Dehydrogenase 2086 H (313-618) U/L C-Reactive Protein 3.6 H (<1.0) mg/dL Total Protein 5.6 L (6.3-8.2) g/dL Albumin 3.0 L (3.5-5.0) g/dL
--- NOTE | 2021-03-25 15:08 | P.PN ---
Subjective Progress Note Date: 03/25/21 Principal diagnosis: COVID-19 pneumonia On 03/05/2021 patient is seen in follow-up on medical surgical floor. She is resting comfortably in bed, states she is breathing better, she still on high flow oxygen at 15 L, her pulse ox is 90%. Afebrile, hemodynamically she stable, no acute distress, yesterday his chest x-ray has been reviewed showing worsening patchy bilateral lung infiltrates compatible with atypical pneumonia. Today's labs have been reviewed, white blood cell count is 7.11, hemoglobin is 12.7, d- dimer was 0.9, improving, electrolytes are within normal limits B1 is 19 creatinine 0.77, LDH today is slightly improved and is down to 1061, and CRP is 4.5. Patient's c-ANCA and p-ANCA levels were within normal limits. Calcitonin level was negative at 0.16, currently continues on Decadron 6 mg twice daily, Lovenox 40 mg daily, and dapsone 100 mg twice daily. On 03/06/2021 patient seen in follow-up on medical surgical floor. Patient is awake and alert, she is up in the recliner, she states overall she is feeling much better, coughing less, her appetite is improving. She still requiring high flow oxygen at 15 L and her pulse ox ranges between 87-90%, she does desat with exertion. States she feels more energetic, she has been trying to stay active, she's had no fever or chills, vital signs have been stable. Today's labs are still pending, yesterday's d-dimer of 0.90, we will obtain lower extremity Dopplers, pro-calcitonin level was negative, her c-ANCA and p-ANCA titers were low, progesterone level was low, patient currently remains on Decadron 6 mg twice daily, she is on Mucinex, she is on albuterol inhaler, and she is on COVID-19 vitamins. Lovenox at 40 mg every 24 hours. On 03/07/2021 patient seen in follow-up on medical surgical floor. Today she is on 15 L per high flow nasal cannula, and 100% nonrebreather mask, her pulse ox is 90%. When she denies any worsening dyspnea, she is breathing quite comfortably, she's been active, get not to the bathroom, tolerating activity very well although she does desaturate with activity she does not feel dyspneic, no chest pain, lung sounds reveal bibasilar crackles, no rhonchi or wheezing, no fever or chills, vital signs have been stable. CTA chest showed no evidence of pulmonary embolism and lower extremity Dopplers were negative for DVT. Today's d-dimer is 0.94, electrolytes and renal profile within normal limits, pro- calcitonin level was negative at 0.05, inflammatory markers were improving on yesterday's labs. Follow up Labs are pending for today. On 03/08/2021 patient seen in follow-up on medical surgical floor. She still on 15 L of oxygen per high flow nasal cannula, she is not wearing a nonrebreather mask most of the time, her pulse ox is 88-91%, clinically she states she is breathing quite comfortably, no dyspnea, no tachypnea, no use of accessory muscles of breathing, she is afebrile, hemodynamically she appears stable she has no specific complaints other than dryness of nasal passages. Mild cough, no phlegm production, appetite is fair, no nausea vomiting or diarrhea. On 03/09/2021 patient seen in follow-up on medical surgical floor. She continues on 15 L per high flow nasal cannula and 100% nonrebreather mask, and her pulse ox is around 92%, she does desat with exertion, tolerates activity very well, no tachypnea, no use of accessory muscles of breathing, she is breathing comfortably, she is currently sitting up in the recliner, in no acute distress, lung sounds reveal bibasilar crackles, no rhonchi or wheezing, no complaint of chest pain, she's been afebrile overnight, she's had no acute events. She is tolerating oral intake. No nausea vomiting or diarrhea, she continues on Decadron, Baricitinib, COVID 19 vitamins, and Lovenox 40 SQ daily The patient is seen today 03/10/2021 in follow-up on the regular medical floor. She is currently sitting up in a chair at the bedside. Awake and alert in no acute distress. Still requiring 15 L high flow nasal cannula as a nonrebreather mask. O2 saturations in the 90s. No worsening shortness of breath, cough or congestion. She's been slow to progress. White count 10.6. Hemoglobin 12.5. D-dimer 1.12. Sodium 134. Potassium 4.1. Creatinine 0.76. LDH 1221. C- reactive protein 0.7. She remains on Baricitinib, Decadron, Lovenox, vitamin supplements. The patient is seen today 03/11/2021 in follow-up on the regular medical floor. Currently sitting up in a chair at the bedside. Awake and alert in no acute distress. She is still requiring 15 L high flow nasal cannula plus a nonrebreather mask. Without the masseter O2 saturations at 85%. She is doing about the same today compared to yesterday. No worse but not much improvement. White count 11.0. Hemoglobin 12.3. Lymphocytes 0.4. D-dimer 1.27. Sodium 134. Potassium 4.0. Creatinine 0.71. LDH 1415. C-reactive protein 0.8. She is continuing on Baricitinib, Decadron, Lovenox, vitamin supplements. The patient is seen today 03/14/2021 in follow-up on the regular medical floor. She is currently sitting up in a chair at the bedside. Awake and alert in no acute distress. She remains on 15 L high flow nasal cannula. Occasionally she needs a nonrebreather mask as well. She is breathing a bit easier today compared to yesterday. He is afebrile. Hemodynamically stable. She remains on Baricitinib, Decadron, Lovenox, vitamin supplements. The patient is seen today 03/15/2021 in follow-up on the regular medical floor. Awake and alert in no acute distress. She is sitting up in a chair at the bedside. She is still requiring 15 L high flow nasal cannula. She is maintaining O2 saturations in the mid 80s. Occasionally using a nonrebreather mask as well. White count 7.4. Hemoglobin 10.1. D-dimer 0.9. Sodium 134. Potassium 3.8. LDH 535. C-reactive protein 0.6. She remains on Baricitinib, Decadron, Lovenox, vitamin supplements. The patient is seen today 03/16/2021 in follow-up on the regular medical floor. She is sitting up in a chair at the bedside. Awake and alert in no acute dist ress. She is maintaining good O2 saturations in the 90s on 15 L high flow nasal cannula as a partial rebreather mask. She was tested on room air and was 83%. She did have issues with nosebleed earlier this morning and was just on the nonrebreather for a while. She denies any worsening shortness of breath, cough or congestion. She has been slow to progress. White count 7.3. Hemoglobin 9.9. Lymphocytes 0.66. Sodium 135. Potassium 3.9. Creatinine 0.70. She is continued on Decadron, Lovenox, vitamin supplements. She is also on Baricitinib. the patient is seen today 03/18/2021 in follow-up on the regular medical floor. She remains awake and alert in no acute distress. Sitting up in a chair at the bedside. She is down to 12 L high flow nasal cannula. She is feeling a bit better today. Feeling stronger. Less short of breath. The short of breath with exertion. white count 7.8.: 9.9. Lymphocytes 0.9. D-dimer 0.9. Sodium 136. Potassium 4.3. Creatinine 0.73. LDH 1586. She remains on Baricitinib, Decadron, Lovenox, vitamin supplements. The patient is seen today 03/24/2021 in follow-up on the regular medical floor. She is currently resting quite comfortably in bed. Actually laying flat. She is still requiring 8 L high flow nasal cannula to maintain O2 saturation in the mid 80s to low 90s. She's afebrile. Hemodynamically stable. White count 9.0. Hemoglobin 7.9. D-dimer 1.02. Sodium 135. Potassium 3.4. Glucose 110. LDH 2086. C-reactive protein 3.6. She remains on Decadron, Lovenox, vitamin supplements. Completed Baricitinib. The patient is seen today 03/25/2021 in follow-up on the regular medical floor. She is sitting up in a chair at the bedside. Awake and alert in no acute distress. She is still requiring oxygen at 8 L high flow nasal cannula to maintain O2 saturations 88-92%. She's afebrile. Hemodynamically stable. Dopplers of the lower extremities were negative for DVT. Echocardiogram revealed preserved left ventricular systolic function with ejection fraction 55- 60%. No evidence of pulmonary hypertension. No new labs today. Her follow-up CoVID 19 screen was negative on 03/19/2021. Objective - Vital Signs Vital signs: Vital Signs Temp 97.9 F 03/25/21 14:00 Pulse 95 03/25/21 14:00 Resp 18 03/25/21 14:00 BP 106/69 03/25/21 14:00 Pulse Ox 88 L 03/25/21 14:00 Intake & Output 03/24/21 03/25/21 03/25/21 18:59 06:59 18:59 Intake Total 840 Balance 840 Intake: Oral 840 Other: # Voids 1 1 - Exam GENERAL EXAM: Alert, pleasant 66-year-old female patient, up in a chair, on 8 L high flow nasal cannula, comfortable in no apparent distress. HEAD: Normocephalic. EYES: Normal reaction of pupils, equal size. NOSE: Clear with pink turbinates. THROAT: No erythema or exudates. NECK: No masses, no JVD. CHEST: No chest wall deformity. LUNGS: Equal air entry with crackles in the bilateral bases. CVS: S1 and S2 normal with no audible murmur, regular rhythm. ABDOMEN: No hepatosplenomegaly, normal bowel sounds, no guarding or rigidity. SPINE: No scoliosis or deformity SKIN: No rashes CENTRAL NERVOUS SYSTEM: No focal deficits, tone is normal in all 4 extremities. EXTREMITIES: There is no peripheral edema. No clubbing, no cyanosis. Peripheral pulses are intact. - Labs CBC & Chem 7: 03/24/21 09:22 03/24/21 09:22 Assessment and Plan Assessment: 1 Acute COVID-19 related pneumonia with bilateral pulmonary infiltrates secondary dyspnea. Patient is vaccinated individual and completed her vaccination back in May and June 2020. Patient presented with less than a week with the symptoms, she has completed a course of Remdesivir. Started on Baricitinib on 03/06/2021, course completed. Still requiring 8 L high flow nasal cannula. 2 Acute hypoxic respiratory failure secondary to the above, progressive, today on 8 l/min nasal cannula 3 History of leukocytoclastic vasculitis, confirmed by skin biopsy and patient is on a combination of prednisone and dapsone on an outpatient basis and patient has been seen significant improvement in her skin lesions 4 History of cerebellar CVA 5 History of abnormal Pap smear 6 Osteoarthritis 7 Obesity Plan: The patient was seen and evaluated Stable from the pulmonary standpoint Down to 8 L high flow nasal cannula Continue to titrate the FiO2 as tolerated Home once down to 5 L or less We will continue to follow
[2021-03-25 15:24] LABS: Anisocytosis Moderate; HCT 22.7 % (34.0-46.0); Hyperchromasia Slight; MCH 35.7 pg (25.0-35.0); MCHC 31.1 g/dL (31.0-37.0); Macrocytosis Marked; Mean Platelet Volume 7.2; Platelet Count 219 k/uL (150-450); Poikilocytosis Marked; RBC 1.97 m/uL (3.80-5.40); WBC 8.8 k/uL (3.8-10.6)
[2021-03-25 15:35] LABS: MCV 114.7 fL (80.0-100.0)
[2021-03-25] MEDS: ENOXAPARIN 40 MG/0.4 ML SYRINGE SQ SCH (17:20)
[2021-03-25] MEDS: DOCUSATE 100 MG CAP PO SCH (17:20)
[2021-03-25] MEDS: DAPSONE 100 MG PO SCH (22:05)
[2021-03-26] MEDS: DAPSONE 25 MG TAB PO SCH (02:09)
[2021-03-26] MEDS: guaiFENesin 600 MG TABLET.ER PO SCH ×2 (05:28→16:38)
[2021-03-26] MEDS: ALBUTEROL HFA INHALER INHALATION PRN ×2 (07:22→11:55)
[2021-03-26] MEDS: ASCORBIC ACID 500 MG TAB PO SCH (08:17)
[2021-03-26] MEDS: CHOLECALCIFEROL 25 MCG (1000 IU) TABLET PO SCH (08:17)
[2021-03-26] MEDS: PANTOPRAZOLE 40 MG TABLET PO SCH (08:17)
[2021-03-26] MEDS: DOCUSATE 100 MG CAP PO SCH (08:17)
[2021-03-26] MEDS: DAPSONE 100 MG PO SCH ×2 (08:17→20:12)
[2021-03-26] MEDS: FLUTICASONE 50MCG/SPRAY NASAL 16GM EA NOSTRIL PRN (08:17)
[2021-03-26] MEDS: ZINC SULFATE 220 MG CAP PO SCH (08:17)
[2021-03-26] MEDS: DEXAMETHASONE SOD PHOSPHATE 10 MG/ML 1 ML VIAL IVP SCH (08:18)
[2021-03-26 10:57] LABS: African American GFR (CKD) 103.2 (60.0-200.0); Albumin 3.4 g/dL (3.8-4.9); Anion Gap 12.1 mmol/L (10.00-18.00); BUN/Creat Ratio 27.14 Ratio (12.00-20.00); C Reactive Protein 1.8 mg/dL (0.00-0.80); Carbon Dioxide 24.9 mmol/L (20.0-27.5); Globulin 1.7 g/dL (1.6-3.3); Potassium 4.2 mmol/L (3.5-5.5); Total Bilirubin 1.4 mg/dL (0.30-1.20); Total Protein 5.1 g/dL (6.2-8.2)
[2021-03-26 12:52] LABS: Anisocytosis (M) 2+; HCT 21.9 % (37.2-46.3); HGB 6.6 g/dL (12.0-15.0); MCH 36.9 pg (27.0-32.0); MCHC 30.1 g/dL (32.0-37.0); MCV 122.3 fL (80.0-97.0); Macrocytosis (M) 3+; Mean Platelet Volume 9.3 fL (9.5-12.2); Platelet Count 167 X 10*3/uL (140-440); Polychromasia 2+; RBC 1.79 X 10*6/uL (4.10-5.20); RDW 25.6 % (11.5-14.5); WBC 7.34 X 10*3/uL (4.50-10.00)
--- NOTE | 2021-03-26 14:23 | P.PN ---
Subjective Progress Note Date: 03/26/21 Hospital course: Patient is a very pleasant 66-year-old femalewith a past medical history of TIA and vasculitis. She presented to the emergency department on 02/28/21 with a chief complaint of shortness of breath and cough. Patient was Found to be hypoxic 88% on room air, tachycardic with heart rate of 103 bpm, and febrile with elevated temp of 101.1F. .Covid 19 PCR resulted positive and patient was diagnosed with Covid 19 pneumonia. X-ray correlating with pneumonia. EKG revealed sinus tachycardia at 101 bpm with no noted T-wave or ST abnormalities. patient was admitted under our services with consultation to pulmonary. Patient being treated with high-dose oxygen, steroids, vitamin C, vitamin D, zinc, Lovenox and completed course of Remdesivir and Baricitinib. Chest CTA negative for PE but did reveal diffuse bilateral groundglass opacities correlating for multifocal pneumonia or ARDS. Dopplers bilateral lower extremities negative for DVT. Echocardiogram showing 55-60% ejection fraction with no significant valvular abnormalities and no evidence of pulmonary hypertension. Repeat CTA completed 03/22/21 revealed persistent groundglass opacities and organizing consolidations consistent with Covid 19 infection with the degree of involvement slightly improved when compared to March [address] CT study but there is likely new mild to moderate scattered fibrotic changes present. Physical exam: Patient seen and fully evaluated at the bedside this morning. She was sitting in the chair and is now on 7 L O2 via nasal cannula maintaining SpO2 of 91-92%. Patient's hemoglobin has slowly trended down since 03/15/21, orders placed for ferritin and an B-12 yesterday as patient has macrocytic hyperchromic anemia. Vitamin B12 321 and folate 4.00. Morning labs reveal continued down trend in hemoglobin with hemoglobin 6.6, hematocrit 21.9, MCV 122.3, MCH 36.9, MCHC 30.1, and RDW of 25.6. Orders placed to transfuse 1 unit PRBCs in for patient to start folate supplementation. Otherwise labs reveal continued elevation of inflammatory markers with d-dimer 1.100, LDH 963, and CRP of 1.80. Discussed continued down trend of hemoglobin with pulmonology and they due to patients high risk of developing a blood clot, we will continue anticoagulation with Lovenox at this time and transfuse as needed for hemoglobin less than 7. Orders also placed for fecal occult, if positive we will place consult for general surgery. Patient resting comfortably, denies having any complaints or needs at this time. She continues to deny having any dizziness, lightheadedness, chest pain, palpitations, nausea, vomiting, or any other complaints. Patient reports that she has been eating well as her family has been bringing her food daily. SHIVANI hose remain in place and patient continues elevation of lower extremities when not in use. Bilateral lower extremity edema has improved. Patient currently on day 26 of hospitalization. Called and spoke with patient's daughter, Mary Ann and updated her on patient's condition and plan of care. All questions answered. Vital signs reviewed and stable. General: Nontoxic, no distress and appears stated age. Derm: Skin warm and dry, normal coloration for ethnicity. Head: Atraumatic, normocephalic and symmetric. Eyes: EOMs intact, no lid lag, and anicteric sclera Mouth: no lip lesions, mucus membranes moist Cardiovascular: regular rate and rhythm with normal S1S2, no murmur, positive posterior tibial pulses bilaterally, and cap refill < 2 seconds. Lungs: Respirations even, regular, and unlabored on 10 L high flow nasal cannula with SpO2 of 90%. Lungs with very soft bilateral lower lobe crackles. No rhonchi, wheezes, or rales and no accessory muscle usage. Significant conversational dyspnea noted today however patient was ambulatory prior to assessment. Patient did recover after approximately 15 minutes. Abdominal: soft, nontender to palpation, no guarding, no appreciable organomegaly Ext: ROM intact. No gross muscle atrophy, 1-2+ edema, no contractures Neuro: Speech clear, face symmetrical and CN II-XII grossly intact with no noted focal neuro deficits Psych: Alert and oriented to person, place, time, and situation. Appropriate and pleasant affect. Assessment and Plan of Care: Acute respiratory failure with hypoxia secondary to COVID 19 pneumonia in vaccinated individual. -Oxygenation to be administered and titrated as needed to maintain SPO2 equal to or greater than 90% -Telemetry monitoring. -Continue trending inflammatory markers -Encourage Incentive Spirometry 10-15x hourly while awake -Steroids: Decadron 6 mg daily -Continue vitamin C, Vitamin D, and Zinc. -Pulmonology following, appreciate further recommendations. -DVT prophylaxis with Lovenox. -Strict Droplet plus Contact precautions -Pt completed course of Remdesivir and Baricitinib Macrocytic hyperchromic anemia -Folate 4.00 -Vitamin B12 321.0 -Oral supplementation of folate ordered with folic acid 1 mg daily. -Continued close monitoring with repeat a.m. labs along with ferritin, iron, and TIBC. -Fecal occult also to be obtained, will place consult to Gen. surgery if positive. Bilateral lower extremity edema, dependent edema -BNP normal findings at 91 -Echocardiogram revealing a normal ejection fraction of 55-60%, no evidence of pulmonary hypertension, and no significant valvular abnormalities. -Bilateral lower extremity Dopplers negative for DVT -Continue SHIVANI hose and elevation of extremities when not in use History of leukocytoclastic vasculitis -Continue Dapsone 100 mg twice daily and continue to follow up outpatient with vascular surgery upon discharge. CODE STATUS: Full code DVT prophylaxis: Lovenox Discussed with: Patient and RN and Pt's daughter-Mary Ann Anticipated discharge date: Clinical course to determine Anticipated discharge place: Home A total of 45 minutes was spent on the care of this complex patient more than 50% of the time was spent in counseling and care coordination. Objective - Vital Signs Vital signs: Vital Signs Temp 98.0 F 03/26/21 06:00 Pulse 91 03/26/21 06:00 Resp 16 03/26/21 06:00 BP 97/60 03/26/21 06:00 Pulse Ox 92 L 03/26/21 06:00 Intake & Output 03/25/21 03/26/21 03/26/21 18:59 06:59 18:59 Intake Total 480 Balance 480 Intake: Oral 480 Other: # Voids 1 2 - Labs CBC & Chem 7: 03/26/21 06:32 03/26/21 06:32 Labs: Abnormal Lab Results - Last 24 Hours (Table) 03/25/21 03/25/21 03/26/21 Range/Units 14:42 14:42 06:32 RBC 1.97 L (3.80-5.40) m/uL Hgb 7.0 L (11.4-16.0) gm/dL Hct 22.7 L (34.0-46.0) % MCV 114.7 H D (80.0-100.0) fL MCH 35.7 H (25.0-35.0) pg RDW 24.0 H (11.5-15.5) % Macrocytosis Marked A D-Dimer 1.10 H (<0.60) mg/L FEU Folate 4.00 L (4.40-31.00) ng/mL
[2021-03-26] MEDS: ENOXAPARIN 40 MG/0.4 ML SYRINGE SQ SCH (16:38)
--- NOTE | 2021-03-26 17:30 | P.PN ---
Subjective Progress Note Date: 03/26/21 Principal diagnosis: Dyspnea, hypoxia On 03/05/2021 patient is seen in follow-up on medical surgical floor. She is resting comfortably in bed, states she is breathing better, she still on high flow oxygen at 15 L, her pulse ox is 90%. Afebrile, hemodynamically she stable, no acute distress, yesterday his chest x-ray has been reviewed showing worsening patchy bilateral lung infiltrates compatible with atypical pneumonia. Today's labs have been reviewed, white blood cell count is 7.11, hemoglobin is 12.7, d- dimer was 0.9, improving, electrolytes are within normal limits B1 is 19 creatinine 0.77, LDH today is slightly improved and is down to 1061, and CRP is 4.5. Patient's c-ANCA and p-ANCA levels were within normal limits. Calcitonin level was negative at 0.16, currently continues on Decadron 6 mg twice daily, Lovenox 40 mg daily, and dapsone 100 mg twice daily. On 03/06/2021 patient seen in follow-up on medical surgical floor. Patient is awake and alert, she is up in the recliner, she states overall she is feeling much better, coughing less, her appetite is improving. She still requiring high flow oxygen at 15 L and her pulse ox ranges between 87-90%, she does desat with exertion. States she feels more energetic, she has been trying to stay active, she's had no fever or chills, vital signs have been stable. Today's labs are still pending, yesterday's d-dimer of 0.90, we will obtain lower extremity Dopplers, pro-calcitonin level was negative, her c-ANCA and p-ANCA titers were low, progesterone level was low, patient currently remains on Decadron 6 mg twice daily, she is on Mucinex, she is on albuterol inhaler, and she is on COVID-19 vitamins. Lovenox at 40 mg every 24 hours. On 03/07/2021 patient seen in follow-up on medical surgical floor. Today she is on 15 L per high flow nasal cannula, and 100% nonrebreather mask, her pulse ox is 90%. When she denies any worsening dyspnea, she is breathing quite comfortably, she's been active, get not to the bathroom, tolerating activity very well although she does desaturate with activity she does not feel dyspneic, no chest pain, lung sounds reveal bibasilar crackles, no rhonchi or wheezing, no fever or chills, vital signs have been stable. CTA chest showed no evidence of pulmonary embolism and lower extremity Dopplers were negative for DVT. Today's d-dimer is 0.94, electrolytes and renal profile within normal limits, pro- calcitonin level was negative at 0.05, inflammatory markers were improving on yesterday's labs. Follow up Labs are pending for today. On 03/08/2021 patient seen in follow-up on medical surgical floor. She still on 15 L of oxygen per high flow nasal cannula, she is not wearing a nonrebreather mask most of the time, her pulse ox is 88-91%, clinically she states she is breathing quite comfortably, no dyspnea, no tachypnea, no use of accessory muscles of breathing, she is afebrile, hemodynamically she appears stable she has no specific complaints other than dryness of nasal passages. Mild cough, no phlegm production, appetite is fair, no nausea vomiting or diarrhea. On 03/09/2021 patient seen in follow-up on medical surgical floor. She continues on 15 L per high flow nasal cannula and 100% nonrebreather mask, and her pulse ox is around 92%, she does desat with exertion, tolerates activity very well, no tachypnea, no use of accessory muscles of breathing, she is breathing comfortably, she is currently sitting up in the recliner, in no acute distress, lung sounds reveal bibasilar crackles, no rhonchi or wheezing, no complaint of chest pain, she's been afebrile overnight, she's had no acute events. She is tolerating oral intake. No nausea vomiting or diarrhea, she continues on Decadron, Baricitinib, COVID 19 vitamins, and Lovenox 40 SQ daily On 03/12/2001 patient seen in follow-up on medical surgical floor, she sits up in a recliner, in no acute distress, she is currently just wearing the 15 L per high flow nasal cannula, her pulse ox is 90%, occasionally she has to apply the nonrebreather mask, however she only used it once last night. She is breathing comfortably, she denies any worsening dyspnea, she remains on Baricitinib, and Decadron 6 blood gram twice daily, she is on Lovenox and multivitamins, today's labs have been reviewed, her white blood cell count is 10.8, hemoglobin is 11.6, d-dimer is slightly improved and is down to 1, electrolytes and renal profile are unremarkable, her LDH has increased and is up to 1430, and CRP is 1.7. She denies any specific complaints, she is awake and alert, oriented 3, lung sounds are clear to auscultation, no rales auscultated. She had no fever or chills, no chest discomfort. On 03/13/2021 patient seen in follow-up on medical surgical floor, currently on 15 L high flow nasal cannula, intermittently she has been requiring nonrebreather mask as well for episodes of desaturation and increased shortness of breath. At rest she seems fairly comfortable, does not appear to be in any acute distress, she is afebrile, hemodynamically she is stable. Chest x-ray showing bilateral multifocal mid to lower lung opacities. No significant change. Today's labs have been reviewed, d-dimer is improving and is down to 0.98, LDH is improving and is down to 532, CRP is 1.1. In terms of therapy patient remains on decadron 6 mf twice daily, Baricitinib, multivitamins, she is on prophylactic Lovenox. Tolerating oral intake, no nausea vomiting or diarrhea. On 03/17/2021 patient no follow-up on medical surgical floor. She is sitting up in the recliner, in no acute distress, she is on 15 L of oxygen pulse ox is 90%, yesterday she had a nosebleed and that she was mostly wearing a nonrebreather mask, today the nosebleed had stopped, and she is back on high flow nasal cannula, with no recurrence of nose bleeding, she is awake and alert, oriented 3, no worsening dyspnea, she has been pronating herself twice a day, tolerating it well. She continues on Baricitinib, she continues on Decadron 6 mg every 12 hours, and Lovenox 40 mg daily. On 03/19/2021 patient seen in follow-up on medical surgical floor, she is currently down to 11 L per high flow nasal cannula, and she has not used nonrebreather mask to supplement her FiO2 needs, she is breathing very comfortably, her pulse ox is 89-90%, she desaturates with speaking and exertion however she is able to recover would rest, and does not appear to be any more dyspneic during those episodes. Occasional cough, no phlegm production, on today's exam her lung sounds are clear, no crackles were appreciated. No wheezing or rhonchi, no chest pain. Patient on Decadron, she has completed her course of Baricitinib, continues on Lovenox. Today's labs have been reviewed, white blood cell count is 8.0, hemoglobin is 9.7, d-dimer is stable at 0.98, electrolytes and renal profile were unremarkable, her LDH on today's labs is 1698, slightly increased from the previous value on yesterday's labs, CRP is less than 0.5. On 03/20/2021 patient seen in follow-up on medical surgical floor. Currently down to 10 L of oxygen toxicity 90%, she's been afebrile, hemodynamically she is stable, she does get mildly short of breath with exertion, but tolerates activity well, she's been ambulating in the room and going into the bathroom, become slightly tachycardic, but denies any chest pain, no cough, lung sounds are clear. Nausea vomiting or diarrhea, no abdominal pain, patient is tolerating oral intake, her appetite is fair. She was retested for COVID-19 yesterday and was found to be negative. Today's exam patient seen in follow-up on 03/21/2021. She is currently on a 10 L of oxygen and her pulse ox is 90%, she has completed her course of Baricitinib. Douglas on Decadron 6 mg daily, she is on COVID-19 vitamins vitamin C, vitamin D, and zinc. Clinically she looks stable, no worsening dyspnea, she does desaturate with conversation and with exertion although she remains asymptomatic during those times. Afebrile, hemodynamically stable. Today's labs have been reviewed, cell count is 7.9, hemoglobin is 8.1, d-dimer is 0.95, electrodes and renal profile are unremarkable, her inflammatory markers are improving and LDH is down to 673 and CRP is currently 2.1. No new chest x-ray today. Appetite is fair, no nausea vomiting diarrhea, no abdominal pain. On 03/26/2001 patient seen in follow-up on medical surgical floor. She is currently down to 7 L of oxygen pulse ox is 93%, looks and feels comfortable, no worsening dyspnea, she sitting up in the recliner, appears to be in no acute distress. His been ambulating to the bathroom, tolerating activity well, vital signs have been stable, no fever or chills. This morning her hemoglobin was noted to be down to 6.6 compared to 7.0 on yesterday's labs and 7.9 on the labs from the day before. No obvious signs of bleeding, occult blood has been ordered and is pending, no black tarry stools, no melena, platelet count is 167. Patient is on Decadron 6 mg daily, she remains on Lovenox 40 mg daily, and oral Protonix in addition to multivitamins. Today's d-dimer is 1.1, electrolytes and renal profile are within normal limits, inflammatory markers are improving on today's labs, and LDH is down to 963, and CRP is 1.8. Patient will be transfused with 1 unit of packed red blood cells. No abdominal pain, she is tolerating oral intake, lower extremity Dopplers were negative for DVT. Echocardiogram was completed showing moderate concentric LVH, no evidence of aortic regurgitation or stenosis, mild mitral regurg, mild tricuspid regurg, no evidence of pulmonary hypertension, right-sided pressure of 34.9 mmHg. Objective - Vital Signs Vital signs: Vital Signs Temp 97.8 F 03/26/21 14:00 Pulse 119 H 03/26/21 14:00 Resp 20 03/26/21 14:00 BP 116/62 03/26/21 14:00 Pulse Ox 90 L 03/26/21 14:00 Intake & Output 03/25/21 03/26/21 03/26/21 18:59 06:59 18:59 Intake Total 480 360 Balance 480 360 Intake: Oral 480 360 Other: # Voids 1 2 3 - Exam GENERAL EXAM: Alert, very pleasant, 66-year-old white female, resting in bed, currently on 7 L of oxygen per high flow nasal cannula and with a pulse ox of 90% comfortable in no apparent distress. HEAD: Normocephalic/atraumatic. EYES: Normal reaction of pupils, equal size. Conjunctiva pink, sclera white. NOSE: Clear with pink turbinates. THROAT: No erythema or exudates. NECK: No masses, no JVD, no thyroid enlargement, no adenopathy. CHEST: No chest wall deformity. Symmetrical expansion. LUNGS: Equal air entry with bibasilar crackles CVS: Regular rate and rhythm, normal S1 and S2, no gallops, no murmurs, no rubs ABDOMEN: Soft, nontender. No hepatosplenomegaly, normal bowel sounds, no guarding or rigidity. EXTREMITIES: No clubbing, no edema, no cyanosis, 2+ pulses and upper and lower extremities. MUSCULOSKELETAL: Muscle strength and tone normal. SPINE: No scoliosis or deformity SKIN: No rashes CENTRAL NERVOUS SYSTEM: Alert and oriented -3. No focal deficits, tone is normal in all 4 extremities. PSYCHIATRIC: Alert and oriented -3. Appropriate affect. Intact judgment and insight. - Labs CBC & Chem 7: 03/26/21 06:32 12 06:32 Labs: Abnormal Lab Results - Last 24 Hours (Table) 03/25/21 03/26/21 03/26/21 Range/Units 14:42 06:32 06:32 RBC 1.79 L (4.10-5.20) X 10*6/uL Hgb 6.6 L* (12.0-15.0) g/dL Hct 21.9 L (37.2-46.3) % MCV 122.3 H (80.0-97.0) fL MCH 36.9 H (27.0-32.0) pg MCHC 30.1 L (32.0-37.0) g/dL RDW 25.6 H (11.5-14.5) % MPV 9.3 L (9.5-12.2) fL Absolute Nucleated RBC 3.24 H (0.00-0.00) X 10*3/uL NRBC/100 WBC Diff 44.1 H (0.0-0.0) /100 WBCS D-Dimer 1.10 H (<0.60) mg/L FEU BUN/Creatinine Ratio (12.00-20.00) Ratio Glucose (70-110) mg/dL Total Bilirubin (0.30-1.20) mg/dL AST (13-35) U/L ALT (8-44) U/L Lactate Dehydrogenase (120-246) U/L C-Reactive Protein (0.00-0.80) mg/dL Total Protein (6.2-8.2) g/dL Albumin (3.8-4.9) g/dL Folate 4.00 L (4.40-31.00) ng/mL 03/26/21 Range/Units 06:32 RBC (4.10-5.20) X 10*6/uL Hgb (12.0-15.0) g/dL Hct (37.2-46.3) % MCV (80.0-97.0) fL MCH (27.0-32.0) pg MCHC (32.0-37.0) g/dL RDW (11.5-14.5) % MPV (9.5-12.2) fL Absolute Nucleated RBC (0.00-0.00) X 10*3/uL NRBC/100 WBC Diff (0.0-0.0) /100 WBCS D-Dimer (<0.60) mg/L FEU BUN/Creatinine Ratio 27.14 H (12.00-20.00) Ratio Glucose 203 H (70-110) mg/dL Total Bilirubin 1.40 H (0.30-1.20) mg/dL AST 38 H (13-35) U/L ALT 70 H (8-44) U/L Lactate Dehydrogenase 963 H (120-246) U/L C-Reactive Protein 1.80 H (0.00-0.80) mg/dL Total Protein 5.1 L (6.2-8.2) g/dL Albumin 3.4 L (3.8-4.9) g/dL Folate (4.40-31.00) ng/mL Assessment and Plan Plan: Assessment: #1. Acute COVID-19 related pneumonia with bilateral pulmonary infiltrates secondary dyspnea. Patient is vaccinated individual and completed her vaccination back in May and June 2020. Patient presented with less than a week with the symptoms, she has completed a course of Remdesivir, currently naseem ins on Decadron 6 mg twice daily, and dapsone 100 mg twice daily. Started on Baricitinib on 03/06/2021, completed on 03/19/2021 #2. Acute hypoxic respiratory failure secondary to the above, improving and patient is currently down to 7 L per high flow nasal cannula #3. History of leukocytoclastic vasculitis, confirmed by skin biopsy and patient is on a combination of prednisone and dapsone on an outpatient basis and patient has been seen significant improvement in her skin lesions #4. History of cerebellar CVA #5. History of abnormal Pap smear #6. Osteoarthritis #7. Nosebleed, related to high concentration oxygen, prophylactic Lovenox, resolved #8. Anemia, acute on chronic, without obvious sign of acute bleeding, we will obtain Hemoccult, today's hemoglobin is 6.6 down from 7.0 on yesterday's labs, we'll transfuse with 1 unit of packed red blood cells Plan: Clinical patient continues to improve, FiO2 is currently down to 7 L/m Breathing comfortably Transfuse with 1 unit of packed red blood cells Follow-up labs including CBC and CMP tomorrow Blood Transfusion should also improve oxygenation We will continue to follow Once patient is down to 5 L of oxygen and less, we will consider discharge home I performed a history & physical examination of the patient and discussed their management with my nurse practitioner, Adaglisa Esparza. I reviewed the nurse practitioner's note and agree with the documented findings and plan of care. Lung sounds are positive for bibasilar crackles throughout the lung mckenna. The findings and the impression was discussed with the patient. I attest to the documentation by the nurse practitioner. Time with Patient: Less than 30
[2021-03-27] MEDS: guaiFENesin 600 MG TABLET.ER PO SCH ×2 (05:22→17:26)
[2021-03-27] MEDS: ALBUTEROL HFA INHALER INHALATION PRN ×3 (07:55→20:29)
[2021-03-27] MEDS: DOCUSATE 100 MG CAP PO SCH (08:31)
[2021-03-27] MEDS: DAPSONE 100 MG PO SCH ×2 (08:31→20:39)
[2021-03-27] MEDS: FOLIC ACID 1 MG TAB PO SCH (08:31)
[2021-03-27] MEDS: CHOLECALCIFEROL 25 MCG (1000 IU) TABLET PO SCH (08:31)
[2021-03-27] MEDS: ZINC SULFATE 220 MG CAP PO SCH (08:31)
[2021-03-27] MEDS: ASCORBIC ACID 500 MG TAB PO SCH (08:31)
[2021-03-27] MEDS: DEXAMETHASONE SOD PHOSPHATE 10 MG/ML 1 ML VIAL IVP SCH (08:31)
[2021-03-27] MEDS: PANTOPRAZOLE 40 MG TABLET PO SCH (08:31)
[2021-03-27 10:34] LABS: Anisocytosis (M) 2+; HCT 26.5 % (37.2-46.3); HGB 8.2 g/dL (12.0-15.0); MCH 36.3 pg (27.0-32.0); MCHC 30.9 g/dL (32.0-37.0); MCV 117.3 fL (80.0-97.0); Macrocytosis (M) 2+; Mean Platelet Volume 9.1 fL (9.5-12.2); Platelet Count 152 X 10*3/uL (140-440); RBC 2.26 X 10*6/uL (4.10-5.20); RDW 27.2 % (11.5-14.5); WBC 8.43 X 10*3/uL (4.50-10.00)
--- NOTE | 2021-03-27 12:11 | P.PN ---
Subjective Progress Note Date: 03/27/21 Hospital course: Patient is a very pleasant 66-year-old femalewith a past medical history of TIA and vasculitis. She presented to the emergency department on 02/28/21 with a chief complaint of shortness of breath and cough. Patient was Found to be hypoxic 88% on room air, tachycardic with heart rate of 103 bpm, and febrile with elevated temp of 101.1F. .Covid 19 PCR resulted positive and patient was diagnosed with Covid 19 pneumonia. X-ray correlating with pneumonia. EKG revealed sinus tachycardia at 101 bpm with no noted T-wave or ST abnormalities. patient was admitted under our services with consultation to pulmonary. Patient being treated with high-dose oxygen, steroids, vitamin C, vitamin D, zinc, Lovenox and completed course of Remdesivir and Baricitinib. Chest CTA negative for PE but did reveal diffuse bilateral groundglass opacities correlating for multifocal pneumonia or ARDS. Dopplers bilateral lower extremities negative for DVT. Echocardiogram showing 55-60% ejection fraction with no significant valvular abnormalities and no evidence of pulmonary hypertension. Repeat CTA completed 03/22/21 revealed persistent groundglass opacities and organizing consolidations consistent with Covid 19 infection with the degree of involvement slightly improved when compared to March [address] CT study but there is likely new mild to moderate scattered fibrotic changes present. Physical exam: Patient seen and fully evaluated at the bedside this morning. She is doing well this morning and denied having any complaints or concerns this morning. Hemoglobin stable after yesterday's transfusion with morning hemoglobin 8.2. Patient reports that she did had a rough night last night and did not sleep we ll, so she is attempting to take a nap at this time. SpO2 was 95% on 7 L oxygen decreased to 6 L at this time and patient maintaining SpO2 of 90%. We will continue to wean as patient tolerates. Patient is currently on day 27 of hospitalization, she has completed course of Remdesivir and Baricitinib and remains on daily Decadron, vitamin C, vitamin D, zinc, and Lovenox. Vital signs reviewed and stable. General: Nontoxic, no distress and appears stated age. Derm: Skin warm and dry, normal coloration for ethnicity. Head: Atraumatic, normocephalic and symmetric. Eyes: EOMs intact, no lid lag, and anicteric sclera Mouth: no lip lesions, mucus membranes moist Cardiovascular: regular rate and rhythm with normal S1S2, no murmur, positive posterior tibial pulses bilaterally, and cap refill < 2 seconds. Lungs: Respirations even, regular, and unlabored on 6 L high flow nasal cannula with SpO2 of 90%. Lungs with very soft bilateral lower lobe crackles. No rhonchi, wheezes, or rales and no accessory muscle usage. Abdominal: soft, nontender to palpation, no guarding, no appreciable org anomegaly Ext: ROM intact. No gross muscle atrophy, 1+ edema, no contractures Neuro: Speech clear, face symmetrical and CN II-XII grossly intact with no noted focal neuro deficits Psych: Alert and oriented to person, place, time, and situation. Appropriate and pleasant affect. Assessment and Plan of Care: Acute respiratory failure with hypoxia secondary to COVID 19 pneumonia in vaccinated individual. -Oxygenation to be administered and titrated as needed to maintain SPO2 equal to or greater than 90% -Telemetry monitoring. -Continue trending inflammatory markers -Encourage Incentive Spirometry 10-15x hourly while awake -Steroids: Decadron 6 mg daily -Continue vitamin C, Vitamin D, and Zinc. -Pulmonology following, appreciate further recommendations. -DVT prophylaxis with Lovenox. -Strict Droplet plus Contact precautions -Pt completed course of Remdesivir and Baricitinib Macrocytic hyperchromic anemia -Folate 4.00 -Vitamin B12 321.0 -Ferritin, iron, and TIBC pending -Oral supplementation of folate ordered with folic acid 1 mg daily. -Hemoglobin was 6.6 requiring transfusion of 1 unit PRBCs on 03/26/21 and status post transfusion hemoglobin is currently stable at 8.2. -Continued close monitoring with repeat a.m. labs along with ferritin, iron, and TIBC. -Fecal occult negative. Bilateral lower extremity edema, dependent edema -BNP normal findings at 91 -Echocardiogram revealing a normal ejection fraction of 55-60%, no evidence of pulmonary hypertension, and no significant valvular abnormalities. -Bilateral lower extremity Dopplers negative for DVT -Continue SHIVANI hose and elevation of extremities when not in use History of leukocytoclastic vasculitis -Continue Dapsone 100 mg twice daily and continue to follow up outpatient with vascular surgery upon discharge. CODE STATUS: Full code DVT prophylaxis: Lovenox Discussed with: Patient and RN and Pt's daughter-Mary Ann Anticipated discharge date: Clinical course to determine Anticipated discharge place: Home A total of 40 minutes was spent on the care of this complex patient more than 50% of the time was spent in counseling and care coordination. Objective - Vital Signs Vital signs: Vital Signs Temp 98.4 F 03/27/21 06:00 Pulse 92 03/27/21 07:40 Resp 20 03/27/21 07:40 BP 106/69 03/27/21 06:00 Pulse Ox 91 L 03/27/21 06:00 Intake & Output 03/26/21 03/27/21 03/27/21 18:59 06:59 18:59 Intake Total 360 330 Balance 360 330 Intake: Oral 360 Blood Product 310 Rc As-1 Unit 310 [id number] Other 20 Rc As-1 Unit 20 [id number] Other: Voiding Method Toilet # Voids 3 - Labs CBC & Chem 7: 03/27/21 05:23 03/26/21 06:32 Labs: Abnormal Lab Results - Last 24 Hours (Table) 03/26/21 03/26/21 03/27/21 Range/Units 06:32 17:58 05:23 RBC 1.79 L 2.26 L (4.10-5.20) X 10*6/uL Hgb 6.6 L* 8.2 L (12.0-15.0) g/dL Hct 21.9 L 26.5 L (37.2-46.3) % MCV 122.3 H 117.3 H (80.0-97.0) fL MCH 36.9 H 36.3 H (27.0-32.0) pg MCHC 30.1 L 30.9 L (32.0-37.0) g/dL RDW 25.6 H 27.2 H (11.5-14.5) % MPV 9.3 L 9.1 L (9.5-12.2) fL Absolute Nucleated RBC 3.24 H 3.18 H (0.00-0.00) X 10*3/uL NRBC/100 WBC Diff 44.1 H 37.7 H (0.0-0.0) /100 WBCS D-Dimer (<0.60) mg/L FEU Crossmatch See Detail 03/27/21 Range/Units 05:23 RBC (4.10-5.20) X 10*6/uL Hgb (12.0-15.0) g/dL Hct (37.2-46.3) % MCV (80.0-97.0) fL MCH (27.0-32.0) pg MCHC (32.0-37.0) g/dL RDW (11.5-14.5) % MPV (9.5-12.2) fL Absolute Nucleated RBC (0.00-0.00) X 10*3/uL NRBC/100 WBC Diff (0.0-0.0) /100 WBCS D-Dimer 1.23 H (<0.60) mg/L FEU Crossmatch
[2021-03-27 12:17] LABS: % Iron Saturation 83.97 (12.00-45.00); C Reactive Protein 1.4 mg/dL (0.00-0.80); Magnesium 2.1 mg/dL (1.5-2.4)
[2021-03-27] MEDS ORDERED: FUROSEMIDE 10 MG/ML 4 ML VIAL IV STA (12:40)
--- NOTE | 2021-03-27 12:49 | P.PN ---
Subjective Progress Note Date: 03/27/21 Principal diagnosis: Dyspnea, hypoxia On 03/05/2021 patient is seen in follow-up on medical surgical floor. She is resting comfortably in bed, states she is breathing better, she still on high flow oxygen at 15 L, her pulse ox is 90%. Afebrile, hemodynamically she stable, no acute distress, yesterday his chest x-ray has been reviewed showing worsening patchy bilateral lung infiltrates compatible with atypical pneumonia. Today's labs have been reviewed, white blood cell count is 7.11, hemoglobin is 12.7, d- dimer was 0.9, improving, electrolytes are within normal limits B1 is 19 creatinine 0.77, LDH today is slightly improved and is down to 1061, and CRP is 4.5. Patient's c-ANCA and p-ANCA levels were within normal limits. Calcitonin level was negative at 0.16, currently continues on Decadron 6 mg twice daily, Lovenox 40 mg daily, and dapsone 100 mg twice daily. On 03/06/2021 patient seen in follow-up on medical surgical floor. Patient is awake and alert, she is up in the recliner, she states overall she is feeling much better, coughing less, her appetite is improving. She still requiring high flow oxygen at 15 L and her pulse ox ranges between 87-90%, she does desat with exertion. States she feels more energetic, she has been trying to stay active, she's had no fever or chills, vital signs have been stable. Today's labs are still pending, yesterday's d-dimer of 0.90, we will obtain lower extremity Dopplers, pro-calcitonin level was negative, her c-ANCA and p-ANCA titers were low, progesterone level was low, patient currently remains on Decadron 6 mg twice daily, she is on Mucinex, she is on albuterol inhaler, and she is on COVID-19 vitamins. Lovenox at 40 mg every 24 hours. On 03/07/2021 patient seen in follow-up on medical surgical floor. Today she is on 15 L per high flow nasal cannula, and 100% nonrebreather mask, her pulse ox is 90%. When she denies any worsening dyspnea, she is breathing quite comfortably, she's been active, get not to the bathroom, tolerating activity very well although she does desaturate with activity she does not feel dyspneic, no chest pain, lung sounds reveal bibasilar crackles, no rhonchi or wheezing, no fever or chills, vital signs have been stable. CTA chest showed no evidence of pulmonary embolism and lower extremity Dopplers were negative for DVT. Today's d-dimer is 0.94, electrolytes and renal profile within normal limits, pro- calcitonin level was negative at 0.05, inflammatory markers were improving on yesterday's labs. Follow up Labs are pending for today. On 03/08/2021 patient seen in follow-up on medical surgical floor. She still on 15 L of oxygen per high flow nasal cannula, she is not wearing a nonrebreather mask most of the time, her pulse ox is 88-91%, clinically she states she is breathing quite comfortably, no dyspnea, no tachypnea, no use of accessory muscles of breathing, she is afebrile, hemodynamically she appears stable she has no specific complaints other than dryness of nasal passages. Mild cough, no phlegm production, appetite is fair, no nausea vomiting or diarrhea. On 03/09/2021 patient seen in follow-up on medical surgical floor. She continues on 15 L per high flow nasal cannula and 100% nonrebreather mask, and her pulse ox is around 92%, she does desat with exertion, tolerates activity very well, no tachypnea, no use of accessory muscles of breathing, she is breathing comfortably, she is currently sitting up in the recliner, in no acute distress, lung sounds reveal bibasilar crackles, no rhonchi or wheezing, no complaint of chest pain, she's been afebrile overnight, she's had no acute events. She is tolerating oral intake. No nausea vomiting or diarrhea, she continues on Decadron, Baricitinib, COVID 19 vitamins, and Lovenox 40 SQ daily On 03/12/2001 patient seen in follow-up on medical surgical floor, she sits up in a recliner, in no acute distress, she is currently just wearing the 15 L per high flow nasal cannula, her pulse ox is 90%, occasionally she has to apply the nonrebreather mask, however she only used it once last night. She is breathing comfortably, she denies any worsening dyspnea, she remains on Baricitinib, and Decadron 6 blood gram twice daily, she is on Lovenox and multivitamins, today's labs have been reviewed, her white blood cell count is 10.8, hemoglobin is 11.6, d-dimer is slightly improved and is down to 1, electrolytes and renal profile are unremarkable, her LDH has increased and is up to 1430, and CRP is 1.7. She denies any specific complaints, she is awake and alert, oriented 3, lung sounds are clear to auscultation, no rales auscultated. She had no fever or chills, no chest discomfort. On 03/13/2021 patient seen in follow-up on medical surgical floor, currently on 15 L high flow nasal cannula, intermittently she has been requiring nonrebreather mask as well for episodes of desaturation and increased shortness of breath. At rest she seems fairly comfortable, does not appear to be in any acute distress, she is afebrile, hemodynamically she is stable. Chest x-ray showing bilateral multifocal mid to lower lung opacities. No significant change. Today's labs have been reviewed, d-dimer is improving and is down to 0.98, LDH is improving and is down to 532, CRP is 1.1. In terms of therapy patient remains on decadron 6 mf twice daily, Baricitinib, multivitamins, she is on prophylactic Lovenox. Tolerating oral intake, no nausea vomiting or diarrhea. On 03/17/2021 patient no follow-up on medical surgical floor. She is sitting up in the recliner, in no acute distress, she is on 15 L of oxygen pulse ox is 90%, yesterday she had a nosebleed and that she was mostly wearing a nonrebreather mask, today the nosebleed had stopped, and she is back on high flow nasal cannula, with no recurrence of nose bleeding, she is awake and alert, oriented 3, no worsening dyspnea, she has been pronating herself twice a day, tolerating it well. She continues on Baricitinib, she continues on Decadron 6 mg every 12 hours, and Lovenox 40 mg daily. On 03/19/2021 patient seen in follow-up on medical surgical floor, she is currently down to 11 L per high flow nasal cannula, and she has not used nonrebreather mask to supplement her FiO2 needs, she is breathing very comfortably, her pulse ox is 89-90%, she desaturates with speaking and exertion however she is able to recover would rest, and does not appear to be any more dyspneic during those episodes. Occasional cough, no phlegm production, on today's exam her lung sounds are clear, no crackles were appreciated. No wheezing or rhonchi, no chest pain. Patient on Decadron, she has completed her course of Baricitinib, continues on Lovenox. Today's labs have been reviewed, white blood cell count is 8.0, hemoglobin is 9.7, d-dimer is stable at 0.98, electrolytes and renal profile were unremarkable, her LDH on today's labs is 1698, slightly increased from the previous value on yesterday's labs, CRP is less than 0.5. On 03/20/2021 patient seen in follow-up on medical surgical floor. Currently down to 10 L of oxygen toxicity 90%, she's been afebrile, hemodynamically she is stable, she does get mildly short of breath with exertion, but tolerates activity well, she's been ambulating in the room and going into the bathroom, become slightly tachycardic, but denies any chest pain, no cough, lung sounds are clear. Nausea vomiting or diarrhea, no abdominal pain, patient is tolerating oral intake, her appetite is fair. She was retested for COVID-19 yesterday and was found to be negative. Today's exam patient seen in follow-up on 03/21/2021. She is currently on a 10 L of oxygen and her pulse ox is 90%, she has completed her course of Baricitinib. Douglas on Decadron 6 mg daily, she is on COVID-19 vitamins vitamin C, vitamin D, and zinc. Clinically she looks stable, no worsening dyspnea, she does desaturate with conversation and with exertion although she remains asymptomatic during those times. Afebrile, hemodynamically stable. Today's labs have been reviewed, cell count is 7.9, hemoglobin is 8.1, d-dimer is 0.95, electrodes and renal profile are unremarkable, her inflammatory markers are improving and LDH is down to 673 and CRP is currently 2.1. No new chest x-ray today. Appetite is fair, no nausea vomiting diarrhea, no abdominal pain. On 03/26/2001 patient seen in follow-up on medical surgical floor. She is currently down to 7 L of oxygen pulse ox is 93%, looks and feels comfortable, no worsening dyspnea, she sitting up in the recliner, appears to be in no acute distress. His been ambulating to the bathroom, tolerating activity well, vital signs have been stable, no fever or chills. This morning her hemoglobin was noted to be down to 6.6 compared to 7.0 on yesterday's labs and 7.9 on the labs from the day before. No obvious signs of bleeding, occult blood has been ordered and is pending, no black tarry stools, no melena, platelet count is 167. Patient is on Decadron 6 mg daily, she remains on Lovenox 40 mg daily, and oral Protonix in addition to multivitamins. Today's d-dimer is 1.1, electrolytes and renal profile are within normal limits, inflammatory markers are improving on today's labs, and LDH is down to 963, and CRP is 1.8. Patient will be transfused with 1 unit of packed red blood cells. No abdominal pain, she is tolerating oral intake, lower extremity Dopplers were negative for DVT. Echocardiogram was completed showing moderate concentric LVH, no evidence of aortic regurgitation or stenosis, mild mitral regurg, mild tricuspid regurg, no evidence of pulmonary hypertension, right-sided pressure of 34.9 mmHg. On today's evaluation on 03/27/2021 patient seen in follow-up on medical surgical floor, she is currently down to 6 L of oxygen, her pulse ox is 89-90%, and patient has just returned from the bathroom. She tolerates activity very well, she has been ambulating herself to the bathroom, desat with ambulation but recovers. Breathing comfortably, lung sounds are clear on today's exam, patient hasn't had a chest x-ray for a while, bilateral lower extremities and hands appear to be swollen, we will consider a dose of IV Lasix, she has been af ebrile, blood pressure is been stable, only occasional cough, no phlegm production. Dopplers of bilateral lower extremities from 03/23/2021 showed no evidence of DVT. CT angiogram showed no evidence of central pulmonary embolism, and persistent bilateral multifocal opacities and organizing consolidation consistent with COVID-19 infection. Patient has completed her course of Baricitinib, he remains on Decadron 6 mg daily, prophylactic dose Lovenox and multivitamins, no nausea vomiting or diarrhea, she had a large bowel movement today, occult stool was negative, she is status post transfusion with 1 unit of packed red blood cells yesterday, and today's hemoglobin is up to 8.2. White count on today's labs is 8.4, platelet count is 152, d-dimer today is 1.23, today CRP is improving and is down to 1.4, LDH is still pending Objective - Vital Signs Vital signs: Vital Signs Temp 98.4 F 03/27/21 06:00 Pulse 92 03/27/21 07:40 Resp 20 03/27/21 07:40 BP 106/69 03/27/21 06:00 Pulse Ox 91 L 03/27/21 06:00 Intake & Output 03/26/21 03/27/21 03/27/21 18:59 06:59 18:59 Intake Total 360 330 Balance 360 330 Intake: Oral 360 Blood Product 310 Rc As-1 Unit 310 [id number] Other 20 Rc As-1 Unit 20 [id number] Other: Voiding Method Toilet # Voids 3 - Exam GENERAL EXAM: Alert, very pleasant, 66-year-old white female, resting in bed, currently on 6 L of oxygen per high flow nasal cannula and with a pulse ox of 90% comfortable in no apparent distress. HEAD: Normocephalic/atraumatic. EYES: Normal reaction of pupils, equal size. Conjunctiva pink, sclera white. NOSE: Clear with pink turbinates. THROAT: No erythema or exudates. NECK: No masses, no JVD, no thyroid enlargement, no adenopathy. CHEST: No chest wall deformity. Symmetrical expansion. LUNGS: Equal air entry with bibasilar crackles CVS: Regular rate and rhythm, normal S1 and S2, no gallops, no murmurs, no rubs ABDOMEN: Soft, nontender. No hepatosplenomegaly, normal bowel sounds, no guarding or rigidity. EXTREMITIES: No clubbing, 1+ bilateral lower extremity edema no cyanosis, 2+ pulses and upper and lower extremities. MUSCULOSKELETAL: Muscle strength and tone normal. SPINE: No scoliosis or deformity SKIN: No rashes CENTRAL NERVOUS SYSTEM: Alert and oriented -3. No focal deficits, tone is normal in all 4 extremities. PSYCHIATRIC: Alert and oriented -3. Appropriate affect. Intact judgment and insight. - Labs CBC & Chem 7: 03/27/21 05:23 03/26/21 06:32 Labs: Abnormal Lab Results - Last 24 Hours (Table) 03/26/21 03/26/21 03/27/21 Range/Units 06:32 17:58 05:23 RBC 1.79 L 2.26 L (4.10-5.20) X 10*6/uL Hgb 6.6 L* 8.2 L (12.0-15.0) g/dL Hct 21.9 L 26.5 L (37.2-46.3) % MCV 122.3 H 117.3 H (80.0-97.0) fL MCH 36.9 H 36.3 H (27.0-32.0) pg MCHC 30.1 L 30.9 L (32.0-37.0) g/dL RDW 25.6 H 27.2 H (11.5-14.5) % MPV 9.3 L 9.1 L (9.5-12.2) fL Absolute Nucleated RBC 3.24 H 3.18 H (0.00-0.00) X 10*3/uL NRBC/100 WBC Diff 44.1 H 37.7 H (0.0-0.0) /100 WBCS D-Dimer (<0.60) mg/L FEU Iron (50-170) ug/dL % Saturation (12.00-45.00) C-Reactive Protein (0.00-0.80) mg/dL Crossmatch See Detail 03/27/21 03/27/21 Range/Units 05:23 05:23 RBC (4.10-5.20) X 10*6/uL Hgb (12.0-15.0) g/dL Hct (37.2-46.3) % MCV (80.0-97.0) fL MCH (27.0-32.0) pg MCHC (32.0-37.0) g/dL RDW (11.5-14.5) % MPV (9.5-12.2) fL Absolute Nucleated RBC (0.00-0.00) X 10*3/uL NRBC/100 WBC Diff (0.0-0.0) /100 WBCS D-Dimer 1.23 H (<0.60) mg/L FEU Iron 241 H (50-170) ug/dL % Saturation 83.97 H (12.00-45.00) C-Reactive Protein 1.40 H (0.00-0.80) mg/dL Crossmatch Assessment and Plan Plan: Assessment: #1. Acute COVID-19 related pneumonia with bilateral pulmonary infiltrates secondary dyspnea. Patient is vaccinated individual and completed her vaccination back in May and June 2020. Patient presented with less than a week with the symptoms, she has completed a course of Remdesivir, currently remains on Decadron 6 mg twice daily, and dapsone 100 mg twice daily. Started on Baricitinib on 03/06/2021, completed on 03/19/2021 #2. Acute hypoxic respiratory failure secondary to the above, improving and patient is currently down to 6 L per high flow nasal cannula #3. History of leukocytoclastic vasculitis, confirmed by skin biopsy and patient is on a combination of prednisone and dapsone on an outpatient basis and patient has been seen significant improvement in her skin lesions #4. History of cerebellar CVA #5. History of abnormal Pap smear #6. Osteoarthritis #7. Nosebleed, related to high concentration oxygen, prophylactic Lovenox, resolved #8. Anemia, acute on chronic, without obvious sign of acute bleeding, Hemoccult is negative, today's hemoglobin is 6.6 down from 7.0 on yesterday's labs, we'll transfuse with 1 unit of packed red blood cells Plan: Clinical patient continues to improve, FiO2 is currently down to 6 L/m Breathing comfortably Transfuse with 1 unit of packed red blood cells, no evidence of bleeding, Hemoccult was negative Continue weaning FiO2 We'll give the patient 1 time dose IV Lasix 40 mg Follow-up chest x-ray tomorrow, follow up inflammatory markers, d-dimer and CBC and CMP Once patient is down to 5 L of oxygen and less, we will consider discharge home I performed a history & physical examination of the patient and discussed their management with my nurse practitioner, Adalgisa Esparza. I reviewed the nurse practitioner's note and agree with the documented findings and plan of care. Lung sounds are positive for bibasilar crackles throughout the lung mckenna. The findings and the impression was discussed with the patient. I attest to the documentation by the nurse practitioner. Time with Patient: Less than 30
[2021-03-27] MEDS: ENOXAPARIN 40 MG/0.4 ML SYRINGE SQ SCH (17:26)
[2021-03-27] MEDS: ACETAMINOPHEN TAB 325 MG TAB PO PRN (20:39)
[2021-03-28 02:17] LABS: African American GFR (CKD) 108.5 (60.0-200.0); Albumin 3.6 g/dL (3.8-4.9); Albumin/Globulin Ratio 1.89 (1.60-3.17); Anion Gap 15.1 mmol/L (10.00-18.00); BUN/Creat Ratio 31.5 Ratio (12.00-20.00); Blood Urea Nitrogen 18.9 mg/dL (9.0-27.0); Calcium 8.9 mg/dL (8.7-10.3); Carbon Dioxide 24.9 mmol/L (20.0-27.5); Globulin 1.9 g/dL (1.6-3.3); Non-African American GFR(CKD) 93.7 (60.0-200.0); Potassium 4.2 mmol/L (3.5-5.5); Total Bilirubin 1.6 mg/dL (0.30-1.20); Total Protein 5.5 g/dL (6.2-8.2)
[2021-03-28] MEDS: guaiFENesin 600 MG TABLET.ER PO SCH ×2 (05:52→17:40)
--- NOTE | 2021-03-28 08:14 | XR ---
EXAMINATION TYPE: XR chest 1V portable DATE OF EXAM: 03/28/2021 COMPARISON: Chest x-ray 03/17/2021 HISTORY: Covid pneumonia TECHNIQUE: Single frontal view of the chest is obtained. FINDINGS: Patchy bilateral airspace disease shows a similar appearance. No evident pneumothorax or p leural effusion. Right hemidiaphragm is elevated. Cardiac mediastinal silhouette is stable. Exam is e xpiratory and rotated. There are overlying artifacts. IMPRESSION: Findings similar to prior exam, correlate for pneumonia
[2021-03-28] MEDS: ALBUTEROL HFA INHALER INHALATION PRN ×4 (08:32→21:38)
[2021-03-28] MEDS: DEXAMETHASONE SOD PHOSPHATE 10 MG/ML 1 ML VIAL IVP SCH (09:13)
[2021-03-28] MEDS: DAPSONE 100 MG PO SCH ×2 (09:14→20:35)
[2021-03-28] MEDS: CHOLECALCIFEROL 25 MCG (1000 IU) TABLET PO SCH (09:14)
[2021-03-28] MEDS: CYANOCOBALAMIN 500 MCG TAB PO SCH (09:14)
[2021-03-28] MEDS: DOCUSATE 100 MG CAP PO SCH (09:14)
[2021-03-28] MEDS: ASCORBIC ACID 500 MG TAB PO SCH (09:15)
[2021-03-28] MEDS: FOLIC ACID 1 MG TAB PO SCH (09:15)
[2021-03-28] MEDS: PANTOPRAZOLE 40 MG TABLET PO SCH (09:15)
[2021-03-28] MEDS: ZINC SULFATE 220 MG CAP PO SCH (09:15)
[2021-03-28] MEDS ORDERED: FUROSEMIDE 10 MG/ML 4 ML VIAL IV STA (11:49)
--- NOTE | 2021-03-28 13:26 | P.PN ---
Subjective Progress Note Date: 03/28/21 Principal diagnosis: Dyspnea, hypoxia On 03/05/2021 patient is seen in follow-up on medical surgical floor. She is resting comfortably in bed, states she is breathing better, she still on high flow oxygen at 15 L, her pulse ox is 90%. Afebrile, hemodynamically she stable, no acute distress, yesterday his chest x-ray has been reviewed showing worsening patchy bilateral lung infiltrates compatible with atypical pneumonia. Today's labs have been reviewed, white blood cell count is 7.11, hemoglobin is 12.7, d- dimer was 0.9, improving, electrolytes are within normal limits B1 is 19 creatinine 0.77, LDH today is slightly improved and is down to 1061, and CRP is 4.5. Patient's c-ANCA and p-ANCA levels were within normal limits. Calcitonin level was negative at 0.16, currently continues on Decadron 6 mg twice daily, Lovenox 40 mg daily, and dapsone 100 mg twice daily. On 03/06/2021 patient seen in follow-up on medical surgical floor. Patient is awake and alert, she is up in the recliner, she states overall she is feeling much better, coughing less, her appetite is improving. She still requiring high flow oxygen at 15 L and her pulse ox ranges between 87-90%, she does desat with exertion. States she feels more energetic, she has been trying to stay active, she's had no fever or chills, vital signs have been stable. Today's labs are still pending, yesterday's d-dimer of 0.90, we will obtain lower extremity Dopplers, pro-calcitonin level was negative, her c-ANCA and p-ANCA titers were low, progesterone level was low, patient currently remains on Decadron 6 mg twice daily, she is on Mucinex, she is on albuterol inhaler, and she is on COVID-19 vitamins. Lovenox at 40 mg every 24 hours. On 03/07/2021 patient seen in follow-up on medical surgical floor. Today she is on 15 L per high flow nasal cannula, and 100% nonrebreather mask, her pulse ox is 90%. When she denies any worsening dyspnea, she is breathing quite comfortably, she's been active, get not to the bathroom, tolerating activity very well although she does desaturate with activity she does not feel dyspneic, no chest pain, lung sounds reveal bibasilar crackles, no rhonchi or wheezing, no fever or chills, vital signs have been stable. CTA chest showed no evidence of pulmonary embolism and lower extremity Dopplers were negative for DVT. Today's d-dimer is 0.94, electrolytes and renal profile within normal limits, pro- calcitonin level was negative at 0.05, inflammatory markers were improving on yesterday's labs. Follow up Labs are pending for today. On 03/08/2021 patient seen in follow-up on medical surgical floor. She still on 15 L of oxygen per high flow nasal cannula, she is not wearing a nonrebreather mask most of the time, her pulse ox is 88-91%, clinically she states she is breathing quite comfortably, no dyspnea, no tachypnea, no use of accessory muscles of breathing, she is afebrile, hemodynamically she appears stable she has no specific complaints other than dryness of nasal passages. Mild cough, no phlegm production, appetite is fair, no nausea vomiting or diarrhea. On 03/09/2021 patient seen in follow-up on medical surgical floor. She continues on 15 L per high flow nasal cannula and 100% nonrebreather mask, and her pulse ox is around 92%, she does desat with exertion, tolerates activity very well, no tachypnea, no use of accessory muscles of breathing, she is breathing comfortably, she is currently sitting up in the recliner, in no acute distress, lung sounds reveal bibasilar crackles, no rhonchi or wheezing, no complaint of chest pain, she's been afebrile overnight, she's had no acute events. She is tolerating oral intake. No nausea vomiting or diarrhea, she continues on Decadron, Baricitinib, COVID 19 vitamins, and Lovenox 40 SQ daily On 03/12/2001 patient seen in follow-up on medical surgical floor, she sits up in a recliner, in no acute distress, she is currently just wearing the 15 L per high flow nasal cannula, her pulse ox is 90%, occasionally she has to apply the nonrebreather mask, however she only used it once last night. She is breathing comfortably, she denies any worsening dyspnea, she remains on Baricitinib, and Decadron 6 blood gram twice daily, she is on Lovenox and multivitamins, today's labs have been reviewed, her white blood cell count is 10.8, hemoglobin is 11.6, d-dimer is slightly improved and is down to 1, electrolytes and renal profile are unremarkable, her LDH has increased and is up to 1430, and CRP is 1.7. She denies any specific complaints, she is awake and alert, oriented 3, lung sounds are clear to auscultation, no rales auscultated. She had no fever or chills, no chest discomfort. On 03/13/2021 patient seen in follow-up on medical surgical floor, currently on 15 L high flow nasal cannula, intermittently she has been requiring nonrebreather mask as well for episodes of desaturation and increased shortness of breath. At rest she seems fairly comfortable, does not appear to be in any acute distress, she is afebrile, hemodynamically she is stable. Chest x-ray showing bilateral multifocal mid to lower lung opacities. No significant change. Today's labs have been reviewed, d-dimer is improving and is down to 0.98, LDH is improving and is down to 532, CRP is 1.1. In terms of therapy patient remains on decadron 6 mf twice daily, Baricitinib, multivitamins, she is on prophylactic Lovenox. Tolerating oral intake, no nausea vomiting or diarrhea. On 03/17/2021 patient no follow-up on medical surgical floor. She is sitting up in the recliner, in no acute distress, she is on 15 L of oxygen pulse ox is 90%, yesterday she had a nosebleed and that she was mostly wearing a nonrebreather mask, today the nosebleed had stopped, and she is back on high flow nasal cannula, with no recurrence of nose bleeding, she is awake and alert, oriented 3, no worsening dyspnea, she has been pronating herself twice a day, tolerating it well. She continues on Baricitinib, she continues on Decadron 6 mg every 12 hours, and Lovenox 40 mg daily. On 03/19/2021 patient seen in follow-up on medical surgical floor, she is currently down to 11 L per high flow nasal cannula, and she has not used nonrebreather mask to supplement her FiO2 needs, she is breathing very comfortably, her pulse ox is 89-90%, she desaturates with speaking and exertion however she is able to recover would rest, and does not appear to be any more dyspneic during those episodes. Occasional cough, no phlegm production, on today's exam her lung sounds are clear, no crackles were appreciated. No wheezing or rhonchi, no chest pain. Patient on Decadron, she has completed her course of Baricitinib, continues on Lovenox. Today's labs have been reviewed, white blood cell count is 8.0, hemoglobin is 9.7, d-dimer is stable at 0.98, electrolytes and renal profile were unremarkable, her LDH on today's labs is 1698, slightly increased from the previous value on yesterday's labs, CRP is less than 0.5. On 03/20/2021 patient seen in follow-up on medical surgical floor. Currently down to 10 L of oxygen toxicity 90%, she's been afebrile, hemodynamically she is stable, she does get mildly short of breath with exertion, but tolerates activity well, she's been ambulating in the room and going into the bathroom, become slightly tachycardic, but denies any chest pain, no cough, lung sounds are clear. Nausea vomiting or diarrhea, no abdominal pain, patient is tolerating oral intake, her appetite is fair. She was retested for COVID-19 yesterday and was found to be negative. Today's exam patient seen in follow-up on 03/21/2021. She is currently on a 10 L of oxygen and her pulse ox is 90%, she has completed her course of Baricitinib. Douglas on Decadron 6 mg daily, she is on COVID-19 vitamins vitamin C, vitamin D, and zinc. Clinically she looks stable, no worsening dyspnea, she does desaturate with conversation and with exertion although she remains asymptomatic during those times. Afebrile, hemodynamically stable. Today's labs have been reviewed, cell count is 7.9, hemoglobin is 8.1, d-dimer is 0.95, electrodes and renal profile are unremarkable, her inflammatory markers are improving and LDH is down to 673 and CRP is currently 2.1. No new chest x-ray today. Appetite is fair, no nausea vomiting diarrhea, no abdominal pain. On 03/26/2001 patient seen in follow-up on medical surgical floor. She is currently down to 7 L of oxygen pulse ox is 93%, looks and feels comfortable, no worsening dyspnea, she sitting up in the recliner, appears to be in no acute distress. His been ambulating to the bathroom, tolerating activity well, vital signs have been stable, no fever or chills. This morning her hemoglobin was noted to be down to 6.6 compared to 7.0 on yesterday's labs and 7.9 on the labs from the day before. No obvious signs of bleeding, occult blood has been ordered and is pending, no black tarry stools, no melena, platelet count is 167. Patient is on Decadron 6 mg daily, she remains on Lovenox 40 mg daily, and oral Protonix in addition to multivitamins. Today's d-dimer is 1.1, electrolytes and renal profile are within normal limits, inflammatory markers are improving on today's labs, and LDH is down to 963, and CRP is 1.8. Patient will be transfused with 1 unit of packed red blood cells. No abdominal pain, she is tolerating oral intake, lower extremity Dopplers were negative for DVT. Echocardiogram was completed showing moderate concentric LVH, no evidence of aortic regurgitation or stenosis, mild mitral regurg, mild tricuspid regurg, no evidence of pulmonary hypertension, right-sided pressure of 34.9 mmHg. On today's evaluation on 03/27/2021 patient seen in follow-up on medical surgical floor, she is currently down to 6 L of oxygen, her pulse ox is 89-90%, and patient has just returned from the bathroom. She tolerates activity very well, she has been ambulating herself to the bathroom, desat with ambulation but recovers. Breathing comfortably, lung sounds are clear on today's exam, patient hasn't had a chest x-ray for a while, bilateral lower extremities and hands appear to be swollen, we will consider a dose of IV Lasix, she has been af ebrile, blood pressure is been stable, only occasional cough, no phlegm production. Dopplers of bilateral lower extremities from 03/23/2021 showed no evidence of DVT. CT angiogram showed no evidence of central pulmonary embolism, and persistent bilateral multifocal opacities and organizing consolidation consistent with COVID-19 infection. Patient has completed her course of Baricitinib, he remains on Decadron 6 mg daily, prophylactic dose Lovenox and multivitamins, no nausea vomiting or diarrhea, she had a large bowel movement today, occult stool was negative, she is status post transfusion with 1 unit of packed red blood cells yesterday, and today's hemoglobin is up to 8.2. White count on today's labs is 8.4, platelet count is 152, d-dimer today is 1.23, today CRP is improving and is down to 1.4, LDH is still pending On 03/28/2021 patient seen in follow-up on medical surgical floor, she is resting comfortably in the recliner, she is currently on 6 L of oxygen, her pulse ox is 92% however with any exertion and eating patient does desaturate as low as 84%, and takes a little bit to recover. Otherwise patient is breathing comfortably, she denies any worsening dyspnea, she is fairly asymptomatic even during those times of desaturation. Doing well, lung sounds are clear to aus cultation, no rhonchi, no wheezing, she has completed her course of Baricitinib. She continues on Decadron 6 mg daily, she is on COVID-19 vitamins, and Lovenox 40 mg daily. Chest x-ray from today shows findings similar to the prior exam with patchy bilateral airspace disease without significant change. Patient is tolerating oral intake, no nausea or vomiting, no diarrhea no abdominal pain. No new labs today. Objective - Vital Signs Vital signs: Vital Signs Temp 97.3 F L 03/28/21 01:53 Pulse 75 03/28/21 07:45 Resp 18 03/28/21 07:45 BP 100/64 03/28/21 01:53 Pulse Ox 93 L 03/28/21 01:53 Intake & Output 03/27/21 03/28/21 03/28/21 18:59 06:59 18:59 Other: Voiding Method Toilet Toilet # Voids 2 1 - Exam GENERAL EXAM: Alert, very pleasant, 66-year-old white female, resting in bed, currently on 6 L of oxygen per high flow nasal cannula and with a pulse ox of 90% comfortable in no apparent distress. HEAD: Normocephalic/atraumatic. EYES: Normal reaction of pupils, equal size. Conjunctiva pink, sclera white. NOSE: Clear with pink turbinates. THROAT: No erythema or exudates. NECK: No masses, no JVD, no thyroid enlargement, no adenopathy. CHEST: No chest wall deformity. Symmetrical expansion. LUNGS: Equal air entry with bibasilar crackles CVS: Regular rate and rhythm, normal S1 and S2, no gallops, no murmurs, no rubs ABDOMEN: Soft, nontender. No hepatosplenomegaly, normal bowel sounds, no guarding or rigidity. EXTREMITIES: No clubbing, 1+ bilateral lower extremity edema no cyanosis, 2+ pulses and upper and lower extremities. MUSCULOSKELETAL: Muscle strength and tone normal. SPINE: No scoliosis or deformity SKIN: No rashes CENTRAL NERVOUS SYSTEM: Alert and oriented -3. No focal deficits, tone is normal in all 4 extremities. PSYCHIATRIC: Alert and oriented -3. Appropriate affect. Intact judgment and insight. - Labs CBC & Chem 7: 03/27/21 05:23 03/27/21 05:23 Labs: Abnormal Lab Results - Last 24 Hours (Table) 03/27/21 03/28/21 Range/Units 05:23 06:38 BUN/Creatinine Ratio 31.50 H (12.00-20.00) Ratio Ferritin 2355.0 H (10.0-291.0) ng/mL Total Bilirubin 1.60 H (0.30-1.20) mg/dL AST 54 H (13-35) U/L ALT 84 H (8-44) U/L Lactate Dehydrogenase 1200 H (120-246) U/L Total Protein 5.5 L (6.2-8.2) g/dL Albumin 3.6 L (3.8-4.9) g/dL IgG 542.0 L (700.0-1600.0) mg/dL Assessment and Plan Plan: Assessment: #1. Acute COVID-19 related pneumonia with bilateral pulmonary infiltrates secondary dyspnea. Patient is vaccinated individual and completed her vaccination back in May and June 2020. Patient presented with less than a week with the symptoms, she has completed a course of Remdesivir, currently remains on Decadron 6 mg twice daily, and dapsone 100 mg twice daily. Started on Baricitinib on 03/06/2021, completed on 03/19/2021 #2. Acute hypoxic respiratory failure secondary to the above, improving and patient is currently down to 6 L per high flow nasal cannula #3. History of leukocytoclastic vasculitis, confirmed by skin biopsy and patient is on a combination of prednisone and dapsone on an outpatient basis and patient has been seen significant improvement in her skin lesions #4. History of cerebellar CVA #5. History of abnormal Pap smear #6. Osteoarthritis #7. Nosebleed, related to high concentration oxygen, prophylactic Lovenox, resolved #8. Anemia, acute on chronic, without obvious sign of acute bleeding, Hemoccult is negative, today's hemoglobin is 6.6 down from 7.0 on yesterday's labs, we'll transfuse with 1 unit of packed red blood cells Plan: Clinical patient remains stable, She has been persistently requiring 6 L of oxygen Does desaturate with exertion however she is asymptomatic even with desaturation Breathing comfortably We'll give the patient additional dose of IV Lasix 40 mg Once patient is down to 5 L of oxygen and less, we will consider discharge home I performed a history & physical examination of the patient and discussed their management with my nurse practitioner, Adalgisa Esparza. I reviewed the nurse practitioner's note and agree with the documented findings and plan of care. Lung sounds are positive for bibasilar crackles throughout the lung mckenna. The findings and the impression was discussed with the patient. I attest to the documentation by the nurse practitioner. Time with Patient: Less than 30
--- NOTE | 2021-03-28 14:38 | P.PN ---
Subjective Progress Note Date: 03/28/21 Hospital course: Patient is a very pleasant 66-year-old femalewith a past medical history of TIA and vasculitis. She presented to the emergency department on 02/28/21 with a chief complaint of shortness of breath and cough. Patient was Found to be hypoxic 88% on room air, tachycardic with heart rate of 103 bpm, and febrile with elevated temp of 101.1F. .Covid 19 PCR resulted positive and patient was diagnosed with Covid 19 pneumonia. X-ray correlating with pneumonia. EKG revealed sinus tachycardia at 101 bpm with no noted T-wave or ST abnormalities. patient was admitted under our services with consultation to pulmonary. Patient being treated with high-dose oxygen, steroids, vitamin C, vitamin D, zinc, Lovenox and completed course of Remdesivir and Baricitinib. Chest CTA negative for PE but did reveal diffuse bilateral groundglass opacities correlating for multifocal pneumonia or ARDS. Dopplers bilateral lower extremities negative for DVT. Echocardiogram showing 55-60% ejection fraction with no significant valvular abnormalities and no evidence of pulmonary hypertension. Repeat CTA completed 03/22/21 revealed persistent groundglass opacities and organizing consolidations consistent with Covid 19 infection with the degree of involvement slightly improved when compared to March [address] CT study but there is likely new mild to moderate scattered fibrotic changes present. Physical exam: Patient seen and fully evaluated at the bedside this morning. She continues to do well and is on 6 L O2 via nasal cannula with SpO2 of 90%. Patient expresses that she is a bit frustrated with constant disturbances and lack of sleep throughout hospitalization. She denies having any headache, lightheadedness, dizziness, chest pain, or palpitations. She continues to have conversational dyspnea and continues to become significantly hypoxic with minimal exertion dropping down to 83-84% with movement. Patient is currently on day 28 of hospitalization, she has completed course of Remdesivir and Baricitinib and remains on daily Decadron, vitamin C, vitamin D, zinc, and Lovenox. Vital signs reviewed and stable. General: Nontoxic, no distress and appears stated age. Derm: Skin warm and dry, normal coloration for ethnicity. Head: Atraumatic, normocephalic and symmetric. Eyes: EOMs intact, no lid lag, and anicteric sclera Mouth: no lip lesions, mucus membranes moist Cardiovascular: regular rate and rhythm with normal S1S2, no murmur, positive posterior tibial pulses bilaterally, and cap refill < 2 seconds. Lungs: Respirations even, regular, and unlabored on 6 L high flow nasal cannula with SpO2 of 90%. Lungs with very soft left lower lobe crackles and clear on right.. No rhonchi, wheezes, or rales and no accessory muscle usage. Abdominal: soft, nontender to palpation, no guarding, no appreciable organomegaly Ext: ROM intact. No gross muscle atrophy, 1+ edema, no contractures Neuro: Speech clear, face symmetrical and CN II-XII grossly intact with no noted focal neuro deficits Psych: Alert and oriented to person, place, time, and situation. Appropriate and pleasant affect. Assessment and Plan of Care: Acute respiratory failure with hypoxia secondary to COVID 19 pneumonia in vaccinated individual. -Oxygenation to be administered and titrated as needed to maintain SPO2 equal to or greater than 90% -Telemetry monitoring. -Continue trending inflammatory markers -Encourage Incentive Spirometry 10-15x hourly while awake -Steroids: Decadron 6 mg daily -Continue vitamin C, Vitamin D, and Zinc. -Pulmonology following, appreciate further recommendations. -DVT prophylaxis with Lovenox. -Strict Droplet plus Contact precautions -Pt completed course of Remdesivir and Baricitinib Macrocytic hyperchromic anemia -Folate 4.00, supplementation with folate 1 mg daily -Vitamin B12 321.0 -Ferritin, iron, and TIBC pending -Oral supplementation of folate ordered with folic acid 1 mg daily. -Hemoglobin was 6.6 requiring transfusion of 1 unit PRBCs on 03/26/21 and status post transfusion hemoglobin is currently stable at 8.2. -Continued close monitoring with repeat a.m. labs along with ferritin, iron, and TIBC. -Fecal occult negative. Bilateral lower extremity edema, dependent edema -BNP normal findings at 91 -Echocardiogram revealing a normal ejection fraction of 55-60%, no evidence of pulmonary hypertension, and no significant valvular abnormalities. -Bilateral lower extremity Dopplers negative for DVT -Continue SHIVANI hose and elevation of extremities when not in use History of leukocytoclastic vasculitis -Continue Dapsone 100 mg twice daily and continue to follow up outpatient with vascular surgery upon discharge. CODE STATUS: Full code DVT prophylaxis: Lovenox Discussed with: Patient and RN and Pt's daughter-Mary Ann Anticipated discharge date: Clinical course to determine Anticipated discharge place: Home A total of 40 minutes was spent on the care of this complex patient more than 50% of the time was spent in counseling and care coordination. Objective - Vital Signs Vital signs: Vital Signs Temp 97.3 F L 03/28/21 01:53 Pulse 75 03/28/21 01:53 Resp 18 03/28/21 01:53 BP 100/64 03/28/21 01:53 Pulse Ox 93 L 03/28/21 01:53 Intake & Output 03/27/21 03/28/21 03/28/21 18:59 06:59 18:59 Other: Voiding Method Toilet # Voids 2 1 - Labs CBC & Chem 7: 03/27/21 05:23 03/27/21 05:23 Labs: Abnormal Lab Results - Last 24 Hours (Table) 03/27/21 03/27/21 Range/Units 05:23 05:23 RBC 2.26 L (4.10-5.20) X 10*6/uL Hgb 8.2 L (12.0-15.0) g/dL Hct 26.5 L (37.2-46.3) % MCV 117.3 H (80.0-97.0) fL MCH 36.3 H (27.0-32.0) pg MCHC 30.9 L (32.0-37.0) g/dL RDW 27.2 H (11.5-14.5) % MPV 9.1 L (9.5-12.2) fL Absolute Nucleated RBC 3.18 H (0.00-0.00) X 10*3/uL NRBC/100 WBC Diff 37.7 H (0.0-0.0) /100 WBCS BUN/Creatinine Ratio 31.50 H (12.00-20.00) Ratio Iron 241 H (50-170) ug/dL % Saturation 83.97 H (12.00-45.00) Ferritin 2355.0 H (10.0-291.0) ng/mL Total Bilirubin 1.60 H (0.30-1.20) mg/dL AST 54 H (13-35) U/L ALT 84 H (8-44) U/L Lactate Dehydrogenase 1200 H (120-246) U/L C-Reactive Protein 1.40 H (0.00-0.80) mg/dL Total Protein 5.5 L (6.2-8.2) g/dL Albumin 3.6 L (3.8-4.9) g/dL
[2021-03-28] MEDS: ENOXAPARIN 40 MG/0.4 ML SYRINGE SQ SCH (17:39)
[2021-03-29] MEDS: guaiFENesin 600 MG TABLET.ER PO SCH (05:32)
[2021-03-29 07:50] VITALS: BP 112/67; PULSE 92; RESP 14; TEMP 97.5
[2021-03-29] MEDS: ZINC SULFATE 220 MG CAP PO SCH (07:53)
[2021-03-29] MEDS: CYANOCOBALAMIN 500 MCG TAB PO SCH (07:53)
[2021-03-29] MEDS: PANTOPRAZOLE 40 MG TABLET PO SCH (07:53)
[2021-03-29] MEDS: DOCUSATE 100 MG CAP PO SCH (07:54)
[2021-03-29] MEDS: DEXAMETHASONE SOD PHOSPHATE 10 MG/ML 1 ML VIAL IVP SCH (07:54)
[2021-03-29] MEDS: FOLIC ACID 1 MG TAB PO SCH (07:54)
[2021-03-29] MEDS: CHOLECALCIFEROL 25 MCG (1000 IU) TABLET PO SCH (07:54)
[2021-03-29] MEDS: ASCORBIC ACID 500 MG TAB PO SCH (07:54)
[2021-03-29] MEDS: DAPSONE 100 MG PO SCH (07:55)
[2021-03-29] MEDS: ALBUTEROL HFA INHALER INHALATION PRN (09:49)
--- NOTE | 2021-03-29 12:13 | P.PN ---
Subjective Progress Note Date: 03/29/21 Principal diagnosis: Dyspnea, hypoxia On 03/05/2021 patient is seen in follow-up on medical surgical floor. She is resting comfortably in bed, states she is breathing better, she still on high flow oxygen at 15 L, her pulse ox is 90%. Afebrile, hemodynamically she stable, no acute distress, yesterday his chest x-ray has been reviewed showing worsening patchy bilateral lung infiltrates compatible with atypical pneumonia. Today's labs have been reviewed, white blood cell count is 7.11, hemoglobin is 12.7, d- dimer was 0.9, improving, electrolytes are within normal limits B1 is 19 creatinine 0.77, LDH today is slightly improved and is down to 1061, and CRP is 4.5. Patient's c-ANCA and p-ANCA levels were within normal limits. Calcitonin level was negative at 0.16, currently continues on Decadron 6 mg twice daily, Lovenox 40 mg daily, and dapsone 100 mg twice daily. On 03/06/2021 patient seen in follow-up on medical surgical floor. Patient is awake and alert, she is up in the recliner, she states overall she is feeling much better, coughing less, her appetite is improving. She still requiring high flow oxygen at 15 L and her pulse ox ranges between 87-90%, she does desat with exertion. States she feels more energetic, she has been trying to stay active, she's had no fever or chills, vital signs have been stable. Today's labs are still pending, yesterday's d-dimer of 0.90, we will obtain lower extremity Dopplers, pro-calcitonin level was negative, her c-ANCA and p-ANCA titers were low, progesterone level was low, patient currently remains on Decadron 6 mg twice daily, she is on Mucinex, she is on albuterol inhaler, and she is on COVID-19 vitamins. Lovenox at 40 mg every 24 hours. On 03/07/2021 patient seen in follow-up on medical surgical floor. Today she is on 15 L per high flow nasal cannula, and 100% nonrebreather mask, her pulse ox is 90%. When she denies any worsening dyspnea, she is breathing quite comfortably, she's been active, get not to the bathroom, tolerating activity very well although she does desaturate with activity she does not feel dyspneic, no chest pain, lung sounds reveal bibasilar crackles, no rhonchi or wheezing, no fever or chills, vital signs have been stable. CTA chest showed no evidence of pulmonary embolism and lower extremity Dopplers were negative for DVT. Today's d-dimer is 0.94, electrolytes and renal profile within normal limits, pro- calcitonin level was negative at 0.05, inflammatory markers were improving on yesterday's labs. Follow up Labs are pending for today. On 03/08/2021 patient seen in follow-up on medical surgical floor. She still on 15 L of oxygen per high flow nasal cannula, she is not wearing a nonrebreather mask most of the time, her pulse ox is 88-91%, clinically she states she is breathing quite comfortably, no dyspnea, no tachypnea, no use of accessory muscles of breathing, she is afebrile, hemodynamically she appears stable she has no specific complaints other than dryness of nasal passages. Mild cough, no phlegm production, appetite is fair, no nausea vomiting or diarrhea. On 03/09/2021 patient seen in follow-up on medical surgical floor. She continues on 15 L per high flow nasal cannula and 100% nonrebreather mask, and her pulse ox is around 92%, she does desat with exertion, tolerates activity very well, no tachypnea, no use of accessory muscles of breathing, she is breathing comfortably, she is currently sitting up in the recliner, in no acute distress, lung sounds reveal bibasilar crackles, no rhonchi or wheezing, no complaint of chest pain, she's been afebrile overnight, she's had no acute events. She is tolerating oral intake. No nausea vomiting or diarrhea, she continues on Decadron, Baricitinib, COVID 19 vitamins, and Lovenox 40 SQ daily On 03/12/2001 patient seen in follow-up on medical surgical floor, she sits up in a recliner, in no acute distress, she is currently just wearing the 15 L per high flow nasal cannula, her pulse ox is 90%, occasionally she has to apply the nonrebreather mask, however she only used it once last night. She is breathing comfortably, she denies any worsening dyspnea, she remains on Baricitinib, and Decadron 6 blood gram twice daily, she is on Lovenox and multivitamins, today's labs have been reviewed, her white blood cell count is 10.8, hemoglobin is 11.6, d-dimer is slightly improved and is down to 1, electrolytes and renal profile are unremarkable, her LDH has increased and is up to 1430, and CRP is 1.7. She denies any specific complaints, she is awake and alert, oriented 3, lung sounds are clear to auscultation, no rales auscultated. She had no fever or chills, no chest discomfort. On 03/13/2021 patient seen in follow-up on medical surgical floor, currently on 15 L high flow nasal cannula, intermittently she has been requiring nonrebreather mask as well for episodes of desaturation and increased shortness of breath. At rest she seems fairly comfortable, does not appear to be in any acute distress, she is afebrile, hemodynamically she is stable. Chest x-ray showing bilateral multifocal mid to lower lung opacities. No significant change. Today's labs have been reviewed, d-dimer is improving and is down to 0.98, LDH is improving and is down to 532, CRP is 1.1. In terms of therapy patient remains on decadron 6 mf twice daily, Baricitinib, multivitamins, she is on prophylactic Lovenox. Tolerating oral intake, no nausea vomiting or diarrhea. On 03/17/2021 patient no follow-up on medical surgical floor. She is sitting up in the recliner, in no acute distress, she is on 15 L of oxygen pulse ox is 90%, yesterday she had a nosebleed and that she was mostly wearing a nonrebreather mask, today the nosebleed had stopped, and she is back on high flow nasal cannula, with no recurrence of nose bleeding, she is awake and alert, oriented 3, no worsening dyspnea, she has been pronating herself twice a day, tolerating it well. She continues on Baricitinib, she continues on Decadron 6 mg every 12 hours, and Lovenox 40 mg daily. On 03/19/2021 patient seen in follow-up on medical surgical floor, she is currently down to 11 L per high flow nasal cannula, and she has not used nonrebreather mask to supplement her FiO2 needs, she is breathing very comfortably, her pulse ox is 89-90%, she desaturates with speaking and exertion however she is able to recover would rest, and does not appear to be any more dyspneic during those episodes. Occasional cough, no phlegm production, on today's exam her lung sounds are clear, no crackles were appreciated. No wheezing or rhonchi, no chest pain. Patient on Decadron, she has completed her course of Baricitinib, continues on Lovenox. Today's labs have been reviewed, white blood cell count is 8.0, hemoglobin is 9.7, d-dimer is stable at 0.98, electrolytes and renal profile were unremarkable, her LDH on today's labs is 1698, slightly increased from the previous value on yesterday's labs, CRP is less than 0.5. On 03/20/2021 patient seen in follow-up on medical surgical floor. Currently down to 10 L of oxygen toxicity 90%, she's been afebrile, hemodynamically she is stable, she does get mildly short of breath with exertion, but tolerates activity well, she's been ambulating in the room and going into the bathroom, become slightly tachycardic, but denies any chest pain, no cough, lung sounds are clear. Nausea vomiting or diarrhea, no abdominal pain, patient is tolerating oral intake, her appetite is fair. She was retested for COVID-19 yesterday and was found to be negative. Today's exam patient seen in follow-up on 03/21/2021. She is currently on a 10 L of oxygen and her pulse ox is 90%, she has completed her course of Baricitinib. Douglas on Decadron 6 mg daily, she is on COVID-19 vitamins vitamin C, vitamin D, and zinc. Clinically she looks stable, no worsening dyspnea, she does desaturate with conversation and with exertion although she remains asymptomatic during those times. Afebrile, hemodynamically stable. Today's labs have been reviewed, cell count is 7.9, hemoglobin is 8.1, d-dimer is 0.95, electrodes and renal profile are unremarkable, her inflammatory markers are improving and LDH is down to 673 and CRP is currently 2.1. No new chest x-ray today. Appetite is fair, no nausea vomiting diarrhea, no abdominal pain. On 03/26/2001 patient seen in follow-up on medical surgical floor. She is currently down to 7 L of oxygen pulse ox is 93%, looks and feels comfortable, no worsening dyspnea, she sitting up in the recliner, appears to be in no acute distress. His been ambulating to the bathroom, tolerating activity well, vital signs have been stable, no fever or chills. This morning her hemoglobin was noted to be down to 6.6 compared to 7.0 on yesterday's labs and 7.9 on the labs from the day before. No obvious signs of bleeding, occult blood has been ordered and is pending, no black tarry stools, no melena, platelet count is 167. Patient is on Decadron 6 mg daily, she remains on Lovenox 40 mg daily, and oral Protonix in addition to multivitamins. Today's d-dimer is 1.1, electrolytes and renal profile are within normal limits, inflammatory markers are improving on today's labs, and LDH is down to 963, and CRP is 1.8. Patient will be transfused with 1 unit of packed red blood cells. No abdominal pain, she is tolerating oral intake, lower extremity Dopplers were negative for DVT. Echocardiogram was completed showing moderate concentric LVH, no evidence of aortic regurgitation or stenosis, mild mitral regurg, mild tricuspid regurg, no evidence of pulmonary hypertension, right-sided pressure of 34.9 mmHg. On today's evaluation on 03/27/2021 patient seen in follow-up on medical surgical floor, she is currently down to 6 L of oxygen, her pulse ox is 89-90%, and patient has just returned from the bathroom. She tolerates activity very well, she has been ambulating herself to the bathroom, desat with ambulation but recovers. Breathing comfortably, lung sounds are clear on today's exam, patient hasn't had a chest x-ray for a while, bilateral lower extremities and hands appear to be swollen, we will consider a dose of IV Lasix, she has been af ebrile, blood pressure is been stable, only occasional cough, no phlegm production. Dopplers of bilateral lower extremities from 03/23/2021 showed no evidence of DVT. CT angiogram showed no evidence of central pulmonary embolism, and persistent bilateral multifocal opacities and organizing consolidation consistent with COVID-19 infection. Patient has completed her course of Baricitinib, he remains on Decadron 6 mg daily, prophylactic dose Lovenox and multivitamins, no nausea vomiting or diarrhea, she had a large bowel movement today, occult stool was negative, she is status post transfusion with 1 unit of packed red blood cells yesterday, and today's hemoglobin is up to 8.2. White count on today's labs is 8.4, platelet count is 152, d-dimer today is 1.23, today CRP is improving and is down to 1.4, LDH is still pending On 03/28/2021 patient seen in follow-up on medical surgical floor, she is resting comfortably in the recliner, she is currently on 6 L of oxygen, her pulse ox is 92% however with any exertion and eating patient does desaturate as low as 84%, and takes a little bit to recover. Otherwise patient is breathing comfortably, she denies any worsening dyspnea, she is fairly asymptomatic even during those times of desaturation. Doing well, lung sounds are clear to aus cultation, no rhonchi, no wheezing, she has completed her course of Baricitinib. She continues on Decadron 6 mg daily, she is on COVID-19 vitamins, and Lovenox 40 mg daily. Chest x-ray from today shows findings similar to the prior exam with patchy bilateral airspace disease without significant change. Patient is tolerating oral intake, no nausea or vomiting, no diarrhea no abdominal pain. No new labs today. On 03/29/2021 patient seen in follow-up on the surgical floor, she is calm and comfortable, her FiO2 is down to 4 L of oxygen pulse ox is 91-92%, breathing comfortably, no acute events overnight, vital signs have been stable, no fever or chills. No cough, no chest discomfort, lung sounds are clear to auscultation. Yesterday's chest x-ray shows patchy bilateral airspace disease, stable exam. Today's labs have been reviewed, her d-dimer today is improved and is down to 0.87, inflammatory markers are pending. Overall clinically she has been stable, and she has completed her course of Baricitinib, she has received an extended course of steroids. She is currently on prophylactic Lovenox 40 mg every 24 hours. She has received additional dose of Lasix yesterday. Total net fluid balance is difficult to estimate, no accurate intake and output is available. Patient has been ambulating to the bathroom, and in the room, tolerates activity well Objective - Vital Signs Vital signs: Vital Signs Temp 97.5 F L 03/29/21 07:48 Pulse 92 03/29/21 07:48 Resp 14 03/29/21 07:48 BP 112/67 03/29/21 07:48 Pulse Ox 87 L 03/29/21 07:48 Intake & Output 03/28/21 03/29/21 03/29/21 18:59 06:59 18:59 Intake Total 350 300 Balance 350 300 Intake: Oral 350 300 Other: Voiding Method Toilet Toilet # Voids 3 2 # Bowel Movements 1 - Exam GENERAL EXAM: Alert, very pleasant, 66-year-old white female, resting in bed, currently on 4 L of oxygen per high flow nasal cannula and with a pulse ox of 91% comfortable in no apparent distress. HEAD: Normocephalic/atraumatic. EYES: Normal reaction of pupils, equal size. Conjunctiva pink, sclera white. NOSE: Clear with pink turbinates. THROAT: No erythema or exudates. NECK: No masses, no JVD, no thyroid enlargement, no adenopathy. CHEST: No chest wall deformity. Symmetrical expansion. LUNGS: Equal air entry with bibasilar crackles CVS: Regular rate and rhythm, normal S1 and S2, no gallops, no murmurs, no rubs ABDOMEN: Soft, nontender. No hepatosplenomegaly, normal bowel sounds, no guarding or rigidity. EXTREMITIES: No clubbing, 1+ bilateral lower extremity edema no cyanosis, 2+ pulses and upper and lower extremities. MUSCULOSKELETAL: Muscle strength and tone normal. SPINE: No scoliosis or deformity SKIN: No rashes CENTRAL NERVOUS SYSTEM: Alert and oriented -3. No focal deficits, tone is normal in all 4 extremities. PSYCHIATRIC: Alert and oriented -3. Appropriate affect. Intact judgment and insight. - Labs CBC & Chem 7: 03/27/21 05:23 03/27/21 05:23 Labs: Abnormal Lab Results - Last 24 Hours (Table) 03/29/21 Range/Units 06:48 D-Dimer 0.87 H (<0.60) mg/L FEU Assessment and Plan Plan: Assessment: #1. Acute COVID-19 related pneumonia with bilateral pulmonary infiltrates secondary dyspnea. Patient is vaccinated individual and completed her vaccination back in May and June 2020. Patient presented with less than a week with the symptoms, she has completed a course of Remdesivir, currently remains on Decadron 6 mg twice daily, and dapsone 100 mg twice daily. Started on Baricitinib on 03/06/2021, completed on 03/19/2021 #2. Acute hypoxic respiratory failure secondary to the above, improving and patient is currently down to 4 L per high flow nasal cannula #3. History of leukocytoclastic vasculitis, confirmed by skin biopsy and patient is on a combination of prednisone and dapsone on an outpatient basis and patient has been seen significant improvement in her skin lesions #4. History of cerebellar CVA #5. History of abnormal Pap smear #6. Osteoarthritis #7. Nosebleed, related to high concentration oxygen, prophylactic Lovenox, resolved #8. Anemia, acute on chronic, without obvious sign of acute bleeding, Hemoccult is negative, today's hemoglobin is 6.6 down from 7.0 on yesterday's labs, we'll transfuse with 1 unit of packed red blood cells Plan: Clinical patient remains stable, She is currently down to 4 L of oxygen, maintaining O2 saturations above 90% Breathing comfortably Patient is stable for discharge home from pulmonary perspective She can resume her maintenance dose prednisone at home that she takes for her vasculitis She is going home on 4 L of oxygen She can continue on COVID-19 vitamins Outpatient follow-up with Dr. Heredia in 1 week I performed a history & physical examination of the patient and discussed their management with my nurse practitioner, Adaligsa Esparza. I reviewed the nurse practitioner's note and agree with the documented findings and plan of care. Lung sounds are positive for bibasilar crackles throughout the lung mckenna. The findings and the impression was discussed with the patient. I attest to the documentation by the nurse practitioner. Time with Patient: Less than 30
[2021-03-29 12:29] LABS: African American GFR (CKD) 107.3 (60.0-200.0); Albumin 3.2 g/dL (3.8-4.9); Albumin/Globulin Ratio 1.89 (1.60-3.17); Anion Gap 8.5 mmol/L (10.00-18.00); BUN/Creat Ratio 31.08 Ratio (12.00-20.00); Blood Urea Nitrogen 19.3 mg/dL (9.0-27.0); C Reactive Protein 1.7 mg/dL (0.00-0.80); Calcium 8.8 mg/dL (8.7-10.3); Carbon Dioxide 29.7 mmol/L (20.0-27.5); Globulin 1.7 g/dL (1.6-3.3); Non-African American GFR(CKD) 92.6 (60.0-200.0); Potassium 3.9 mmol/L (3.5-5.5); Total Bilirubin 1.1 mg/dL (0.30-1.20); Total Protein 4.9 g/dL (6.2-8.2)
[2021-03-29 14:05] LABS: HGB 7.1 g/dL (12.0-15.0); MCH 36.2 pg (27.0-32.0); MCHC 29.6 g/dL (32.0-37.0); MCV 122.4 fL (80.0-97.0); Mean Platelet Volume 9.3 fL (9.5-12.2); Platelet Count 111 X 10*3/uL (140-440); RBC 1.96 X 10*6/uL (4.10-5.20); RDW 27.1 % (11.5-14.5)
--- NOTE | 2021-03-29 15:51 | P.DS ---
Providers Date of admission: 02/28/21 15:43 Expected date of discharge: 03/29/21 Attending physician: Thierno Sinha MD Consults: 02/28/21 15:42 Consult Physician Urgent Consulting Provider: Archana Heredia Consult Reason/Comments: acute hypoxia, covid infection Do you want consulting provider notified?: Yes Primary care physician: [facility] Course: Patient is a very pleasant 66-year-old female with a past medical history of TIA and vasculitis. She presented to the emergency department on 02/28/21 with a chief complaint of shortness of breath and cough. Patient was Found to be hypoxic 88% on room air, tachycardic with heart rate of 103 bpm, and febrile with elevated temp of 101.1F. .Covid 19 PCR resulted positive and patient was diagnosed with Covid 19 pneumonia. X-ray correlating with pneumonia. EKG revealed sinus tachycardia at 101 bpm with no noted T-wave or ST abnormalities. patient was admitted under our services with consultation to pulmonary. Patient was treated with high-dose oxygen, steroids, vitamin C, vitamin D, zinc, Lovenox and completed course of Remdesivir and Baricitinib. Chest CTA negative for PE but did reveal diffuse bilateral groundglass opacities correlating for multifocal pneumonia or ARDS. Dopplers bilateral lower extremities negative for DVT. Echocardiogram showing 55-60% ejection fraction with no significant valvular abnormalities and no evidence of pulmonary hypertension. Repeat CTA completed 03/22/21 revealed persistent groundglass opacities and organizing consolidations consistent with Covid 19 infection with the degree of involvement slightly improved when compared to March 06 CT study but there is likely new mild to moderate scattered fibrotic changes present. Acute respiratory failure with hypoxia secondary to COVID 19 pneumonia in vaccinated individual. -Oxygen was titrated down to 4-5 L by nasal cannula with oxygen saturations greater than 90%. -Inflammatory markers trended down, final d-dimer was 0.87, final LDH was 1042, final CRP was 1.7. -Steroids: Decadron 6 mg daily was administered while patient was in house, discharged on 20 mg of prednisone twice a day with plan to follow-up with pulmonary medicine in 1 week -Continued vitamin C, Vitamin D, and Zinc on discharge for an additional 30 days . -Pulmonology follow-up was set up in 1 week Macrocytic anemia of chronic disease -Folate 4.00, supplementation with folate 1 mg daily, continued on discharge -Vitamin B12 321.0 -Ferritin, iron, and TIBC most consistent with anemia of chronic disease -Oral supplementation of folate ordered with folic acid 1 mg daily. -Hemoglobin was 6.6 requiring transfusion of 1 unit PRBCs on 03/26/21, on discharge hemoglobin was 7.1, will need to have follow-up lab work with PCPs office. -Fecal occult negative, no other bleeding source identified. History of leukocytoclastic vasculitis -Continued Dapsone 100 mg twice daily on discharge and follow up outpatient with vascular surgery upon discharge. I spent 43 minutes coordinating this complex discharge Assessment: Gen: awake, alert HEENT: normocephalic, atraumatic, good hearing acuity, moist mucous membranes Resp: good air exchange, breathing comfortably with no accessory muscle use CVS: good distal perfusion x 4, GI: soft, NTTP, ND : no SPT, no CVAT, meza catheter not present MSK: no pitting edema, no clubbing Neuro: non-focal, moving all extremities Psych: cooperative, euthymic mood Patient Condition at Discharge: Good Plan - Discharge Summary Discharge Rx Participant: No New Discharge Prescriptions: New Folic Acid 1 mg PO DAILY #30 tab predniSONE [Deltasone] 20 mg PO BID #60 tab Zinc Sulfate [Orazinc] 220 mg PO DAILY #30 cap Cyanocobalamin [Vitamin B-12] 1,000 mcg PO DAILY #30 tab Ascorbic Acid [Vitamin C] 1,000 mg PO DAILY #30 tab Cholecalciferol [Vitamin D3 (25 Mcg = 1000 Iu)] 50 mcg PO DAILY #60 tablet Continue Pseudoephedrine HCl [Sudafed 12 Hour] 120 mg PO Q12HR PRN PRN Reason: Congestion Dapsone 100 mg PO BID guaiFENesin [Mucinex] 600 mg PO Q12H Esomeprazole Magnesium [NexIUM 24Hr] 20 mg PO DAILY Discontinued predniSONE [Deltasone] See Taper PO BID Discharge Medication List Dapsone 100 mg PO BID 02/28/21 [History] Esomeprazole Magnesium [NexIUM 24Hr] 20 mg PO DAILY 02/28/21 [History] Pseudoephedrine HCl [Sudafed 12 Hour] 120 mg PO Q12HR PRN 02/28/21 [History] guaiFENesin [Mucinex] 600 mg PO Q12H 02/28/21 [History] Ascorbic Acid [Vitamin C] 1,000 mg PO DAILY #30 tab 03/29/21 [Rx] Cholecalciferol [Vitamin D3 (25 Mcg = 1000 Iu)] 50 mcg PO DAILY #60 tablet 03/29/21 [Rx] Cyanocobalamin [Vitamin B-12] 1,000 mcg PO DAILY #30 tab 03/29/21 [Rx] Folic Acid 1 mg PO DAILY #30 tab 03/29/21 [Rx] Zinc Sulfate [Orazinc] 220 mg PO DAILY #30 cap 03/29/21 [Rx] predniSONE [Deltasone] 20 mg PO BID #60 tab 03/29/21 [Rx] Follow up Appointment(s)/Referral(s): Sonu Vanessa MD [Primary Care Provider] - 04/09/21 2:20 pm [facility] [NON-STAFF] - As Needed (oxygen) Care,[facility] [NON-STAFF] - As Needed Archana Heredia MD [STAFF PHYSICIAN] - 04/25/21 1:30 pm (With Windy Miguel) Patient Instructions/Handouts: Coronavirus Disease 2019 (COVID-19), Using Oxygen at Home (DC) Discharge Disposition: HOME WITH HOME HEALTH SERVICES
== END 2021-03-29 14:51 | disposition home health service (06) | DRG 177 ==
LOC: EC 12:42 → 4SSUR 15:43
PROVIDERS: ADMIT Internal Medicine; ATTEND Internal Medicine
PROC: 30233N1 Transfusion of Nonautologous Red Blood Cells into Peripheral Vein, Percutaneous Approach (ICD-10-PCS; 2021-02-24)
PROC: XW033E5 Introduction of Remdesivir Anti-infective into Peripheral Vein, Percutaneous Approach, New Technology Group 5 (ICD-10-PCS; principal; 2021-02-28)
PROC: XW0DXM6 Introduction of Baricitinib into Mouth and Pharynx, External Approach, New Technology Group 6 (ICD-10-PCS; 2021-03-06)
DX: U07.1 COVID-19 (principal); J12.82 Pneumonia due to coronavirus disease 2019; J96.01 Acute respiratory failure with hypoxia; E87.1 Hypo-osmolality and hyponatremia; Z68.41 Body mass index [BMI] 40.0-44.9, adult; M31.0 Hypersensitivity angiitis; M19.90 Unspecified osteoarthritis, unspecified site; D63.8 Anemia in other chronic diseases classified elsewhere; E66.9 Obesity, unspecified; R09.02 Hypoxemia; Z96.653 Presence of artificial knee joint, bilateral; R04.0 Epistaxis; Z90.49 Acquired absence of other specified parts of digestive tract; Z86.73 Personal history of transient ischemic attack (TIA), and cerebral infarction without residual deficits; Z82.49 Family history of ischemic heart disease and other diseases of the circulatory system; Z81.8 Family history of other mental and behavioral disorders; Z80.9 Family history of malignant neoplasm, unspecified
CPT/HCPCS: 36410; 36415; 71045; 71275; 76937; 80048; 80053; 80076; 81001; 82248; 82272; 82525; 82607; 82728; 82746; 82784; 83540; 83550; 83605; 83615; 83735; 83880; 84100; 84145; 84484; 85025; 85027; 85379; 85610; 85730; 86140; 86255; 86850; 86900; 86901; 86920; 87635; 93005; 93306; 93970; 94640; 94760; 96360; 96361; 99285

== ENCOUNTER → 2021-09-18 | Outpatient (CLI) | payer MEDICARE, BC ==
--- NOTE | 2021-09-18 16:48 | BD ---
EXAMINATION TYPE: Axial Bone Density DATE OF EXAM: 09/18/2021 CLINICAL HISTORY: 66 years year old Female. ICD-10 CODE: N95.1 Post menopausal symptoms Height: 5 FT 2 IN Weight: 227 FRAX RISK QUESTIONS: Alcohol (3 or more units per day): NO Family History (Parent hip fracture): YES Glucocorticoids (More than 3mos): YES (Ex: prednisone, prednisolone, methylprednisolone, dexamethasone, and hydrocortisone). History of Fracture in Adulthood: YES Secondary Osteoporosis: 1. Type 1 Diabetes: NO 2. Hyperthyroidism: NO 3. Menopause before 45: NO 4. Malnutrition: NO 5. Chronic liver disease: NO Rheumatoid Arthritis: NO Current Tobacco Use: NO RISK FACTORS HISTORY OF: Surgery to Spine/Hip(right/left)/Wrist (right/left): NO Family History of Osteoporosis: UNSURE Active: YES Diet low in dairy products/other sources of calcium: NO Postmenopausal woman: YES Take estrogen and/or progesterone medications: NO Lost more than 2 inches in height since high school: NO Frequent falls: NO Poor Health: GOOD Hyperparathyroidism: NO Adrenal Insufficiency: NO MEDICATIONS: Additional Medications: ONLY VITAMINS Additional History: EXAM MEASUREMENTS: Bone mineral densitometry was performed using the [employer] System. Bone mineral density as measured about the Lumbar spine is: ----- L1-L4(G/cm2): 1.155 T Score Values are as follows: ----- L1: -1.1 ----- L2: -0.1 ----- L3: -0.1 ----- L4: 0.2 ----- L1-L4: -0.2 Bone mineral density has: DECREASED -0.2 % since study of: 2016 Bone mineral density about the R hip (g/cm2): 1.127 Bone mineral density about the L hip (g/cm2): 1.103 T Score values are as follows: -----R Neck: 0.6 -----L Neck: 0.5 -----R Total: 1.7 -----L Total: 1.9 Bone mineral density has: DECREASED -1.0 % since study of: 2016 FRAX%s: The graph provided illustrates a 8.9 % chance for a major osteoporotic fx and a 0.3 % chance for the hips probability for fx in 10 years time. IMPRESSION: Normal (Values between +1 and -1 indicate normal bone mass). Consider repeating this study in 5 year s or sooner if there is some new clinical indication. NOTE: T-SCORE=SD OF THE YOUNG ADULT MEAN.
--- NOTE | 2021-09-19 18:22 | MM ---
Reason for Exam: Screening (asymptomatic). Last mammogram was performed 5 year(s) and 5 month(s) ago. Patient History: Menarche at age 8. First Full-Term at age 18. Postmenopausal. 2010, Bilateral Reduction. Sister had breast cancer, age 56. Risk Values: Radha 5 year model risk: 3.6%. NCI Lifetime model risk: 11.3%. Prior Study Comparison: 05/24/2013 Bilateral Diagnostic Mammogram, [facility]. 03/22/2015 Bilateral Screening Mammogram, [facility]. 03/26/2016 Bilateral Screening Mammogram, [facility]. Tissue Density: There are scattered fibroglandular densities. Findings: Analyzed By CAD. There are scattered benign-appearing calcifications. There is a group of small round calcifications in the upper-outer aspect right breast. These are increasing in number Additional evaluation of these is recommended. There are scattered benign-appearing calcifications. There is a group of small round calcifications in the upper-outer aspect right breast. These are increasing in number Additional evaluation of these is recommended. There is some nodularity within the left breast which appears to be increasing over the interval. Additional evaluation is recommended. Overall Assessment: Incomplete: need additional imaging evaluation, BI-RAD 0 Management: Special View Mammogram of both breasts. If lesion persists on supplemental views, image directed ultrasound is recommended. [facility] will attempt to contact patient to return for supplemental views and ultrasound if indicated. . A clinical breast exam by your physician is recommended on an annual basis and results should be correlated with mammographic findings. Electronically signed and approved by: Perfecto Coelho D.O. Radiologis
== END | disposition home or self-care (01) ==
LOC: RADMAMWWP 11:41
PROVIDERS: ATTEND Obstetrics & Gynecology
DX: Z12.31 Encounter for screening mammogram for malignant neoplasm of breast (principal); M85.88 Other specified disorders of bone density and structure, other site; Z78.0 Asymptomatic menopausal state
CPT/HCPCS: 77063; 77067; 77080

== ENCOUNTER → 2021-09-24 | Outpatient (CLI) | payer MEDICARE, BC ==
--- NOTE | 2021-09-24 15:18 | MM ---
Reason for Exam: Additional evaluation requested from abnormal screening. Clinical finding. Last screening mammogram was performed less than 1 month ago. Patient History: Menarche at age 8. First Full-Term at age 18. Postmenopausal. 2010, Bilateral Reduction. Sister had breast cancer, age 56. Risk Values: Radha 5 year model risk: 3.6%. NCI Lifetime model risk: 11.3%. Prior Study Comparison: 03/22/2015 Bilateral Screening Mammogram, [facility]. 03/26/2016 Bilateral Screening Mammogram, [facility]. 09/18/2021 Bilateral MG 3D screening mammo w/cad, [facility]. Tissue Density: There are scattered fibroglandular densities. Findings: Analyzed By CAD. Mammogram On the right, there is a new area of heterogeneous microcalcifications at the 8 to 9:00 position for which biopsy is recommended. On the left, upper outer quadrant area circumscribed nodularity is larger currently measuring 1.5 cm. Further ultrasound evaluation is recommended. Technique: Method: Targeted. Findings: The upper outer quadrant of the left breast, the axilla of the left breast and the retroareolar of the left breast were scanned. Targeted ultrasound left breast upper outer quadrant 12:00 to 3:00. At the 3:00 position, 5 cm from the nipple, there is a round heterogeneous hypoechoic area measuring 4 x 3 x 3 mm for which a six-month follow-up is recommended. At the 4:00 position, 5 cm from the nipple, there is a similar area measuring 4 x 3 x 3 mm for which a six-month follow-up ultrasound is recommended. At the 2:00 position, 8 cm from the nipple, there is a benign cyst cluster. The dominant cystic component measures 7 mm. No other solid or cystic lesion. Overall Assessment: Suspicious, BI-RAD 4 Assessment: MG 3D work up w/cad MISSY - Bilateral: Suspicious, BI-RAD 4 - Right. US breast workup limited LT - Left: Probably benign, BI-RAD 3. Management: Stereotactic Core Biopsy of the right breast. Diagnostic Mammogram of the left breast in 6 months. 1. RIGHT: Stereotactic core needle biopsy of the right heterogeneous microcalcifications 8 to 9:00 position . 2. LEFT: 6 month follow-up diagnostic left breast mammogram as well as upper outer quadrant ultrasound. Electronically signed and approved by: Carlos Lackey M.D. Radiologist
== END | disposition home or self-care (01) ==
LOC: RADMAMWWP 08:42
PROVIDERS: ATTEND Obstetrics & Gynecology
DX: R92.8 Other abnormal and inconclusive findings on diagnostic imaging of breast (principal); Z78.0 Asymptomatic menopausal state; Z80.3 Family history of malignant neoplasm of breast
CPT/HCPCS: 77066; 76642; G0279; 77062

== ENCOUNTER → 2021-10-03 | Day surgery (SDC) | payer MEDICARE, BC ==
[2021-10-03 08:26] VITALS: RESP 12
[2021-10-03 09:34] VITALS: BP 141/83; PULSE 91; TEMP 98.5
--- NOTE | 2021-10-11 11:53 | MM ---
Risk Values: Radha 5 year model risk: 3.6%. NCI Lifetime model risk: 11.3%. Prior Study Comparison: 03/26/2016 Bilateral Screening Mammogram, [facility]. 09/18/2021 Bilateral MG 3D screening mammo w/cad, [facility]. 09/24/2021 Bilateral MG 3D work up w/cad MISSY, [facility]. Pathology Description: Approach: Lateral to Medial Needle Type: Eviva Cores: 8 Skin Nicks: 1 Gauge: 9 The procedure of stereotactic guided core biopsy was explained to the patient. Benefits, alternatives, and risks were discussed. An informed consent was then obtained. The shortness pathway for biopsy was chosen. Shortness pathway was lateral to medial approach. I performed the localization, then performed the remainder of the procedure. Overlying skin is cleansed with Betadine. A vacuum assisted biopsy gun was used to obtain multiple core samples. The patient tolerated the procedure well without any immediate complication. The patient was kept in the radiology department for short stay after the procedure and then discharged home in stable condition. Targeted calcifications are identified in specimen mammogram. Post biopsy mammogram shows the clip to appear in satisfactory position relative to the targeted area of concern on the preprocedure images. No residual calcifications are present. Low to intermediate index of suspicion noted at time of procedure. Impression: SUCCESSFUL, UNCOMPLICATED STEREOTACTIC GUIDED CORE BIOPSY OF AREA OF CONCERN IN THE right BREAST. PATHOLOGY STATUS: Results pending. Pathology Results: Result: Benign, Fibroadenomatoid hyperplasia. RIGHT BREAST, STEREOTACTIC NEEDLE CORE BIOPSY: Fibroadenomatoid hyperplasia with calcifications and background fibrocystic changes. Overall Assessment: Benign Management: Diagnostic Mammogram of the right breast in 6 months. Electronically signed and approved by: Anders Cherry M.D.
== END ==
LOC: RADMAMWWP 08:01
PROVIDERS: ATTEND Surgery
DX: D24.1 Benign neoplasm of right breast (principal)
CPT/HCPCS: 88305; 19081; A4648; J2001

== ENCOUNTER → 2022-03-21 | Outpatient (CLI) | payer MEDICARE, BC ==
--- NOTE | 2022-03-21 15:10 | MM ---
Reason for Exam: Follow-up at short interval from prior study. Last screening mammogram was performed 7 month(s) ago. Patient History: Menarche at age 8. First Full-Term at age 18. Postmenopausal. Previous Hyperplasia w/o Atypia at age 66. 10/03/2021, Benign MG stereo VAD BX RT on the right side. 2010, Bilateral Reduction. Sister had breast cancer, age 56. Risk Values: Radha 5 year model risk: 4.2%. NCI Lifetime model risk: 12.7%. Prior Study Comparison: 08/30/2004 Screening Mammogram, [facility]. 10/21/2006 Screening Mammogram, [facility]. 12/07/2008 Bilateral Screening Mammogram, [facility]. 12/14/2008 Right Diagnostic Mammogram, [facility] 02/08/2010 Bilateral Diagnostic Mammogram, [facility]. 10/08/2012 Bilateral Diagnostic Mammogram, [facility]. 05/24/2013 Bilateral Diagnostic Mammogram, [facility]. 03/22/2015 Bilateral Screening Mammogram, [facility]. 03/26/2016 Bilateral Screening Mammogram, [facility]. 09/18/2021 Bilateral MG 3D screening mammo w/cad, [facility]. 09/24/2021 Left US breast workup limited LT, [facility]. 09/24/2021 Bilateral MG 3D work up w/cad MISSY, [facility]. Tissue Density: There are scattered fibroglandular densities. Findings: Analyzed By CAD. Microclip right breast from biopsy 6 months ago. Scattered benign vascular, some secretory, and well cystic calcifications are redemonstrated. Grouped popcorn-like calcifications medial left breast are unchanged. Clustered nodularity upper outer quadrant left breast is similar compared to 6 months prior. Further ultrasound reassessment is recommended. Overall Assessment: Incomplete: need additional imaging evaluation, BI-RAD 0 Management: Diagnostic Breast Ultrasound of the left breast. 1-4 o'clock. Results were given to the patient verbally at the time of exam. Electronically signed and approved by: Carlos Lackey M.D. Radiologist
--- NOTE | 2022-03-21 15:41 | USB ---
Reason for Exam: Follow-up at short interval from prior study. Patient History: Menarche at age 8. First Full-Term at age 18. Postmenopausal. Previous Hyperplasia w/o Atypia at age 66. 10/03/2021, Benign MG stereo VAD BX RT on the right side. 2010, Bilateral Reduction. Sister had breast cancer, age 56. Risk Values: Radha 5 year model risk: 4.2%. NCI Lifetime model risk: 12.7%. Technique: Method: Targeted. Prior Study Comparison: 03/26/2016 Bilateral Screening Mammogram, [facility]. 09/18/2021 Bilateral MG 3D screening mammo w/cad, [facility]. 09/24/2021 Bilateral MG 3D work up w/cad M[facility], [facility]. Findings: The lateral section of the breast of the left breast, the axilla of the left breast and the retroareolar of the left breast were scanned. Targeted ultrasound left breast 1:00 to 4:00 position including the subareolar region and axilla. At the 2:00 position, there is a benign 7 mm cyst. At the 3:00 position, 5 cm from the nipple, there is an oval 5 x 4 x 4 mm hypoechoic lesion. Some posterior through transmission is present. Overall unchanged from 09/24/2021. Possible debris-filled cyst. Given the mammographic findings, continued follow-up recommended. At the 4:00 position, 5 cm from the nipple, there is an slightly irregular, possibly cystic 5 x 4 x 3 mm lesion previously measuring 4 x 3 x 3 mm. Again, reassess at follow-up. Overall Assessment: Probably benign, BI-RAD 3 Management: Diagnostic Mammogram of the left breast in 6 months. Diagnostic Breast Ultrasound of the left breast. Ultrasound targeted to the 1 to 4:00 position for the mammographic upper outer quadrant nodularity. Results were given to the patient verbally at the time of exam. Electronically signed and approved by: Carlos Lackey M.D. Radiologist
== END | disposition home or self-care (01) ==
LOC: RADMAMWWP 14:10
PROVIDERS: ATTEND Surgery
DX: R92.8 Other abnormal and inconclusive findings on diagnostic imaging of breast (principal); Z78.0 Asymptomatic menopausal state; Z80.3 Family history of malignant neoplasm of breast
CPT/HCPCS: 77066; 76642; G0279; 77062

== ENCOUNTER → 2022-09-19 | Outpatient (CLI) | payer MEDICARE, BC ==
--- NOTE | 2022-09-19 15:24 | USB ---
Reason for Exam: Follow-up at short interval from prior study. Patient History: Menarche at age 8. First Full-Term at age 18. Postmenopausal. Previous Hyperplasia w/o Atypia at age 66. 10/03/2021, Benign MG stereo VAD BX RT on the right side. 2010, Bilateral Reduction. Sister had breast cancer, age 56. Risk Values: Radha 5 year model risk: 4.2%. NCI Lifetime model risk: 12.7%. Technique: Method: Targeted. Prior Study Comparison: 09/18/2021 Bilateral MG 3D screening mammo w/cad, [facility]. 09/24/2021 Bilateral MG 3D work up w/cad [facility], [facility]. 03/21/2022 Bilateral MG 3D diag mammo w/cad MISSY, [facility]. Findings: The upper outer quadrant of the left breast, the axilla of the left breast and the retroareolar of the left breast were scanned. Imaged: Ultrasound imaging of: Area of concern, retroareolar region and axilla. Redemonstration of multiple cysts within the upper outer quadrant including the largest at 2:00 8 cm from nipple measuring up to 7 mm. Some of the other cysts are not well appreciated on today's exam and may be absent. No suspicious mass. Overall Assessment: Benign, BI-RAD 2 Management: Screening Mammogram of both breasts in 1 year. A clinical breast exam by your physician is recommended on an annual basis and results should be correlated with mammographic findings. This exam should not preclude additional follow-up of suspicious palpable abnormalities. Results were given to the patient verbally at the time of exam. Electronically signed and approved by: Roque Gan DO
--- NOTE | 2022-09-19 15:28 | MM ---
Reason for Exam: Follow-up at short interval from prior study. Last screening mammogram was performed 6 month(s) ago. Patient History: Menarche at age 8. First Full-Term at age 18. Postmenopausal. Previous Hyperplasia w/o Atypia at age 66. 10/03/2021, Benign MG stereo VAD BX RT on the right side. 2010, Bilateral Reduction. Sister had breast cancer, age 56. Risk Values: Radha 5 year model risk: 4.2%. NCI Lifetime model risk: 12.7%. Prior Study Comparison: 09/18/2021 Bilateral MG 3D screening mammo w/cad, [facility]. 09/24/2021 Bilateral MG 3D work up w/cad [facility], [facility]. 03/21/2022 Bilateral MG 3D diag mammo w/cad [facility], [facility]. Tissue Density: Left: The breast tissue is heterogeneously dense. This may lower the sensitivity of mammography. Findings: Analyzed By CAD. Multiple nodular densities within the upper outer quadrant of the left breast at posterior depth centered around 9 cm from the nipple. The ultrasound dictation for findings. Overall Assessment: Incomplete: need additional imaging evaluation, BI-RAD 0 Management: Diagnostic Breast Ultrasound of the left breast. Overall stable appearance of multiple nodular densities within the upper outer quadrant. For completeness ultrasound will be performed. Results were given to the patient verbally at the time of exam. Patient should continue monthly self-breast exams. A clinical breast exam by your physician is recommended on an annual basis. This exam should not preclude additional follow-up of suspicious palpable abnormalities. Note on Radha scores and lifetime risk: 1. A Radha score greater than 3% is considered moderate risk. If this is the case, consider specialist referral to assess eligibility for a risk reducing agent. 2. If overall lifetime risk for the development of breast cancer is 20% or higher, the patient may qualify for future screening with alternating mammogram and breast MRI. Electronically signed and approved by: Roque Gan DO
== END | disposition home or self-care (01) ==
LOC: RADMAMWWP 14:04
PROVIDERS: ATTEND Surgery
DX: R92.8 Other abnormal and inconclusive findings on diagnostic imaging of breast (principal); Z78.0 Asymptomatic menopausal state; Z80.3 Family history of malignant neoplasm of breast
CPT/HCPCS: 77065; 76642; G0279; 77061

== ENCOUNTER → 2023-09-22 | Outpatient (CLI) | payer MEDICARE, BC ==
--- NOTE | 2023-09-22 19:08 | MM ---
Reason for Exam: Screening (asymptomatic). Last mammogram was performed 1 year(s) and 6 month(s) ago. Patient History: Menarche at age 8. First Full-Term at age 18. Postmenopausal. Previous Hyperplasia w/o Atypia at age 66. 10/03/2021, Benign MG stereo VAD BX RT on the right side. 2010, Bilateral Reduction. Sister had breast cancer, age 56. Risk Values: Radha 5 year model risk: 4.3%. NCI Lifetime model risk: 12.1%. Prior Study Comparison: 09/24/2021 Bilateral MG 3D work up w/cad [facility], [facility]. 03/21/2022 Bilateral MG 3D diag mammo w/cad [facility], [facility]. 09/19/2022 Left MG 3D diag mammo w/cad LT, [facility]. Tissue Density: There are scattered areas of fibroglandular density. Findings: Analyzed By CAD. Chronic bilateral nodularity, left greater than right. Scattered coarse and benign round and some secretory calcifications are unchanged. There is no suspicious group of microcalcifications or new suspicious mass in either breast. Overall Assessment: Benign, BI-RAD 2 Management: Screening Mammogram of both breasts in 1 year. See note below in regards to patient's increased 5 year Radha score. Patient should continue monthly self-breast exams. A clinical breast exam by your physician is recommended on an annual basis. This exam should not preclude additional follow-up of suspicious palpable abnormalities. Note on Radha scores and lifetime risk: 1. A Radha score greater than 3% is considered moderate risk. If this is the case, consider specialist referral to assess eligibility for a risk reducing agent. 2. If overall lifetime risk for the development of breast cancer is 20% or higher, the patient may qualify for future screening with alternating mammogram and breast MRI. Electronically signed and approved by: Carlos Lackey M.D. Radiologist
== END | disposition home or self-care (01) ==
LOC: RADMAMWWP 10:11
PROVIDERS: ATTEND Family Medicine
DX: Z12.31 Encounter for screening mammogram for malignant neoplasm of breast (principal); Z80.3 Family history of malignant neoplasm of breast; Z78.0 Asymptomatic menopausal state
CPT/HCPCS: 77063; 77067